=== PATIENT | female | born 1935 | race Caucasian/White ===

== ENCOUNTER 2017-01-01 16:14 | Inpatient (IN) | payer MEDICARE, BC ==
[2017-01-01 17:04] LABS: Hematocrit 38.5 % (36.0-47.0); Mean Platelet Volume 7.2 fL (7.4-10.4); Red Blood Cell (RBC) Count 3.91 mill/uL (4.20-5.40); White Blood Cell (WBC) Count 22.3 thou/uL (4.8-10.8)
--- NOTE | 2017-01-01 17:13 | RAD ---
RIGHT HIP TWO VIEWS: 01/01/17 HISTORY: 81-year-old female with right hip pain following an injury. Marked bone demineralization. Right hip joint arthrosis. No evidence for an acute fracture. 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 If patien t cannot ambulate at preambulation levels, consider followup right hip MRI for further assessment. POS: [facility]
[2017-01-01 17:20] LABS: Band 3 % (5-11); Neutrophil 74 % (42-75); Ovalocytes SLIGHT = 2-5 cells (100X) (0-1/hpf); Polychromasia SLIGHT = 2-3 cells (100X) (0-2/hpf)
[2017-01-01 17:22] LABS: Lactic Acid - Sepsis 2.1 mmol/L (0.5-2.2)
[2017-01-01 17:26] LABS: ALT (SGPT) 19 U/L (8-55); AST (SGOT) 22 U/L (5-34); Alkaline Phosphatase 170 U/L (40-150); Anion Gap 15 mmol/L (10-20); BUN (Urea Nitrogen) 14 mg/dL (9.8-20.1); Bilirubin, Total 0.5 mg/dL (0.2-1.2); CK (CPK) 212 U/L (29-168); Calc. Creatinine Clearance 0 mL/min (70-130); Calcium 9.3 mg/dL (7.8-10.44); Carbon Dioxide 25 mmol/L (23-31); Chloride 103 mmol/L (98-107); Estimated GFR-MDRD 56; Globulin 3.5 g/dL (2.4-3.5); Lipase Less than 4 U/L (8-78); Protein, Total 7.1 g/dL (6.0-8.3)
[2017-01-01 17:29] LABS: Troponin I Less than 0.010 ng/mL (< 0.028)
[2017-01-01] MEDS ORDERED: cefTRIAXone\\ROCEPHIN 2 GM VIAL ONE (17:42)
--- NOTE | 2017-01-01 18:17 | CT ---
BRAIN CT WITHOUT IV CONTRAST 01/01/17 HISTORY: 81-year-old female with head injury following trauma. COMPARISON: 09/29/16. There is some motion artifact on multiple levels. No focal mass or midline shift. No intra or extra- axial hemorrhage. Sinuses and mastoids are clear. Stable from prior study. IMPRESSION: Atrophy and chronic white matter ischemic changes, stable. No mass or bleed. POS: [facility]
[2017-01-01 18:31] LABS: Bilirubin Negative (Negative); Blood, Urine Trace (Negative); Glucose, Urine (Dipstick) Negative (Negative); Ketone, Urine Negative (Negative); Nitrite Positive (Negative); Protein, Urine (Dipstick) 30 mg/dL (Neg-Trace)
[2017-01-01 18:37] LABS: Bacteria/HPF 4+ HPF (None Seen); Hyaline Casts/LPF 0-3 HYALINE CAST LPF (0-3 Hyaline)
--- NOTE | 2017-01-01 18:50 | RAD ---
AP PELVIS ONE VIEW: 01/01/17 HISTORY: 81-year-old female with pain following a fall from standing. Diffuse bone demineralization is noted. Bilateral hip joint arthrosis. Stable appearance from 09/29/16 . IMPRESSION: Bone demineralization with bilateral hip joint arthrosis without acute fracture, stable from prior s tudy. POS: [facility]
[2017-01-01 19:36] LABS: Troponin I Less than 0.010 ng/mL (< 0.028)
--- NOTE | 2017-01-01 21:02 | CT ---
CT OF PELVIS: 01/01/17 INDICATION: Posttraumatic pain. FINDINGS: There is scattered osteoarthritis. Each hip joint maintains appropriate alignment without displaced fracture. No hip dislocation. There is degenerative hypertrophy at the symphysis pubis. The skeletal ly structures are demineralized. No displaced fracture of the sacrum. No intrapelvic free fluid or s ignificant hematoma. Incidental note of distention of the rectosigmoid colon by fecal material with colonic diverticulosis. There is vascular disease. There is grade I spondylolisthesis at L4-5, incom pletely assessed. Prominent disc degenerative disease at the lumbosacral junction present. IMPRESSION: No acute fracture of the pelvis. Incompletely assessed listhesis of L4-5. Correlate clinically. POS: [facility]
[2017-01-01] MEDS ORDERED: Ondansetron HCl/PF 4 MG/2 ML Vial IVP PRN (22:34)
[2017-01-01] MEDS ORDERED: Ondansetron ODT 4 MG TAB SL PRN (22:34)
[2017-01-02] MEDS ORDERED: HYDROcodone/Acetaminophen 5/325 mg Tablet PO PRN (02:22)
[2017-01-02] MEDS ORDERED: Ondansetron HCl/PF 4 MG/2 ML Vial IVP PRN (02:22)
[2017-01-02] MEDS ORDERED: Ondansetron ODT 4 MG TAB PO PRN (02:22)
[2017-01-02] MEDS ORDERED: CODEINE PO PRN (02:22)
[2017-01-02] MEDS ORDERED: Mag-Al 1200 mg/1200 mg/30 ML UDCUP PO PRN ×2 (02:22)
[2017-01-02] MEDS ORDERED: Acetaminophen 325 MG TAB PO PRN (02:22)
[2017-01-02] MEDS ORDERED: FIORINAL PO PRN (02:22)
[2017-01-02] MEDS: Sodium Chloride 0.9% 1,000 ML IV SCH ×3 (02:55→20:45)
[2017-01-02 04:32] LABS: #Basophils 0.1 thou/uL (0.0-0.2); #Lymphocytes 2.4 thou/uL (1.20-3.40); #Monocytes 0.9 thou/uL (0.11-0.59); #Neutrophils 8.7 thou/uL (1.40-6.50); %Basophils 0.7 % (0.0-1.0); %Eosinophils 7.8 % (0.0-10.0); %Lymphocytes 18.3 % (21.0-51.0); %Monocytes 6.8 % (0.0-10.0); Mean Platelet Volume 7.9 fL (7.4-10.4); Red Blood Cell (RBC) Count 3.53 mill/uL (4.20-5.40)
[2017-01-02] MEDS: Levothyroxine Sodium 75 MCG TAB PO SCH (05:03)
[2017-01-02 05:12] LABS: Anion Gap 12 mmol/L (10-20); BUN (Urea Nitrogen) 11 mg/dL (9.8-20.1); Calc. Creatinine Clearance 51 mL/min (70-130); Carbon Dioxide 26 mmol/L (23-31); Chloride 104 mmol/L (98-107); Estimated GFR-MDRD 64
--- NOTE | 2017-01-02 05:24 | HP ---
PRIMARY CARE PHYSICIAN: Dr. Home Johnson CHIEF COMPLAINT: \\\\" I fell at home\\\\". HISTORY OF PRESENT ILLNESS: Ms. Dutta is a pleasant 81-year-old female that has a history of hypert ension, gastroesophageal reflux disease, severe aortic stenosis, status post TAVR procedure. She wa s in her usual state of health until yesterday. She says that she fell at home. She says she was n ot doing anything special other than just walking across her room. She says she was in the front pa rt of her house near her front door when she fell and she was unable to get up. She denies feeling dizzy prior to the event. There was no chest pain or shortness of breath. She was on the floor for several hours before family was able to come and get her and bring her to the emergency room. Ther e it was found that she had a urinary tract infection with a significant leukocytosis with a white c ount of 22,000. A CT scan of the brain was negative other than some atrophy. It is suspected that the fall was secondary to the urinary tract infection. Currently, the patient has no specific compl aints. She says that she was scheduled to have an echocardiogram at the end of this week with Dr. Grace rios, her credit control clerk. REVIEW OF SYSTEMS: CONSTITUTIONAL: There have been no fevers, no chills, no night sweats, no weight loss. HEENT: No headaches, no dizziness, no visual changes, no sore throat, rhinorrhea, neck pain, no garrett nopathy. PULMONARY: No hemoptysis, no cough, no wheezing. CARDIOVASCULAR: She denies any chest pain or shortness of breath, no PND, no orthopnea. GASTROINTESTINAL: No abdominal pain, no nausea, no vomiting, no change in bowels. GENITOURINARY: No urinary frequency, hematuria, no hesitancy. NEUROLOGIC: No focal weakness, numbness, no seizures. PSYCHIATRIC: No symptoms of anxiety or depression. SKIN AND INTEGUMENT: No skin changes. No rash. PAST MEDICAL HISTORY: Significant for gastroesophageal reflux disease, hypertension, coronary arter y disease, chronic pain, migraines, hypothyroidism, critical aortic stenosis, status post TAVR. PAST SURGICAL HISTORY: She has had a transcutaneous aortic valve replacement, appendectomy, breast reduction, back and neck surgery and a cholecystectomy. ALLERGIES: No known drug allergies. SOCIAL HISTORY: She is a nonsmoker, nondrinker. Her daughter currently lives with her. CODE STATUS: Full code. FAMILY HISTORY: Significant for cancer in her mother. MEDICATIONS: BuSpar 7.5 mg twice a day, triazolam 0.5 mg at bedtime, Lyrica 75 mg twice a day, Klor -Con 20 mEq daily, oxybutynin 5 mg twice a daily, lisinopril 10 mg daily, levothyroxine 75 mcg daily , [place] 5/325 q.12. as needed, Lasix 20 mg daily, fluoxetine 20 mg daily, Fiorinal q.4 hours as nee ded, carvedilol 12.5 mg daily, atorvastatin 10 mg at bedtime, aspirin 81 mg a day. PHYSICAL EXAMINATION: GENERAL: She is alert and oriented. She appears to be in no acute distress. VITAL SIGNS: Her vital signs were stable with a blood pressure 123/59, heart rate 75, respiratory r ate of 18, temperature is 98.5. HEENT: Her pupils are equal, round, and reactive. Extraocular muscles are intact. Her sclerae are anicteric. Throat no erythema, no exudates. NECK: No adenopathy, no bruits. LUNGS: Clear. No wheezing, no rales. CARDIOVASCULAR: She has a normal S1 and S2. There is no S3 or S4. No murmurs, clicks or rubs. ABDOMEN: Soft, it is nontender, nondistended. Positive for bowel sounds. No rebound or guarding. EXTREMITIES: There is just trace edema. SIGNIFICANT LABORATORY: White blood cell count 22.3, hemoglobin 11.9, hematocrit 38.5, platelet cou nt is 319. Sodium 139, potassium 4.0, chloride is 103, CO2 is 25, BUN of 14, creatinine 0.95, gluco se is 109. Urinalysis is nitrite positive, 4+ bacteria and too numerous to count WBCs. ASSESSMENT AND PLAN: This is a pleasant 81-year-old female who suffered a fall at home and she had generalized weakness and unable to get up. She was found to have a urinary tract infection which is likely the culprit of her weakness and fall. She will be admitted to the medical floor, started on empiric antibiotics for urinary tract infection. Urine cultures have been done as well as blood cu ltures from the ER. We will consult Physical Therapy and Occupational Therapy, continue her other h ome medications and await culture results. Since she has an appointment already scheduled to evalua te her valves, we will hold off on checking an echo unless her blood cultures become positive or if she does not significantly improve with the treatment of the urinary tract infection.
[2017-01-02] MEDS ORDERED: FLU VACC TS2017-18 (>65YR) 0.5 ML SYRINGE IM ONE ×2 (09:00→11:00)
[2017-01-02] MEDS: busPIRone HCl 5 MG TAB PO SCH ×2 (09:14→20:46)
[2017-01-02] MEDS: Carvedilol 6.25 MG TAB PO SCH (09:15)
[2017-01-02] MEDS: FLUoxetine HCl 20 MG CAP PO SCH (09:19)
[2017-01-02] MEDS: Pregabalin 75 MG CAP PO SCH ×2 (09:20→20:46)
[2017-01-02] MEDS: Enoxaparin Sodium 30 MG/0.3 ML SYRINGE SC SCH (09:24)
[2017-01-02] MEDS: Oxybutynin Chloride 5 MG TAB PO SCH ×2 (09:27→22:03)
[2017-01-02] MEDS ORDERED: Potassium Chloride 10 MEQ TAB PO SCH (13:00)
[2017-01-02] MEDS: HYDROcodone/Acetaminophen 5/325 mg Tablet PO PRN (13:41)
--- NOTE | 2017-01-02 16:07 | PDOC.PN ---
- Subjective Encounter Start Date: 01/02/17 Encounter Start Time: 09:00 - Objective Resuscitation Status: Resuscitation Status FULL:Full Resuscitation Vital Signs & Weight: Vital Signs (12 hours) Temp Pulse Resp BP BP Pulse Ox 01/02/17 12:05 98.6 F 59 L 20 110/55 L 92 L 01/02/17 09:15 118/48 L 01/02/17 08:00 98.4 F 60 18 118/58 L 93 L 01/02/17 04:00 98.6 F 75 18 143/59 H 100 Weight Weight 141 lb 5 oz Result Diagrams: 01/02/17 03:10 01/02/17 03:10 Phys Exam - Physical Examination Constitutional: NAD HEENT: moist MMs, sclera anicteric Neck: no nodes Respiratory: no wheezing, no rales, no rhonchi Cardiovascular: RRR, no significant murmur, no rub, gallop Gastrointestinal: soft, non-tender, positive bowel sounds Musculoskeletal: no edema, pulses present, edema present Neurological: non-focal, normal sensation, moves all 4 limbs Psychiatric: A&O x 3 Dx/Plan - Plan PT/OT, social media sr strategy manager we will continue with current care. monitor WBC count. cont present abx. -: PT eval and treat * .
--- NOTE | 2017-01-02 16:29 | MRI ---
EXAM: MRI OF LUMBAR SPINE WITHOUT CONTRAST 01/02/17 HISTORY: Recurrent fall. Right hip and back pain. COMPARISON: None. TECHNIQUE: Lumbar spine MRI is performed without intravenous gadolinium administration. Multisequential, multip lanar imaging is performed. FINDINGS: Appropriate T1 marrow signal intensity of the lumbar vertebrae. Lumbar spine vertebral body height i s maintained. No fracture. No significant STIR hyperintensity to suggest vertebral body edema or li gamentous injury. There is type I Modic change at the L5-S1 level. 1 mm of anterolisthesis of L3 upon L4, approximately 3 mm of anterolisthesis of L4 upon L5, 4.7 mm o f anterolisthesis of L5 upon S1. Symmetric signal intensity of the psoas muscles. Appropriate signal intensity of the visualized umer d organs. The conus medullaris terminates at the mid L1 level. T12-L1: Adequate disc hydration. No significant central canal stenosis. Foramina are patent. L1-L2: Adequate disc hydration. No significant central canal stenosis. Mild right foraminal narrowin g. Left neural foramen is patent. L2-L3: Minimal disc desiccation without significant loss of disc space height. No significant external relations manager ior disc abnormality. Minimal posterior ligament hypertrophy. No significant central canal stenosis. Neural foramina are patent bilaterally. L3-L4: Minimal disc desiccation. No significant loss of disc space height. Broad based disc bulge, l igament, flavum thickening and facet hypertrophy result in mild to moderate central canal stenosis. There may be minimal superior disc extrusion. There is fluid signal intensity of both intra-articula r facet joints. Mild bilateral foraminal narrowing. L4-L5: Moderate loss of disc space height. Broad based disc bulge, ligamentum flavum thickening and facet hypertrophy result in moderate to severe central canal stenosis. There is a small amount of fl uid in both intra-articular facet joints. Mild to moderate bilateral foraminal narrowing. L5-S1: Moderate loss of disc space height. Generalized disc bulge and posterior element hypertrophy result in minimal central canal stenosis. Minimal narrowing of both subarticular zones. No significa nt mass effect upon either traversing S1 nerve root. Moderate to severe right and left foraminal srinivasan rowing. IMPRESSION: Degenerative change in the lumbar spine as above. POS: [facility]
[2017-01-02] MEDS: cefTRIAXone\\ROCEPHIN 1 GM in Sodium Chloride 0.9% 100 ML IVPB SCH (20:45)
[2017-01-02] MEDS: Atorvastatin Calcium 10 MG TAB PO SCH (20:47)
[2017-01-02] MEDS ORDERED: TRIAZOLAM 0.5 MG PO SCH (21:00)
[2017-01-02] MEDS: Triazolam [Halcion] 0.25 MG PO SCH (22:03)
[2017-01-03 05:56] LABS: Anion Gap 10 mmol/L (10-20); BUN (Urea Nitrogen) 9 mg/dL (9.8-20.1); Calc. Creatinine Clearance 53 mL/min (70-130); Calcium 8.7 mg/dL (7.8-10.44); Carbon Dioxide 25 mmol/L (23-31); Chloride 108 mmol/L (98-107); Estimated GFR-MDRD 68
[2017-01-03 06:09] LABS: #Basophils 0.1 thou/uL (0.0-0.2); #Eosinphils 1.2 thou/uL (0.0-0.7); #Lymphocytes 2.3 thou/uL (1.20-3.40); #Neutrophils 4.8 thou/uL (1.40-6.50); %Basophils 0.6 % (0.0-1.0); %Eosinophils 12.7 % (0.0-10.0); %Lymphocytes 24.3 % (21.0-51.0); %Monocytes 11.1 % (0.0-10.0); Hematocrit 31.7 % (36.0-47.0); Mean Platelet Volume 7.1 fL (7.4-10.4); Red Blood Cell (RBC) Count 3.29 mill/uL (4.20-5.40); White Blood Cell (WBC) Count 9.3 thou/uL (4.8-10.8)
[2017-01-03] MEDS: Levothyroxine Sodium 75 MCG TAB PO SCH (06:21)
[2017-01-03] MEDS ORDERED: Eucerin (Mineral Oil/Petrolatum,White) 30 gm Jar TOP PRN (08:07)
[2017-01-03] MEDS ORDERED: Sodium Chloride 0.65% Nasal 44 ML BOT EA NARE PRN (08:07)
[2017-01-03] MEDS ORDERED: Bisacodyl 10 MG SUPP PR PRN (08:07)
[2017-01-03] MEDS ORDERED: Diabetic Tussin 200 MG/10 ML UDCUP PO PRN (08:07)
[2017-01-03] MEDS ORDERED: Loperamide HCl 2 MG CAP PO PRN (08:07)
[2017-01-03] MEDS ORDERED: Senokot 8.6 MG TAB PO PRN (08:07)
[2017-01-03] MEDS ORDERED: Loratadine 10 MG TAB PO PRN (08:07)
[2017-01-03] MEDS ORDERED: Milk Of Magnesia 30 ML UDCUP PO PRN (08:07)
[2017-01-03] MEDS ORDERED: Artificial Tears 18 DROP/0.9 ML EA EYE PRN (08:07)
[2017-01-03] MEDS: Sodium Chloride 0.9% 1,000 ML IV SCH (08:21)
[2017-01-03] MEDS: Carvedilol 6.25 MG TAB PO SCH (08:24)
[2017-01-03] MEDS: FLUoxetine HCl 20 MG CAP PO SCH (08:24)
[2017-01-03] MEDS: Pregabalin 75 MG CAP PO SCH ×2 (08:24→21:20)
[2017-01-03] MEDS: busPIRone HCl 5 MG TAB PO SCH ×2 (08:24→21:21)
[2017-01-03] MEDS: Oxybutynin Chloride 5 MG TAB PO SCH ×2 (08:24→21:16)
[2017-01-03] MEDS: Enoxaparin Sodium 30 MG/0.3 ML SYRINGE SC SCH (08:25)
[2017-01-03] MEDS: HYDROcodone/Acetaminophen 5/325 mg Tablet PO PRN (12:06)
--- NOTE | 2017-01-03 13:38 | PDOC.PN ---
- Subjective Encounter Start Date: 01/03/17 Encounter Start Time: 10:00 -: old records requested/rev Patient seen and examined. No new complaints. No overnight events, no fever, feels better - Objective Resuscitation Status: Resuscitation Status FULL:Full Resuscitation MAR Reviewed: Yes Vital Signs & Weight: Vital Signs (12 hours) Temp Pulse Resp BP Pulse Ox 01/03/17 08:00 98.3 F 72 16 01/03/17 07:54 98.3 F 72 16 133/66 93 L Weight Weight 141 lb 5 oz I&O: 01/02/17 01/03/17 01/04/17 06:59 06:59 06:59 Intake Total 1700 Balance 1700 Result Diagrams: 01/03/17 05:56 01/03/17 05:11 Phys Exam - Physical Examination Constitutional: NAD HEENT: PERRLA, moist MMs, sclera anicteric Neck: no JVD, supple Respiratory: no wheezing, no rales, no rhonchi Cardiovascular: RRR, no significant murmur, no rub Gastrointestinal: soft, non-tender, no distention, positive bowel sounds Musculoskeletal: no edema, pulses present Neurological: non-focal, normal sensation, moves all 4 limbs Psychiatric: normal affect, A&O x 3 Skin: no rash, normal turgor Dx/Plan (1) Hypokalemia Code(s): E87.6 - HYPOKALEMIA Status: Acute (2) UTI (urinary tract infection) Status: Acute (3) Anxiety and depression Code(s): F41.9 - ANXIETY DISORDER, UNSPECIFIED; F32.9 - MAJOR DEPRESSIVE DISORDER, SINGLE EPISODE, UNSPECIFIED Status: Chronic (4) Dyslipidemia Code(s): E78.5 - HYPERLIPIDEMIA, UNSPECIFIED Status: Chronic (5) GERD (gastroesophageal reflux disease) Code(s): K21.9 - GASTRO-ESOPHAGEAL REFLUX DISEASE WITHOUT ESOPHAGITIS Status: Chronic (6) Generalized weakness Code(s): R53.1 - WEAKNESS Status: Chronic (7) H/O prosthetic aortic valve replacement Code(s): Z95.2 - PRESENCE OF PROSTHETIC HEART VALVE Status: Chronic (8) Hypertension Code(s): I10 - ESSENTIAL (PRIMARY) HYPERTENSION Status: Chronic Comment: d (9) Hypothyroidism Code(s): E03.9 - HYPOTHYROIDISM, UNSPECIFIED Status: Chronic (10) Macrocytic anemia Code(s): D53.9 - NUTRITIONAL ANEMIA, UNSPECIFIED Status: Chronic (11) Recurrent falls Code(s): R29.6 - REPEATED FALLS Status: Chronic - Plan cont current plan of care, continue antibiotics, PT/OT * medication reviewed as below * symptomatic treatment * DC Cipro as resistance * continue PT * selected home medication * consider discharge over weekend. Review of Systems - Review of Systems Constitutional: Weakness. negative: Fever, Chills, Sweats, Malaise, Other ENT: negative: Ear Pain, Ear Discharge, Nose Pain, Nose Discharge, Nose Congestion, Mouth Pain, Mouth Swelling, Throat Pain, Throat Swelling, Other Respiratory: negative: Cough, Dry, Shortness of Breath, Hemoptysis, SOB with Excertion, Pleuritic Pain, Sputum, Wheezing Cardiovascular: negative: Chest Pain, Palpitations, Orthopnea, Paroxysmal Noc. Dyspnea, Edema, Light Headedness, Other Gastrointestinal: negative: Nausea, Vomiting, Abdominal Pain, Diarrhea, Constipation, Melena, Hematochezia, Other Genitourinary: negative: Dysuria, Frequency, Incontinence, Hematuria, Retention , Other Musculoskeletal: negative: Neck Pain, Shoulder Pain, Arm Pain, Back Pain, Hand Pain, Leg Pain, Foot Pain, Other - Medications/Allergies Allergies/Adverse Reactions: Allergies Allergy/AdvReac Type Severity Reaction Status Date / Time No Known Drug Allergies Allergy Verified 10/12/13 20:29 Medications: Current Medications Acetaminophen (Tylenol) 650 mg PO Q4H PRN PRN Reason: Headache/Fever or Pain Hydrocodone Bitart/Acetaminophen ([place] 5/325) 1 tab PO Q6H PRN PRN Reason: Mild-Moderate Pain (1-5) Last Admin: 01/03/17 12:06 Dose: 1 tab Al Hydroxide/Mg Hydroxide (Maalox) 30 ml PO Q6H PRN PRN Reason: Heartburn or Indigestion Artificial Tears (Tears Naturale) 0 drop EA EYE PRN PRN PRN Reason: Dry Eyes Aspirin (Aspirin Chewable) 81 mg PO DAILY [facility] Last Admin: 01/03/17 08:25 Dose: 81 mg Atorvastatin Calcium (Lipitor) 10 mg PO HS [facility] Last Admin: 01/02/17 20:47 Dose: 10 mg Bisacodyl (Dulcolax) 10 mg TN DAILYPRN PRN PRN Reason: Constipation Buspirone HCl (Buspar) 7.5 mg PO BID [facility] Last Admin: 01/03/17 08:24 Dose: 7.5 mg Butalbital/Aspirin/Caffeine/Codeine (Fiorinal W/ Codeine) 1 cap PO Q4H PRN PRN Reason: Headache Carvedilol (Coreg) 12.5 mg PO DAILY [facility] Last Admin: 01/03/17 08:24 Dose: 12.5 mg Enoxaparin Sodium (Lovenox) 30 mg SC 0900 [facility] Last Admin: 01/03/17 08:25 Dose: 30 mg Fluoxetine HCl (Prozac) 20 mg PO DAILY [facility] Last Admin: 01/03/17 08:24 Dose: 20 mg Guaifenesin (Robitussin Sf) 200 mg PO Q4H PRN PRN Reason: Cough Hydralazine HCl (Apresoline) 10 mg SLOW IVP Q4H PRN PRN Reason: Systolic BP > 180 Ciprofloxacin/Dextrose 400 mg/ (Device) 200 mls @ 200 mls/hr IVPB Q12HR [facility] Last Admin: 01/03/17 08:22 Dose: 200 mls Sodium Chloride (Normal Saline 0.9%) 1,000 mls @ 60 mls/hr IV .[id number] [facility] Last Admin: 01/03/17 08:21 Dose: 1,000 mls Ceftriaxone Sodium 1 gm/ (Sodium Chloride) 100 mls @ 200 mls/hr IVPB Q24HR [facility] Last Admin: 01/02/17 20:45 Dose: 100 mls Levothyroxine Sodium (Synthroid) 75 mcg PO 0600 [facility] Last Admin: 01/03/17 06:21 Dose: 75 mcg Loperamide HCl (Imodium) 2 mg PO PRN PRN PRN Reason: Diarrhea/Loose Stools Loratadine (Claritin) 10 mg PO DAILYPRN PRN PRN Reason: Sinus Symptoms Magnesium Hydroxide (Milk Of Magnesium) 30 ml PO DAILYPRN PRN PRN Reason: Constipation Mineral Oil/White Petrolatum (Eucerin Cream) 0 gm TOP BIDPRN PRN PRN Reason: Dry Skin Ondansetron HCl (Zofran Odt) 4 mg PO Q6H PRN PRN Reason: Nausea/Vomiting Ondansetron HCl (Zofran) 4 mg IVP Q6H PRN PRN Reason: Nausea/Vomiting Oxybutynin Chloride (Ditropan) 5 mg PO BID [facility] Last Admin: 01/03/17 08:24 Dose: 5 mg Triazolam [Halcion] (0.25 Mg) 0 each PO HS [facility] Last Admin: 01/02/17 22:03 Dose: 1 each Pregabalin (Lyrica) 75 mg PO BID [facility] Last Admin: 01/03/17 08:24 Dose: 75 mg Senna (Senokot) 2 tab PO HSPRN PRN PRN Reason: Constipation Sodium Chloride (Flush - Normal Saline) 10 ml IVF PRN PRN PRN Reason: Saline Flush Sodium Chloride ([place] Nasal [place] 0.65%) 0 ml EA NARE QIDPRN PRN PRN Reason: Nasal Congestion
[2017-01-03] MEDS: cefTRIAXone\\ROCEPHIN 1 GM in Sodium Chloride 0.9% 100 ML IVPB SCH (21:16)
[2017-01-03] MEDS: Atorvastatin Calcium 10 MG TAB PO SCH (21:22)
[2017-01-03] MEDS: Triazolam [Halcion] 0.25 MG PO SCH (21:22)
[2017-01-04] MEDS: Levothyroxine Sodium 75 MCG TAB PO SCH (05:30)
[2017-01-04] MEDS: Sodium Chloride 0.9% 1,000 ML IV SCH (05:31)
[2017-01-04] MEDS: HYDROcodone/Acetaminophen 5/325 mg Tablet PO PRN (08:40)
[2017-01-04] MEDS: Carvedilol 6.25 MG TAB PO SCH (08:41)
[2017-01-04] MEDS: Oxybutynin Chloride 5 MG TAB PO SCH ×2 (08:41→20:40)
[2017-01-04] MEDS: Pregabalin 75 MG CAP PO SCH ×2 (08:41→20:43)
[2017-01-04] MEDS: Enoxaparin Sodium 30 MG/0.3 ML SYRINGE SC SCH (08:42)
[2017-01-04] MEDS: busPIRone HCl 5 MG TAB PO SCH ×2 (08:42→20:40)
[2017-01-04] MEDS: FLUoxetine HCl 20 MG CAP PO SCH (08:42)
[2017-01-04] MEDS ORDERED: HYDROcodone/Acetaminophen 5/325 mg Tablet PO SCH (12:45)
--- NOTE | 2017-01-04 14:08 | PDOC.PN ---
- Subjective Encounter Start Date: 01/04/17 Encounter Start Time: 13:00 Subjective: feels better - Objective Resuscitation Status: Resuscitation Status FULL:Full Resuscitation MAR Reviewed: Yes Vital Signs & Weight: Vital Signs (12 hours) Temp Pulse Resp BP BP Pulse Ox 01/04/17 08:41 146/71 H 01/04/17 08:00 98.5 F 70 16 01/04/17 07:06 98.5 F 70 16 146/71 H 93 L Weight Weight 141 lb 5 oz I&O: 01/03/17 01/04/17 01/05/17 06:59 06:59 06:59 Intake Total 1700 1540 Balance 1700 1540 Result Diagrams: 01/03/17 05:56 01/03/17 05:11 Phys Exam - Physical Examination HEENT: PERRLA, moist MMs Neck: no JVD, supple Respiratory: no wheezing, no rales Cardiovascular: RRR, no significant murmur Gastrointestinal: soft, non-tender, positive bowel sounds Musculoskeletal: no edema, pulses present Neurological: non-focal, moves all 4 limbs Dx/Plan (1) Sepsis Code(s): A41.9 - SEPSIS, UNSPECIFIED ORGANISM Status: Acute Qualifiers: Sepsis type: Escherichia coli Qualified Code(s): A41.51 - Sepsis due to Escherichia coli [E. coli] (2) UTI (urinary tract infection) Status: Acute Qualifiers: Urinary tract infection type: acute cystitis Hematuria presence: without hematuria Qualified Code(s): N30.00 - Acute cystitis without hematuria (3) Dyslipidemia Code(s): E78.5 - HYPERLIPIDEMIA, UNSPECIFIED Status: Chronic (4) GERD (gastroesophageal reflux disease) Code(s): K21.9 - GASTRO-ESOPHAGEAL REFLUX DISEASE WITHOUT ESOPHAGITIS Status: Chronic Qualifiers: Esophagitis presence: esophagitis presence not specified Qualified Code(s) : K21.9 - Gastro-esophageal reflux disease without esophagitis (5) H/O prosthetic aortic valve replacement Code(s): Z95.2 - PRESENCE OF PROSTHETIC HEART VALVE Status: Chronic (6) Hypertension Code(s): I10 - ESSENTIAL (PRIMARY) HYPERTENSION Status: Chronic Qualifiers: Hypertension type: essential hypertension Qualified Code(s): I10 - Essential (primary) hypertension Comment: d (7) Hypothyroidism Code(s): E03.9 - HYPOTHYROIDISM, UNSPECIFIED Status: Chronic Qualifiers: Hypothyroidism type: unspecified Qualified Code(s): E03.9 - Hypothyroidism , unspecified (8) Recurrent falls Code(s): R29.6 - REPEATED FALLS Status: Chronic - Plan is on ceftriaxone -: macrobid for home use -: dc narco, motrin bid with ultram prn -: take halcion HS for insomnia -: PCP to further taper and dc psychotropic and sedatives * . Review of Systems - Medications/Allergies Allergies/Adverse Reactions: Allergies Allergy/AdvReac Type Severity Reaction Status Date / Time No Known Drug Allergies Allergy Verified 10/12/13 20:29 Medications: Current Medications Acetaminophen (Tylenol) 650 mg PO Q4H PRN PRN Reason: Headache/Fever or Pain Hydrocodone Bitart/Acetaminophen ([place] 5/325) 1 tab PO Q6H PRN PRN Reason: Mild-Moderate Pain (1-5) Last Admin: 01/04/17 08:40 Dose: 1 tab Hydrocodone Bitart/Acetaminophen ([place] 5/325) 1 tab PO NOW [facility] Stop: 01/04/17 14:45 Last Admin: 01/04/17 12:41 Dose: 1 tab Al Hydroxide/Mg Hydroxide (Maalox) 30 ml PO Q6H PRN PRN Reason: Heartburn or Indigestion Artificial Tears (Tears Naturale) 0 drop EA EYE PRN PRN PRN Reason: Dry Eyes Aspirin (Aspirin Chewable) 81 mg PO DAILY [facility] Last Admin: 01/04/17 08:42 Dose: 81 mg Atorvastatin Calcium (Lipitor) 10 mg PO HS [facility] Last Admin: 01/03/17 21:22 Dose: 10 mg Bisacodyl (Dulcolax) 10 mg [place] DAILYPRN PRN PRN Reason: Constipation Buspirone HCl (Buspar) 7.5 mg PO BID [facility] Last Admin: 01/04/17 08:42 Dose: 7.5 mg Butalbital/Aspirin/Caffeine/Codeine (Fiorinal W/ Codeine) 1 cap PO Q4H PRN PRN Reason: Headache Carvedilol (Coreg) 12.5 mg PO DAILY [facility] Last Admin: 01/04/17 08:41 Dose: 12.5 mg Enoxaparin Sodium (Lovenox) 30 mg SC 0900 [facility] Last Admin: 01/04/17 08:42 Dose: 30 mg Fluoxetine HCl (Prozac) 20 mg PO DAILY [facility] Last Admin: 01/04/17 08:42 Dose: 20 mg Guaifenesin (Robitussin Sf) 200 mg PO Q4H PRN PRN Reason: Cough Hydralazine HCl (Apresoline) 10 mg SLOW IVP Q4H PRN PRN Reason: Systolic BP > 180 Sodium Chloride (Normal Saline 0.9%) 1,000 mls @ 60 mls/hr IV .[id number] [facility] Last Admin: 01/04/17 05:31 Dose: 1,000 mls Ceftriaxone Sodium 1 gm/ (Sodium Chloride) 100 mls @ 200 mls/hr IVPB Q24HR [facility] Last Admin: 01/03/17 21:16 Dose: 100 mls Levothyroxine Sodium (Synthroid) 75 mcg PO 0600 [facility] Last Admin: 01/04/17 05:30 Dose: 75 mcg Loperamide HCl (Imodium) 2 mg PO PRN PRN PRN Reason: Diarrhea/Loose Stools Loratadine (Claritin) 10 mg PO DAILYPRN PRN PRN Reason: Sinus Symptoms Magnesium Hydroxide (Milk Of Magnesium) 30 ml PO DAILYPRN PRN PRN Reason: Constipation Mineral Oil/White Petrolatum (Eucerin Cream) 0 gm TOP BIDPRN PRN PRN Reason: Dry Skin Ondansetron HCl (Zofran Odt) 4 mg PO Q6H PRN PRN Reason: Nausea/Vomiting Ondansetron HCl (Zofran) 4 mg IVP Q6H PRN PRN Reason: Nausea/Vomiting Oxybutynin Chloride (Ditropan) 5 mg PO BID [facility] Last Admin: 01/04/17 08:41 Dose: 5 mg Triazolam [Halcion] (0.25 Mg) 0 each PO HS [facility] Last Admin: 01/03/17 21:22 Dose: 1 each Pregabalin (Lyrica) 75 mg PO BID [facility] Last Admin: 01/04/17 08:41 Dose: 75 mg Senna (Senokot) 2 tab PO HSPRN PRN PRN Reason: Constipation Sodium Chloride (Flush - Normal Saline) 10 ml IVF PRN PRN PRN Reason: Saline Flush Sodium Chloride ([place] Nasal [place] 0.65%) 0 ml EA NARE QIDPRN PRN PRN Reason: Nasal Congestion
[2017-01-04] MEDS: Ibuprofen 200 MG TAB PO SCH (20:42)
[2017-01-04] MEDS: Atorvastatin Calcium 10 MG TAB PO SCH (20:42)
[2017-01-04] MEDS: traMADol HCl 50 MG TAB PO PRN (20:43)
[2017-01-04] MEDS: cefTRIAXone\\ROCEPHIN 1 GM in Sodium Chloride 0.9% 100 ML IVPB SCH (20:44)
[2017-01-04] MEDS: Triazolam [Halcion] 0.25 MG PO SCH (21:11)
[2017-01-05] MEDS: Sodium Chloride 0.9% 1,000 ML IV SCH ×2 (00:06→16:40)
[2017-01-05 04:37] LABS: #Basophils 0.1 thou/uL (0.0-0.2); #Eosinphils 1.1 thou/uL (0.0-0.7); #Lymphocytes 2.2 thou/uL (1.20-3.40); #Monocytes 1.2 thou/uL (0.11-0.59); #Neutrophils 5.9 thou/uL (1.40-6.50); %Basophils 0.7 % (0.0-1.0); %Eosinophils 10.6 % (0.0-10.0); %Lymphocytes 20.8 % (21.0-51.0); %Monocytes 11.3 % (0.0-10.0); Hematocrit 29.5 % (36.0-47.0); Mean Platelet Volume 7.2 fL (7.4-10.4); Red Blood Cell (RBC) Count 3.05 mill/uL (4.20-5.40); White Blood Cell (WBC) Count 10.4 thou/uL (4.8-10.8)
[2017-01-05 05:00] LABS: Anion Gap 8 mmol/L (10-20); BUN (Urea Nitrogen) 10 mg/dL (9.8-20.1); Calc. Creatinine Clearance 58 mL/min (70-130); Calcium 8.7 mg/dL (7.8-10.44); Carbon Dioxide 24 mmol/L (23-31); Chloride 107 mmol/L (98-107); Estimated GFR-MDRD 75
[2017-01-05] MEDS: traMADol HCl 50 MG TAB PO PRN ×2 (06:01→20:02)
[2017-01-05] MEDS: Levothyroxine Sodium 75 MCG TAB PO SCH (06:01)
[2017-01-05] MEDS: Carvedilol 6.25 MG TAB PO SCH (08:21)
[2017-01-05] MEDS: Oxybutynin Chloride 5 MG TAB PO SCH ×2 (08:21→20:02)
[2017-01-05] MEDS: busPIRone HCl 5 MG TAB PO SCH ×2 (08:24→20:03)
[2017-01-05] MEDS: Pregabalin 75 MG CAP PO SCH ×2 (08:25→20:02)
[2017-01-05] MEDS: FLUoxetine HCl 20 MG CAP PO SCH (08:25)
[2017-01-05] MEDS: Ibuprofen 200 MG TAB PO SCH ×2 (08:26→20:02)
[2017-01-05] MEDS: Enoxaparin Sodium 30 MG/0.3 ML SYRINGE SC SCH (08:26)
--- NOTE | 2017-01-05 14:47 | PDOC.PN ---
- Subjective Encounter Start Date: 01/05/17 Encounter Start Time: 13:00 Subjective: no sob, feels better - Objective Resuscitation Status: Resuscitation Status FULL:Full Resuscitation MAR Reviewed: Yes Vital Signs & Weight: Vital Signs (12 hours) Temp Pulse Resp BP BP Pulse Ox 01/05/17 08:21 115/54 L 01/05/17 08:00 98.0 F 53 L 18 91 L 01/05/17 07:49 98.0 F 53 L 18 94/41 L 91 L Weight Weight 141 lb 5 oz I&O: 01/04/17 01/05/17 01/06/17 06:59 06:59 06:59 Intake Total 1540 1207 Balance 1540 1207 Result Diagrams: 01/05/17 03:43 01/05/17 03:43 Phys Exam - Physical Examination HEENT: PERRLA, moist MMs Neck: no JVD, supple Respiratory: no wheezing, no rales Cardiovascular: RRR, no significant murmur Gastrointestinal: soft, non-tender, positive bowel sounds Musculoskeletal: no edema, pulses present Neurological: non-focal, moves all 4 limbs Psychiatric: A&O x 3 Dx/Plan (1) Sepsis Code(s): A41.9 - SEPSIS, UNSPECIFIED ORGANISM Status: Acute Qualifiers: Sepsis type: Escherichia coli Qualified Code(s): A41.51 - Sepsis due to Escherichia coli [E. coli] (2) UTI (urinary tract infection) Status: Acute Qualifiers: Urinary tract infection type: acute cystitis Hematuria presence: without hematuria Qualified Code(s): N30.00 - Acute cystitis without hematuria (3) Dyslipidemia Code(s): E78.5 - HYPERLIPIDEMIA, UNSPECIFIED Status: Chronic (4) GERD (gastroesophageal reflux disease) Code(s): K21.9 - GASTRO-ESOPHAGEAL REFLUX DISEASE WITHOUT ESOPHAGITIS Status: Chronic Qualifiers: Esophagitis presence: esophagitis presence not specified Qualified Code(s) : K21.9 - Gastro-esophageal reflux disease without esophagitis (5) H/O prosthetic aortic valve replacement Code(s): Z95.2 - PRESENCE OF PROSTHETIC HEART VALVE Status: Chronic (6) Hypertension Code(s): I10 - ESSENTIAL (PRIMARY) HYPERTENSION Status: Chronic Qualifiers: Hypertension type: essential hypertension Qualified Code(s): I10 - Essential (primary) hypertension Comment: d (7) Hypothyroidism Code(s): E03.9 - HYPOTHYROIDISM, UNSPECIFIED Status: Chronic Qualifiers: Hypothyroidism type: unspecified Qualified Code(s): E03.9 - Hypothyroidism , unspecified (8) Recurrent falls Code(s): R29.6 - REPEATED FALLS Status: Chronic - Plan is on ceftriaxone -: tmax of 100 -: wbc down to 10 from 22k -: will need 2 more of iv antibiotics then switch to either augmentin/macrobid -: to mobilize with PT, had amb 100ft on 7th with PT * . Review of Systems - Medications/Allergies Allergies/Adverse Reactions: Allergies Allergy/AdvReac Type Severity Reaction Status Date / Time No Known Drug Allergies Allergy Verified 10/12/13 20:29 Medications: Current Medications Acetaminophen (Tylenol) 650 mg PO Q4H PRN PRN Reason: Headache/Fever or Pain Last Admin: 01/04/17 21:10 Dose: 650 mg Al Hydroxide/Mg Hydroxide (Maalox) 30 ml PO Q6H PRN PRN Reason: Heartburn or Indigestion Artificial Tears (Tears Naturale) 0 drop EA EYE PRN PRN PRN Reason: Dry Eyes Aspirin (Aspirin Chewable) 81 mg PO DAILY [facility] Last Admin: 01/05/17 08:21 Dose: 81 mg Atorvastatin Calcium (Lipitor) 10 mg PO HS [facility] Last Admin: 01/04/17 20:42 Dose: 10 mg Bisacodyl (Dulcolax) 10 mg AR DAILYPRN PRN PRN Reason: Constipation Buspirone HCl (Buspar) 7.5 mg PO BID [facility] Last Admin: 01/05/17 08:24 Dose: 7.5 mg Carvedilol (Coreg) 12.5 mg PO DAILY [facility] Last Admin: 01/05/17 08:21 Dose: Not Given Enoxaparin Sodium (Lovenox) 30 mg SC 0900 [facility] Last Admin: 01/05/17 08:26 Dose: 30 mg Fluoxetine HCl (Prozac) 20 mg PO DAILY [facility] Last Admin: 01/05/17 08:25 Dose: 20 mg Guaifenesin (Robitussin Sf) 200 mg PO Q4H PRN PRN Reason: Cough Hydralazine HCl (Apresoline) 10 mg SLOW IVP Q4H PRN PRN Reason: Systolic BP > 180 Sodium Chloride (Normal Saline 0.9%) 1,000 mls @ 60 mls/hr IV .[id number] [facility] Last Admin: 01/05/17 00:06 Dose: 1,000 mls Ceftriaxone Sodium 1 gm/ (Sodium Chloride) 100 mls @ 200 mls/hr IVPB Q24HR [facility] Last Admin: 01/04/17 20:44 Dose: 100 mls Ibuprofen (Motrin) 200 mg PO BID [facility] Last Admin: 01/05/17 08:26 Dose: 200 mg Levothyroxine Sodium (Synthroid) 75 mcg PO 0600 [facility] Last Admin: 01/05/17 06:01 Dose: 75 mcg Loperamide HCl (Imodium) 2 mg PO PRN PRN PRN Reason: Diarrhea/Loose Stools Magnesium Hydroxide (Milk Of Magnesium) 30 ml PO DAILYPRN PRN PRN Reason: Constipation Mineral Oil/White Petrolatum (Eucerin Cream) 0 gm TOP BIDPRN PRN PRN Reason: Dry Skin Ondansetron HCl (Zofran Odt) 4 mg PO Q6H PRN PRN Reason: Nausea/Vomiting Last Admin: 01/04/17 20:40 Dose: 4 mg Ondansetron HCl (Zofran) 4 mg IVP Q6H PRN PRN Reason: Nausea/Vomiting Oxybutynin Chloride (Ditropan) 5 mg PO BID [facility] Last Admin: 01/05/17 08:21 Dose: 5 mg Triazolam [Halcion] (0.25 Mg) 0 each PO HS [facility] Last Admin: 01/04/17 21:11 Dose: 1 each Pregabalin (Lyrica) 75 mg PO BID [facility] Last Admin: 01/05/17 08:25 Dose: 75 mg Senna (Senokot) 2 tab PO HSPRN PRN PRN Reason: Constipation Sodium Chloride (Flush - Normal Saline) 10 ml IVF PRN PRN PRN Reason: Saline Flush Sodium Chloride ([place] Nasal [place] 0.65%) 0 ml EA NARE QIDPRN PRN PRN Reason: Nasal Congestion Tramadol HCl (Ultram) 50 mg PO Q6H PRN PRN Reason: pain Last Admin: 01/05/17 06:01 Dose: 50 mg
[2017-01-05] MEDS: cefTRIAXone\\ROCEPHIN 1 GM in Sodium Chloride 0.9% 100 ML IVPB SCH (20:01)
[2017-01-05] MEDS: Atorvastatin Calcium 10 MG TAB PO SCH (20:02)
[2017-01-05] MEDS: Triazolam [Halcion] 0.25 MG PO SCH (20:02)
[2017-01-06] MEDS: traMADol HCl 50 MG TAB PO PRN (05:54)
[2017-01-06] MEDS: Levothyroxine Sodium 75 MCG TAB PO SCH (05:54)
[2017-01-06] MEDS: Sodium Chloride 0.9% 1,000 ML IV SCH (06:39)
[2017-01-06] MEDS: Carvedilol 6.25 MG TAB PO SCH (08:28)
[2017-01-06] MEDS: busPIRone HCl 5 MG TAB PO SCH (08:28)
[2017-01-06] MEDS: Ibuprofen 200 MG TAB PO SCH (08:28)
[2017-01-06] MEDS: Oxybutynin Chloride 5 MG TAB PO SCH (08:28)
[2017-01-06] MEDS: FLUoxetine HCl 20 MG CAP PO SCH (08:28)
[2017-01-06] MEDS: Pregabalin 75 MG CAP PO SCH (08:30)
[2017-01-06] MEDS: Enoxaparin Sodium 30 MG/0.3 ML SYRINGE SC SCH (08:30)
[2017-01-06 10:10] VITALS: BP 145/63; TEMP 98.2
--- NOTE | 2017-01-06 15:30 | PDOC.PN ---
- Subjective Encounter Start Date: 01/06/17 Encounter Start Time: 07:20 Subjective: feels better - Objective Resuscitation Status: Resuscitation Status FULL:Full Resuscitation MAR Reviewed: Yes Vital Signs & Weight: Vital Signs (12 hours) Temp Pulse Resp BP BP Pulse Ox 01/06/17 08:28 139/67 01/06/17 08:00 98.2 F 62 18 145/63 H 92 L Weight Weight 141 lb 5 oz I&O: 01/05/17 01/06/17 01/07/17 06:59 06:59 06:59 Intake Total 1207 1769 Balance 1207 1769 Result Diagrams: 01/05/17 03:43 01/05/17 03:43 Phys Exam - Physical Examination HEENT: PERRLA, moist MMs Neck: no JVD, supple Respiratory: no wheezing, no rales Cardiovascular: RRR, no significant murmur Gastrointestinal: soft, non-tender, positive bowel sounds Musculoskeletal: no edema, pulses present Neurological: non-focal, moves all 4 limbs Psychiatric: A&O x 3 Dx/Plan (1) Sepsis Code(s): A41.9 - SEPSIS, UNSPECIFIED ORGANISM Status: Acute Qualifiers: Sepsis type: Escherichia coli Qualified Code(s): A41.51 - Sepsis due to Escherichia coli [E. coli] (2) UTI (urinary tract infection) Status: Acute Qualifiers: Urinary tract infection type: acute cystitis Hematuria presence: without hematuria Qualified Code(s): N30.00 - Acute cystitis without hematuria (3) Dyslipidemia Code(s): E78.5 - HYPERLIPIDEMIA, UNSPECIFIED Status: Chronic (4) GERD (gastroesophageal reflux disease) Code(s): K21.9 - GASTRO-ESOPHAGEAL REFLUX DISEASE WITHOUT ESOPHAGITIS Status: Chronic Qualifiers: Esophagitis presence: esophagitis presence not specified Qualified Code(s) : K21.9 - Gastro-esophageal reflux disease without esophagitis (5) H/O prosthetic aortic valve replacement Code(s): Z95.2 - PRESENCE OF PROSTHETIC HEART VALVE Status: Chronic Comment : h/o tavr (6) Hypertension Code(s): I10 - ESSENTIAL (PRIMARY) HYPERTENSION Status: Chronic Qualifiers: Hypertension type: essential hypertension Qualified Code(s): I10 - Essential (primary) hypertension (7) Hypothyroidism Code(s): E03.9 - HYPOTHYROIDISM, UNSPECIFIED Status: Chronic Qualifiers: Hypothyroidism type: unspecified Qualified Code(s): E03.9 - Hypothyroidism , unspecified (8) Recurrent falls Code(s): R29.6 - REPEATED FALLS Status: Chronic - Plan hemostable -: dc pt home -: d/w her family at bedside -: macrobid for uti * .
--- NOTE | 2017-01-06 20:35 | DIS ---
DATE OF ADMISSION: 01/01/2017 DATE OF DISCHARGE: 01/06/2017 DISCHARGE DISPOSITION: To home. PRIMARY DISCHARGE DIAGNOSIS: Sepsis with urinary tract infection, resolving. SECONDARY DISCHARGE DIAGNOSES: Gastroesophageal reflux disease, dyslipidemia, history of transcatheter aortic valve replacement for aortic valve, hypertension , hypothyroidism, history of recurrent falls. PROCEDURES DONE DURING HOSPITALIZATION: A CT of brain showed atrophy and chronic white matter ischemic changes, no mass or bleed was seen. Right hip two view x-rays done, showed no overt fractures, she has findings of osteoporosis. A CT of pelvis showed no acute fracture or pelvis. Lumbar spine MRI showed degenerative changes. Urine culture grew E. coli sensitive to Macrobid. Blood cultures x2 no growth. She had a white count of 22,000 with discharge numbers of 10,000, H and H on the day of discharge was 9 and 29 with platelet count of 256, MCV was 96. DISCHARGE MEDICATIONS: Aspirin 81 mg p.o. daily, atorvastatin 10 mg p.o. at bedtime, Coreg 12.5 mg p.o. daily, fluoxetine 20 mg p.o. daily, Lasix 20 mg p.o. daily, Artesian p.r.n. for pain, levothyroxine 75 mcg p.o. daily, lisinopril 10 mg p.o. daily, Macrobid 100 mg p.o. twice daily for another 4 days, oxybutynin 5 mg p.o. twice daily, potassium chloride 20 mEq p.o. daily, Lyrica 75 mg p.o. twice daily, triazolam 0.5 mg p.o. at bedtime, buspirone 7.5 mg p.o. twice daily. ALLERGIES: No known drug allergies. DISCHARGE PLAN: Patient is to follow up with primary care physician in 1 week. BRIEF COURSE DURING HOSPITALIZATION: The patient initially came in after she fell at home. She has had multiple imaging studies done. She had also complained of hip pain hence pelvic CAT scan and the x-rays done. None of the imaging studies done, revealed any acute fractures. The patient was found to have had urinary tract infection with elevated white count and sepsis. She was placed on broad spectrum IV antibiotics. Her urine culture grew E. coli sensitive to Macrobid. She has been transitioned to Macrobid at the time of discharge for another 4 days. She is hemodynamically stable with normalizing of her white count. She is ambulating nearly 100 feet in the hallway. She is eating well. She will be shortly discharged home. Please see a [id number] documentation on [facility] for the day of discharge. Patient is on multiple psychotropic/anxiety/insomnia medications with history of recurrent falls and these need to be slowly tapered or discontinued via primary care physician. STEPHEN
== END 2017-01-06 14:29 | disposition home health service (06) | DRG 872 ==
LOC: ERS 16:14 → 2SW 20:53 → ERHOLD 22:26 → T4-B 22:31
PROVIDERS: ADMIT Internal Medicine Infectious Disease; ATTEND Internal Medicine Infectious Disease
DX: A41.9 Sepsis, unspecified organism (principal); E87.5 Hyperkalemia; N39.0 Urinary tract infection, site not specified; I10 Essential (primary) hypertension; K21.9 Gastro-esophageal reflux disease without esophagitis; E78.5 Hyperlipidemia, unspecified; E03.9 Hypothyroidism, unspecified; Z91.81 History of falling; I25.10 Atherosclerotic heart disease of native coronary artery without angina pectoris; E87.6 Hypokalemia; F41.9 Anxiety disorder, unspecified; Z95.2 Presence of prosthetic heart valve; D53.9 Nutritional anemia, unspecified
CPT/HCPCS: 36415; 51701; 70450; 72148; 72170; 72192; 80048; 80053; 81003; 81015; 82550; 82553; 83605; 83690; 84484; 85025; 87040; 87077; 87086; 87186; 90471; 90682; 93005; 96365; A4353; G0008; G8978-GP-CJ; G8979-GP-CH; G8987-GO-CJ; G8988-GO-CI; J0696; J0744; J1650; J7050; Q0162; Q2036

== ENCOUNTER 2017-01-27 11:29 | Observation (INO) | payer MEDICARE, BC ==
[2017-01-27 12:00] LABS: #Basophils 0.1 thou/uL (0.0-0.2); #Eosinphils 0.6 thou/uL (0.0-0.7); #Lymphocytes 1.5 thou/uL (1.20-3.40); #Monocytes 0.4 thou/uL (0.11-0.59); #Neutrophils 5.8 thou/uL (1.40-6.50); %Basophils 0.8 % (0.0-1.0); %Eosinophils 6.8 % (0.0-10.0); %Lymphocytes 17.5 % (21.0-51.0); %Monocytes 4.6 % (0.0-10.0); Hematocrit 38.2 % (36.0-47.0); Mean Platelet Volume 7.4 fL (7.4-10.4); Red Blood Cell (RBC) Count 4.01 mill/uL (4.20-5.40); White Blood Cell (WBC) Count 8.3 thou/uL (4.8-10.8)
[2017-01-27 12:24] LABS: PTT 31.7 SEC (22.9-36.1); Prothrombin Time 14.6 SEC (12.0-14.7)
[2017-01-27 12:26] LABS: ALT (SGPT) 15 U/L (8-55); AST (SGOT) 20 U/L (5-34); Alkaline Phosphatase 138 U/L (40-150); Anion Gap 18 mmol/L (10-20); BUN (Urea Nitrogen) 12 mg/dL (9.8-20.1); Bilirubin, Total 0.7 mg/dL (0.2-1.2); CK (CPK) 63 U/L (29-168); Calc. Creatinine Clearance 0 mL/min (70-130); Calcium 9.9 mg/dL (7.8-10.44); Carbon Dioxide 23 mmol/L (23-31); Chloride 104 mmol/L (98-107); Estimated GFR-MDRD 56; Globulin 3.7 g/dL (2.4-3.5); Lipase Less than 4 U/L (8-78); Protein, Total 7.5 g/dL (6.0-8.3)
--- NOTE | 2017-01-27 12:26 | CT ---
BRAIN CT WITHOUT IV CONTRAST: Date: 01/27/17 HISTORY: 81-year-old female with syncope. FINDINGS: Bilateral atrophy and some chronic white matter ischemic changes and old lacunar infarct changes in the basal ganglia bilaterally, as well as some old subcortical infarct changes in the right parietal region. No focal mass or midline shift. No intra or extra-axial hemorrhage. Sinuses and mastoids ar e clear of acute process. IMPRESSION: Stable atrophy and chronic white matter ischemic changes and infarct change. No mass, bleed, or othe r acute process. POS: [facility]
[2017-01-27 12:28] LABS: Troponin I Less than 0.010 ng/mL (< 0.028)
--- NOTE | 2017-01-27 12:44 | RAD ---
UPRIGHT PORTABLE CHEST 1 VIEW: Date: 01/27/17 HISTORY: 81-year-old female with syncopal episode. COMPARISON: 01/26/17. FINDINGS: Monitor leads overlie the chest. Postop stent changes at the level of the aortic valve. Heart size i s within upper range of normal limits. Atherosclerosis of the aorta with ectasia. Chronic appearing linear and interstitial increased markings bilaterally. IMPRESSION: Stable chronic changes and postop changes at the level of the aortic valve. Atherosclerosis of aorta with ectasia. No pneumonia, edema, pleural effusion, or other acute process. POS: [facility]
--- NOTE | 2017-01-27 12:49 | CT ---
CERVICAL SPINE CT SCAN WITHOUT IV CONTRAST: HISTORY: An 81-year-old female with syncope and fall with a post ictal state following the episode. FINDINGS: There is significant bony demineralization of the cervical spine. There is severe disk osteophytosi s and facet arthrosis. No evidence for acute fracture or facet dislocation. Stable appearance from 08/21/2015. IMPRESSION: Severe bony demineralization, as well as diffuse cervical spondylosis, without evidence for acute fr acture or facet dislocation. Stable from prior study. POS: [facility]
[2017-01-27 13:31] LABS: Bilirubin Negative (Negative); Blood, Urine Small (Negative); Glucose, Urine (Dipstick) Negative (Negative); Ketone, Urine Negative (Negative); Nitrite Negative (Negative); Protein, Urine (Dipstick) Negative (Neg-Trace); Urobilinogen 0.2 mg/dL (0.2-1.0)
[2017-01-27 13:33] LABS: RBC/HPF 0-3 HPF (0-3)
[2017-01-27] MEDS ORDERED: Aspirin 300 MG Suppository ONE (13:33)
[2017-01-27 13:53] LABS: Bacteria/HPF 1+ HPF (None Seen); Hyaline Casts/LPF 0-3 HYALINE CAST LPF (0-3 Hyaline)
[2017-01-27] MEDS ORDERED: cefTRIAXone\\ROCEPHIN 1 GM VIAL ONE (14:28)
[2017-01-27] MEDS ORDERED: cefTRIAXone\\ROCEPHIN 1 GM, Syringe 0.4 ML in Sterile Water 9.6 ML SLOW IVP ONE (14:45)
[2017-01-27 15:31] LABS: Troponin I Less than 0.010 ng/mL (< 0.028)
[2017-01-27] MEDS ORDERED: Acetaminophen 325 MG TAB PO PRN (15:34)
[2017-01-27] MEDS ORDERED: cefTRIAXone\\ROCEPHIN 1 GM in Sodium Chloride 0.9% 100 ML IVPB SCH (15:45)
[2017-01-27 16:28] VITALS: BMI 29.8
--- NOTE | 2017-01-27 16:54 | HP ---
ADMITTING PHYSICIAN: Angel Lerma M.D. PRIMARY CARE PHYSICIAN: Home Johnson M.D. CHIEF COMPLAINT: Found down. HISTORY OF PRESENT ILLNESS: The patient was at inpatient rehabilitation and was found down by staff there. Her daughter is at bedside, but her daughter was not present at the rehab center. Thus, th e history is limited. The patient is not responsive at this time to my questions. According to the ENT physician, the daughter witnessed shaking motions while waiting for in the emergency department . Three ER physician reports that the patient did appear pulse ictal and was less responsive when h e first interviewed her. Once again during my interview, the patient is unresponsive. REVIEW OF SYSTEMS: The following complete review of systems was negative, unless otherwise mentioned in the HPI or belo w: Constitutional: Weight loss or gain, sense of well-being, ability to conduct usual activities, exer cise tolerance. Skin/Breast: Rash, itching, changes in hair growth or loss, nail changes, breast lumps, tenderness, swelling, nipple discharge. Eyes: Vision, double vision, tearing, blind spots, pain. ENT/Mouth: Headaches (location, time of onset, duration, precipitating factors), vertigo, lighthead edness, injury. Vision, double vision, tearing, blind spots, pain, nose bleeding, colds, obstruction , discharge, dental difficulties, gingival bleeding, dentures, neck stiffness, pain, tenderness, mas ses in thyroid or other areas. Cardiovascular: Precordial pain, substernal distress, palpitations, syncope, dyspnea on exertion, o rthopnea, nocturnal paroxysmal dyspnea, edema, cyanosis, hypertension, heart murmurs, varicosities, phlebitis, claudication. Respiratory: Pain, shortness of breath, wheezing, stridor, cough, hemoptysis, fever or night sweats . Gastrointestinal: Poor appetite, dysphagia, indigestion, abdominal pain, heartburn, eructation, arjun sea, vomiting, hematemesis, jaundice, constipation, or diarrhea, abnormal stools (joseph-colored, leighton y, bloody, greasy, foul smelling), flatulence, hemorrhoids, recent changes in bowel habits. Genitourinary: Urgency, frequency, dysuria, nocturia, hematuria, polyuria, oliguria, unusual (or ch jessy in) color of urine, stones, hesitancy, change in size of stream, dribbling, acute retention or incontinence, libido, potency. Musculoskeletal: Pain, swelling, redness or heat of muscles or joints, limitation, of motion, muscu lar weakness, atrophy, cramps. Neurologic/Psychiatric: Convulsions, paralyses, tremor, incoordination, paresthesias, difficulties with memory of speech, sensory or motor disturbances, or muscular coordination (ataxia, tremor), emo tional problems, anxiety, depression, previous psychiatric care, unusual perceptions, hallucinations . Allergy/Immunologic: Skin rash, anemia, bleeding tendency, polydipsia, polyuria, intolerance to hea t or cold. PAST MEDICAL HISTORY: Significant for congestive heart failure, coronary artery disease, hypothyroi dism, migraine headaches, hypertension, chronic back pain, and frequent falls. PAST SURGICAL HISTORY: Positive for cholecystectomy, hysterectomy, orthopedic surgery, spinal surge ry, and bilateral foot surgery. PSYCHIATRIC HISTORY: Positive for depression. SOCIAL HISTORY: The patient denies alcohol or drug abuse. No smoking history. Lives at home with family, but [facility]. FAMILY HISTORY: Noncontributory to this case. ALLERGIES: No known drug allergies. HOME MEDICATIONS: Include atorvastatin 10 mg every day, Lyrica at 75 mg t.i.d., aspirin 81 mg every day, carvedilol 6.25 mg 2 tablets every day, buspirone 15 mg every day, potassium chloride 20 mEq e very day, Prozac 20 mg every day, Lasix 20 mg every day, lisinopril 10 mg once a day, Fiorinal 1 q.4 h., oxybutynin 5 mg once a day, levothyroxine 75 mcg once a day, ciprofloxacin 500 mg b.i.d., Halci on 0.5 mg b.i.d., Flushing 5 mg q.4 h. as needed. PHYSICAL EXAMINATION: VITAL SIGNS: Temperature 98.0, pulse 66. BP 176/76, respirations 16, satting 100% on room air. GENERAL: The patient is nontoxic in appearance. HEENT: Normocephalic. She does have bruising to the face as well as the nasal bridge. Eye exam, P ERRL. Extraocular muscles intact. NECK: Supple, full range of motion. CARDIAC: Regular rate and rhythm, no murmurs, regurgitations or gallops. LUNGS: Clear to auscultation. ABDOMEN: Nontender, nondistended. EXTREMITIES: No clubbing, cyanosis or edema. NEUROLOGIC: The patient is nonresponsive. She does track and is able to nod her head to some quest ions, but is aphasic. DIAGNOSTIC DATA: EKG shows left ventricular hypertrophy as well as a possible left anterior fascicu lar block, otherwise normal sinus rhythm at 66 beats per minute. LABORATORY DATA AND IMAGES: Urinalysis shows yellow cloudy with small amount of blood, negative for nitrites, but large leukocyte esterase. Urine wbc's greater than 50, too numerous to count, urine bacteria 1+. Chemistry: Sodium 141, potassium 3.8, chloride 104, BUN 12, creatinine 0.96, glucose 143, AST 20, ALT 15, alkaline phosphatase 138, CK-MB 1.6, creatinine kinase 63, troponin I less than 0.01. Lipase less than 4, prolactin level of 44.1. PT 14.6, INR 1.1. CBC: White count 8.3, hemo globin 11.9, hematocrit 38.2, platelets 340. Brain CT, no acute disease, chronic white matter ische andrea changes, stable atrophy. Chest x-ray showed stable chronic changes, postop changes at the level of aortic valve, atherosclerosis of the aorta, no pneumonia, edema or pleural effusion, no acute pu lmonic process. C-spine showed severe bony demineralization, diffuse cervical spondylosis without e vidence for acute fracture or facet dislocation. ASSESSMENT AND PLAN: 1. Syncope. 2. Possible seizure disorder. 3. Urinary tract infection. 4. Hypothyroidism. PLAN: The patient will be admitted to the neurological oliva. We will do serial neuro checks. Neur ology has been consulted per Dr. Cota in the emergency department and an MRI and EEG has been or dered per recommendations of Dr. Roca who will follow up on these results. We will provide supporti ve therapy as needed. The patient will also be treated empirically with IV Rocephin for possible ur inary tract infection leading to toxic metabolic encephalopathy.
[2017-01-27] MEDS: Sodium Chloride 0.9% 1,000 ML IV SCH (17:02)
--- NOTE | 2017-01-27 17:22 | ER ---
ER ADDENDUM DATE OF SERVICE: 01/27/2017 Please refer to the patient's electronic medical record for further details of her visit. In summary, the patient presents having been found down at her rehab facility. It is unclear how lo ng she had been on the ground, or what was causative of this event. On arrival, she was awake and a lert, oriented x2, but required persisting questioning to answer any questions, only answered in sim ple one word responses. She was hemodynamically stable on arrival and throughout her ER stay. She was not in any respiratory distress, and was not hypoxic at any time. During her ER stay, she did h ave a very brief episode of generalized shaking with worsening of her mental status which improved o maria d several minutes. This, combined with her elevated prolactin level, concerning for new onset sei zure activity in this 81-year-old patient. Because of this, I discussed her case with Dr. Silveira of the Internal Medicine Service as well as Dr. Roca of the Neurology Service. She protecting her air way throughout her ER stay, does not require intubation at this point. She does not demonstrate any focal weakness, though she is generally weak and has difficulty with following commands and moving her extremities versus gravity. I discussed the patient's findings and concerning prognosis with he r family, who was at the bedside. Qing is in guarded, but stable condition at the time of admiss ion. She will require serial neurological checks and further evaluation.
[2017-01-27 18:17] LABS: Troponin I Less than 0.010 ng/mL (< 0.028)
--- NOTE | 2017-01-27 23:03 | CON ---
DATE OF CONSULTATION: 01/27/2017 REFERRING PROVIDER: Angel Lerma M.D. REASON FOR CONSULTATION: Seizure and confusion. HISTORY OF PRESENT ILLNESS: Ms. Dutta is a pleasant 81-year-old female, who has been cons ulted for evaluation of confusion and possible seizure, history is very limited as patient is unable to provide and thus most of the history is obtained from the patient's dictated H\T\P note. Appare ntly, the patient was at inpatient rehabilitation and was found down by staff there. Daughter had w itnessed shaking motions while waiting in the emergency department. She was noted by ER physician sarah hager be postictal. We are being asked to further evaluate for possible seizure-like activity. Again, the history is extremely limited as there is no family member present at bedside and the patient is unable to provide. PAST MEDICAL HISTORY: Could not be obtained directly and reviewed from dictated H and P note that a re noted in Dr. Angel Lerma report dated 01/27/2017. PAST SURGICAL HISTORY: Could not be obtained directly and reviewed from dictated H and P note that are noted in Dr. Angel Lerma report dated 01/27/2017. SOCIAL HISTORY: Could not be obtained directly and reviewed from dictated H and P note that are not ed in Dr. Angel Lerma report dated 01/27/2017. FAMILY HISTORY: Could not be obtained directly and reviewed from dictated H and P note that are not ed in Dr. Angel Lerma report dated 01/27/2017. CURRENT MEDICATIONS: Could not be obtained directly and reviewed from dictated H and P note that ar e noted in Dr. Angel Lerma report dated 01/27/2017. ALLERGIES: Could not be obtained directly and reviewed from dictated H and P note that are noted in Dr. Angel Lerma report dated 01/27/2017. REVIEW OF SYSTEMS: Unable to perform. PHYSICAL EXAMINATION: VITAL SIGNS: Blood pressure of 185/90, pulse of 69, temperature of 98.2, respirations of 12, and O2 sats of 100% on room air. GENERAL: Well-developed and well-nourished female, in no apparent distress. RESPIRATORY: Clear to auscultation bilaterally. CARDIOVASCULAR: Regular rate and rhythm. NEUROLOGIC: Mental status: The patient is awake, alert, oriented x1. She is able to state her nam e and age, she is able to tell me the name of the hospital and the town that she in. She was able t o follow some simple commands. She is uncertain. Speech and language appears fluent. Cranial nerv es: Pupils are 3 mm and reactive. Visual bosch are full to threat. Extraocular muscles are intac t. Face appears symmetric. Motor exam showed normal tone and bulk with 5/5 strength in both upper and lower extremities. She has no pronator drift noted. Sensory: Sensation appears intact and sym metric. Deep tendon reflexes 2+ reflexes in both upper and lower extremities. Babinski: Plantar r esponses flexion bilaterally. Gait and Romberg could not be tested. LABORATORY DATA: Reviewed, which included CBC, coag panel, CMP, troponin, CPK, CK-MB, prolactin lev el and urinalysis, which is significant for prolactin level of 44.12 and WBC of greater than 50 to t oo numerous to count, large leukocyte esterase, 1+ bacteria, otherwise negative. IMAGING STUDIES: CT head without contrast was reviewed which showed no acute intracranial abnormali ty. IMPRESSION: 1. Seizure. 2. Postictal confusion. 3. Urinary tract infection. ASSESSMENT AND PLAN: Ms. Dutta is a pleasant 81-year-old female who presented with altere d mental status. She was noted to have a seizure-like episode by her daughter. At this time, I wou ld recommend obtaining MRI brain and EEG for further evaluation. I would not start the antiepilepti c at this time as this is her first episode. If she does have another episode of seizure-like activ ity, then Dilantin 100 mg 3 times a day, can be added for antiepileptic medication, continue support fadia care. Thank you for consultation.
--- NOTE | 2017-01-28 01:19 | CON ---
DATE OF CONSULTATION: 01/27/2017 REFERRING PHYSICIAN: Angel Lerma MD REASON FOR CONSULTATION: Syncope. HISTORY OF PRESENT ILLNESS: Ms. Dutta is a well known 81-year-old female, who I have seen multiple occasions in the hospital setting when admitted to [facility]. She has a history of aortic stenosis and underwent transcatheter aortic valve replacement one year ago. She has been doing well and her recovery from TAVR process was uneventful. She has been in an inpatient rehabil itation facility and was found down by the staff there. Apparently she had recurrent events in the emergency department that was witnessed by her daughter involving tonic clonic motor activity and af ter which she was postictal in her behavior. She remains somewhat confused and is slow in her verba l responses to questions. She does not remember the details of the event in the inpatient rehab fac ility nor in the emergency department. Prolactin was drawn and this was elevated further increasing the suspicion for seizure activity. PAST MEDICAL HISTORY: Significant for, 1. Aortic stenosis, status post TAVR. 2. Congestive heart failure, chronic, diastolic. 3. Coronary artery disease. 4. Hypothyroidism. 5. Migraine cephalalgia. 6. Hypertension. PAST SURGICAL HISTORY: 1. Cholecystectomy. 2. Transcatheter aortic valve replacement. 3. Hysterectomy. 4. Orthopedic Surgery. 5. Bilateral foot surgery. ALLERGIES: No known drug allergies. SOCIAL HISTORY: She denies alcohol or drug abuse. She denies tobacco use history. She lives at [facility] with her family, but she is currently in our inpatient rehabilitation facility. FAMILY HISTORY: Negative with respect to premature atherosclerosis. CURRENT MEDICATIONS: 1. Lipitor 10 mg daily. 2. Lyrica 75 mg t.i.d. 3. Aspirin 81 mg daily. 4. Carvedilol 6.25 mg b.i.d. 5. Buspirone 15 mg daily. 6. K-Dur 20 mEq daily. 7. Prozac 20 mg daily. 8. Lasix 20 mg daily. 9. Lisinopril 10 mg daily. 10. Fiorinal as needed for pain. 11. Levothyroxine 75 mcg daily. 12. Oxybutynin 5 mg daily. 13. Cipro 500 mg b.i.d. 14. Halcion 0.5 mg b.i.d. 15. Edgar as needed for pain. REVIEW OF SYSTEMS: As per the history of present illness. Remainder of 12-system review is negativ e. PHYSICAL EXAMINATION: VITAL SIGNS: Blood pressure 130/70, pulse 70 and regular, respiratory rate 18 and nonlabored, tempe rature 98.2, oxygen saturation 96% on room air. GENERAL: This is a well-developed, well-nourished 81-year-old female, in no acute distres s. She is alert and oriented to person and place. She is confused about the details of her hospita lization. HEENT: Head showed evidence of prior fall with bruising over the bridge of the nose. Pupils are eq ually round and reactive, sclerae and conjunctivae are clear. There are no oral lesions. NECK: Supple, no JVD, thyromegaly, carotid bruits. CHEST: Symmetrical inspiration and expiration. HEART: Regular rate and rhythm. No murmur, S3, S4. PMI nondisplaced. Not enlarged. LUNGS: Clear to auscultation in all bosch. No adventitious sounds appreciated. ABDOMEN: Soft, nontender, nondistended, without mass or organomegaly. Bowel sounds are present in all 4 quadrants. No flank bruits auscultated. EXTREMITIES: A 2+ pulses noted bilaterally in upper and lower extremities. Strength 5/5 bilaterall y. There is no clubbing, cyanosis or edema. NEUROLOGIC: Grossly intact with no focal motor deficits appreciated. DATABASE: EKG reveals sinus rhythm and nonspecific T changes. LABORATORY DATA: CBC reveals a white count of 8, H and H 11 and 38, platelet count 340,000. Differ ential white blood cells normal. Red cell indices normocytic. Coagulation studies are normal. Kaylee ctrolytes are normal. BUN and creatinine of 12 and 0.9, GFR is estimated at 56, glucose 143. LFTs are normal. Serial cardiac enzymes are normal. Prolactin was elevated at 44. ASSESSMENT: 1. Altered mental status with tonic clonic activity highly suspicious for seizure activity. 2. History of aortic stenosis status post transcatheter aortic valve replacement, stable. 3. Chronic kidney disease stage 2-3. 4. Hypertension, controlled. 5. Dyslipidemia, on therapy. 6. Coronary artery disease, stable, asymptomatic. RECOMMENDATIONS: From a cardiac standpoint, she is stable. She has no recurrent murmur post TAVR t hat would lead me to suspect if there is restenosis of her valves. I hear no diastolic murmur sugge stive of perivalvular leak her deterioration of the valve leaflets, but we will order an echo for ve rification of her physical exam findings. Her symptoms and presenting clinical signs are highly keith picious for seizure activity. She has had multiple syncopal episodes in the past with concussions a nd head trauma related to these falls, which may contribute to the propensity for seizure activity d ue to postconcussive syndrome. We will await Neurology input and be available for cardiovascular is sues as they arise. I will be in touch regarding results of echocardiogram that has been ordered. I appreciate the opportunity to participate.
[2017-01-28 05:00] LABS: #Basophils 0.1 thou/uL (0.0-0.2); #Eosinphils 0.8 thou/uL (0.0-0.7); #Lymphocytes 2.8 thou/uL (1.20-3.40); %Basophils 1.1 % (0.0-1.0); %Eosinophils 8.8 % (0.0-10.0); %Lymphocytes 32.7 % (21.0-51.0); Hematocrit 33.2 % (36.0-47.0); Mean Platelet Volume 7.7 fL (7.4-10.4); Red Blood Cell (RBC) Count 3.46 mill/uL (4.20-5.40); White Blood Cell (WBC) Count 8.6 thou/uL (4.8-10.8)
[2017-01-28 05:18] LABS: Anion Gap 11 mmol/L (10-20); BUN (Urea Nitrogen) 11 mg/dL (9.8-20.1); Calc. Creatinine Clearance 56 mL/min (70-130); Calcium 9.2 mg/dL (7.8-10.44); Carbon Dioxide 26 mmol/L (23-31); Chloride 108 mmol/L (98-107); Estimated GFR-MDRD 73
[2017-01-28] MEDS ORDERED: traMADol HCl 50 MG TAB PO PRN (11:09)
--- NOTE | 2017-01-28 11:09 | PDOC.PN ---
- Subjective Encounter Start Date: 01/28/17 Encounter Start Time: 11:07 CC: Syncope sub: Pt denies dyspnea - Objective Vital Signs & Weight: Vital Signs (12 hours) Temp Pulse Resp BP Pulse Ox 01/28/17 07:20 98.5 F 68 16 131/60 97 01/28/17 03:27 98.8 F 70 18 140/78 96 01/27/17 23:39 98.6 F 67 12 157/82 H 98 Weight Weight 139 lb 3.2 oz I&O: 01/27/17 01/28/17 01/29/17 06:59 06:59 06:59 Intake Total 650 Balance 650 Result Diagrams: 01/28/17 04:11 01/28/17 04:11 Additional Labs: Accuchecks 01/28/17 01/28/17 01/27/17 10:44 05:32 20:57 POC Glucose 92 107 108 Phys Exam - Physical Examination Constitutional: NAD HEENT: moist MMs Neck: no JVD Respiratory: no wheezing, no rales, no rhonchi Cardiovascular: RRR, no significant murmur, no rub s1 s2 present Gastrointestinal: soft, non-tender, positive bowel sounds no gaurding Musculoskeletal: no edema Neurological: non-focal awake, speech clear Psychiatric: normal affect Skin: no rash Dx/Plan - Plan * . Pt is 81 yrs old female now admitted to hospital due to syncope 1. Syncope 2. H/O HTN 3. H/O Hypothyroidism 4. H/O HPL 5. UTI Plan: 1. Workup in progress. Cardio and neuro on board. Monitor respiratory status closely 2, Monitor bp. Will resume home bp meds. 3. Resume synthroid 4. Urine culture no growth. Continue rocephin 1gm q 24hrs 5. Continue statin 6. Heparin for dvt prophylaxis case d/w pt & rn
[2017-01-28] MEDS ORDERED: cefTRIAXone\\ROCEPHIN 1 GM in Sodium Chloride 0.9% 100 ML IVPB SCH (15:00)
[2017-01-28] MEDS: Sodium Chloride 0.9% 1,000 ML IV SCH (15:29)
[2017-01-28] MEDS: cefTRIAXone\\ROCEPHIN 1 GM, Syringe 0.4 ML in Sterile Water 9.6 ML SLOW IVP SCH (15:31)
--- NOTE | 2017-01-28 19:19 | MRI ---
BRAIN MRI WITHOUT CONTRAST 01/28/17 COMPARISON: None. HISTORY: Confusion, altered mental status, syncope, possible seizure. TECHNIQUE: Multiplanar and multisequence MRI imaging of the brain obtained without contrast. FINDINGS: The diffusion weighted imaging demonstrates no evidence for acute infraction. There is marked motion artifact limiting assessment on the axial T2, axial FLAIR, and axial gradient echo imaging. There is moderate diffuse cerebral volume loss. There is periventricular and deep white matter T2 an d FLAIR hyperintensity, evidence of small vessel disease. Regional bone marrow signal intensity appe ars grossly unremarkable. The paranasal sinuses/mastoid air cells demonstrate normal signal intensity. IMPRESSION: Motion limited examination demonstrating no evidence for acute infarction. There is evidence of smal l vessel disease. If symptoms persist, and followup imaging is required, perhaps repeat MRI or CT ex amination when the patient is able to cooperate fully for the examination would prove beneficial. POS: [facility]
[2017-01-28] MEDS ORDERED: Atorvastatin Calcium 10 MG TAB PO SCH (21:00)
[2017-01-28] MEDS ORDERED: PROVENTIL INHALER 6.7 G (200 INHALATIONS) INH PRN (21:00)
[2017-01-28] MEDS: Pregabalin 75 MG CAP PO SCH (21:08)
[2017-01-28] MEDS: Heparin 5,000 UNITS/ML VIAL SC SCH (21:08)
[2017-01-28] MEDS: Carvedilol 6.25 MG TAB PO SCH (21:09)
[2017-01-29 04:45] LABS: #Basophils 0.1 thou/uL (0.0-0.2); #Lymphocytes 2.3 thou/uL (1.20-3.40); #Monocytes 0.7 thou/uL (0.11-0.59); #Neutrophils 4.7 thou/uL (1.40-6.50); %Basophils 0.9 % (0.0-1.0); %Lymphocytes 26.3 % (21.0-51.0); %Monocytes 8.2 % (0.0-10.0); Hematocrit 32.9 % (36.0-47.0); Mean Platelet Volume 7.7 fL (7.4-10.4); Red Blood Cell (RBC) Count 3.43 mill/uL (4.20-5.40); White Blood Cell (WBC) Count 8.7 thou/uL (4.8-10.8)
[2017-01-29 05:18] LABS: Anion Gap 12 mmol/L (10-20); BUN (Urea Nitrogen) 14 mg/dL (9.8-20.1); Calc. Creatinine Clearance 57 mL/min (70-130); Calcium 10.1 mg/dL (7.8-10.44); Carbon Dioxide 26 mmol/L (23-31); Chloride 110 mmol/L (98-107); Estimated GFR-MDRD 74
[2017-01-29] MEDS ORDERED: Levothyroxine Sodium 75 MCG TAB PO SCH (06:00)
[2017-01-29] MEDS ORDERED: Furosemide 20 MG TAB PO SCH (09:00)
[2017-01-29] MEDS ORDERED: FLUoxetine HCl 20 MG CAP PO SCH (09:00)
[2017-01-29] MEDS ORDERED: Multivitamin W/ Minerals 1 TAB PO SCH (09:00)
[2017-01-29] MEDS: Carvedilol 6.25 MG TAB PO SCH (09:33)
[2017-01-29] MEDS: Heparin 5,000 UNITS/ML VIAL SC SCH (09:35)
[2017-01-29] MEDS: Pregabalin 75 MG CAP PO SCH (09:36)
[2017-01-29] MEDS: Sodium Chloride 0.9% 1,000 ML IV SCH (09:42)
[2017-01-29 11:35] VITALS: TEMP 97.9
[2017-01-29 11:42] VITALS: BP 143/69
--- NOTE | 2017-01-29 11:47 | DIS ---
DATE OF ADMISSION: 01/27/2017 DATE OF DISCHARGE: 01/29/2017 DISCHARGE DIAGNOSES: 1. Acute encephalopathy with questionable seizure-like activity, resolved. 2. Polypharmacy. 3. Hypokalemia. 4. Chronic normocytic anemia, stable. 5. Status post aortic valve replacement with transcatheter approach. 6. Hypertension, labile. 7. History of recurrent falls. 8. Deconditioning. CONSULTATIONS: Dr. Ester Roca with Neurology Service. Dr. Tellez with Cardiology Service. PERTINENT LABORATORY DATA AND X-RAY FINDINGS: Potassium ranged between 3.2-3.8. Troponin I negativ e x3. Prolactin level 44.12. CBC showed a hemoglobin ranging between 10.5-11.9. Urine culture paige ed 01/25/2017 showed greater than 100,000 colonies of mixed skin nikita. CT of the brain without con trast dated 01/27/2017 showed atrophy and chronic white matter ischemic changes without acute proces s. Portable chest x-ray dated 01/27/2017 showed chronic changes without acute process. CT of the c ervical spine dated 01/27/2017 showed diffuse cervical spondylosis without acute fracture or disloca tion. MRI of the brain dated 01/28/2017 showed motion artifact without evidence of acute process or infarct. A 2D transthoracic echocardiogram dated 01/28/2017 showed preserved ejection fraction of 60%-65%. Bioprosthetic aortic valve with normal function. HOSPITAL COURSE: Patient was observed on the Stroke Unit after initially presenting with questionab le seizure-like activity and altered mental status. Patient underwent extensive evaluation on multi ple imaging modalities as well as evaluation by Neurology and Cardiology Service with essentially ne gative findings on neuro imaging and metabolic workup. The patient was noted with mild hypokalemia treated with potassium supplementation. Patient underwent treatment for suspected urinary tract inf ection; however, urine culture showed mixed skin nikita at which point Rocephin was discontinued. Th e patient was noted with intermittent confusion and encephalopathic changes with questionable seizur e-like activity. Neurology Service did not recommend any anti-seizure regimen given the patient's f irst episode. The patient was noted with multiple medications as underlying possibility for present ation and exacerbation of symptoms. The patient will need to be evaluated on an ongoing basis for p otential weaning of multiple psychotropic medications and pain medications. Overall, the patient re mained clinically stable during the hospital course with [facility]. DISCHARGE MEDICATIONS: 1. Albuterol sulfate 90 mcg inhaled b.i.d. p.r.n. 2. Aspirin 81 mg 1 tab p.o. daily. 3. Lipitor 10 mg p.o. at bedtime. 4. Azelastine 137 mcg 2 sprays in each naris b.i.d. 5. Carvedilol 3.125 mg p.o. b.i.d. 6. Fluoxetine 20 mg p.o. daily. 7. Synthroid 75 mcg p.o. daily. 8. Multivitamin 1 tab p.o. daily. 9. Protonix 40 mg 1 tab p.o. daily. 10. MiraLax 17 grams p.o. daily. 11. Potassium chloride 20 mEq p.o. daily. 12. Lyrica 75 mg p.o. b.i.d. 13. BuSpar 7.5 mg p.o. b.i.d. 14. Tramadol 50 mg p.o. q.i.d. p.r.n. FOLLOWUP: Patient will follow up with her primary care provider, Dr. Home Johnson within 7 days of discharge. CONDITION ON DISCHARGE: Fair. ACTIVITY: Rolling walker with standby assistance and high fall risk precautions. DIET: Heart healthy. SPECIAL INSTRUCTIONS: Recommend review of patient's chronic medication regimen including psychotrop ic medications. CODE STATUS: FULL. DISPOSITION: Discharged to [facility] on 01/29/2017.
[2017-01-29] MEDS: cefTRIAXone\\ROCEPHIN 1 GM, Syringe 0.4 ML in Sterile Water 9.6 ML SLOW IVP SCH (15:29)
--- NOTE | 2017-02-08 16:06 | EKG ---
Test Reason : Blood Pressure : / mmHG Vent. Rate : 066 BPM Atrial Rate : 066 BPM P-R Int : 166 ms QRS Dur : 094 ms QT Int : 468 ms P-R-T Axes : 043 -46 002 degrees QTc Int : 490 ms Normal sinus rhythm Left anterior fascicular block Minimal voltage criteria for LVH, may be normal variant Poor precordical transition Abnormal ECG Confirmed by NEO HUGHES DO ([id number]), news editor KEON IBARRA ([id number]) on 02/08/2017 4:05:51 PM Referred By: Confirmed By:NEO HUGHES DO
== END 2017-01-29 15:27 ==
LOC: ERS 11:29 → 2SE 14:57
PROVIDERS: ADMIT Internal Medicine Addiction Medicine; ATTEND Internal Medicine Addiction Medicine
DX: G93.40 Encephalopathy, unspecified (principal); E87.6 Hypokalemia; D64.9 Anemia, unspecified; M62.81 Muscle weakness (generalized); E03.9 Hypothyroidism, unspecified; I25.10 Atherosclerotic heart disease of native coronary artery without angina pectoris; I11.0 Hypertensive heart disease with heart failure; I50.9 Heart failure, unspecified; F32.9 Major depressive disorder, single episode, unspecified; G43.909 Migraine, unspecified, not intractable, without status migrainosus; Z90.49 Acquired absence of other specified parts of digestive tract; Z95.2 Presence of prosthetic heart valve; Z98.890 Other specified postprocedural states; Z91.81 History of falling
CPT/HCPCS: 51701; 70450; 70551; 71010; 72125; 80048 ×2; 80053; 82550; 82553; 82962 ×2; 83690; 84146; 84484 ×2; 85025 ×3; 85610; 85730; 93005; 93306; 95816; 95819; 96361 ×2; 96374; 96376; 97110; 97116; 97139 ×2; 97530; 99285; G0378; G8978; G8979; 36415; 36416; 81003; 81015; A4216; A4353; G8996-GN-CI; G8997-GN-CI; J0696; J1644

== ENCOUNTER 2017-03-09 07:25 | Emergency (ER) | payer MEDICARE, BC ==
[2017-03-09] MEDS ORDERED: Acetaminophen 500 MG TAB ONE (09:58)
--- NOTE | 2017-03-09 11:51 | RAD ---
3 VIEWS LEFT SHOULDER: Date: 03/09/17 HISTORY: Injury. Pain. Status post fall. FINDINGS: Glenohumeral joint space is preserved. No fracture or dislocation. Acromioclavicular and coracoclavic ular distances are maintained. Visualized left ribs do not demonstrate fracture. IMPRESSION: No fracture or dislocation. POS: [facility]
--- NOTE | 2017-03-09 12:09 | CT ---
CT CERVICAL SPINE WITHOUT CONTRAST: Date: 03/09/17 COMPARISON: 01/27/17. HISTORY: Fall at home. Post-traumatic pain. TECHNIQUE: Cervical spine CT is performed without contrast. Sagittal and coronal reformatted images are submitte d for interpretation. FINDINGS: Odontoid process is intact. There appears to be appropriate articulation of the lateral masses of C1 and C2. There are degenerative changes of the facets. No evidence of facet malalignment. There is di ffuse bone demineralization. On the sagittal reformatted images, there is straightening of normal cer vical lordosis. The straightening of normal cervical lordosis is presumed to be due to patient positi on, muscle spasm, or cervical collar. Current study is not tailored to assess for ligamentous injury. Cervical spine vertebral body height is maintained. No fracture. Upper mediastinum and lung apices ar e unremarkable. No high grade central canal stenosis or high grade neural foraminal narrowing. IMPRESSION: 1. No cervical spine fracture. 2. Stable degenerative changes of cervical spine. POS: [facility]
--- NOTE | 2017-03-29 10:00 | EKG ---
Test Reason : Blood Pressure : / mmHG Vent. Rate : 066 BPM Atrial Rate : 066 BPM P-R Int : 156 ms QRS Dur : 100 ms QT Int : 458 ms P-R-T Axes : 079 -39 045 degrees QTc Int : 480 ms Sinus rhythm with frequent Premature ventricular complexes and Premature atrial complexes Left axis deviation Cannot rule out Anterior infarct , age undetermined Abnormal ECG Confirmed by KENDELL READ, LUKE Garza ([id number]), online content editor KEON IBARRA ([id number]) on 03/29/2017 10:00:04 AM Referred By: Confirmed By:LUKE RDZ MD
== END 2017-03-09 10:15 | disposition home or self-care (01) ==
LOC: ERS 07:25
DX: M25.512 Pain in left shoulder (principal); I25.10 Atherosclerotic heart disease of native coronary artery without angina pectoris; E03.9 Hypothyroidism, unspecified; G43.909 Migraine, unspecified, not intractable, without status migrainosus; I11.0 Hypertensive heart disease with heart failure; I50.9 Heart failure, unspecified; G89.29 Other chronic pain; F32.9 Major depressive disorder, single episode, unspecified; Z79.82 Long term (current) use of aspirin; Z79.899 Other long term (current) drug therapy; W06.XXXA Fall from bed, initial encounter
CPT/HCPCS: 72125; 93005

== ENCOUNTER 2017-05-04 12:28 | Emergency (ER) | payer MEDICARE, BC ==
[2017-05-04 13:20] LABS: #Basophils 0.1 thou/uL (0.0-0.2); #Eosinphils 1.2 thou/uL (0.0-0.7); #Lymphocytes 3.2 thou/uL (1.20-3.40); #Monocytes 1.2 thou/uL (0.11-0.59); #Neutrophils 7.2 thou/uL (1.40-6.50); %Basophils 0.8 % (0.0-1.0); %Lymphocytes 24.9 % (21.0-51.0); %Monocytes 9.5 % (0.0-10.0); %Neutrophils 55.8 % (42.0-75.0); Hemoglobin 11.2 g/dL (12.0-16.0); Mean Corpuscular HGB CONC 31.6 g/dL (32.0-36.0); Mean Corpuscular Hemoglobin 29.2 pg (27.0-31.0); Mean Corpuscular Volume 92.6 fl (81.0-99.0); Mean Platelet Volume 7.5 fL (7.4-10.4); Platelet Count 315 thou/uL (130-400); RBC Distribution Width 14.9 % (11.5-14.5); Red Blood Cell (RBC) Count 3.82 mill/uL (4.20-5.40); White Blood Cell (WBC) Count 12.9 thou/uL (4.8-10.8)
[2017-05-04 13:23] LABS: Bilirubin Negative (Negative); Blood, Urine Trace (Negative); Clarity CLEAR (Clear); Glucose, Urine (Dipstick) Negative (Negative); Leukocyte Negative (Negative); Nitrite Negative (Negative); Protein, Urine (Dipstick) Negative (Neg-Trace); Specific Gravity, Urine 1.012 (1.002-1.036); Urobilinogen 0.2 mg/dL (0.2-1.0)
[2017-05-04 13:24] LABS: Bacteria/HPF None Seen HPF (None Seen); Hyaline Casts/LPF 0-3 HYALINE CAST LPF (0-3 Hyaline); Pathc Cast-AUWi Flag 0.54 (0-2.49); RBC/HPF 0-3 HPF (0-3); Squamous Epithelial 0-3 HPF (0-3); WBC/HPF 0-3 HPF (0-3)
[2017-05-04 13:46] LABS: ALT (SGPT) 33 U/L (8-55); AST (SGOT) 36 U/L (5-34); Albumin 3.6 g/dL (3.4-4.8); Alkaline Phosphatase 140 U/L (40-150); Anion Gap 12 mmol/L (10-20); BUN (Urea Nitrogen) 16 mg/dL (9.8-20.1); Bilirubin, Total 0.8 mg/dL (0.2-1.2); CK (CPK) 267 U/L (29-168); Calc. Creatinine Clearance 0 mL/min (70-130); Calcium 9.8 mg/dL (7.8-10.44); Carbon Dioxide 29 mmol/L (23-31); Chloride 104 mmol/L (98-107); Estimated GFR-MDRD 55; Globulin 3.2 g/dL (2.4-3.5); Glucose 96 mg/dL (83-110); Lipase 6 U/L (8-78); Potassium 3.4 mmol/L (3.5-5.1); Protein, Total 6.8 g/dL (6.0-8.3); Sodium 142 mmol/L (136-145)
[2017-05-04 13:48] LABS: Troponin I 0.067 ng/mL (< 0.028)
[2017-05-04] MEDS ORDERED: HYDROcodone/Acetaminophen 10/325 mg Tablet ONE (13:57)
--- NOTE | 2017-05-04 14:31 | RAD ---
RIGHT HIP TWO VIEWS: History: Fall, right hip pain. FINDINGS: There is joint space narrowing and mild subchondral sclerosis. No significant osteophytosis. Femoral head contour is maintained. No acute fracture or dislocation. IMPRESSION: Mild osteoarthritic changes right hip. POS: [facility]
--- NOTE | 2017-05-04 14:49 | RAD ---
PELVIS ONE VIEW: History: Fall. Hip pain. Comparison: 01-01-17 FINDINGS: Sacral ala and pelvic rings are intact. Degenerative changes involve the hips, pubic symphysis and sa croiliac joints. Phleboliths and arterial calcifications project over the pelvis. IMPRESSION: 1. No acute osseous abnormalities are demonstrate. 2. Atherosclerosis. POS: [facility]
[2017-05-04 15:46] LABS: Troponin I 0.056 ng/mL (< 0.028)
--- NOTE | 2017-06-14 12:19 | EKG ---
Test Reason : FALL Blood Pressure : / mmHG Vent. Rate : 067 BPM Atrial Rate : 067 BPM P-R Int : 152 ms QRS Dur : 092 ms QT Int : 478 ms P-R-T Axes : 071 -41 024 degrees QTc Int : 505 ms Sinus rhythm with occasional Premature ventricular complexes Left axis deviation Minimal voltage criteria for LVH, may be normal variant Cannot rule out Anterior infarct , age undetermined Abnormal ECG Confirmed by LILY READ, NEO ([id number]), sugar house supervisor KEON IBARRA ([id number]) on 06/14/2017 12:18:47 PM Referred By: LILY Confirmed By:NEO BAUTISTA MD
== END 2017-05-04 17:00 | disposition home or self-care (01) ==
LOC: ERS 12:28
DX: M25.551 Pain in right hip (principal); R79.89 Other specified abnormal findings of blood chemistry; I50.9 Heart failure, unspecified; I25.10 Atherosclerotic heart disease of native coronary artery without angina pectoris; E03.9 Hypothyroidism, unspecified; G43.909 Migraine, unspecified, not intractable, without status migrainosus; I11.0 Hypertensive heart disease with heart failure; F32.9 Major depressive disorder, single episode, unspecified; Z79.899 Other long term (current) drug therapy; Z79.82 Long term (current) use of aspirin
CPT/HCPCS: 36415; 51701; 72170; 80053; 81003; 81015; 82553; 83690; 83880; 84484; 85025; 93005; 94640; A4353; J7620

== ENCOUNTER 2017-09-24 14:27 | Emergency (ER) | payer MEDICARE, BC ==
--- NOTE | 2017-09-24 15:58 | CT ---
NONCONTRAST CT HEAD: Date: 09-24-17 History: Head injury. Patient tripped and fell from standing position. His left side of forehead on t he wall. Unable to get off the floor. Comparison: 01-27-17 FINDINGS: Again noted are low density areas seen in the inferior aspect of each basal ganglia which is probably related to a combination of lacunar infarctions and dilated perivascular spaces. Again noted are mil d chronic small vessel ischemic changes, similar to the prior study. Mild cerebral volume loss is pre sent. There is no evidence of an acute infarction, hemorrhage, mass effect, or midline shift. Ventricular s ystem is normal in size, shape, and position. No calvarial fracture is visualized. Post-surgical patel ges of the right zygomatic arch posteriorly are again noted. IMPRESSION: No acute intracranial abnormalities demonstrated. POS: [facility]
--- NOTE | 2017-09-24 16:06 | CT ---
CT THORACIC SPINE WITHOUT CONTRAST: 09/24/17 HISTORY: Pain. Trip and fall from standing position. COMPARISON: 08/29/13. TECHNIQUE: Noncontrast thoracic spine CT is performed in the axial plane. Reformatted images are submitted for i nterpretation. FINDINGS: Limited evaluation of the mediastinal structures due to lack of IV contrast. There is evidence of a s tent at the origin of the aorta. Aortic calcifications are identified. Atherosclerosis of a nonaneury smal aorta is noted. The visualized solid organs are unremarkable. Chronic changes of the lung parenchyma are noted. Trachea and central bronchi are patent. No pleural effusion. No pneumothorax. The visualized ribs are intact. Diffuse bone demineralization. Thoracic spine and vertebral body height is maintained. No evidence of an acute fracture. Multilevel degenerative disc disease with loss of disc space height and osteophyt e formation is noted. IMPRESSION: Chronic changes. No posttraumatic sequela. Compared to the examination, there is stable appearance of the thoracic vertebrae. Minimal wedge shaped deformities in T8 and T9 are noted and are felt to be c hronic. POS: [facility]
--- NOTE | 2017-09-24 16:10 | CT ---
CT CERVICAL SPINE WITHOUT CONTRAST: 09/24/17 COMPARISON: 03/09/17 HISTORY: Fall. Pain. FINDINGS: No craniocervical dissociation. Lateral masses of C1 and C2 articulate appropriately. There is approp riate articulation of the facets. Odontoid process is intact. There is no prevertebral soft tissue swelling. There is atherosclerosis of both carotid arteries. The visualized soft tissue neck structures are unremarkable. There is stable degenerative change of the cervical spine with varying degrees of central canal steno sis and foraminal narrowing. Evaluation is limited by technique. Visualized lung apices are unremarkable. Cervical spine vertebral body heights are maintained. There is no fracture. IMPRESSION: Stable degenerative changes of the cervical spine. No cervical spine fracture. POS: [facility]
--- NOTE | 2017-09-24 16:14 | CT ---
CT LUMBAR SPINE WITHOUT IV CONTRAST: Date: 09-24-17 History: Injury after a fall. Comparison: 08-29-13 FINDINGS: Again noted are prominent atherosclerotic vascular calcification. Mild chronic lung changes are seen at the limited visualized lung bases. There is a small hiatal hernia present. There is diffuse osteopenia and multilevel degenerative changes again seen throughout the cervical sp ine. The vertebral body heights are within normal limits. Vacuum phenomenon is seen at the L4-5 and L 5-S1 intervertebral discs, also noted on prior exam. L1-2: There is a mild broad based disc bulge without central canal or significant neural foraminal na rrowing present. L2-3: There is broad based disc osteophyte complex and facet hypertrophic change as well as mild liga mentous thickening. There is generalized mild narrowing of the central spinal canal with only minimal encroachment on each neural foramen. L3-4: There is a broad based disc osteophyte complex present. There are facet hypertrophic changes an d prominent ligamentous thickening at this level. There is severe narrowing of the central spinal can al which does appear progressed from prior exam. There is mild bilateral neural foraminal narrowing p resent. L4-5: As noted above, there is grade I anterolisthesis of L4 on L5 with prominent facet hypertrophic changes. There is a broad based disc osteophyte complex with mild loss of intervertebral disc height. There is ligamentous thickening. Findings result in very severe narrowing of the central spinal kenia l as well as narrowing the lateral recesses. There is moderate left sided neural foraminal narrowing with mild to moderate right sided neural foraminal narrowing. Degree of neural foraminal narrowing is similar to prior exam. L5-S1: There is a broad based disc osteophyte formation with endplate degenerative changes. There is ligamentous thickening and facet hypertrophic changes. There is mild narrowing of the central spinal canal with moderate bilateral neural foraminal narrowing. IMPRESSION: 1. No acute fracture is seen involving the lumbar spine. 2. Stable grade I anterolisthesis of L4 on L5 related to prominent facet hypertrophic changes. 3. Multilevel degenerative changes, greatest involving the lower lumbar spine with findings greatest at the L4-5 level where there is severe narrowing of the central spinal canal. POS: [facility]
== END 2017-09-24 18:30 | disposition home or self-care (01) ==
LOC: ERS 14:27
DX: S09.90XA Unspecified injury of head, initial encounter (principal); I11.0 Hypertensive heart disease with heart failure; I50.9 Heart failure, unspecified; E03.9 Hypothyroidism, unspecified; G43.909 Migraine, unspecified, not intractable, without status migrainosus; F32.9 Major depressive disorder, single episode, unspecified; I25.10 Atherosclerotic heart disease of native coronary artery without angina pectoris; Z79.82 Long term (current) use of aspirin; Z79.899 Other long term (current) drug therapy; W01.0XXA Fall on same level from slipping, tripping and stumbling without subsequent striking against object, initial encounter
CPT/HCPCS: 70450; 72125; 72128; 72131

== ENCOUNTER 2017-09-25 22:22 | Inpatient (IN) | payer MEDICARE, BC ==
[2017-09-25 23:00] LABS: Bilirubin Unable to Interpret (Negative); Blood, Urine Unable to Interpret (Negative); Glucose, Urine (Dipstick) Unable to Interpret mg/dL (Negative); Leukocyte Unable to Interpret (Negative); Nitrite Unable to Interpret (Negative); Protein, Urine (Dipstick) Unable to Interpret mg/dL (Neg-Trace); Specific Gravity, Urine 1.014 (1.002-1.036); Urobilinogen UNABLE TO INTERPRET mg/dL (0.2-1.0)
[2017-09-25 23:03] LABS: Clarity Clear (Clear)
[2017-09-25 23:04] LABS: Bacteria/HPF None Seen HPF (None Seen); RBC/HPF 0-3 HPF (0-3); Squamous Epithelial 0-3 HPF (0-3); WBC/HPF 0-3 HPF (0-3)
[2017-09-25 23:05] LABS: Hyaline Casts/LPF 0-3 HYALINE CAST LPF (0-3 Hyaline); Other Microscopic Description Less than 2 mL rec'd
[2017-09-25 23:15] LABS: #Basophils 0.1 thou/uL (0.0-0.2); #Eosinphils 0.6 thou/uL (0.0-0.7); #Lymphocytes 2.7 thou/uL (1.20-3.40); #Monocytes 1.2 thou/uL (0.11-0.59); #Neutrophils 6.9 thou/uL (1.40-6.50); %Basophils 0.7 % (0.0-1.0); %Eosinophils 5.2 % (0.0-10.0); %Lymphocytes 23.8 % (21.0-51.0); %Neutrophils 60.2 % (42.0-75.0); Mean Corpuscular HGB CONC 32.5 g/dL (32.0-36.0); Mean Corpuscular Hemoglobin 29.3 pg (27.0-31.0); Mean Corpuscular Volume 90.4 fL (78.0-98.0); Mean Platelet Volume 7.5 fL (7.4-10.4); Platelet Count 302 thou/uL (130-400); RBC Distribution Width 14.9 % (11.5-14.5); White Blood Cell (WBC) Count 11.5 thou/uL (4.8-10.8)
[2017-09-25 23:23] LABS: ALT (SGPT) 12 U/L (8-55); AST (SGOT) 26 U/L (5-34); Albumin 3.7 g/dL (3.4-4.8); Alkaline Phosphatase 174 U/L (40-150); Anion Gap 18 mmol/L (10-20); BUN (Urea Nitrogen) 14 mg/dL (9.8-20.1); Bilirubin, Total 0.7 mg/dL (0.2-1.2); Calc. Creatinine Clearance 0 mL/min (70-130); Calcium 9.8 mg/dL (7.8-10.44); Carbon Dioxide 25 mmol/L (23-31); Chloride 100 mmol/L (98-107); Estimated GFR-MDRD 61; Globulin 3.8 g/dL (2.4-3.5); Glucose 93 mg/dL (83-110); Potassium 4.3 mmol/L (3.5-5.1); Protein, Total 7.5 g/dL (6.0-8.3); Sodium 139 mmol/L (136-145)
--- NOTE | 2017-09-25 23:36 | CT ---
CT BRAIN NONCONTRAST: DATE: 09/25/17 TIME: 11:15 p.m. HISTORY: 82-year-old female status post acute head trauma from fall. FINDINGS: There is no midline shift or any other mass effect. There is no evidence of acute intracranial hemor rhage, obstructive hydrocephalus, or extraaxial fluid collection. The calvarium is intact. There is diffuse parenchymal volume loss. There are low attenuation areas in the white matter. These are no nspecific, but in a patient of this age, they are probably chronic ischemic white matter changes due to microvascular atherosclerosis. There is a small region of encephalomalacia and gliosis at the [facility] t superior frontal gyrus. There are two surgical clips adjacent to the right TMJ. There is no interva l change compared to 09/24/17. IMPRESSION: 1) No acute intracranial findings. 2) Involutional changes and chronic ischemic white matter changes. 3) Small old insult, probably an old infarction, at the high right paramedian cerebral convexity. padmini [] POS: [facility]
--- NOTE | 2017-09-25 23:38 | CT ---
CT CERVICAL SPINE NONCONTRAST: 09/25/17 HISTORY: 82-year-old female status post acute cervical trauma from fall. FINDINGS: There are no jumped or perched facets. There is no evidence of acute fracture. The vertebral body h eights are maintained. There is no prevertebral soft tissue swelling. IMPRESSION: No evidence of acute fracture or acute traumatic subluxation. padmini [] POS: [facility]
--- NOTE | 2017-09-25 23:45 | RAD ---
RADIOGRAPH RIGHT SHOULDER 3 VIEWS: 09/25/17 HISTORY: 82-year-old female status post acute traumatic injury to right shoulder from fall. Pain. FINDINGS: There is no fracture or dislocation. IMPRESSION: Negative. POS: [facility]
--- NOTE | 2017-09-25 23:48 | RAD ---
RADIOGRAPH RIGHT HIP 2 VIEWS: DATE: 09/25/17 TIME: 11:23 p.m. HISTORY: 82-year-old female with traumatic right hip pain due to fall. FINDINGS: There is diffuse, severe osteopenia. There is a subtle finding of overlap between the lateral aspect of the subcapital femoral neck and the adjacent lateral portion of the femoral head. There is diffuse , mild to moderate hip joint space narrowing. Femoral head is not collapsed. There are severe degener ative changes at the lower lumbar spine and lumbosacral junction. IMPRESSION: 1. Acute, traumatic, slightly impacted fracture of the subcapital femoral neck. 2. Osteopenia. 3. Mild to moderate osteoarthrosis of the right hip, with joint space narrowing (articular carti eliel loss). 4. Severe lower lumbar spondylosis. POS: [facility]
[2017-09-26] MEDS ORDERED: Ondansetron ODT 4 MG TAB PO PRN (02:32)
[2017-09-26] MEDS ORDERED: Ondansetron HCl/PF 4 MG/2 ML Vial IVP PRN ×2 (02:32→10:23)
[2017-09-26] MEDS ORDERED: Dextrose 50% Abboject 50 ML SYRINGE SLOW IVP PRN (02:32)
[2017-09-26] MEDS ORDERED: hydrALAZINE 20 MG/ML VIAL SLOW IVP PRN (02:32)
[2017-09-26] MEDS ORDERED: Dextrose 5% in Water 1,000 ML IV PRN (02:32)
[2017-09-26] MEDS: Sodium Chloride 0.9% 1,000 ML IV SCH ×3 (03:05→20:53)
[2017-09-26 04:13] VITALS: BMI 28.7
--- NOTE | 2017-09-26 05:31 | HP ---
DATE OF ADMISSION: 09/26/2017 ADMISSION HISTORY AND PHYSICAL REQUESTING PHYSICIAN: Amando Bernardo M.D. ATTENDING PHYSICIAN: Iván Arce M.D. CONSULTATIONS: Orthopedics, Dr. Connell. HISTORY OF PRESENT ILLNESS: The patient is an 82-year-old female, who was reportedly over the last f ew days had multiple falls. She states that due to a loss of balance, she denies dizziness, lighthea dedness, or syncopal type episodes just "loss of balance." Tonight, the patient presented to the [facility] department after a fall noting to have a right hip pain. She underwent evaluation and examina tion, and was noted to have a right subcapital proximal femur fracture, at which time, we were asked to evaluate the patient for admission and obtain orthopedic consultation. ALLERGIES: None. CURRENT MEDICATIONS: Atorvastatin, Lyrica, aspirin, , buspirone, potassium chloride, Lasix, lev othyroxine, omeprazole, tramadol, and Tylenol with Codeine. PAST MEDICAL HISTORY: CHF, coronary artery disease with stent placement in 2017, hypothyroidism, hyp ertension, migraine headaches, chronic back pain, depression. PAST SURGICAL HISTORY: Breast reduction, cholecystectomy, hysterectomy, neck surgery, back surgery x 2, bilateral foot surgery. SOCIAL HISTORY: The patient denies drug, tobacco, or alcohol use. She states that she lives [facility] at home with her daughter nearby. FAMILY MEDICAL HISTORY: High blood pressure. PHYSICAL EXAMINATION: VITAL SIGNS: Blood pressure 126/36, heart rate 61, respirations 17, oxygen saturation 95% on room ai r, temperature is 97.7. GENERAL: The patient is resting comfortably in bed. She is awake, alert and is responding appropria tely. Her Tiffanie coma scale was 15. HEENT: The patient has a small contusion to her center of her forehead, otherwise normocephalic. Ea rs are atraumatic without discharge. Nose is atraumatic with discharge. Eyes are PERRLA bilaterally . Extraocular motion intact. Oropharynx is clear. NECK: Nontender. Trachea is midline. CHEST: Clear to auscultation with good inspiratory and expiratory effort. HEART: Regular rate and rhythm. ABDOMEN: Soft, flat, nontender with active bowel sounds. Pelvis is stable with tenderness to palpat ion to the right hip consistent with her fracture. EXTREMITIES: Neurovascularly intact x4. Capillary refill is less than 3 seconds. Pulses are 2+. BACK: By history is nontender and atraumatic. LABORATORY FINDINGS: White blood cell count 11.5, hemoglobin 12.0, hematocrit 37.1, platelets 302. Sodium 139, potassium 4.3, chloride 100, CO2 of 25, BUN 14, creatinine 0.88, glucose 93. LFTs are un remarkable. Urinalysis is unremarkable. RADIOGRAPHIC FINDINGS: CT of the brain without contrast shows no acute intracranial findings. CT of the C-spine without contrast shows no evidence of acute fracture or acute traumatic subluxation. Tw o views of the right hip show an acute traumatic slightly impacted fracture of the subcapital femoral neck. Three views of the right shoulder showed no fracture or dislocation. ASSESSMENT: 1. Status post fall. 2. Right hip fracture. 3. Pain secondary to acute trauma. 4. History of hypertension. 5. History of hyperlipidemia. 6. History of frequent falls. PLAN: Plan will be to admit the patient to the surgical floor. She will undergo evaluation by the o rthopedic team in the morning. She will remain n.p.o. She will have pain control, pulmonary toilet, gastritis, mechanical VTE prophylaxis. The evaluation, examination, radiographic, and laboratory fi ndings were discussed with Dr. Arce after this dictation.
[2017-09-26 06:28] LABS: Eosinophils 4 % (0-10); Lymphocytes 30 % (21-51); MDiff Complete? YES; Mean Corpuscular HGB CONC 31.1 g/dL (32.0-36.0); Mean Corpuscular Hemoglobin 28.2 pg (27.0-31.0); Mean Corpuscular Volume 90.9 fL (78.0-98.0); Monocytes 8 % (0-10); Neutrophil 58 % (42-75); Nucleated RBC 1 % (0); PLT Morphology Comment Appears Adequate; Platelet Count 262 thou/uL (130-400); Red Blood Cell (RBC) Count 4.61 mill/uL (4.20-5.40)
[2017-09-26 06:39] LABS: Anion Gap 18 mmol/L (10-20); BUN (Urea Nitrogen) 14 mg/dL (9.8-20.1); Calc. Creatinine Clearance 57 mL/min (70-130); Calcium 9.6 mg/dL (7.8-10.44); Carbon Dioxide 25 mmol/L (23-31); Chloride 103 mmol/L (98-107); Estimated GFR-MDRD 70; Glucose 71 mg/dL (83-110); Phosphorus 3.1 mg/dL (2.3-4.7); Potassium 3.5 mmol/L (3.5-5.1); Sodium 142 mmol/L (136-145)
[2017-09-26] MEDS ORDERED: CEFAZOLIN/Water 2 GM/20 ML SYRINGE SLOW IVP SCH (07:30)
[2017-09-26] MEDS: Famotidine 20 MG TAB PO SCH ×2 (07:38→21:12)
[2017-09-26 07:53] LABS: PTT 22.6 SEC (22.9-36.1)
[2017-09-26 07:55] LABS: INR-International Normal Ratio 1.1; Prothrombin Time 14.5 SEC (12.0-14.7)
[2017-09-26] MEDS ORDERED: CEFAZOLIN/Water 2 GM/20 ML SYRINGE ONE (08:20)
[2017-09-26] MEDS ORDERED: Ketamine 50 MG/ML VIAL ONE (09:20)
[2017-09-26] MEDS ORDERED: Bupivacaine 0.75% W/DEXTROSE 8.25% 2 ML AMP ONE (09:21)
[2017-09-26] MEDS ORDERED: Promethazine HCl 25 MG/ML VIAL IM PRN (10:23)
[2017-09-26] MEDS ORDERED: Promethazine HCl 25 MG/ML VIAL SLOW IVP PRN (10:23)
[2017-09-26] MEDS ORDERED: PHENYLEPHRINE-NS 100 MCG/ML 10 ML SYRINGE ONE (10:34)
[2017-09-26] MEDS ORDERED: Aspirin/APAP/Caffeine Tab (Excedrin Migraine) PO PRN (12:45)
[2017-09-26] MEDS ORDERED: Phenazopyridine HCl 97.5 MG TABLET PO PRN (12:45)
[2017-09-26] MEDS ORDERED: Azelastine 137 MCG/Spray 30 ML NS PRN ×2 (12:45→12:57)
[2017-09-26] MEDS ORDERED: Fiorinal 325/50/40 mg Tablet PO PRN ×2 (12:45→12:58)
[2017-09-26] MEDS ORDERED: traMADol HCl 50 MG TAB PO PRN ×2 (12:45)
[2017-09-26] MEDS ORDERED: Non-Formulary Item 1 EACH (Albuterol Sulfate [Proair Respiclick] 2 PUFF) IH PRN (12:45)
[2017-09-26] MEDS ORDERED: HYDROcodone/Acetaminophen 5/325 mg Tablet PO PRN (12:45)
[2017-09-26] MEDS ORDERED: Lidocaine Patch Removal 1 EACH TOP SCH (13:00)
[2017-09-26] MEDS ORDERED: PROVENTIL INHALER 6.7 G (200 INHALATIONS) INH PRN (13:00)
[2017-09-26] MEDS: Carvedilol 3.125 MG TAB PO SCH ×2 (13:32→21:11)
[2017-09-26] MEDS: busPIRone HCl 10 MG TAB PO SCH ×2 (14:54→21:11)
[2017-09-26] MEDS: HYDROcodone/Acetaminophen 5/325 mg Tablet PO PRN ×2 (14:54→21:09)
[2017-09-26] MEDS: Lidocaine 5% Patch TD SCH (14:57)
[2017-09-26] MEDS ORDERED: busPIRone HCl 10 MG TAB PO SCH (15:00)
--- NOTE | 2017-09-26 15:43 | RAD ---
TWO VIEWS OF THE RIGHT HIP: INDICATION: ORIF of the right hip. COMPARISON: Prior exam dated 09/25/17. FINDINGS: Since the comparison examination, there has been interval percutaneous pinning of the previously seen sub capital femoral fracture. Alignment is near-anatomic. The pins project in the expected positio n. Total fluoroscopic time is 47.6 seconds. Total exposure is 6.3 mGy. IMPRESSION: Open reduction internal fixation of the right hip. POS: [facility]
[2017-09-26] MEDS: Pregabalin 75 MG CAP PO SCH ×2 (16:59→21:11)
[2017-09-26] MEDS: CEFAZOLIN/Water 2 GM/20 ML SYRINGE SLOW IVP SCH (17:34)
[2017-09-26] MEDS ORDERED: TRIAZOLAM PO SCH (21:00)
[2017-09-26] MEDS ORDERED: ZANTAC PO SCH (21:00)
[2017-09-26] MEDS: Atorvastatin Calcium 10 MG TAB PO SCH (21:12)
[2017-09-27] MEDS: HYDROcodone/Acetaminophen 5/325 mg Tablet PO PRN ×4 (00:39→20:25)
[2017-09-27] MEDS: CEFAZOLIN/Water 2 GM/20 ML SYRINGE SLOW IVP SCH (00:43)
[2017-09-27] MEDS: Lidocaine 5% Patch TD SCH ×2 (00:48→14:17)
[2017-09-27] MEDS: Sodium Chloride 0.9% 1,000 ML IV SCH ×3 (00:49→21:10)
[2017-09-27 07:33] LABS: #Basophils 0.1 thou/uL (0.0-0.2); #Eosinphils 0.6 thou/uL (0.0-0.7); #Lymphocytes 1.9 thou/uL (1.20-3.40); #Monocytes 1.1 thou/uL (0.11-0.59); #Neutrophils 8.7 thou/uL (1.40-6.50); %Basophils 0.6 % (0.0-1.0); %Eosinophils 4.9 % (0.0-10.0); %Lymphocytes 15.5 % (21.0-51.0); %Monocytes 8.9 % (0.0-10.0); %Neutrophils 70.2 % (42.0-75.0); Hemoglobin 11.4 g/dL (12.0-16.0); Mean Corpuscular HGB CONC 31.5 g/dL (32.0-36.0); Mean Corpuscular Hemoglobin 28.8 pg (27.0-31.0); Mean Corpuscular Volume 91.4 fL (78.0-98.0); Mean Platelet Volume 7.3 fL (7.4-10.4); Platelet Count 273 thou/uL (130-400); RBC Distribution Width 14.8 % (11.5-14.5); Red Blood Cell (RBC) Count 3.95 mill/uL (4.20-5.40); White Blood Cell (WBC) Count 12.4 thou/uL (4.8-10.8)
[2017-09-27 07:49] LABS: Magnesium 1.7 mg/dL (1.6-2.6); Phosphorus 2.8 mg/dL (2.3-4.7)
[2017-09-27] MEDS ORDERED: Non-Formulary Item 1 EACH (Multivit-Min/Fa/Lycopen/Lutein [Centrum Silver Tablet] 1 TAB) PO SCH (09:00)
[2017-09-27] MEDS ORDERED: Furosemide 20 MG TAB PO SCH (09:00)
[2017-09-27] MEDS ORDERED: Non-Formulary Item 1 EACH (Omeprazole [Omeprazole] 40 MG) PO SCH (09:00)
[2017-09-27] MEDS: Levothyroxine Sodium 75 MCG TAB PO SCH (09:11)
[2017-09-27] MEDS: Famotidine 20 MG TAB PO SCH ×2 (09:11→20:25)
[2017-09-27] MEDS: Furosemide 20 MG TAB PO SCH (09:11)
[2017-09-27] MEDS: busPIRone HCl 10 MG TAB PO SCH ×3 (09:11→20:26)
[2017-09-27] MEDS: Pregabalin 75 MG CAP PO SCH ×3 (09:13→20:25)
[2017-09-27] MEDS: Multivitamin W/ Minerals 1 TAB PO SCH (09:13)
[2017-09-27] MEDS: Carvedilol 3.125 MG TAB PO SCH ×2 (09:13→20:26)
[2017-09-27] MEDS: Ciprofloxacin 0.3% Ophth Drops 2.5 ml Bottle L EYE SCH ×4 (16:18→23:44)
--- NOTE | 2017-09-27 19:05 | PRG ---
DATE OF SERVICE: 09/27/2017 SUBJECTIVE: The patient is currently on the surgical floor. She is status post ground level fall in which she sustained a right hip fracture. Yesterday, she underwent open reduction internal fixation of the same. She tolerated this procedure well. This morning, she states her pain is controlled. She is tolerating a diet and is awaiting physical and occupational therapy. The patient states that she did have some nausea, but declined her nausea medicines. It was discussed with her that we need her to take her medicines as needed, especially if it is going to affect her diet and her healing. PHYSICAL EXAMINATION: VITAL SIGNS: Temperature is 98.0, heart rate 57, blood pressure 165/71, respirations 16, oxygen satu ration is 97% on room air. GENERAL: The patient is resting comfortably in bed. She is awake, alert, and oriented x3. Tiffanie coma scale is 15. HEENT: Unremarkable. LUNGS: Clear to auscultation with good inspiratory and expiratory effort. HEART: Regular rate and rhythm. ABDOMEN: Soft, flat, nontender with active bowel sounds. EXTREMITIES: Neurovascularly intact x4. Postop dressing is clean, dry, and intact. LABORATORY DATA: White blood cell count 12.4, hemoglobin 11.4, hematocrit 36.2, platelets 273. Ther e are no radiographs to review this morning. ASSESSMENT AND PLAN: 1. Status post ground level fall. 2. Right hip fracture, status post open reduction internal fixation of same. Plan will be to continue supportive care, physical and occupational therapy and await placement.
[2017-09-27] MEDS: Atorvastatin Calcium 10 MG TAB PO SCH (20:26)
[2017-09-28] MEDS: Lidocaine 5% Patch TD SCH ×2 (02:15→14:30)
[2017-09-28] MEDS: Ciprofloxacin 0.3% Ophth Drops 2.5 ml Bottle L EYE SCH ×11 (02:15→20:47)
[2017-09-28] MEDS: Sodium Chloride 0.9% 1,000 ML IV SCH ×3 (05:43→22:52)
[2017-09-28] MEDS: Levothyroxine Sodium 75 MCG TAB PO SCH (09:46)
[2017-09-28] MEDS: Multivitamin W/ Minerals 1 TAB PO SCH (09:46)
[2017-09-28] MEDS: Furosemide 20 MG TAB PO SCH (09:46)
[2017-09-28] MEDS: busPIRone HCl 10 MG TAB PO SCH ×3 (09:46→20:45)
[2017-09-28] MEDS: Famotidine 20 MG TAB PO SCH ×2 (09:46→20:47)
[2017-09-28] MEDS: Carvedilol 3.125 MG TAB PO SCH ×2 (09:46→20:47)
[2017-09-28] MEDS: Pregabalin 75 MG CAP PO SCH ×3 (09:46→20:46)
[2017-09-28] MEDS: HYDROcodone/Acetaminophen 5/325 mg Tablet PO PRN ×2 (09:47→20:45)
--- NOTE | 2017-09-28 14:05 | PRG ---
DATE OF SERVICE: 09/28/2017 SUBJECTIVE: The patient is status post ground level fall, in which she sustained a right hip fractur e and has undergone open reduction internal fixation of the same. She is currently on the surgical f major. She is tolerating a diet. Her pain is controlled. She has begun working with physical and oc cupational therapy. PHYSICAL EXAMINATION: VITAL SIGNS: Temperature is 98.9, heart rate 64, blood pressure 124/72, respirations 18, oxygen satu ration is 94% on room air. GENERAL: Patient is resting comfortably in bed. She is awake, alert, oriented x3. Tiffanie coma sca le is 15. HEENT: Unremarkable. LUNGS: Clear to auscultation with good inspiratory and expiratory effort. HEART: Regular rate and rhythm. ABDOMEN: Soft, flat, nontender with active bowel sounds. EXTREMITIES: Neurovascularly intact x4. Postop dressing is clean, dry, and intact. LABORATORY DATA: There are no radiographs or labs review this morning. ASSESSMENT AND PLAN: 1. Status post ground level fall. 2. Right hip fracture, status post open reduction internal fixation of same. Plan will be to continue supportive care, physical and occupational therapy and await final placement decision.
[2017-09-28] MEDS: Atorvastatin Calcium 10 MG TAB PO SCH (20:45)
[2017-09-29] MEDS: Ciprofloxacin 0.3% Ophth Drops 2.5 ml Bottle L EYE SCH ×10 (00:05→17:38)
[2017-09-29] MEDS: Lidocaine 5% Patch TD SCH ×2 (03:10→15:05)
[2017-09-29] MEDS: Sodium Chloride 0.9% 1,000 ML IV SCH ×2 (06:34→15:00)
[2017-09-29] MEDS: Furosemide 20 MG TAB PO SCH (09:21)
[2017-09-29] MEDS: Pregabalin 75 MG CAP PO SCH ×2 (09:21→15:05)
[2017-09-29] MEDS: Multivitamin W/ Minerals 1 TAB PO SCH (09:21)
[2017-09-29] MEDS: Carvedilol 3.125 MG TAB PO SCH (09:21)
[2017-09-29] MEDS: Levothyroxine Sodium 75 MCG TAB PO SCH (09:21)
[2017-09-29] MEDS: busPIRone HCl 10 MG TAB PO SCH ×2 (09:21→15:05)
[2017-09-29] MEDS: Famotidine 20 MG TAB PO SCH (09:21)
--- NOTE | 2017-09-29 09:21 | OP ---
DATE OF SURGERY: 09/26/2017. PREOPERATIVE DIAGNOSIS: Right subcapital femoral neck fracture, nondisplaced. POSTOPERATIVE DIAGNOSIS: Right subcapital femoral neck fracture, nondisplaced. SURGICAL PROCEDURE: Cannulated screw stabilization of right femoral neck fracture. ANESTHESIA: Spinal. SURGEON: Jay Connell M.D. ESTIMATED BLOOD LOSS: 10 mL IMPLANTS: Synthes 6.5 mm cannulated screws x3. COMPLICATIONS: None. DRAINS: None. SPECIMEN: None. OUTCOME: Near anatomic alignment following screw stabilization. INDICATIONS: The patient is an 82-year-old lady, status post fall sustaining injury to the right hip . X-rays obtained in the emergency room show evidence of a nondisplaced fracture in the subcapital r egion. The small fracture line can be visualized on two views, again there is no displacement whatso ever. After discussion with patient including risks and benefits, we decided to proceed with a cannu lated screw stabilization of this fracture. 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 Consent signed. DESCRIPTION OF PROCEDURE: After the induction of spinal anesthesia, the patient was positioned supin e on the fracture table with the injured leg held in longitudinal traction and the well leg held in e xtension. Next, a sterile prep and drape was performed of the right lateral thigh. Next, following the sterile prep and drape, a small incision was made at the lateral aspect of the thigh under C-arm localization. After skin was sharply incised, dissection was carried down bluntly to the underlying tensor fascia. This was incised in line with the skin incision. Next, a threaded guidewire was pass ed from the lateral cortex of the proximal femur up into the femoral neck inferiorly, but centrally l ocated as viewed on the lateral view. Once appropriately positioned, two additional pins were placed , one anterior superior to the first and the other posterior superior to the first pin. Once the thr ee pins were appropriately positioned, measurement was taken off of each of these three pins and then a drill was passed over the guidewires just drilling the lateral cortex of the femur. Next, appropr iate length cannulated screws were placed over these guidewires. The 6.5 mm screws were used for thi s procedure. Once positioned, the pins were then removed. At this point, final AP, lateral C-arm im ages were obtained and then wound closure performed 0 Vicryl for the fascia followed by 2-0 Vicryl an d musa for the skin. A Xeroform gauze and tape dressing was then applied to the thigh and patient was transferred to recovery room in stable condition. There were no complications. She tolerated t he procedure well.
[2017-09-29] MEDS: HYDROcodone/Acetaminophen 5/325 mg Tablet PO PRN (09:25)
[2017-09-29 15:40] VITALS: BP 113/73; TEMP 98.7
--- NOTE | 2017-09-30 04:19 | DIS ---
DATE OF ADMISSION: 09/26/2017 DATE OF DISCHARGE: 09/29/2017 ADMISSION DIAGNOSES: 1. Status post fall. 2. Right hip fracture. 3. Pain secondary to acute trauma. 4. History of hypertension. 5. History of hyperlipidemia. 6. History of frequent falls. CONSULTATIONS: Orthopedics, Dr. Connell. PROCEDURES: Cannulated screw stabilization of right femoral neck fracture. SUMMARY: Patient is an 82-year-old woman who reportedly over the last few days has had multiple fall s. She states that it is due to loss of balance and dizziness that she describes essentially is vert igo. The patient was brought to the emergency department, evaluated, examined, and noted to have the above injuries. She would on the following day undergo her above procedure, she tolerated this proc edure well. She would begin worked with physical and occupational therapy and at time of discharge, she was ambulating with minimal assistance. Her pain was controlled. She was tolerating a diet. e patient will follow up with Dr. Connell in 10-14 days sooner as needed. She may also follow up wi the trauma clinic as needed.
== END 2017-09-29 18:21 | DRG 482 ==
LOC: ERS 22:22 → SURG B 09-26 01:11
PROVIDERS: ADMIT Specialist; ATTEND Specialist
PROC: 0QH634Z Insertion of Internal Fixation Device into Right Upper Femur, Percutaneous Approach (ICD-10-PCS; principal; 2017-09-26)
DX: S72.011A Unspecified intracapsular fracture of right femur, initial encounter for closed fracture (principal); G89.11 Acute pain due to trauma; R42 Dizziness and giddiness; E78.5 Hyperlipidemia, unspecified; M16.11 Unilateral primary osteoarthritis, right hip; I11.0 Hypertensive heart disease with heart failure; I50.9 Heart failure, unspecified; I25.10 Atherosclerotic heart disease of native coronary artery without angina pectoris; E03.9 Hypothyroidism, unspecified; F32.9 Major depressive disorder, single episode, unspecified; S00.83XA Contusion of other part of head, initial encounter; R40.2414 Glasgow coma scale score 13-15, 24 hours or more after hospital admission; Z95.5 Presence of coronary angioplasty implant and graft; W18.2XXA Fall in (into) shower or empty bathtub, initial encounter; Z91.81 History of falling; Y92.002 Bathroom of unspecified non-institutional (private) residence as the place of occurrence of the external cause
CPT/HCPCS: 36415; 36416; 51701; 70450; 72125; 72128; 72131; 76001; 80048; 80053; 81003; 81015; 83735; 84100; 85025; 85610; 85730; 86850; 86900; 86901; 93005; 96374; A4353; C1713; C1769; G0390; G8978-GP-CL; G8979-GP-CJ; G8987-GO-CK; G8988-GO-CJ; J2270; J3490; Q0162

== ENCOUNTER 2017-10-22 15:03 | Inpatient (IN) | payer MEDICARE, BC ==
--- NOTE | 2017-10-22 16:05 | RAD ---
RADIOGRAPH RIGHT HIP 2 VIEWS: 10/22/17 HISTORY: 82-year-old female with traumatic right hip pain. FINDINGS: There are three partially threaded screws entering the intertrochanteric level, and through the right femoral neck, with distal tips at the right femoral head. Inferior to this at the subtrochanteric le félix, there is an acute, oblique, minimally displaced fracture. There is no significant angulation. No dislocation. Diffuse mild to moderate joint space narrowing of the right hip. IMPRESSION: Acute, traumatic, closed, mildly displaced subtrochanteric fracture of the right proximal femur (infe rior to the three existing metallic screws). POS: [facility]
--- NOTE | 2017-10-22 16:25 | RAD ---
RIGHT TIBIA AND FIBULA TWO VIEW 10/22/17 HISTORY: Fall. COMPARISON: None. FINDINGS: Moderate vascular calcifications. No acute displaced fracture is appreciated. IMPRESSION: Moderate vascular calcification. POS: [facility]
--- NOTE | 2017-10-22 16:27 | RAD ---
RIGHT KNEE FOUR VIEW 10/22/17 HISTORY: Fall. COMPARISON: None. FINDINGS: No acute displaced fracture or malalignment. Mild soft tissue swelling of the medial knee. No signifi cant joint effusion. Moderate vascular calcifications. IMPRESSION: Soft tissue contusion of the medial knee. POS: [facility]
[2017-10-22 16:41] LABS: #Basophils 0.1 thou/uL (0.0-0.2); #Eosinphils 0.6 thou/uL (0.0-0.7); #Monocytes 0.7 thou/uL (0.11-0.59); #Neutrophils 3.8 thou/uL (1.40-6.50); %Basophils 1.1 % (0.0-1.0); %Eosinophils 8.5 % (0.0-10.0); %Lymphocytes 27.7 % (21.0-51.0); %Monocytes 10.1 % (0.0-10.0); %Neutrophils 52.5 % (42.0-75.0); Hemoglobin 11.2 g/dL (12.0-16.0); Mean Corpuscular Volume 90.4 fL (78.0-98.0); Mean Platelet Volume 6.5 fL (7.4-10.4); Platelet Count 321 thou/uL (130-400); RBC Distribution Width 14.3 % (11.5-14.5); Red Blood Cell (RBC) Count 3.85 mill/uL (4.20-5.40); White Blood Cell (WBC) Count 7.2 thou/uL (4.8-10.8)
[2017-10-22 17:01] LABS: ALT (SGPT) 9 U/L (8-55); AST (SGOT) 17 U/L (5-34); Albumin 3.6 g/dL (3.4-4.8); Alkaline Phosphatase 143 U/L (40-150); Anion Gap 12 mmol/L (10-20); BUN (Urea Nitrogen) 15 mg/dL (9.8-20.1); Bilirubin, Total 0.5 mg/dL (0.2-1.2); Calc. Creatinine Clearance 0 mL/min (70-130); Calcium 9.1 mg/dL (7.8-10.44); Carbon Dioxide 31 mmol/L (23-31); Chloride 103 mmol/L (98-107); Estimated GFR-MDRD 65; Globulin 3.4 g/dL (2.4-3.5); Glucose 96 mg/dL (83-110); Potassium 3.5 mmol/L (3.5-5.1); Sodium 142 mmol/L (136-145)
[2017-10-22] MEDS ORDERED: Fentanyl 100 MCG/2 ML VIAL ONE (17:11)
--- NOTE | 2017-10-22 18:26 | CT ---
CT PELVIS WITHOUT CONTRAST 10/22/17 HISTORY: Fall. Pain. Symptoms are localized to the right hip. Previous right hip internal fixation. COMPARISON: 01/11/17. TECHNIQUE: Noncontrast right hip CT is performed in the axial plane. Reformatted images are submitted. FINDINGS: Limited evaluation due to beam attenuation artifact secondary to three separate screws traversing the proximal right hip. In the right intratrochanteric region/proximal diaphysis there is a nondisplaced horizontally oriented fracture that involves both the medial and lateral cortical margins. With rega rd to the hardware, no lucency. Left hip is unremarkable. No fractures. Sacral ala are preserved. Sacroiliac joints are patent. Bony pelvis is intact. No fracture. The visualized alimentary canal and urinary bladder are unremarkable. Symmetric attenuation of the psoas muscles. Moderate degenerative change at the L4-L5 and L5-S1 level s. IMPRESSION: Fracture involving the right inferior trochanter/proximal femoral diaphysis. POS: [facility]
--- NOTE | 2017-10-22 18:59 | HP ---
DATE OF ADMISSION: 10/22/2017 REQUESTING PHYSICIAN: Dr. Samaniego. ATTENDING PHYSICIAN: Dr. Colin. CONSULTATION: Orthopedics, Dr. Calabrese. HISTORY OF PRESENT ILLNESS: The patient is an 82-year-old woman who reportedly [place] [facility]. She stated that she tripped over something. She is unsure of what and landed on her right hip. She was brought to the Emergency Department, evaluated, examined and noted to have a right hip fractu re. Of note, the patient had been admitted less than 30 days ago for a similar fall in which she und erwent percutaneous screw fixation of right intertrochanteric fracture. She has fractured near these screws tonight. She denies loss of consciousness, nausea, vomiting, chest pain or any syncopal type episode. ALLERGIES: None. CURRENT MEDICATIONS: Atorvastatin, Lyrica, aspirin, carvedilol, buspirone, potassium, Lasix, levothy roxine, omeprazole, Centrum Silver, tramadol and Tylenol #3. PAST MEDICAL HISTORY: CHF, coronary artery disease with stent placement in 2017, hypothyroidism, hyp ertension, migraine headaches, chronic back pain and depression. PAST SURGICAL HISTORY: Breast reduction, cholecystectomy, hysterectomy, neck surgery, back surgery x 2 and bilateral foot surgery. SOCIAL HISTORY: Patient denies drug, tobacco or alcohol use. She lives independently at home near h er daughter. FAMILY MEDICAL HISTORY: Hypertension. REVIEW OF SYSTEMS: Ten-point review of systems negative, unless otherwise stated. PHYSICAL EXAMINATION: VITAL SIGNS: Blood pressure 140/55, heart rate 55, respirations 17, oxygen saturation 100% on room a ir, temperature is 97.6. GENERAL: Patient is resting in bed. She appears a little bit uncomfortable. She states that her ri ght hip and medicines from EMS has worn off. The patient is otherwise alert and oriented x3. Glasgo w coma scale is 15. HEENT: Head is normocephalic, atraumatic. Eyes: Extraocular movements intact. PERRLA bilaterally. Ears are atraumatic without discharge. Nose is atraumatic with discharge. Oropharynx is clear. NECK: Nontender. Trachea is midline. No JVD. CHEST: Has bilateral rhonchi with good inspiratory and expiratory effort. HEART: Regular rate and rhythm. ABDOMEN: Soft, flat, nontender. PELVIS: Stable with tenderness to palpation to right hip. EXTREMITIES: Neurovascularly intact x4. Capillary refill is less than 3 seconds. BACK: By report is atraumatic and nontender. LABORATORY DATA: White blood cell count 7.2, hemoglobin 11.2, hematocrit 34.8, platelets 321. Sodiu m 142, potassium 3.5, chloride 103, CO2 31, BUN 15, creatinine 0.83, glucose 96. LFTs are unremarkab le. RADIOGRAPHIC FINDINGS: Right hip shows an acute traumatic closed mildly displaced subtrochanteric fr acture of the right proximal femur inferior to the 3 existing metallic screws. Views of the right kn ee shows soft tissue contusion of the right medial knee. Views of the right tibia and fibula show mo derate vascular calcifications. CT of the pelvis without contrast shows a fracture involving the rig ht inferior trochanteric/proximal femoral diaphysis. ASSESSMENT AND PLAN: 1. Status post ground level fall. 2. Right hip fracture. 3. Acute pain secondary to trauma. 4. History of hypertension. 5. History of multiple recent falls. 6. History of hypertension. 7. History of hyperlipidemia. Plan will be to admit the patient to the surgical floor. She will be evaluated by Orthopedics who wi ll likely take her to the operating room tomorrow. We make her n.p.o. after midnight. She will have pain control, pulmonary toilet, gastritis, mechanical deep venous thrombosis prophylaxis. The evalu ation, examination, laboratory and radiographic findings were discussed with Dr. Colin after this dic tation.
[2017-10-22] MEDS ORDERED: Dextrose 5% in Water 1,000 ML IV PRN (21:05)
[2017-10-22] MEDS ORDERED: Dextrose 50% Abboject 50 ML SYRINGE SLOW IVP PRN (21:05)
[2017-10-22] MEDS ORDERED: HYDROcodone/Acetaminophen 10/325 mg Tablet PO PRN ×2 (21:05)
[2017-10-22] MEDS: Ketorolac Tromethamine 30 MG/ML VIAL IVP SCH (21:37)
[2017-10-22] MEDS: Acetaminophen 1,000 MG in Premix Bag 1 BAG IVPB SCH (21:38)
[2017-10-23] MEDS: Sodium Chloride 0.9% 1,000 ML IV SCH ×4 (00:26→23:50)
[2017-10-23 00:36] VITALS: BMI 24.2
--- NOTE | 2017-10-23 02:40 | CON ---
DATE OF CONSULTATION: 10/22/2017 CHIEF COMPLAINT: Right hip pain. HISTORY OF PRESENT ILLNESS: Ms. Dutta is an 82-year-old female who is known to our service. The pat virgen fell just over 1 month ago sustaining a right femoral neck fracture. She was treated with percu taneous screw fixation at that time. She did well initially and was back at home. Unfortunately, connie wells lost her balance and fell today. She landed on her right side. She denies loss of consciousness. She had immediate pain and was unable to ambulate. She was taken back to the emergency department b y EMS. She has now been found to have a subtrochanteric femur fracture below her screw instrumentati on. The patient was using a walker, but became unsteady. She was attempting to sit down in a chair. PAST MEDICAL HISTORY: History of coronary artery disease, congestive heart failure, hypothyroidism, hypertension, chronic back pain, depression, migraine headaches, osteoporosis. PAST SURGICAL HISTORY: Cholecystectomy, hysterectomy, previous cervical spine surgery, lumbar back s urgery, previous foot surgery, breast reduction, and previous right femoral neck screw fixation. FAMILY MEDICAL HISTORY: Hypertension. REVIEW OF SYSTEMS: Positive for right hip pain. IMAGES: X-rays of the right hip are reviewed, which demonstrate screw fixation across a femoral neck fracture, which appears to be healing in appropriate alignment. There is an acute subtrochanteric f racture distal to the instrumentation. This is displaced. PHYSICAL EXAMINATION: VITAL SIGNS: Stable. GENERAL: The patient is alert and oriented, no apparent distress. HEENT: Normocephalic, atraumatic. RESPIRATORY: Breathing comfortably. ABDOMEN: Soft, nontender, nondistended. MUSCULOSKELETAL: The patient's right lower extremity has pain with any motion. She has a well-heale d scar over the lateral thigh. She has inability to move the leg without pain. She is able to flex and extend the toes and ankle. She has a palpable dorsalis pedis pulse. Foot is warm and well perfu sed. IMPRESSION: Acute subtrochanteric femur fracture in an elderly female with recent femoral neck fract ure. PLAN: At this point, the patient will be admitted to the hospital for optimization prior to surgery. She will have pain control and deep venous thrombosis prophylaxis. We will continue medical manage ment of her chronic medical problems. She will be prepared for surgery tomorrow. I have discussed o ur plan with her. She will need removal of her previously placed screws and then placement of a troc hanteric femoral nail to stabilize her subtrochanteric fracture with reconstruction screw into the fe moral head to stabilize her femoral neck, although it appears to be healing. She should be n.p.o. mi dnight. She is aware of risks and benefits and wants to proceed.
[2017-10-23] MEDS: Acetaminophen 1,000 MG in Premix Bag 1 BAG IVPB SCH ×4 (04:11→21:08)
[2017-10-23] MEDS: Ketorolac Tromethamine 30 MG/ML VIAL IVP SCH ×4 (04:11→21:08)
[2017-10-23 05:34] LABS: #Eosinphils 0.5 thou/uL (0.0-0.7); #Lymphocytes 2.3 thou/uL (1.20-3.40); #Monocytes 0.7 thou/uL (0.11-0.59); %Basophils 0.5 % (0.0-1.0); %Eosinophils 7.7 % (0.0-10.0); %Lymphocytes 34.4 % (21.0-51.0); %Monocytes 11.3 % (0.0-10.0); %Neutrophils 46.1 % (42.0-75.0); Hemoglobin 10.1 g/dL (12.0-16.0); Mean Corpuscular Hemoglobin 29.3 pg (27.0-31.0); Mean Corpuscular Volume 91.6 fL (78.0-98.0); Mean Platelet Volume 6.7 fL (7.4-10.4); Platelet Count 265 thou/uL (130-400); RBC Distribution Width 14.2 % (11.5-14.5); Red Blood Cell (RBC) Count 3.46 mill/uL (4.20-5.40); White Blood Cell (WBC) Count 6.6 thou/uL (4.8-10.8)
[2017-10-23 05:42] LABS: Anion Gap 12 mmol/L (10-20); BUN (Urea Nitrogen) 15 mg/dL (9.8-20.1); Calc. Creatinine Clearance 54 mL/min (70-130); Calcium 8.9 mg/dL (7.8-10.44); Carbon Dioxide 27 mmol/L (23-31); Chloride 105 mmol/L (98-107); Estimated GFR-MDRD 69; Glucose 92 mg/dL (83-110); Potassium 3.8 mmol/L (3.5-5.1); Sodium 140 mmol/L (136-145)
[2017-10-23] MEDS ORDERED: Carvedilol 3.125 MG TAB PO SCH (06:00)
[2017-10-23] MEDS: Famotidine 20 MG TAB PO SCH ×2 (09:24→21:02)
[2017-10-23] MEDS ORDERED: Sodium Chloride 0.9% 500 ML IVPB SCH (12:15)
[2017-10-23 13:46] LABS: Blood, Urine Negative (Negative); Clarity CLEAR (Clear); Glucose, Urine (Dipstick) Negative (Negative); Protein, Urine (Dipstick) Negative (Neg-Trace); pH, Urine 5.5 (5.0-9.0)
[2017-10-23 13:51] LABS: Bacteria/HPF None Seen HPF (None Seen); Hyaline Casts/LPF 0-3 HYALINE CAST LPF (0-3 Hyaline); RBC/HPF 0-3 HPF (0-3); Squamous Epithelial None Seen HPF (0-3); WBC/HPF 0-3 HPF (0-3)
[2017-10-23 13:53] LABS: Bilirubin Unable to Interpret (Negative); Leukocyte Negative (Negative); Nitrite Unable to Interpret (Negative)
[2017-10-23 14:04] LABS: Crystals/HPF None Seen HPF (Negative)
[2017-10-23] MEDS ORDERED: Lidocaine 1% PF 5 ML VIAL ONE (14:06)
[2017-10-23] MEDS ORDERED: PROPOFOL 200 MG/20 ML VIAL ONE (14:06)
[2017-10-23] MEDS ORDERED: ePHEDrine/0.9% NaCl/PF SYRINGE 50 mg/10 ml ONE (14:06)
[2017-10-23] MEDS ORDERED: CEFAZOLIN/Water 2 GM/20 ML SYRINGE ONE (14:43)
[2017-10-23] MEDS ORDERED: Fentanyl 100 MCG/2 ML VIAL ONE ×3 (15:21→17:58)
--- NOTE | 2017-10-23 16:28 | PRG ---
DATE OF SERVICE: 10/23/2017 SUBJECTIVE: Ms. Dutta is an 82-year-old woman who was admitted yesterday following a subtrochanteric right hip fracture inferior to previous screw fixation. This morning, the patient reports adequate pain control; however, the pain intensifies with movement. Urinary output was associated with low blood pressure. The blood pressure and urinary output responded to 500 mL bolus of normal saline . OBJECTIVE: VITAL SIGNS: This morning includes blood pressure 94/58, pulse 61, respiratory rate 18, temperature 97.4 degrees Fahrenheit, oxygen saturation 92%. HEENT: Reveals normocephalic and atraumatic. HEART: Reveals regular rate and rhythm. No murmurs or gallops auscultated. CHEST: Clear to auscultation bilaterally. Breathing is regular and unlabored. ABDOMEN: Soft, nontender, nondistended. Bowel sounds in all four quadrants appear normoactive. Neva er and spleen are nonpalpable below costal margin. PERTINENT LABORATORY FINDINGS: Today includes CBC with 6600 white blood cells, hemoglobin and hemato crit stable at 10.1 and 31.7 respectively. Platelet count is also stable at 265,000. Metabolic prof ile: Sodium 140, potassium 3.8, chloride is 105, bicarbonate 27, BUN 15, creatinine is 0.79, glucose is 92. IMPRESSION: Post-injury day #1 status post subtrochanteric femur fracture. The patient is hemodynam ically stable to proceed with operative intervention to the hip fracture. We will initiate chemical VTE prophylaxis postoperatively.
[2017-10-23] MEDS ORDERED: HYDROcodone/Acetaminophen 10/325 mg Tablet PO PRN ×2 (17:00)
[2017-10-23] MEDS ORDERED: Promethazine HCl 25 MG/ML VIAL SLOW IVP PRN (17:18)
[2017-10-23] MEDS ORDERED: Ondansetron HCl/PF 4 MG/2 ML Vial IVP PRN (17:18)
[2017-10-23] MEDS ORDERED: Promethazine HCl 25 MG/ML VIAL IM PRN (17:18)
--- NOTE | 2017-10-23 20:40 | RAD ---
RIGHT HIP TWO VIEW 10/23/17 HISTORY: Fracture. COMPARISON: Pelvic CT prior day. FINDINGS: Interval placement of intramedullary nail through the right femoral subtrochanteric fracture. IMPRESSION: Satisfactory postoperative appearance. POS: [facility]
[2017-10-23] MEDS: CEFAZOLIN/Water 2 GM/20 ML SYRINGE SLOW IVP SCH (21:07)
--- NOTE | 2017-10-23 22:45 | OP ---
DATE OPERATION: 10/23/2017 OPERATION: 1. Right hip hardware removal. 2. Right femur intramedullary nail. PREOPERATIVE DIAGNOSIS: Right subtrochanteric femur fracture inferior to cannulated hip screws. POSTOPERATIVE DIAGNOSIS: Right subtrochanteric femur fracture inferior to cannulated hip screws. COMPLICATIONS: None. ESTIMATED BLOOD LOSS: 200 mL SURGEON: Rome Calabrese M.D. ANESTHESIA: General. ENTERPRISE SYSTEMS ENGINEER: Carrie Tomas PA-C IMPLANTS: Synthes 9 mm x 340 mm trochanteric femoral nail. INDICATIONS: Ms. Dutta is an 82-year-old female who recently fractured her femoral neck. She was tr eated with percutaneous screw fixation. Unfortunately, she fell again and now has fracture of the ma btrochanteric femur. She has been indicated for screw removal and intramedullary nail fixation to re store anatomic alignment and promote healing and avoid risk of prolonged bed rest. Complications hav e been reviewed. DESCRIPTION OF PROCEDURE: Ms. Dutta was identified in the preoperative holding area. Her correct ex tremity was marked. She was carried to the operating room. She was positioned supine. General anes thesia was induced. A multidisciplinary timeout was performed. The right lower extremity was preppe d and draped in sterile fashion. We began the procedure by evaluating the femur under intraoperative x-ray. We pulled traction and ro tation on the femur until we had an anatomic reduction. At this point, we proceeded to make a small incision laterally on the thigh. We then removed the patient's 3 previously placed cannulated screws . We used intraoperative x-ray to guide this procedure. All three screws were removed. At this poi nt, we proceeded with intramedullary nail. We made a start point over the tip of the trochanter. We inserted a guidewire from proximal to distal. We then overdrilled the guidewire. Next, we placed a ball tip guidewire down to the knee. We checked the position of this on intraoperative x-ray. Mireya moreira, we reamed over the guidewire from an 8.5 reamer up to a 10 reamer. We then inserted a 9 mm femo ral nail. This was seated appropriately for our central screw. We placed a guidewire in the center position of the femoral head. We then overdrilled the guide wire and placed our central screw for a head fixation. We next placed a distal cross lock screw using perfect tetlin technique. Finally, we irrigated our w ounds and closed with 0 Vicryl suture, 2-0 Vicryl suture and musa for the skin. A sterile dressin g was applied. At this point, the patient was taken to the recovery room in good condition without c omplication.
[2017-10-24] MEDS: Acetaminophen 1,000 MG in Premix Bag 1 BAG IVPB SCH (03:53)
[2017-10-24] MEDS: Ketorolac Tromethamine 30 MG/ML VIAL IVP SCH (03:53)
[2017-10-24] MEDS: CEFAZOLIN/Water 2 GM/20 ML SYRINGE SLOW IVP SCH (05:27)
[2017-10-24] MEDS: Sodium Chloride 0.9% 1,000 ML IV SCH ×2 (05:31→15:00)
[2017-10-24] MEDS: Famotidine 20 MG TAB PO SCH ×2 (07:59→22:16)
[2017-10-24] MEDS: Enoxaparin Sodium 40 MG/0.4 ML SYRINGE SC SCH (07:59)
[2017-10-24 08:18] LABS: #Basophils 0.1 thou/uL (0.0-0.2); #Eosinphils 0.4 thou/uL (0.0-0.7); #Lymphocytes 1.6 thou/uL (1.20-3.40); #Monocytes 0.6 thou/uL (0.11-0.59); #Neutrophils 7.8 thou/uL (1.40-6.50); %Basophils 0.5 % (0.0-1.0); %Monocytes 5.3 % (0.0-10.0); %Neutrophils 75.2 % (42.0-75.0); Hemoglobin 9.7 g/dL (12.0-16.0); Mean Corpuscular HGB CONC 31.6 g/dL (32.0-36.0); Mean Corpuscular Hemoglobin 28.8 pg (27.0-31.0); Mean Corpuscular Volume 91.3 fL (78.0-98.0); Mean Platelet Volume 6.7 fL (7.4-10.4); Platelet Count 277 thou/uL (130-400); RBC Distribution Width 14.1 % (11.5-14.5); Red Blood Cell (RBC) Count 3.35 mill/uL (4.20-5.40); White Blood Cell (WBC) Count 10.4 thou/uL (4.8-10.8)
[2017-10-24 08:54] LABS: Anion Gap 16 mmol/L (10-20); BUN (Urea Nitrogen) 12 mg/dL (9.8-20.1); Calc. Creatinine Clearance 61 mL/min (70-130); Calcium 8.6 mg/dL (7.8-10.44); Carbon Dioxide 19 mmol/L (23-31); Chloride 110 mmol/L (98-107); Estimated GFR-MDRD 81; Glucose 82 mg/dL (83-110); Magnesium 1.6 mg/dL (1.6-2.6); Phosphorus 3.3 mg/dL (2.3-4.7); Potassium 3.7 mmol/L (3.5-5.1); Sodium 141 mmol/L (136-145)
[2017-10-24] MEDS: Hydrocortisone Sod Succ/PF 100 mg/2 ml Vial IVP SCH ×2 (12:26→18:48)
[2017-10-24] MEDS: Ibuprofen 600 MG TAB PO SCH ×2 (12:26→19:50)
[2017-10-24] MEDS: traMADol HCl 50 MG TAB PO SCH ×2 (12:26→19:50)
[2017-10-24] MEDS: Acetaminophen 500 MG TAB PO SCH ×2 (12:26→19:50)
[2017-10-24] MEDS: Ondansetron ODT 4 MG TAB PO PRN (12:31)
[2017-10-24] MEDS: Ondansetron HCl/PF 4 MG/2 ML Vial IVP PRN ×2 (12:45→17:50)
[2017-10-24] MEDS ORDERED: Non-Formulary Item 1 EACH (Azelastine/Fluticasone [Dymista Nasal Spray] 1 SPRAY) EA NARE PRN (20:37)
[2017-10-24] MEDS ORDERED: PROVENTIL INHALER 6.7 G (200 INHALATIONS) INH PRN (20:37)
[2017-10-24] MEDS ORDERED: Fluticasone Propionate Nasal Spray 16 gm Bottle NASAL PRN (21:06)
[2017-10-24] MEDS ORDERED: Promethazine HCl 25 MG/ML VIAL IM/IV SCH (22:00)
[2017-10-24] MEDS: Atorvastatin Calcium 10 MG TAB PO SCH (22:15)
[2017-10-24] MEDS: busPIRone HCl 5 MG TAB PO SCH (22:15)
[2017-10-24] MEDS: Senokot S 8.6-50 MG TAB PO SCH (22:16)
[2017-10-24] MEDS: Carvedilol 3.125 MG TAB PO SCH (22:16)
--- NOTE | 2017-10-24 22:54 | PRG ---
DATE OF SERVICE: 10/24/2017 ATTENDING PHYSICIAN: Dr. Michel Colin. SUBJECTIVE: Ms. Dutta is an 82-year-old woman, who is postoperative day #1 status post right hip ORIF. She reports adequate pain control. She had an episode of hypotension yesterday, requiring a bolus of normal saline, which she responded to. OBJECTIVE: VITAL SIGNS: Temperature 97.6, pulse 75, respirations 18, O2 sat 100% room air , and blood pressure 143/74. HEENT: Atraumatic, normocephalic. HEART: Regular rate and rhythm. ABDOMEN: Soft, nontender, nondistended. PULMONARY: Bilateral breath sounds clear. Respirations even and unlabored. NEUROLOGIC: GCS of 15. Awake, alert, oriented x3. LABORATORY DATA: CBC: WBC 10.4, RBC 3.35, hemoglobin 9.7, hematocrit 34.5, platelets 277. Chemistry: Sodium 141, potassium 3.7, chloride 110, carbon dioxide 19, BUN 12, creatinine 0.69, glucose 82, calcium 8.6, phosphorus 3.3, magnesium 1.6. ASSESSMENT: 1. Status post ground level fall. 2. Right subtrochanteric femur fracture. 3. Status post open reduction and internal fixation, postoperative day #1. 4. Acute traumatic pain, well controlled. PLAN: 1. Transition to oral Tylenol scheduled. 2. Restart home medications as appropriate. 3. Antibiotics per Orthopedic Service. 4. Lovenox for DVT prophylaxis. 5. Pepcid for gastritis prophylaxis. 6. Case management following for discharge planning. Anticipate patient will need go Detention Facility. 7. Initiate bowel protocol. 8. Regular diet and add supplements. 9. PT and OT. The patient was seen and examined with Dr. Colin, who agrees with plan. [facility]
[2017-10-25] MEDS: Acetaminophen 500 MG TAB PO SCH ×5 (00:42→23:09)
[2017-10-25] MEDS: traMADol HCl 50 MG TAB PO SCH ×5 (00:42→23:22)
[2017-10-25] MEDS: Hydrocortisone Sod Succ/PF 100 mg/2 ml Vial IVP SCH ×5 (00:43→23:09)
[2017-10-25] MEDS: Sodium Chloride 0.9% 1,000 ML IV SCH ×2 (00:53→08:11)
[2017-10-25] MEDS ORDERED: traMADol HCl 50 MG TAB PO SCH (01:00)
[2017-10-25] MEDS ORDERED: Ibuprofen 600 MG TAB PO SCH (01:00)
[2017-10-25] MEDS: Levothyroxine Sodium 75 MCG TAB PO SCH (06:25)
[2017-10-25] MEDS: Ondansetron HCl/PF 4 MG/2 ML Vial IVP PRN ×2 (06:25→21:32)
[2017-10-25 08:08] LABS: #Lymphocytes 1.3 thou/uL (1.20-3.40); #Monocytes 0.4 thou/uL (0.11-0.59); #Neutrophils 8.1 thou/uL (1.40-6.50); %Eosinophils 0.2 % (0.0-10.0); %Lymphocytes 13.3 % (21.0-51.0); %Monocytes 3.9 % (0.0-10.0); %Neutrophils 82.6 % (42.0-75.0); Hemoglobin 8.6 g/dL (12.0-16.0); Mean Corpuscular HGB CONC 32.3 g/dL (32.0-36.0); Mean Corpuscular Hemoglobin 29.4 pg (27.0-31.0); Mean Corpuscular Volume 90.9 fL (78.0-98.0); Mean Platelet Volume 6.6 fL (7.4-10.4); Platelet Count 275 thou/uL (130-400); RBC Distribution Width 14.7 % (11.5-14.5); Red Blood Cell (RBC) Count 2.93 mill/uL (4.20-5.40); White Blood Cell (WBC) Count 9.9 thou/uL (4.8-10.8)
[2017-10-25] MEDS: Ibuprofen 600 MG TAB PO SCH ×3 (08:10→23:09)
[2017-10-25] MEDS: busPIRone HCl 5 MG TAB PO SCH ×2 (08:12→23:08)
[2017-10-25] MEDS: Carvedilol 3.125 MG TAB PO SCH ×2 (08:12→23:09)
[2017-10-25] MEDS: Furosemide 20 MG TAB PO SCH (08:12)
[2017-10-25] MEDS: Senokot S 8.6-50 MG TAB PO SCH ×2 (08:12→23:08)
[2017-10-25] MEDS: Famotidine 20 MG TAB PO SCH ×2 (08:12→23:22)
[2017-10-25] MEDS: Enoxaparin Sodium 40 MG/0.4 ML SYRINGE SC SCH (08:13)
[2017-10-25] MEDS: Polyethylene Glycol 3350 17 GM Packet PO SCH (08:13)
[2017-10-25 08:41] LABS: Anion Gap 14 mmol/L (10-20); BUN (Urea Nitrogen) 10 mg/dL (9.8-20.1); Calc. Creatinine Clearance 57 mL/min (70-130); Calcium 9.1 mg/dL (7.8-10.44); Carbon Dioxide 19 mmol/L (23-31); Chloride 111 mmol/L (98-107); Estimated GFR-MDRD 75; Glucose 144 mg/dL (83-110); Magnesium 1.6 mg/dL (1.6-2.6); Potassium 3.1 mmol/L (3.5-5.1); Sodium 141 mmol/L (136-145)
--- NOTE | 2017-10-25 09:12 | RAD ---
PORTABLE AP CHEST X-RAY: 10/25/2017 HISTORY: Follow up pneumothorax. COMPARISON: No recent studies are available for comparison. Comparison is made with a study from 10/12/2013. FINDINGS: The patient's jaw and mandible overly the lung apices, limiting evaluation. A small apical pneumotho rax could not be excluded on this exam. There is a questionable tiny lucency overlying the lateral a spect of the left mid lung zone. I am unsure if this is related to a very miniscule pneumothorax or if this is artifactual. There is blunting of the left lateral costophrenic angle with slight patchy density at the left lung base, which could be related to atelectasis and a small left pleural effusio n. The lungs are otherwise clear. The cardiac silhouette is magnified by projection but does appear enlarged. Aortic valve replacement is noted. There are vascular calcifications seen in the thoraci c aorta. Degenerative changes are noted in the spine. IMPRESSION: 1. Patient's jaw and mandible overly the lung apices. Indication for study is follow up pneumothora x. A repeat PA chest x-ray with improved patient positioning and better technique is suggested. The re is a tiny lucency seen at the lateral aspect of the left mid lung zone, which is thought to more l ikely be artifactual, as opposed to a tiny pneumothorax, although this cannot be entirely excluded. 2. Pleural and parenchymal changes, left lung base, which may represent small left pleural effusion or atelectasis. 3. Cardiomegaly. POS: [facility]
[2017-10-25] MEDS ORDERED: Magnesium Sulfate 2 GM in Sodium Chloride 0.9% 100 ML IVPB SCH (11:00)
[2017-10-25] MEDS ORDERED: Potassium Phosphate 30 MMOL, Magnesium Sulfate 2 GM in Sodium Chloride 0.9% 500 ML IVPB SCH (12:00)
[2017-10-25] MEDS: traMADol HCl 50 MG TAB PO PRN (15:24)
[2017-10-25] MEDS: Ferrous Sulfate 325 MG TAB PO SCH (17:46)
--- NOTE | 2017-10-25 20:21 | PRG ---
DATE OF SERVICE: 10/25/2017 ATTENDING PHYSICIAN: Dr. Mcihel Colin. SUBJECTIVE: Ms. Dutta is an 82-year-old woman who is postoperative day #2 status post right hip ORIF. She reports adequate pain control. She has been hemodynamically stable. OBJECTIVE: VITAL SIGNS: Temperature 98.5, pulse 68, respirations 16, O2 sat 98% on room air, blood pressure 155/75. CONSTITUTIONAL: Elderly female lying in bed in no acute distress. HEENT: Atraumatic, normocephalic. CARDIOVASCULAR: Regular rate and rhythm. Heart sounds are normal. ABDOMEN: Soft, nontender, nondistended. PULMONARY: Bilateral breath sounds clear, respirations even and unlabored. NEUROLOGIC: GCS 15. Awake, alert, and oriented x3. LABORATORY DATA: CBC: WBC 9.9, RBC 2.93, hemoglobin 8.6, which is trending down from 11.2, hematocrit 26.7, platelets 275. Chemistry: Sodium 141, potassium 3.1, chloride 111, carbon dioxide 19, BUN 10, creatinine 0.74, glucose 144, calcium 9.1, phosphorus 2.0, magnesium 1.6. ASSESSMENT: 1. Status post ground level fall. 2. Right subtrochanteric femur fracture. 3. Status post open reduction and internal fixation of right subtrochanteric femur fracture, POD #2 . 4. Hypomagnesemia. 5. Hypophosphatemia. 6. Hypokalemia. PLAN: 1. Continue oral Tylenol as scheduled. 2. Replace electrolytes and continue to monitor. 3. Start vitamin C and iron. 4. Discontinue IV fluids. 5. PT, OT for mobilization. 6. Lovenox for DVT prophylaxis. 7. Pepcid for gastritis prophylaxis. 8. Case management for discharge planning. Anticipate patient will need alf facility or inpatient rehabilitation. The patient was reviewed with Dr. Colin who agrees with plan. [facility]
[2017-10-25] MEDS ORDERED: Scopolamine 1.5 mg/72 hour Patch TOP PRN (22:11)
[2017-10-25] MEDS ORDERED: Promethazine HCl 25 MG/ML VIAL IM/IV PRN (22:12)
[2017-10-25] MEDS: Ascorbic Acid 500 mg Chewable Tablet PO SCH (23:08)
[2017-10-25] MEDS: Atorvastatin Calcium 10 MG TAB PO SCH (23:09)
[2017-10-26 05:22] LABS: Anion Gap 14 mmol/L (10-20); BUN (Urea Nitrogen) 11 mg/dL (9.8-20.1); Calc. Creatinine Clearance 55 mL/min (70-130); Calcium 8.8 mg/dL (7.8-10.44); Carbon Dioxide 22 mmol/L (23-31); Chloride 109 mmol/L (98-107); Estimated GFR-MDRD 71; Glucose 121 mg/dL (83-110); Magnesium 2.3 mg/dL (1.6-2.6); Phosphorus 2.4 mg/dL (2.3-4.7); Sodium 142 mmol/L (136-145)
[2017-10-26 05:26] LABS: Potassium 2.7 mmol/L (3.5-5.1)
[2017-10-26 05:36] LABS: #Lymphocytes 1.6 thou/uL (1.20-3.40); #Monocytes 0.5 thou/uL (0.11-0.59); #Neutrophils 7.8 thou/uL (1.40-6.50); %Basophils 0.2 % (0.0-1.0); %Eosinophils 0.4 % (0.0-10.0); %Lymphocytes 15.8 % (21.0-51.0); %Monocytes 4.6 % (0.0-10.0); Hemoglobin 8.3 g/dL (12.0-16.0); Mean Corpuscular HGB CONC 32.1 g/dL (32.0-36.0); Mean Corpuscular Hemoglobin 28.7 pg (27.0-31.0); Mean Corpuscular Volume 89.5 fL (78.0-98.0); Mean Platelet Volume 7.1 fL (7.4-10.4); Platelet Count 281 thou/uL (130-400); RBC Distribution Width 15.2 % (11.5-14.5); Red Blood Cell (RBC) Count 2.87 mill/uL (4.20-5.40); White Blood Cell (WBC) Count 9.8 thou/uL (4.8-10.8)
[2017-10-26] MEDS: Hydrocortisone Sod Succ/PF 100 mg/2 ml Vial IVP SCH ×3 (06:22→17:53)
[2017-10-26] MEDS: Acetaminophen 500 MG TAB PO SCH ×3 (06:22→17:51)
[2017-10-26] MEDS: Levothyroxine Sodium 75 MCG TAB PO SCH (06:23)
[2017-10-26] MEDS: traMADol HCl 50 MG TAB PO SCH ×3 (06:23→17:51)
[2017-10-26] MEDS ORDERED: Potassium Chloride 40 MEQ in Sodium Chloride 0.9% 500 ML IVPB SCH (07:00)
[2017-10-26] MEDS: Ferrous Sulfate 325 MG TAB PO SCH ×2 (08:16→16:47)
[2017-10-26] MEDS: Ibuprofen 600 MG TAB PO SCH ×2 (08:16→15:52)
[2017-10-26] MEDS: Carvedilol 3.125 MG TAB PO SCH ×2 (08:17→21:45)
[2017-10-26] MEDS: Enoxaparin Sodium 40 MG/0.4 ML SYRINGE SC SCH (08:17)
[2017-10-26] MEDS: Famotidine 20 MG TAB PO SCH ×2 (08:17→21:44)
[2017-10-26] MEDS: Bisacodyl 10 MG SUPP PR SCH (08:17)
[2017-10-26] MEDS: Ascorbic Acid 500 mg Chewable Tablet PO SCH ×2 (09:34→21:44)
[2017-10-26] MEDS: Polyethylene Glycol 3350 17 GM Packet PO SCH (09:34)
[2017-10-26] MEDS: Senokot S 8.6-50 MG TAB PO SCH ×2 (09:34→21:45)
[2017-10-26] MEDS: busPIRone HCl 5 MG TAB PO SCH ×2 (09:34→21:44)
[2017-10-26] MEDS: Furosemide 20 MG TAB PO SCH (09:34)
[2017-10-26] MEDS: Ondansetron ODT 4 MG TAB PO PRN (09:39)
[2017-10-26] MEDS: traMADol HCl 50 MG TAB PO PRN (10:35)
--- NOTE | 2017-10-26 19:27 | PRG ---
DATE OF SERVICE: 10/26/2017 ATTENDING PHYSICIAN: Dr. Michel Colin. SUBJECTIVE: Ms. Dutta is an 82-year-old woman who is postoperative day #3 status post right hip ORIF. She reports adequate pain control. She has been hemodynamically stable. For the past 2 nights, she has complained of nausea at approximately 9:00 p.m. This does not seem to correlate with any medication administration. Scopolamine patch was placed last p.m. Today, nausea has significantly improved. OBJECTIVE: VITAL SIGNS: Temperature 97.5, pulse 62, respirations 18, O2 sat 99% room air, blood pressure 141/77. CONSTITUTIONAL: Elderly female lying in bed in no acute distress. HEENT: Atraumatic, normocephalic. CARDIOVASCULAR: Regular rate and rhythm. Heart sounds normal. ABDOMEN: Soft, nontender, nondistended. PULMONARY: Bilateral breath sounds clear, respirations even and unlabored. NEUROLOGIC: GCS 15. Awake, alert, oriented x3. LABORATORY DATA: CBC: WBC 9.8, RBC 2.87, hemoglobin 8.3, hematocrit 25.7, platelets 281. Chemistry: Sodium 142, potassium 3.7, chloride 109, carbon dioxide 22, BUN 11, creatinine 0.77, glucose 121, calcium 8.8, phosphorus 2.4, magnesium 2.3. ASSESSMENT: 1. Status post ground-level fall. 2. Right subtrochanteric femur fracture. 3. Status post open reduction and internal fixation of right subtrochanteric femur fracture, postoperative day #3. 4. Hypokalemia. PLAN: 1. Continue oral analgesia scheduled. 2. Replace electrolytes and continue to monitor. 3. Continue vitamin C and iron. 4. PT, OT for mobilization. 5. Patient up to chair this a.m. Plan for patient to return to sitting in a chair for evening meal. 6. Lovenox for DVT prophylaxis. 7. Pepcid for gastritis prophylaxis. 8. Case management for discharge planning. Anticipate patient will need senior care facility or inpatient rehabilitation. The patient was reviewed with Dr. Colin who agrees with plan. [facility]
[2017-10-26] MEDS: Atorvastatin Calcium 10 MG TAB PO SCH (21:44)
[2017-10-27] MEDS: Hydrocortisone Sod Succ/PF 100 mg/2 ml Vial IVP SCH ×2 (00:46→05:11)
[2017-10-27] MEDS: traMADol HCl 50 MG TAB PO SCH ×4 (00:46→18:26)
[2017-10-27] MEDS: Acetaminophen 500 MG TAB PO SCH ×4 (00:46→18:26)
[2017-10-27] MEDS: Ibuprofen 600 MG TAB PO SCH ×3 (00:46→16:03)
[2017-10-27 04:24] LABS: #Lymphocytes 1.8 thou/uL (1.20-3.40); #Monocytes 0.5 thou/uL (0.11-0.59); #Neutrophils 7.2 thou/uL (1.40-6.50); %Basophils 0.3 % (0.0-1.0); %Eosinophils 0.3 % (0.0-10.0); %Lymphocytes 18.9 % (21.0-51.0); %Monocytes 5.5 % (0.0-10.0); %Neutrophils 74.9 % (42.0-75.0); Hemoglobin 8.8 g/dL (12.0-16.0); Mean Corpuscular HGB CONC 32.7 g/dL (32.0-36.0); Mean Corpuscular Hemoglobin 29.3 pg (27.0-31.0); Mean Corpuscular Volume 89.7 fL (78.0-98.0); Mean Platelet Volume 6.7 fL (7.4-10.4); Platelet Count 301 thou/uL (130-400); RBC Distribution Width 15.5 % (11.5-14.5); Red Blood Cell (RBC) Count 3.01 mill/uL (4.20-5.40); White Blood Cell (WBC) Count 9.6 thou/uL (4.8-10.8)
[2017-10-27 04:53] LABS: Anion Gap 12 mmol/L (10-20); BUN (Urea Nitrogen) 8 mg/dL (9.8-20.1); Calc. Creatinine Clearance 64 mL/min (70-130); Carbon Dioxide 29 mmol/L (23-31); Chloride 103 mmol/L (98-107); Estimated GFR-MDRD 85; Glucose 114 mg/dL (83-110); Magnesium 1.7 mg/dL (1.6-2.6); Phosphorus 1.8 mg/dL (2.3-4.7); Potassium 2.4 mmol/L (3.5-5.1); Sodium 142 mmol/L (136-145)
[2017-10-27] MEDS: Levothyroxine Sodium 75 MCG TAB PO SCH (05:11)
[2017-10-27 06:22] LABS: Magnesium 1.8 mg/dL (1.6-2.6)
[2017-10-27 06:25] LABS: Phosphorus 1.6 mg/dL (2.3-4.7); Potassium 2.2 mmol/L (3.5-5.1)
[2017-10-27] MEDS ORDERED: MAGNESIUM SULFATE IVPB SCH ×2 (06:45→07:00)
[2017-10-27] MEDS ORDERED: [UNRECOGNIZED DRUG - OTHER] IVPB SCH ×2 (06:45→07:00)
[2017-10-27] MEDS ORDERED: POTASSIUM PHOSPHATE IVPB SCH ×2 (06:45→07:00)
[2017-10-27] MEDS ORDERED: Potassium Phosphate 30 MMOL, Admixture Fee 1 EACH in Sodium Chloride 0.9% 500 ML IVPB SCH (06:45)
[2017-10-27] MEDS ORDERED: ADMIXTURE FEE IVPB SCH ×2 (06:45→07:00)
[2017-10-27] MEDS: Polyethylene Glycol 3350 17 GM Packet PO SCH (07:58)
[2017-10-27] MEDS: Bisacodyl 10 MG SUPP PR SCH (07:58)
[2017-10-27] MEDS: Senokot S 8.6-50 MG TAB PO SCH ×2 (07:58→20:58)
[2017-10-27] MEDS: Famotidine 20 MG TAB PO SCH ×2 (08:15→20:57)
[2017-10-27] MEDS: Furosemide 20 MG TAB PO SCH (08:15)
[2017-10-27] MEDS: Ferrous Sulfate 325 MG TAB PO SCH ×2 (08:15→16:03)
[2017-10-27] MEDS: Ascorbic Acid 500 mg Chewable Tablet PO SCH ×2 (08:15→20:57)
[2017-10-27] MEDS: Enoxaparin Sodium 40 MG/0.4 ML SYRINGE SC SCH (08:15)
[2017-10-27] MEDS: busPIRone HCl 5 MG TAB PO SCH ×2 (08:15→20:57)
[2017-10-27] MEDS: Carvedilol 3.125 MG TAB PO SCH ×2 (09:31→20:57)
--- NOTE | 2017-10-27 10:09 | PQF ---
CLINICAL DOCUMENTATION IMPROVEMENT CLARIFICATION FORM: ICD-10 Updated PLEASE DO AN ADDENDUM TO THE PROGRESS NOTE WITH ANY DOCUMENTATION UPDATES OR ADDITIONS AND CARRY THROUGH TO DC SUMMARY. THANK YOU. DATE: 10/27 ATTN: DR. RADHA CARRINGTON Please exercise your independent, professional judgment in responding to the clarification form. Clinical indicators are provided on the bottom of this form for your review. Please check appropriate box(s): [ x ] Acute blood loss anemia [ ] Post-op anemia related to acute blood loss [ ] Other diagnosis [ ] Unable to determine For continuity of documentation, please document condition throughout progress notes and discharge summary. Thank You. CLINICAL INDICATORS - SIGNS / SYMPTOMS / LABS H/H: 11.2/34.8 - 8.8/27.0 (10/22 - 10/27) OP REPORT 10/23 - R HIP HARDWARE REMOVAL; R FEMUR IM NAIL; EBL 200 ML RISK FACTORS: OR PROCEDURE - R HIP HARDWARE REMOVAL & R FEMUR IM NAIL (10/23) EPISODE OF HYPOTENSION (10/23) TREATMENTS: SERIAL H/H (10/22 - PRESENT) IVF (NS 10/22 - ) NS BOLUS 500 ML (10/23) THANK YOU! Maryann (This form is maintained as a part of the permanent medical record) 2014 [employer] All Rights Reserved Maryann Baez RN, BSN [email or web address] Office: [phone] [facility] HOSPITAL[facility]ianna
[2017-10-27] MEDS: traMADol HCl 50 MG TAB PO PRN (16:03)
[2017-10-27] MEDS: Atorvastatin Calcium 10 MG TAB PO SCH (20:57)
--- NOTE | 2017-10-27 21:02 | PRG ---
DATE OF SERVICE: 10/26/2017 ATTENDING PHYSICIAN: Dr. Michel Colin. SUBJECTIVE: Ms. Dutta is an 82-year-old woman, who is postoperative day #4 status post right hip FLORY F. She had previously complained of nausea for the past 2 nights. That has now resolved and she is able to tolerate a regular diet and mobilize out of the bed to the chair with physical and occupation al therapy. OBJECTIVE: VITAL SIGNS: Temperature 98.3, pulse 55, respirations 18, O2 sat 94% on room air, blood pressure 177 /80. CONSTITUTIONAL: Elderly female, sitting up in bed, in no acute distress. HEENT: Atraumatic, normocephalic. CARDIOVASCULAR: Mildly bradycardic at 56 beats per minute. Heart sounds normal. ABDOMEN: Soft, nontender, nondistended. PULMONARY: Bilateral breath sounds clear, respirations even and unlabored. NEUROLOGIC: GCS 15. Awake, alert, and oriented x3. LABORATORY DATA: WBC 9.6, RBC 3.01, hemoglobin 8.8, hematocrit 27.0, platelets 301. Chemistry: Sod ium 142, potassium 2.4, chloride 103, carbon dioxide 29, BUN 8, creatinine 0.66, glucose 114, calcium 9.0, phosphorus 1.8, magnesium 1.7. ASSESSMENT: 1. Status post ground level fall. 2. Right subtrochanteric femur fracture. 3. Status post open reduction and internal fixation, right femur fracture, postoperative day #4. 4. Hypokalemia. 5. Hypophosphatemia. PLAN: 1. Continue oral analgesia scheduled. 2. Replace electrolytes and continue to monitor. 3. Continue PT, OT for mobilization. 4. Lovenox for DVT prophylaxis. 5. Pepcid for gastritis prophylaxis. 6. Case management following for discharge planning. Anticipate patient will discharge to skilled n ursing facility tomorrow. The patient was reviewed with Dr. Colin, who agrees with plan.
[2017-10-28] MEDS: Acetaminophen 500 MG TAB PO SCH ×4 (00:50→18:03)
[2017-10-28] MEDS: Ibuprofen 600 MG TAB PO SCH ×3 (00:50→15:23)
[2017-10-28] MEDS: traMADol HCl 50 MG TAB PO SCH ×4 (00:50→18:04)
[2017-10-28 04:12] LABS: Anion Gap 11 mmol/L (10-20); BUN (Urea Nitrogen) 12 mg/dL (9.8-20.1); Calc. Creatinine Clearance 64 mL/min (70-130); Calcium 8.5 mg/dL (7.8-10.44); Carbon Dioxide 33 mmol/L (23-31); Chloride 100 mmol/L (98-107); Estimated GFR-MDRD 85; Glucose 90 mg/dL (83-110); Magnesium 2.2 mg/dL (1.6-2.6); Phosphorus 2.3 mg/dL (2.3-4.7); Potassium 2.2 mmol/L (3.5-5.1); Sodium 142 mmol/L (136-145)
[2017-10-28] MEDS ORDERED: Potassium Phosphate 30 MMOL in Sodium Chloride 0.9% 250 ML 250 ML IVPB SCH ×2 (05:00→06:00)
[2017-10-28] MEDS: Levothyroxine Sodium 75 MCG TAB PO SCH (05:48)
[2017-10-28] MEDS: traMADol HCl 50 MG TAB PO PRN (05:49)
[2017-10-28] MEDS: Carvedilol 3.125 MG TAB PO SCH ×2 (08:03→22:21)
[2017-10-28] MEDS: Enoxaparin Sodium 40 MG/0.4 ML SYRINGE SC SCH (08:03)
[2017-10-28] MEDS: Famotidine 20 MG TAB PO SCH ×2 (08:03→22:21)
[2017-10-28] MEDS: Ferrous Sulfate 325 MG TAB PO SCH ×2 (08:03→18:03)
[2017-10-28] MEDS ORDERED: Potassium Chloride 20 MEQ TAB PO SCH ×2 (09:04→17:00)
[2017-10-28] MEDS: busPIRone HCl 5 MG TAB PO SCH ×2 (09:16→22:22)
[2017-10-28] MEDS: Ascorbic Acid 500 mg Chewable Tablet PO SCH ×2 (09:16→22:23)
[2017-10-28] MEDS: Furosemide 20 MG TAB PO SCH (09:17)
[2017-10-28] MEDS: Bisacodyl 10 MG SUPP PR SCH (09:17)
[2017-10-28] MEDS: Senokot S 8.6-50 MG TAB PO SCH ×2 (09:18→22:23)
[2017-10-28] MEDS: Polyethylene Glycol 3350 17 GM Packet PO SCH ×2 (09:18→09:21)
[2017-10-28] MEDS ORDERED: Spironolactone 25 MG TAB PO SCH (10:45)
[2017-10-28] MEDS ORDERED: TRIAZOLAM 0.125 MG PO PRN ×2 (11:18→12:42)
[2017-10-28] MEDS: hydrALAZINE 20 MG/ML VIAL SLOW IVP PRN (11:29)
--- NOTE | 2017-10-28 11:37 | PRG ---
DATE OF SERVICE: 10/28/2017 SUBJECTIVE: Ms. Dutta is an 82-year-old woman who is post-injury day #5, status post ground level fa where she sustained a right subtrochanteric femur fracture. She is postoperative day #5 for repai r. She reports adequate pain control. Her potassium has been low now for the last 3 days. She denies any dyspnea, syncope or chest pain. She is tolerating general diet, having normal bowel and urinary function. OBJECTIVE: VITAL SIGNS: This morning includes blood pressure 178/72, pulse 60, respiration rate is 18, temperat ure is 97.5 degrees Fahrenheit, oxygen saturation is 95% on room air. HEENT: Reveals normocephalic and atraumatic. NECK: She has no jugular venous distention noted. HEART: Reveals regular rate and rhythm. No murmurs or gallops auscultated. LUNGS: Clear to auscultation bilaterally. Her breathing is regular and unlabored. ABDOMEN: Soft, nontender, nondistended. EXTREMITIES: Reveals 2+ radial and pedal pulses bilaterally. She has no ankle edema present. NEUROLOGIC: Reveals no focal deficits present. LABORATORY FINDINGS: This morning includes sodium 142, potassium 2.2, chloride is 100, bicarbonate i s 33, BUN is 12, creatinine is 0.66, glucose is 90, magnesium 2.2, phosphorus is 2.3. IMPRESSION: 1. Postoperative day #5, status post IM nail to right subtrochanteric femur fracture. 2. Acute hypokalemia. PLAN: 1. Correct abnormal electrolytes. 2. We will discontinue furosemide and start spironolactone, which is potassium-sparing. 3. We will increase activity per physical and occupational therapy. Above findings and plan discussed with the patient who indicates understanding of information given. I have answered their questions. Once hypokalemia has been corrected and the patient remains stable, the patient will be transferred t o intermediate facility where she will continue her rehabilitation.
[2017-10-28] MEDS ORDERED: Melatonin 3 MG TAB PO PRN (18:58)
[2017-10-28] MEDS: Pregabalin 75 MG CAP PO SCH (22:20)
[2017-10-28] MEDS: Atorvastatin Calcium 10 MG TAB PO SCH (22:22)
[2017-10-29] MEDS: traMADol HCl 50 MG TAB PO SCH ×3 (00:31→11:51)
[2017-10-29] MEDS: Ibuprofen 600 MG TAB PO SCH ×2 (00:31→07:49)
[2017-10-29] MEDS: Acetaminophen 500 MG TAB PO SCH ×3 (00:31→11:50)
[2017-10-29] MEDS: hydrALAZINE 20 MG/ML VIAL SLOW IVP PRN (04:48)
[2017-10-29 05:37] LABS: Anion Gap 15 mmol/L (10-20); BUN (Urea Nitrogen) 14 mg/dL (9.8-20.1); Calc. Creatinine Clearance 68 mL/min (70-130); Calcium 8.4 mg/dL (7.8-10.44); Carbon Dioxide 25 mmol/L (23-31); Chloride 104 mmol/L (98-107); Estimated GFR-MDRD Greater than 90; Glucose 79 mg/dL (83-110); Phosphorus 3.3 mg/dL (2.3-4.7); Potassium 3.2 mmol/L (3.5-5.1); Sodium 141 mmol/L (136-145)
[2017-10-29] MEDS ORDERED: Potassium Chloride 20 MEQ TAB PO SCH (06:00)
[2017-10-29] MEDS: Levothyroxine Sodium 75 MCG TAB PO SCH (06:20)
[2017-10-29] MEDS: Ferrous Sulfate 325 MG TAB PO SCH (07:49)
[2017-10-29] MEDS ORDERED: Spironolactone 25 MG TAB PO SCH (08:00)
[2017-10-29] MEDS: Senokot S 8.6-50 MG TAB PO SCH (08:48)
[2017-10-29] MEDS: busPIRone HCl 5 MG TAB PO SCH (08:48)
[2017-10-29] MEDS: Carvedilol 3.125 MG TAB PO SCH (08:48)
[2017-10-29] MEDS: Bisacodyl 10 MG SUPP PR SCH (08:48)
[2017-10-29] MEDS: Famotidine 20 MG TAB PO SCH (08:49)
[2017-10-29] MEDS: Enoxaparin Sodium 40 MG/0.4 ML SYRINGE SC SCH (08:49)
[2017-10-29] MEDS: Ascorbic Acid 500 mg Chewable Tablet PO SCH (08:49)
[2017-10-29] MEDS: Polyethylene Glycol 3350 17 GM Packet PO SCH (08:49)
[2017-10-29] MEDS: Pregabalin 75 MG CAP PO SCH (08:53)
[2017-10-29 12:17] VITALS: BP 126/71; TEMP 98.3
--- NOTE | 2017-10-29 13:41 | DIS-2 ---
DATE OF ADMISSION: 10/22/2017 DATE OF DISCHARGE: 10/29/2017 RESIDENT: Dr. Jenna Munoz ADMITTING ATTENDING: Dr. Michel Colin DISCHARGE ATTENDING: Dr. Michel Colin CONSULTATIONS: Orthopedics, Dr. Calabrese PROCEDURES: Right subtrochanteric femur fracture treated with screw removal and intramedullary nail fixation on 10/23/2017. PRIMARY DIAGNOSIS: Right subtrochanteric hip fracture, status post intramedullary nail fixation. SECONDARY DIAGNOSES: 1. Recurrent falls. 2. Hypertension. 3. Gastroesophageal reflux disease. 4. Hypothyroidism. 5. Anxiety and depression. 6. Dyslipidemia. 7. Hypokalemia. 8. History of prosthetic aortic valve replacement. DISCHARGE MEDICATIONS: 1. Lyrica 75 mg p.o. b.i.d. 2. Synthroid 75 mcg p.o. daily. 3. Potassium chloride 20 mEq p.o. at bedtime. 4. Carvedilol 3.125 mg p.o. b.i.d. 5. Buspirone 5 mg p.o. b.i.d. 6. Aspirin 81 mg p.o. b.i.d.. 7. Triazolam 0.125 mg p.o. at bedtime p.r.n. 8. Zantac 150 mg p.o. at bedtime p.r.n. 9. Fexofenadine HCL 60 mg p.o. daily p.r.n. 10. Cetirizine 10 mg p.o. daily p.r.n. 11. Centrum Silver multivitamin 1 tab p.o. daily. 12. Esomeprazole magnesium, Nexium 40 mg p.o. at bedtime. 13. Dymista nasal spray 1 spray each naris b.i.d. p.r.n. 14. Lipitor 10 mg p.o. at bedtime. 15. ProAir HFA 2 puffs inhaled q.6 hours p.r.n. 16. Lidocaine 5% patch to b.i.d. p.r.n. 17. AZO urinary tract health pack 1 each p.o. daily. 18. Acetaminophen 1000 mg p.o. q.6 hours. 19. Vitamin C 500 mg p.o. b.i.d. 20. Dulcolax 10 mg p.o. daily. 21. Spironolactone 25 mg p.o. q.a.m. 22. Ferrous sulfate 325 mg p.o. b.i.d. 23. Ibuprofen 600 mg p.o. q.8 hours. 24. DuoNeb 3 mL nebs q.4 hours p.r.n. 25. MiraLax 17 grams p.o. daily. 26. Senokot 1 tab p.o. b.i.d. 27. Tramadol HCL 50 mg p.o. q.6 hours. DISCONTINUED MEDICATIONS: Furosemide 20 mg p.o. daily. HISTORY OF PRESENT ILLNESS/HOSPITAL COURSE: An 82-year-old female who presented after reportedly falling at home. She was found to have a right hip fracture. This is in the setting of a similar fall less than 30 days ago in which she underwent percutaneous screw fixation. She was admitted, Orthopedic Surgery was consulted. On 10/23/2017 she underwent right hip hardware removal with right femur IM nail placement by Orthopedic Surgery, Dr. Calabrese. She tolerated the procedure well. Pain was well controlled. The patient was hypokalemic during her hospital stay, lowest was 2.2. Potassium was replaced as needed and values normalized. For this reason, Lasix was discontinued and spironolactone was added. The patient was stable for discharge with pain well controlled. DISPOSITION: Stable. DISCHARGE INSTRUCTIONS: 1. Location: [facility] facility. 2. Diet: Regular. 3. Activity: Activity with orthopedic restrictions. 4. Followup: Follow up with PCP and Orthopedic Surgery. STEPHEN
== END 2017-10-29 12:38 | DRG 481 ==
LOC: ERS 15:03 → SURG A 21:04
PROVIDERS: ADMIT Surgery; ATTEND Surgery
PROC: 0QS606Z Reposition Right Upper Femur with Intramedullary Internal Fixation Device, Open Approach (ICD-10-PCS; principal; 2017-10-23)
PROC: 0QP604Z Removal of Internal Fixation Device from Right Upper Femur, Open Approach (ICD-10-PCS; 2017-10-23)
DX: S72.21XA Displaced subtrochanteric fracture of right femur, initial encounter for closed fracture (principal); D62 Acute posthemorrhagic anemia; I25.10 Atherosclerotic heart disease of native coronary artery without angina pectoris; G89.11 Acute pain due to trauma; E03.9 Hypothyroidism, unspecified; I11.0 Hypertensive heart disease with heart failure; I50.9 Heart failure, unspecified; G43.909 Migraine, unspecified, not intractable, without status migrainosus; F32.9 Major depressive disorder, single episode, unspecified; G89.29 Other chronic pain; R29.6 Repeated falls; M54.9 Dorsalgia, unspecified; E87.6 Hypokalemia; E83.39 Other disorders of phosphorus metabolism; F41.9 Anxiety disorder, unspecified; E78.5 Hyperlipidemia, unspecified; K21.9 Gastro-esophageal reflux disease without esophagitis; Z79.899 Other long term (current) drug therapy; Z95.5 Presence of coronary angioplasty implant and graft; Z95.2 Presence of prosthetic heart valve; W01.0XXA Fall on same level from slipping, tripping and stumbling without subsequent striking against object, initial encounter
CPT/HCPCS: 36415; 36416; 71045; 72192; 76001; 80048; 80053; 81003; 81015; 82533; 83735; 84100; 85025; 94640; 96361; 96374; 96375; C1713; C1769; G0390; G8978-GP-CM; G8979-GP-CK; G8987-GO-CM; G8988-GO-CK; J0131; J0360; J1650; J1720; J1885; J2001; J2270; J2405; J2550; J2704; J3010; J3475; J3480; J7050; J7620; Q0162

== ENCOUNTER 2018-01-19 14:55 | Inpatient (IN) | payer MEDICARE, BC ==
[2018-01-19 15:34] LABS: Bilirubin Negative (Negative); Blood, Urine Moderate (Negative); Clarity TURBID (Clear); Glucose, Urine (Dipstick) Negative (Negative); Leukocyte Large (Negative); Nitrite Positive (Negative); Protein, Urine (Dipstick) 100 mg/dL (Neg-Trace); Specific Gravity, Urine 1.017 (1.002-1.036); Urobilinogen 0.2 mg/dL (0.2-1.0)
[2018-01-19 15:39] LABS: Bacteria/HPF 4+ HPF (None Seen); RBC/HPF 21-50 HPF (0-3); Squamous Epithelial 0-3 HPF (0-3); Yeast-AUWi Flag 14.4 (0-25.0)
[2018-01-19 15:42] LABS: Pathc Cast-AUWi Flag 5.61 (0-2.49)
[2018-01-19 15:52] LABS: Hyaline Casts/LPF 0-3 HYALINE CAST LPF (0-3 Hyaline); Other Casts/LPF None Seen LPF (0-3 Hyaline)
[2018-01-19 16:08] LABS: Hemoglobin 10.3 g/dL (12.0-16.0); Mean Corpuscular HGB CONC 31.7 g/dL (32.0-36.0); Mean Corpuscular Hemoglobin 31.4 pg (27.0-31.0); Mean Corpuscular Volume 99.1 fL (78.0-98.0); Mean Platelet Volume 7.4 fL (7.4-10.4); Platelet Count 323 thou/uL (130-400); RBC Distribution Width 13.9 % (11.5-14.5); Red Blood Cell (RBC) Count 3.28 mill/uL (4.20-5.40); White Blood Cell (WBC) Count 19.6 thou/uL (4.8-10.8)
--- NOTE | 2018-01-19 16:14 | RAD ---
CHEST 1 VIEW: Date: 01/19/18 HISTORY: Cough in an 82-year-old female with weakness and back pain. COMPARISON: 10/25/17. FINDINGS: Monitor leads overlie the chest. Aortic valve replacement changes. Borderline cardiomegaly. Stable ap pearing blunting of the left costophrenic angle. No confluent pneumonia, overt edema, or pleural effu mihai. IMPRESSION: Stable appearing chest. No significant new process. No pneumonia, edema, or pleural effusion. POS: [facility]
[2018-01-19 16:23] LABS: ALT (SGPT) 15 U/L (8-55); AST (SGOT) 20 U/L (5-34); Albumin 3.2 g/dL (3.4-4.8); Alkaline Phosphatase 139 U/L (40-150); Anion Gap 9 mmol/L (10-20); BUN (Urea Nitrogen) 17 mg/dL (9.8-20.1); Bilirubin, Total 0.5 mg/dL (0.2-1.2); CK (CPK) 201 U/L (29-168); Calc. Creatinine Clearance 0 mL/min (70-130); Calcium 8.9 mg/dL (7.8-10.44); Carbon Dioxide 33 mmol/L (23-31); Chloride 102 mmol/L (98-107); Estimated GFR-MDRD 40; Globulin 2.9 g/dL (2.4-3.5); Glucose 104 mg/dL (83-110); Lipase Less than 4 U/L (8-78); Protein, Total 6.1 g/dL (6.0-8.3); Sodium 140 mmol/L (136-145)
[2018-01-19 16:27] LABS: CKMB 1.1 ng/mL (0-6.6); Troponin I 0.015 ng/mL (< 0.028)
[2018-01-19 16:34] LABS: Band 15 % (5-11); Eosinophils 4 % (0-10); Lymphocytes 16 % (21-51); MDiff Complete? YES; Metamyelocyte 1 % (0-0); Monocytes 7 % (0-10); Neutrophil 57 % (42-75); PLT Morphology Comment Appears Adequate; Polychromasia SLIGHT = 2-3 cells (100X) (0-2/hpf)
[2018-01-19] MEDS ORDERED: MEROPENEM 1 GM/50 ML 1 GM in Premix Bag 1 BAG IVPB SCH (16:45)
[2018-01-19] MEDS ORDERED: Lidocaine 5% Patch TD PRN (23:38)
[2018-01-19] MEDS ORDERED: Non-Formulary Item 1 EACH (Azelastine/Fluticasone [Dymista Nasal Spray] 1 SPRAY) EA NARE PRN (23:38)
[2018-01-19] MEDS ORDERED: Ondansetron ODT 4 MG TAB PO PRN (23:43)
[2018-01-19] MEDS ORDERED: Bisacodyl 5 MG TAB PO PRN (23:43)
[2018-01-19] MEDS ORDERED: Acetaminophen 325 MG TAB PO PRN (23:43)
[2018-01-19] MEDS ORDERED: Ondansetron PF 4 MG/2 ML Vial IVP PRN (23:43)
[2018-01-20] MEDS ORDERED: Fluticasone Propionate Nasal Spray 16 gm Bottle NASAL PRN (00:01)
[2018-01-20] MEDS ORDERED: Azelastine 137 MCG/Spray 30 ML NS PRN ×2 (00:15)
[2018-01-20 00:57] VITALS: BMI 26.4
[2018-01-20] MEDS ORDERED: traMADol HCl 50 MG TAB ONE (01:05)
[2018-01-20] MEDS ORDERED: cefTRIAXone\\ROCEPHIN 2 GM VIAL ONE (01:07)
[2018-01-20] MEDS: traMADol HCl 50 MG TAB PO PRN ×4 (01:13→21:56)
[2018-01-20] MEDS: cefTRIAXone\\ROCEPHIN 2 GM in Sodium Chloride 0.9% 100 ML IVPB SCH ×2 (01:13→23:11)
[2018-01-20] MEDS: Sodium Chloride 0.9% 1,000 ML IV SCH ×2 (01:13→15:14)
[2018-01-20] MEDS ORDERED: Levothyroxine Sodium 75 MCG TAB ONE (05:52)
[2018-01-20] MEDS: Levothyroxine Sodium 75 MCG TAB PO SCH (06:08)
[2018-01-20 06:18] LABS: #Basophils 0.1 thou/uL (0.0-0.2); #Eosinphils 0.6 thou/uL (0.0-0.7); #Lymphocytes 2.6 thou/uL (1.20-3.40); #Monocytes 1.5 thou/uL (0.11-0.59); #Neutrophils 10.9 thou/uL (1.40-6.50); %Basophils 0.3 % (0.0-1.0); %Lymphocytes 16.5 % (21.0-51.0); %Monocytes 9.4 % (0.0-10.0); %Neutrophils 69.7 % (42.0-75.0); Hemoglobin 9.7 g/dL (12.0-16.0); Mean Corpuscular HGB CONC 30.6 g/dL (32.0-36.0); Mean Corpuscular Hemoglobin 30.6 pg (27.0-31.0); Mean Platelet Volume 7.5 fL (7.4-10.4); Platelet Count 269 thou/uL (130-400); RBC Distribution Width 13.8 % (11.5-14.5); Red Blood Cell (RBC) Count 3.17 mill/uL (4.20-5.40); White Blood Cell (WBC) Count 15.6 thou/uL (4.8-10.8)
[2018-01-20 06:34] LABS: Anion Gap 13 mmol/L (10-20); BUN (Urea Nitrogen) 15 mg/dL (9.8-20.1); Calc. Creatinine Clearance 52 mL/min (70-130); Calcium 8.6 mg/dL (7.8-10.44); Carbon Dioxide 24 mmol/L (23-31); Chloride 107 mmol/L (98-107); Estimated GFR-MDRD 65; Glucose 74 mg/dL (83-110); Potassium 3.5 mmol/L (3.5-5.1); Sodium 140 mmol/L (136-145)
[2018-01-20] MEDS: Ascorbic Acid 500 mg Chewable Tablet PO SCH ×2 (08:09→19:53)
[2018-01-20] MEDS: Ferrous Sulfate 325 MG TAB PO SCH ×2 (08:09→16:59)
[2018-01-20] MEDS: Carvedilol 3.125 MG TAB PO SCH ×2 (08:10→19:54)
[2018-01-20] MEDS: busPIRone HCl 5 MG TAB PO SCH ×2 (08:10→19:53)
[2018-01-20] MEDS: Enoxaparin Sodium 40 MG/0.4 ML SYRINGE SC SCH (08:10)
[2018-01-20] MEDS: Multivitamin W/ Minerals 1 TAB PO SCH (08:11)
[2018-01-20] MEDS: Famotidine 20 MG TAB PO SCH (08:11)
[2018-01-20] MEDS: Famotidine/PF 20 mg/2ml Vial SLOW IVP SCH (08:11)
[2018-01-20] MEDS: Polyethylene Glycol 3350 17 GM Packet PO SCH (08:12)
[2018-01-20] MEDS: Pregabalin 75 MG CAP PO SCH ×2 (08:12→19:52)
[2018-01-20] MEDS ORDERED: Prevnar 13-Val Conj/PF 0.5 ML SYRINGE IM ONE (09:00)
[2018-01-20] MEDS ORDERED: Famotidine/PF 20 mg/2ml Vial SLOW IVP SCH (09:00)
[2018-01-20] MEDS ORDERED: Famotidine 20 MG TAB PO SCH (09:00)
--- NOTE | 2018-01-20 12:33 | HP ---
CHIEF COMPLAINT: Generalized weakness. HISTORY OF PRESENT ILLNESS: This is an 82-year-old female with past medical history of CHF, coronary artery disease status post stents placement, hypothyroidism, migraine headaches, hypertension, chron ic back pain, chronic falls, presenting with generalized weakness which started the day of admission. Per records, the patient states that she went to ambulate to the bathroom with her walker because t he patient has a limp in her leg and the patient had generalized weakness, the patient tripped and fe ll. The patient states that she does not have any headaches, nausea, vomiting, dizziness, palpitatio ns, shortness of breath, abdominal pain, but admits to having some weakness due to right hip. REVIEW OF SYSTEMS: Positive for right leg pain and weakness. Otherwise, as documented in the HPI. All other systems were reviewed and are negative. PAST MEDICAL HISTORY: CHF, coronary artery disease status post stent placement, hypothyroidism, migr dasha headache, hypertension, chronic back pain, chronic frequent falls. PAST SURGICAL HISTORY: Breast reduction, neck surgery, back surgery, bilateral foot surgery, cholecy stectomy, hysterectomy. FAMILY HISTORY: Reviewed and noncontributory to this visit. PSYCHIATRIC HISTORY: Depression. SOCIAL HISTORY: The patient denies alcohol use. The patient denies any drug use. The patient denie s any smoking history. The patient lives at home with daughter. ALLERGIES: No known drug allergies. MEDICATIONS: 1. The patient is on atorvastatin. 2. Lyrica 75 mg. 3. Aspirin 81 mg. 4. Carvedilol 6.25 mg. 5. Buspirone 7.5 mg t.i.d. 6. Potassium chloride 7. Lasix 20 mg p.o. daily. 8. Levothyroxine 75 mcg. 9. Omeprazole 40 mg p.o. daily. 10. Centrum. 11. Tramadol. 12. Tylenol. PHYSICAL EXAMINATION: VITAL SIGNS: Blood pressure is 100/40, pulse of 65, respiratory rate of 21, temperature of 98.7, O2 sat of 96. GENERAL: The patient is lying in bed comfortably, does not appear to be in any acute distress. The patient looks very frail. HEENT: Normocephalic, atraumatic. Pupils are equally round and reactive to light. Extraocular move ments are intact. No scleral icterus. Mucous membranes are dry. NECK: Trachea is midline. No JVD, full range of motion. CARDIOVASCULAR: Positive S1, S2, regular rate and rhythm. ABDOMEN: Soft, nontender, nondistended. No peritoneal signs. No palpable masses. Positive bowel s ounds. EXTREMITIES: Upper extremities 5/5 upper extremity strength. The patient does have some weakness at the right lower extremity. Patient states that there is mild tenderness with movement at the hip. No edema of the lower extremities. NEUROLOGIC: Cranial nerves II-XII grossly intact. No neurologic deficits noted at this time. SKIN: Warm, dry, and intact. EKG shows normal sinus rhythm with a rate of 62. Chest x-ray shows no infiltrate, no pneumothorax. LABORATORY DATA: WBC 19.6, hemoglobin is 10.3, hematocrit 32.5, platelet count is 323, bands of 15. Chemistry: Sodium 140, potassium 4.0, chloride is 102, carbon dioxide 33, anion gap of 9, BUN of 17, creatinine is 1.27. Creatinine kinase is 201. Troponin is 0.015. BNP is 662. Lipase is less than 4. UA is positive for leukoesterase and positive for nitrites. ASSESSMENT AND PLAN: 1. This is an 82-year-old female being admitted for sepsis secondary to urinary tract infection. At this point, the patient has been started on fluids. We will continue antibiotics. We will continue to monitor the patient closely. 2. Hypertension. We will continue patient on current management. 3. Right lower extremity weakness. We will get physical therapy. We will monitor the patient close ly. 4. Hypothyroidism. We will continue the patient on current medications. 5. History of congestive heart failure. We will continue the patient on current medications. 6. Coronary artery disease status post stents. We will continue patient on current medication. 7. Deep venous thrombosis GI and gastrointestinal prophylaxis.
[2018-01-20] MEDS: Atorvastatin Calcium 10 MG TAB PO SCH (19:54)
--- NOTE | 2018-01-20 21:41 | PDOC.PN ---
- Subjective Encounter Start Date: 01/20/18 Encounter Start Time: 16:00 Patient seen and examined for gen weakness/UTI. No new complaints. No overnight events - Objective Resuscitation Status: Resuscitation Status FULL:Full Resuscitation MAR Reviewed: Yes Vital Signs & Weight: Vital Signs (12 hours) Temp Pulse Resp BP Pulse Ox 01/20/18 15:17 98.7 F 63 16 132/77 95 01/20/18 12:40 98.1 F 61 18 106/49 L 93 L Weight Weight 144 lb 9.6 oz I&O: 01/19/18 01/20/18 01/21/18 06:59 06:59 06:59 Intake Total 1320 Balance 1320 Result Diagrams: 01/20/18 05:50 01/20/18 05:50 Radiology Reviewed by me: Yes (CXR - Neg) EKG Reviewed by me: Yes (Tele SR) Phys Exam - Physical Examination Constitutional: NAD Respiratory: no wheezing, no rales, no rhonchi, clear to auscultation bilateral Cardiovascular: RRR, no rub no heaves/pulsations Gastrointestinal: soft, non-tender, no distention, positive bowel sounds Musculoskeletal: no edema, pulses present Neurological: non-focal, normal sensation, moves all 4 limbs Skin: no rash Dx/Plan - Plan DVT proph w/lovenox, DVT proph w/SCDs IMPRESSION/PLAN: 1. Gen weakness - multifactorial Contsult PT/OT 2. Sepsis due to E coli UTI Cont Ceftriaxone Await cultures 3. KAI on CKD 2/Dehydration - improving Cont IVF AM labs 4. Hypothyroidism Cont Levothyroxine 5. CAD s/p stents / HTN Cont ASA/BB/Statins 6. h/o fall with hip fracture 11/15 7. Other issues per H&P Microbiology 01/19/18 17:04 Venous blood - Right Arm Blood Culture - Preliminary Specimen has been received and culture in progress. No Growth to date. 01/19/18 16:35 Venous blood - Left Hand Blood Culture - Preliminary Specimen has been received and culture in progress. No Growth to date. 01/19/18 15:49 Urine Straight Catheter Urine Culture - Preliminary Presumptive Escherichia coli Review of Systems - Review of Systems Respiratory: negative: Cough, Dry, Shortness of Breath, Hemoptysis, SOB with Excertion, Pleuritic Pain, Sputum, Wheezing Cardiovascular: negative: chest pain, palpitations, orthopnea, paroxysmal nocturnal dyspnea, edema, light headedness, other - Medications/Allergies Allergies/Adverse Reactions: Allergies Allergy/AdvReac Type Severity Reaction Status Date / Time No Known Drug Allergies Allergy Verified 01/20/18 00:52 Medications: Current Medications Acetaminophen (Tylenol) 650 mg PO Q4H PRN PRN Reason: Headache/Fever/Mild Pain (1-3) Last Admin: 01/20/18 18:20 Dose: 650 mg Albuterol/Ipratropium (Duoneb) 3 ml NEB Q4H PRN PRN Reason: Wheezing Ascorbic Acid (Vitamin C) 500 mg PO BID [facility] Last Admin: 01/20/18 19:53 Dose: 500 mg Aspirin (Aspirin Chewable) 81 mg PO BID [facility] Last Admin: 01/20/18 19:54 Dose: 81 mg Atorvastatin Calcium (Lipitor) 10 mg PO HS [facility] Last Admin: 01/20/18 19:54 Dose: 10 mg Azelastine HCl (Azelastine) 0 ml NS BIDPRN PRN PRN Reason: RHINITIS Bisacodyl (Dulcolax) 10 mg PO DAILYPRN PRN PRN Reason: Constipation Buspirone HCl (Buspar) 5 mg PO BID [facility] Last Admin: 01/20/18 19:53 Dose: 5 mg Carvedilol (Coreg) 3.125 mg PO BID [facility] Last Admin: 01/20/18 19:54 Dose: 3.125 mg Enoxaparin Sodium (Lovenox) 40 mg SC 0900 [facility] Last Admin: 01/20/18 08:10 Dose: 40 mg Famotidine (Pepcid) 20 mg SLOW IVP QAM [facility] Last Admin: 01/20/18 08:11 Dose: Not Given Famotidine (Pepcid) 20 mg PO QAM [facility] Last Admin: 01/20/18 08:11 Dose: 20 mg Ferrous Sulfate (Feosol) 325 mg PO BID[facility] Last Admin: 01/20/18 16:59 Dose: 325 mg Fluticasone Propionate (Flonase Nasal [place]) 0 gm NASAL BIDPRN PRN PRN Reason: RHINITIS Sodium Chloride (Normal Saline 0.9%) 1,000 mls @ 70 mls/hr IV .[id number] [facility] Last Admin: 01/20/18 15:14 Dose: 1,000 mls Ceftriaxone Sodium 2 gm/ (Sodium Chloride) 100 mls @ 200 mls/hr IVPB Q24HR [facility] Last Admin: 01/20/18 01:13 Dose: 100 mls Iron/Minerals/Multivitamins (Theragran M) 1 tab PO DAILY [facility] Last Admin: 01/20/18 08:11 Dose: 1 tab Levothyroxine Sodium (Synthroid) 75 mcg PO 0600 [facility] Last Admin: 01/20/18 06:08 Dose: 75 mcg Lidocaine (Lidoderm 5% Patch) 1 patch TD BIDPRN PRN PRN Reason: pain Miscellaneous Medication (Pharmacy To Dose) 1 each IVPB PRN PRN PRN Reason: Pharmacy to dose Ondansetron HCl (Zofran Odt) 4 mg PO Q6H PRN PRN Reason: Nausea/Vomiting Ondansetron HCl (Zofran) 4 mg IVP Q6H PRN PRN Reason: Nausea/Vomiting Polyethylene Glycol (Miralax) 17 gm PO DAILY [facility] Last Admin: 01/20/18 08:12 Dose: Not Given Potassium Chloride (Klor-Con) 20 meq PO HS [facility] Last Admin: 01/20/18 19:55 Dose: 20 meq Pregabalin (Lyrica) 75 mg PO BID [facility] Last Admin: 01/20/18 19:52 Dose: 75 mg Sodium Chloride (Flush - Normal Saline) 10 ml IVF Q12HR PRN PRN Reason: Saline Flush Tramadol HCl (Ultram) 50 mg PO Q6H PRN PRN Reason: Pain (1ST LINE) Last Admin: 01/20/18 15:14 Dose: 50 mg
[2018-01-21] MEDS: Sodium Chloride 0.9% 1,000 ML IV SCH ×2 (04:37→18:32)
[2018-01-21] MEDS: traMADol HCl 50 MG TAB PO PRN ×2 (04:37→17:38)
[2018-01-21] MEDS: Levothyroxine Sodium 75 MCG TAB PO SCH (04:37)
[2018-01-21 05:50] LABS: #Basophils 0.1 thou/uL (0.0-0.2); #Eosinphils 0.7 thou/uL (0.0-0.7); #Lymphocytes 2.7 thou/uL (1.20-3.40); #Monocytes 1.1 thou/uL (0.11-0.59); #Neutrophils 6.4 thou/uL (1.40-6.50); %Basophils 0.7 % (0.0-1.0); %Eosinophils 6.5 % (0.0-10.0); %Lymphocytes 24.5 % (21.0-51.0); %Monocytes 9.8 % (0.0-10.0); %Neutrophils 58.5 % (42.0-75.0); Hemoglobin 9.3 g/dL (12.0-16.0); Mean Corpuscular HGB CONC 31.6 g/dL (32.0-36.0); Mean Corpuscular Hemoglobin 31.2 pg (27.0-31.0); Mean Corpuscular Volume 98.6 fL (78.0-98.0); Mean Platelet Volume 8.2 fL (7.4-10.4); Platelet Count 265 thou/uL (130-400); RBC Distribution Width 13.7 % (11.5-14.5); Red Blood Cell (RBC) Count 2.98 mill/uL (4.20-5.40); White Blood Cell (WBC) Count 10.9 thou/uL (4.8-10.8)
[2018-01-21 06:12] LABS: ALT (SGPT) 12 U/L (8-55); AST (SGOT) 20 U/L (5-34); Albumin 2.9 g/dL (3.4-4.8); Alkaline Phosphatase 126 U/L (40-150); Anion Gap 12 mmol/L (10-20); BUN (Urea Nitrogen) 12 mg/dL (9.8-20.1); Bilirubin, Total 0.2 mg/dL (0.2-1.2); Calc. Creatinine Clearance 59 mL/min (70-130); Calcium 8.9 mg/dL (7.8-10.44); Carbon Dioxide 22 mmol/L (23-31); Chloride 107 mmol/L (98-107); Estimated GFR-MDRD 76; Globulin 2.8 g/dL (2.4-3.5); Glucose 71 mg/dL (83-110); Magnesium 1.8 mg/dL (1.6-2.6); Potassium 3.6 mmol/L (3.5-5.1); Protein, Total 5.7 g/dL (6.0-8.3); Sodium 137 mmol/L (136-145)
[2018-01-21] MEDS: Pregabalin 75 MG CAP PO SCH ×2 (08:24→21:30)
[2018-01-21] MEDS: Ferrous Sulfate 325 MG TAB PO SCH ×2 (08:27→17:38)
[2018-01-21] MEDS: busPIRone HCl 5 MG TAB PO SCH ×2 (08:27→21:31)
[2018-01-21] MEDS: Ascorbic Acid 500 mg Chewable Tablet PO SCH ×2 (08:27→21:29)
[2018-01-21] MEDS: Multivitamin W/ Minerals 1 TAB PO SCH (08:27)
[2018-01-21] MEDS: Carvedilol 3.125 MG TAB PO SCH ×2 (08:27→21:31)
[2018-01-21] MEDS: Enoxaparin Sodium 40 MG/0.4 ML SYRINGE SC SCH (08:28)
[2018-01-21] MEDS: Famotidine/PF 20 mg/2ml Vial SLOW IVP SCH (09:32)
[2018-01-21] MEDS: Polyethylene Glycol 3350 17 GM Packet PO SCH (09:37)
[2018-01-21] MEDS: Famotidine 20 MG TAB PO SCH (09:37)
--- NOTE | 2018-01-21 19:59 | PDOC.PN ---
- Subjective Encounter Start Date: 01/21/18 Encounter Start Time: 09:30 Patient seen and examined for Gen weakness. No new complaints. No overnight events - Objective Resuscitation Status: Resuscitation Status FULL:Full Resuscitation MAR Reviewed: Yes Vital Signs & Weight: Vital Signs (12 hours) Temp Pulse Pulse Pulse Resp BP BP 01/21/18 16:10 01/21/18 11:37 98.2 F 62 16 01/21/18 10:55 61 61 139/63 133/85 01/21/18 09:00 81 134/63 01/21/18 08:21 98.5 F 66 16 BP Pulse Ox 01/21/18 16:10 94 L 01/21/18 11:37 153/63 H 94 L 01/21/18 10:55 01/21/18 09:00 01/21/18 08:21 150/92 H 95 Weight Weight 144 lb 9.6 oz I&O: 01/20/18 01/21/18 01/22/18 06:59 06:59 06:59 Intake Total 1320 Balance 1320 Result Diagrams: 01/21/18 05:15 01/21/18 05:15 EKG Reviewed by me: Yes (Tele SB) Phys Exam - Physical Examination Constitutional: NAD Respiratory: no wheezing, no rhonchi Cardiovascular: RRR, no rub Gastrointestinal: soft, non-tender, positive bowel sounds Musculoskeletal: no edema Neurological: moves all 4 limbs Dx/Plan - Plan DVT proph w/SCDs 1. Gen weakness - multifactorial 2. Sepsis due to E coli UTI Cont IV Ceftriaxone 3. KAI on CKD 2/Dehydration - improving DC IVF 4. Hypothyroidism Cont Levothyroxine 5. CAD s/p stents / HTN Cont ASA/BB/Statins 6. h/o fall with hip fracture 11/15 7. Other issues per H&P Microbiology 01/19/18 15:49 Urine Straight Catheter Urine Culture - Final Escherichia coli 01/19/18 17:04 Venous blood - Right Arm Blood Culture - Preliminary NO GROWTH AT 48 HOURS 01/19/18 16:35 Venous blood - Left Hand Blood Culture - Preliminary NO GROWTH AT 48 HOURS Review of Systems - Review of Systems Respiratory: negative: Cough, Dry, Shortness of Breath, Hemoptysis, SOB with Excertion, Pleuritic Pain, Sputum, Wheezing Cardiovascular: negative: chest pain, palpitations, orthopnea, paroxysmal nocturnal dyspnea, edema, light headedness, other - Medications/Allergies Allergies/Adverse Reactions: Allergies Allergy/AdvReac Type Severity Reaction Status Date / Time No Known Drug Allergies Allergy Verified 01/20/18 00:52 Medications: Current Medications Acetaminophen (Tylenol) 650 mg PO Q4H PRN PRN Reason: Headache/Fever/Mild Pain (1-3) Last Admin: 01/20/18 18:20 Dose: 650 mg Albuterol/Ipratropium (Duoneb) 3 ml NEB Q4H PRN PRN Reason: Wheezing Ascorbic Acid (Vitamin C) 500 mg PO BID [facility] Last Admin: 01/21/18 08:27 Dose: 500 mg Aspirin (Aspirin Chewable) 81 mg PO BID [facility] Last Admin: 01/21/18 08:27 Dose: 81 mg Atorvastatin Calcium (Lipitor) 10 mg PO HS [facility] Last Admin: 01/20/18 19:54 Dose: 10 mg Azelastine HCl (Azelastine) 0 ml NS BIDPRN PRN PRN Reason: RHINITIS Bisacodyl (Dulcolax) 10 mg PO DAILYPRN PRN PRN Reason: Constipation Buspirone HCl (Buspar) 5 mg PO BID [facility] Last Admin: 01/21/18 08:27 Dose: 5 mg Carvedilol (Coreg) 3.125 mg PO BID [facility] Last Admin: 01/21/18 08:27 Dose: 3.125 mg Enoxaparin Sodium (Lovenox) 40 mg SC 0900 [facility] Last Admin: 01/21/18 08:28 Dose: 40 mg Famotidine (Pepcid) [facility] Last Admin: 01/21/18 09:32 Dose: Not Given Famotidine (Pepcid) 20 mg PO QAM [facility] Last Admin: 01/21/18 09:37 Dose: 20 mg Ferrous Sulfate (Feosol) 325 mg PO BID[facility] Last Admin: 01/21/18 17:38 Dose: 325 mg Fluticasone Propionate (Flonase Nasal [place]) 0 gm NASAL BIDPRN PRN PRN Reason: RHINITIS Sodium Chloride (Normal Saline 0.9%) 1,000 mls @ 70 mls/hr IV .[id number] [facility] Last Admin: 01/21/18 18:32 Dose: 1,000 mls Ceftriaxone Sodium 2 gm/ (Sodium Chloride) 100 mls @ 200 mls/hr IVPB Q24HR [facility] Last Admin: 01/20/18 23:11 Dose: 100 mls Iron/Minerals/Multivitamins (Theragran M) 1 tab PO DAILY [facility] Last Admin: 01/21/18 08:27 Dose: 1 tab Levothyroxine Sodium (Synthroid) 75 mcg PO 0600 [facility] Last Admin: 01/21/18 04:37 Dose: 75 mcg Lidocaine (Lidoderm 5% Patch) 1 patch TD BIDPRN PRN PRN Reason: pain Miscellaneous Medication (Pharmacy To Dose) 1 each IVPB PRN PRN PRN Reason: Pharmacy to dose Ondansetron HCl (Zofran Odt) 4 mg PO Q6H PRN PRN Reason: Nausea/Vomiting Ondansetron HCl (Zofran) 4 mg IVP Q6H PRN PRN Reason: Nausea/Vomiting Polyethylene Glycol (Miralax) 17 gm PO DAILY [facility] Last Admin: 01/21/18 09:37 Dose: Not Given Potassium Chloride (Klor-Con) 20 meq PO HS [facility] Last Admin: 01/20/18 19:55 Dose: 20 meq Pregabalin (Lyrica) 75 mg PO BID [facility] Last Admin: 01/21/18 08:24 Dose: 75 mg Sodium Chloride (Flush - Normal Saline) 10 ml IVF Q12HR PRN PRN Reason: Saline Flush Tramadol HCl (Ultram) 50 mg PO Q6H PRN PRN Reason: Pain (1ST LINE) Last Admin: 01/21/18 17:38 Dose: 50 mg
[2018-01-21] MEDS: Atorvastatin Calcium 10 MG TAB PO SCH (21:30)
[2018-01-22] MEDS: cefTRIAXone\\ROCEPHIN 2 GM in Sodium Chloride 0.9% 100 ML IVPB SCH ×2 (00:57→23:21)
[2018-01-22] MEDS: traMADol HCl 50 MG TAB PO PRN ×3 (01:10→16:31)
[2018-01-22] MEDS: Levothyroxine Sodium 75 MCG TAB PO SCH (05:43)
[2018-01-22] MEDS: Ascorbic Acid 500 mg Chewable Tablet PO SCH ×2 (09:49→20:52)
[2018-01-22] MEDS: Carvedilol 3.125 MG TAB PO SCH ×2 (09:50→20:53)
[2018-01-22] MEDS: Multivitamin W/ Minerals 1 TAB PO SCH (09:50)
[2018-01-22] MEDS: Famotidine 20 MG TAB PO SCH (09:50)
[2018-01-22] MEDS: Ferrous Sulfate 325 MG TAB PO SCH ×2 (09:51→16:31)
[2018-01-22] MEDS: Pregabalin 75 MG CAP PO SCH ×2 (09:51→20:53)
[2018-01-22] MEDS: Polyethylene Glycol 3350 17 GM Packet PO SCH (09:53)
[2018-01-22] MEDS: busPIRone HCl 5 MG TAB PO SCH ×2 (09:53→20:52)
--- NOTE | 2018-01-22 13:50 | PDOC.PN ---
- Subjective Encounter Start Date: 01/22/18 Encounter Start Time: 09:00 Patient seen and examined for Sepsis. No N/V. No new complaints. No overnight events - Objective Resuscitation Status: Resuscitation Status FULL:Full Resuscitation MAR Reviewed: Yes Vital Signs & Weight: Vital Signs (12 hours) Temp Pulse Pulse Pulse Pulse Resp BP 01/22/18 11:25 98.6 F 56 L 18 01/22/18 09:52 59 L 75 75 165/78 H 01/22/18 08:50 01/22/18 07:44 98.4 F 62 16 01/22/18 05:35 98.3 F 62 18 BP BP BP Pulse Ox 01/22/18 11:25 146/67 H 94 L 01/22/18 09:52 144/78 H 155/79 H 01/22/18 08:50 93 L 01/22/18 07:44 145/76 H 01/22/18 05:35 156/60 H 93 L Weight Weight 144 lb 9.6 oz I&O: 01/21/18 01/22/18 01/23/18 06:59 06:59 06:59 Intake Total 1320 Balance 1320 Result Diagrams: 01/21/18 05:15 01/21/18 05:15 Phys Exam - Physical Examination Constitutional: NAD Respiratory: no wheezing, no rhonchi Cardiovascular: RRR, no rub Gastrointestinal: soft, non-tender, positive bowel sounds Musculoskeletal: no edema Neurological: moves all 4 limbs Dx/Plan - Plan DVT proph w/SCDs 1. Gen weakness - multifactorial 2. Sepsis due to E coli UTI Cont IV Ceftriaxone for 1 more day 3. KAI on CKD 2/Dehydration - improving Lasix on hold, NSAIDs on hold 4. Hypothyroidism Cont Levothyroxine 5. CAD s/p stents / HTN Cont ASA/BB/Statins 6. h/o fall with hip fracture 11/15 7. Other issues per H&P 8. Disp - DC in AM if stable Review of Systems - Review of Systems Respiratory: negative: Cough, Dry, Shortness of Breath, Hemoptysis, SOB with Excertion, Pleuritic Pain, Sputum, Wheezing Cardiovascular: negative: chest pain, palpitations, orthopnea, paroxysmal nocturnal dyspnea, edema, light headedness, other - Medications/Allergies Allergies/Adverse Reactions: Allergies Allergy/AdvReac Type Severity Reaction Status Date / Time No Known Drug Allergies Allergy Verified 01/20/18 00:52 Medications: Current Medications Acetaminophen (Tylenol) 650 mg PO Q4H PRN PRN Reason: Headache/Fever/Mild Pain (1-3) Last Admin: 01/20/18 18:20 Dose: 650 mg Albuterol/Ipratropium (Duoneb) 3 ml NEB Q4H PRN PRN Reason: Wheezing Ascorbic Acid (Vitamin C) 500 mg PO BID [facility] Last Admin: 01/22/18 09:49 Dose: 500 mg Aspirin (Aspirin Chewable) 81 mg PO BID [facility] Last Admin: 01/22/18 09:50 Dose: 81 mg Atorvastatin Calcium (Lipitor) 10 mg PO HS [facility] Last Admin: 01/21/18 21:30 Dose: 10 mg Azelastine HCl (Azelastine) 0 ml NS BIDPRN PRN PRN Reason: RHINITIS Bisacodyl (Dulcolax) 10 mg PO DAILYPRN PRN PRN Reason: Constipation Buspirone HCl (Buspar) 5 mg PO BID [facility] Last Admin: 01/22/18 09:53 Dose: 5 mg Carvedilol (Coreg) 3.125 mg PO BID [facility] Last Admin: 01/22/18 09:50 Dose: 3.125 mg Famotidine (Pepcid) 20 mg PO QAM [facility] Last Admin: 01/22/18 09:50 Dose: 20 mg Ferrous Sulfate (Feosol) 325 mg PO BID[facility] Last Admin: 01/22/18 09:51 Dose: 325 mg Fluticasone Propionate (Flonase Nasal [place]) 0 gm NASAL BIDPRN PRN PRN Reason: RHINITIS Ceftriaxone Sodium 2 gm/ (Sodium Chloride) 100 mls @ 200 mls/hr IVPB Q24HR [facility] Last Admin: 01/22/18 00:57 Dose: 100 mls Iron/Minerals/Multivitamins (Theragran M) 1 tab PO DAILY [facility] Last Admin: 01/22/18 09:50 Dose: 1 tab Levothyroxine Sodium (Synthroid) 75 mcg PO 0600 [facility] Last Admin: 01/22/18 05:43 Dose: 75 mcg Lidocaine (Lidoderm 5% Patch) 1 patch TD BIDPRN PRN PRN Reason: pain Miscellaneous Medication (Pharmacy To Dose) 1 each IVPB PRN PRN PRN Reason: Pharmacy to dose Ondansetron HCl (Zofran Odt) 4 mg PO Q6H PRN PRN Reason: Nausea/Vomiting Ondansetron HCl (Zofran) 4 mg IVP Q6H PRN PRN Reason: Nausea/Vomiting Polyethylene Glycol (Miralax) 17 gm PO DAILY [facility] Last Admin: 01/22/18 09:53 Dose: Not Given Potassium Chloride (Klor-Con) 20 meq PO HS [facility] Last Admin: 01/21/18 21:31 Dose: Not Given Pregabalin (Lyrica) 75 mg PO BID [facility] Last Admin: 01/22/18 09:51 Dose: 75 mg Sodium Chloride (Flush - Normal Saline) 10 ml IVF Q12HR PRN PRN Reason: Saline Flush Tramadol HCl (Ultram) 50 mg PO Q6H PRN PRN Reason: Pain (1ST LINE) Last Admin: 01/22/18 09:48 Dose: 50 mg
[2018-01-22] MEDS ORDERED: Enoxaparin Sodium 40 MG/0.4 ML SYRINGE SC SCH (14:00)
[2018-01-22] MEDS: Atorvastatin Calcium 10 MG TAB PO SCH (20:52)
[2018-01-23] MEDS: Levothyroxine Sodium 75 MCG TAB PO SCH (05:22)
[2018-01-23] MEDS: Multivitamin W/ Minerals 1 TAB PO SCH (08:42)
[2018-01-23] MEDS: Famotidine 20 MG TAB PO SCH (08:43)
[2018-01-23] MEDS: Ferrous Sulfate 325 MG TAB PO SCH (08:44)
[2018-01-23] MEDS: Pregabalin 75 MG CAP PO SCH (08:44)
[2018-01-23] MEDS: Carvedilol 3.125 MG TAB PO SCH (08:45)
[2018-01-23] MEDS: busPIRone HCl 5 MG TAB PO SCH (08:46)
[2018-01-23] MEDS: Ascorbic Acid 500 mg Chewable Tablet PO SCH (08:47)
[2018-01-23] MEDS: traMADol HCl 50 MG TAB PO PRN (08:49)
[2018-01-23] MEDS: Polyethylene Glycol 3350 17 GM Packet PO SCH (08:50)
[2018-01-23] MEDS ORDERED: Furosemide 20 MG TAB PO SCH (09:15)
[2018-01-23 10:41] VITALS: TEMP 98.7
[2018-01-23] MEDS ORDERED: Fentanyl 100 MCG/2 ML VIAL ONE (11:41)
[2018-01-23 13:25] VITALS: BP 141/65
--- NOTE | 2018-01-23 14:21 | DIS ---
DATE OF DISCHARGE: 01/23/2018 DISCHARGE DISPOSITION: Home. FOLLOWUP: 1. Follow up with primary care physician in 1 week. 2. [facility] care will be resumed. ALLERGIES: No known drug allergies. DISCHARGE MEDICATIONS: 1. Omnicef 300 mg twice daily for 1 week. 2. All other home medications were left unchanged. BRIEF HOSPITAL COURSE: The patient is an 82-year-old female currently residing at home with coronary artery disease, hypertension, congestive heart failure, who presented to the hospital with generaliz ed weakness. Please refer to the history and physical for further details. The patient was admitted to the hospital with a diagnosis of sepsis secondary to urinary tract infect ion. Her WBC count on admission was around 20,000 with 15% bandemia. She showed good improvement wi th antibiotics. WBC count improved to 10.9 without any bandemia. She was also dehydrated on admissi on with acute kidney injury that improved with IV hydration. Urine culture showed E. coli resistant to Bactrim, nitrofurantoin, Levaquin, gentamicin, ciprofloxacin and ampicillin, it was sensitive to c ephalosporins. Blood culture remained negative. She will continue Omnicef for another week. She marlow s been afebrile throughout this hospital stay. Plan of care was discussed with the patient and the asuncion donaldson at the bedside, they stated understanding. FINAL DIAGNOSES: 1. Sepsis secondary to Escherichia coli urinary tract infection. 2. Generalized weakness. 3. Acute kidney injury on chronic kidney disease stage 2, improved. 4. Dehydration. 5. Hypothyroidism. 6. Coronary artery disease, status post stent placement. 7. Hypertension. 8. History of fall with hip fracture earlier this year.
--- NOTE | 2018-01-24 11:22 | EKG ---
Test Reason : Blood Pressure : / mmHG Vent. Rate : 062 BPM Atrial Rate : 062 BPM P-R Int : 174 ms QRS Dur : 094 ms QT Int : 472 ms P-R-T Axes : 082 -38 038 degrees QTc Int : 479 ms Sinus rhythm with frequent Premature ventricular complexes Left axis deviation Abnormal ECG Confirmed by LILY READ, NEO ([id number]), electronic news gathering editor PRATIMA AGUILAR ([id number]) on 01/24/2018 11:21:50 AM Referred By: Confirmed By:NEO BAUTISTA MD
== END 2018-01-23 12:05 | disposition home health service (06) | DRG 872 ==
LOC: ERS 14:55 → 2NO 23:11 → SURG B 01-21 16:25 → SURG A 01-22 13:30 → SURG B 01-22 13:32
PROVIDERS: ADMIT Internal Medicine; ATTEND Internal Medicine
DX: A41.51 Sepsis due to Escherichia coli [E. coli] (principal); N39.0 Urinary tract infection, site not specified; N17.9 Acute kidney failure, unspecified; Z95.5 Presence of coronary angioplasty implant and graft; I25.10 Atherosclerotic heart disease of native coronary artery without angina pectoris; E03.9 Hypothyroidism, unspecified; M54.9 Dorsalgia, unspecified; G89.29 Other chronic pain; Z91.81 History of falling; I50.9 Heart failure, unspecified; F32.9 Major depressive disorder, single episode, unspecified; Z79.899 Other long term (current) drug therapy; Z79.82 Long term (current) use of aspirin; I11.0 Hypertensive heart disease with heart failure; S72.002S Fracture of unspecified part of neck of left femur, sequela; N18.2 Chronic kidney disease, stage 2 (mild); E86.0 Dehydration; R53.1 Weakness
CPT/HCPCS: 36415; 51701; 71045; 80048; 80053; 81003; 81015; 82553; 83605; 83690; 83735; 83880; 84484; 85025; 87040; 87077; 87086; 87186; 93005; 96365; 96366; 96367; A4353; G8978-GP-CK; G8979-GP-CK; G8980-GP-CK; G8987-GO-CL; G8988-GO-CJ; J0696; J1650; J1956; J2185; J3010; J7050; S0028

== ENCOUNTER 2018-01-27 08:15 | Inpatient (IN) | payer MEDICARE, BC ==
[2018-01-27 09:36] LABS: ALT (SGPT) 8 U/L (8-55); AST (SGOT) 24 U/L (5-34); Albumin 3.1 g/dL (3.4-4.8); Alkaline Phosphatase 118 U/L (40-150); Anion Gap 15 mmol/L (10-20); BUN (Urea Nitrogen) 9 mg/dL (9.8-20.1); Bilirubin, Total 0.8 mg/dL (0.2-1.2); Calc. Creatinine Clearance 0 mL/min (70-130); Calcium 9.1 mg/dL (7.8-10.44); Carbon Dioxide 25 mmol/L (23-31); Chloride 103 mmol/L (98-107); Estimated GFR-MDRD 76; Globulin 3.2 g/dL (2.4-3.5); Glucose 140 mg/dL (83-110); Protein, Total 6.3 g/dL (6.0-8.3); Sodium 140 mmol/L (136-145)
[2018-01-27 09:37] LABS: #Basophils 0.1 thou/uL (0.0-0.2); #Eosinphils 0.1 thou/uL (0.0-0.7); #Lymphocytes 2.6 thou/uL (1.20-3.40); #Monocytes 1.9 thou/uL (0.11-0.59); #Neutrophils 11.5 thou/uL (1.40-6.50); %Basophils 0.3 % (0.0-1.0); %Eosinophils 0.7 % (0.0-10.0); %Monocytes 11.7 % (0.0-10.0); %Neutrophils 71.3 % (42.0-75.0); Hemoglobin 11.3 g/dL (12.0-16.0); Mean Corpuscular Volume 96.9 fL (78.0-98.0); Mean Platelet Volume 7.3 fL (7.4-10.4); Platelet Count 478 thou/uL (130-400); Red Blood Cell (RBC) Count 3.76 mill/uL (4.20-5.40); White Blood Cell (WBC) Count 16.1 thou/uL (4.8-10.8)
[2018-01-27 09:51] LABS: Band 1 % (5-11); Eosinophils 1 % (0-10); Lymphocytes 11 % (21-51); MDiff Complete? YES; Monocytes 4 % (0-10); Neutrophil 81 % (42-75); RBC Morphology Normal; Reactive Lymphocytes 1 % (0-10)
[2018-01-27] MEDS ORDERED: ISOVUE-370 76%-LOCM 1 ML ONE (10:00)
[2018-01-27 10:01] LABS: Bacteria/HPF None Seen HPF (None Seen); Bilirubin Negative (Negative); Blood, Urine Negative (Negative); Clarity CLEAR (Clear); Glucose, Urine (Dipstick) Negative (Negative); Hyaline Casts/LPF 7-10 HYALINE CAST LPF (0-3 Hyaline); Leukocyte Negative (Negative); Nitrite Negative (Negative); Pathc Cast-AUWi Flag 1.74 (0-2.49); Protein, Urine (Dipstick) 30 mg/dL (Neg-Trace); Specific Gravity, Urine 1.017 (1.002-1.036); Urobilinogen 0.2 mg/dL (0.2-1.0); pH, Urine 6.5 (5.0-9.0)
[2018-01-27] MEDS ORDERED: cefTRIAXone\\ROCEPHIN 2 GM VIAL ONE (10:09)
[2018-01-27 10:15] LABS: Renal Epithelial None Seen HPF (0-3); Transitional Epithelial 0-3 HPF (0-3)
--- NOTE | 2018-01-27 10:18 | CT ---
CT BRAIN WITHOUT CONTRAST: Comparison: 09-25-17 History: Fall on the floor at home with head trauma and altered mental status. Technique: Multiple contiguous axial images were obtained through the brain without contrast. FINDINGS: There is scattered hypodensities in the subcortical and periventricular white matter, likely secondar y to small vessel ischemic disease. No large confluent infarction is seen. There is hydrocephalus, in tracranial hemorrhage, or extraaxial fluid collection. The calvarium and overlying soft tissues are unremarkable. The visualized paranasal sinuses and masto id air cells are well aerated. IMPRESSION: No evidence of acute intracranial abnormality. POS: [facility]
--- NOTE | 2018-01-27 10:47 | RAD ---
PORTABLE CHEST 1 VIEW: DATE: 01/27/2018. TIME: 8:59 a.m. HISTORY: Left shoulder pain. FINDINGS/IMPRESSION: Comparison is made with the exam of 01/19/2018. The heart is enlarged. The aorta is tortuous. Aortic valve replacement is again seen. No lobar con solidation, pneumothoraces, kennedy pulmonary edema, or large effusions are seen. Blunting of the left costophrenic angle is stable. POS: [facility]
--- NOTE | 2018-01-27 11:55 | CT ---
CHEST CT SCAN WITH IV CONTRAST: HISTORY: An 82-year-old female with a history of a fall beside the bed with a chest injury. TECHNIQUE: Post contrast CT examination of the chest is performed. FINDINGS: There are small bilateral dependent pleural effusions. There is a somewhat prominent mosaic appearan ce to both lungs, particularly the mid and upper portions of the lungs. There is some bilateral vasc ular congestion with some mild interstitial changes, particularly in the perihilar and lower lung zon es, possibly some mild interstitial edema. There is an approximately 1.3 x 1.5 cm in diameter, somew hat poorly circumscribed, nodular area of parenchymal density in the right infrahilar region. This c ertainly could represent a neoplastic mass or could represent a focus of pneumonia. Small subcarinal and pretracheal lymph nodes are noted without overt adenopathy. Prominent atherosclerosis of the ao rta. Postop changes in the region of the aortic valve. Three-vessel coronary artery calcific diseas e. IMPRESSION: 1. Small bilateral pleural effusions with some bilateral vascular congestion and increased interstit ial markings, particularly in the perihilar regions and lower lung zones, possibly some mild edema. 2. Nonspecific bilateral mosaic appearance of the chest. 3. Poorly circumscribed, somewhat spiculated appearing parenchymal opacity in the right lower lobe i nfrahilar region. The possibilities include that of a small mass, scar, or patch of pneumonia. If t he patient has any symptoms of pneumonia, then treatment and short-term follow-up CT scan in four wee ks or so might be considered. I think this is probably too small to visualized on a chest x-ray. 4. No significant posttraumatic abnormality. 5. Other findings as above. POS: [facility]
[2018-01-27] MEDS ORDERED: Vancomycin HCl 1 GM in Premix Bag 1 BAG IVPB SCH (13:00)
[2018-01-27] MEDS: Potassium Chloride 20 MEQ TAB PO SCH ×2 (13:55→15:41)
--- NOTE | 2018-01-27 13:55 | HP ---
PRIMARY CARE PROVIDER: Home Johnson M.D. CHIEF COMPLAINT: Generalized weakness. HISTORY OF PRESENT ILLNESS: Ms. Dutta is a pleasant 82-year-old lady, who was seen at [facility] on 01/27/2018. She was hospitalized here from 01/19/2018-01/23/2018 for sepsis s econdary to Escherichia coli urinary tract infection. She is not accompanied by her family members i n the emergency room at this time, but her daughter was reportedly here earlier. The patient's daugh ter was unsure if patient has been compliant with her home medications including oral antibiotics. T he patient is unable to tell me whether she has been taking her medications at home. She denies any chest pain. She complains of generalized weakness. She denies any nausea or vomiting . She denies any diarrhea. She denies any urinary symptoms. She complains of right shoulder pain a nd back pain, but is unable to elaborate further. She was reportedly found at home on the floor beside her bed this morning, which prompted her transfe r to the emergency room. REVIEW OF SYSTEMS: All other systems reviewed and found to be negative. PAST MEDICAL HISTORY: Congestive heart failure; coronary artery disease, status post stent placement ; hypothyroidism; migraines; hypertension; chronic back pain; and chronic frequent falls. PAST SURGICAL HISTORY: Breast reduction, neck surgery, back surgery, bilateral foot surgery, cholecy stectomy, and hysterectomy. FAMILY HISTORY: No family history of premature coronary artery disease. SOCIAL HISTORY: No history of tobacco use, alcohol use, or recreational drug use. ALLERGIES: No known drug allergies. CURRENT MEDICATIONS: Omnicef 300 mg 2 times a day, atorvastatin 10 mg daily, Lyrica 75 mg 3 times a day, aspirin 81 mg daily, Coreg 3.125 mg 2 times a day, buspirone 7.5 mg 3 times a day, potassium chl oride 20 mEq daily, Lasix 20 mg daily, levothyroxine 75 mcg daily, omeprazole 40 mg daily, Centrum Si lver 1 tablet daily, tramadol 50 mg every 6 hours as needed, and triazolam 25 mg at bedtime. PHYSICAL EXAMINATION: GENERAL: On examination, Ms. Dutta is sleepy, but arousable, not in acute distress. VITAL SIGNS: Blood pressure is 91/62, pulse 63, respiratory rate 20, and oxygen saturation 96% on 2 liters of oxygen. She is afebrile. EYES: No scleral icterus. No conjunctival pallor. ENT: Moist mucosal membranes. No oropharyngeal erythema or exudates. NECK: Supple, nontender, trachea is midline. RESPIRATORY: Accessory muscles of breathing are not active. Chest wall movements are symmetric bila terally. Lungs are clear to auscultation without wheeze, rhonchi, or crepitations. CARDIOVASCULAR: S1 and S2 are heard, regular. Peripheral pulses palpable. No carotid bruit, no per icardial rub. ABDOMEN: Soft, nontender, bowel sounds are heard, no hepatomegaly, no splenomegaly. NEUROLOGIC: Cranial nerves II-XII intact. Deep tendon reflexes are 2+. LYMPHATIC: No cervical lymphadenopathy. PSYCHIATRIC: Normal mood. Normal affect. The patient is oriented to person and place, not to time. LABORATORY DATA: Ms. Dutta's labs and investigations were reviewed. I reviewed her electrocardiogra m, which shows normal sinus rhythm. No ST-changes to suggest an acute coronary syndrome. I also rev iewed her chest x-ray, which does not show any pulmonary infiltrates. She has a small left pleural e ffusion. She has leukocytosis with 16,100 white cells, of which 81% are neutrophils, normocytic anem ia with hemoglobin 11.3, elevated platelet count of 478,000, normal sodium, decreased potassium of 3, normal creatinine, unremarkable liver profile. Urinalysis positive for protein, ketones, wbc, and s quamous epithelial cells. ASSESSMENT AND PLAN: Ms. Dutta is a pleasant 82-year-old lady, who was seen at [facility] on 01/27/2018. Her problem list includes: 1. Sepsis: Ms. Dutta's initial respiratory rate was 21. She has leukocytosis and suspected source of infection, either bacteremia or urinary tract infection, with a negative urinalysis, secondary to recent antibiotic administration. She will be admitted to the hospital for further management. She has been started on ceftriaxone and vancomycin. I will continue vancomycin and start her on meropene m for broader coverage. We will follow urine and blood cultures and narrow antibiotic spectrum. Ple ase note that, during her recent admission, she had urinary tract infection with Escherichia coli yusuf t was sensitive to cephalosporins and meropenem as well as Zosyn. In September, she had urinary tract inf ection with Enterobacter cloacae complex that was resistant to cefoxitin, ceftazidime, ceftriaxone, a nd sensitive to meropenem. 2. Hypokalemia: Replace potassium and recheck. 3. Hypotension: The patient is currently hypotensive. She is receiving intravenous fluids. We elian l provide her gentle hydration given her hypotension, but also watch for volume overload, given her h istory of congestive heart failure. We will also check a troponin I to rule out acute coronary syndr ome. We will also check BNP to evaluate her congestive heart failure status. 4. Coronary artery disease. Patient has a history of coronary artery disease. We will check her BN P. 5. Hypothyroidism: Continue Synthroid. 6. Dyslipidemia: Continue statin. Many thanks for allowing me to participate in your patient's care. Please feel free to contact me wi th any questions or concerns. LEVEL OF RISK: High. LEVEL OF COMPLEXITY: High.
[2018-01-27] MEDS ORDERED: Meropenem 1 GM in Sodium Chloride 0.9% 100 ML IVPB SCH (14:00)
[2018-01-27 14:04] VITALS: BMI 26.9
[2018-01-27 14:36] LABS: Lactic Acid 2.9 mmol/L (0.5-2.2)
[2018-01-27] MEDS: NS 0.9% w/ 40 MEQ KCL 1,000 ML IV SCH (14:41)
[2018-01-27] MEDS: MEROPENEM 1 GM/50 ML 1 GM in Premix Bag 1 BAG IVPB SCH ×2 (14:41→22:02)
[2018-01-27 14:49] LABS: Troponin I 1.843 ng/mL (< 0.028)
[2018-01-27] MEDS ORDERED: TRIAZOLAM 0.125 MG PO PRN (15:45)
[2018-01-27] MEDS: Pregabalin 75 MG CAP PO SCH ×2 (16:00→22:00)
[2018-01-27 16:23] LABS: CKMB 8.8 ng/mL (0-6.6)
[2018-01-27] MEDS ORDERED: Sodium Chloride 0.9% 500 ML IVPB SCH (17:15)
[2018-01-27] MEDS ORDERED: Albumin 25% 25 GM/100 ML BOT IVPB SCH (17:30)
[2018-01-27 18:22] LABS: CKMB 6.2 ng/mL (0-6.6)
[2018-01-27 18:25] LABS: Critical Call Chem Troponin I RESULT DECREASING; Troponin I 1.235 ng/mL (< 0.028)
[2018-01-27] MEDS: Enoxaparin Sodium 80 MG/0.8 ML SYRINGE SC SCH (18:45)
[2018-01-27] MEDS: Hydrocortisone Sod Succ/PF 100 mg/2 ml Vial IVP SCH (18:46)
--- NOTE | 2018-01-27 21:41 | CON ---
DATE OF CONSULTATION: 01/27/2018 HISTORY OF PRESENT ILLNESS: Qing Dutta is an 82-year-old white female who was admitted in 07/2015 with increased shortness of breath and 3 episodes of syncope. She had severe aortic stenosis, underwent cardiac catheterization on 08/24/2015. She also underwent balloon aortic valvuloplasty during that catheterization. Specifically, she was found to have mild coronary artery disease with less than 50% proximal LAD stenosis, mild luminal irregularities of the proximal circumflex and segmental 50% stenosis in the mid right coronary artery. She was found to have aortic stenosis of 0.5 cm2. She underwent balloon valvuloplasty with post-valvuloplasty aortic valve area of 0.8 cm2. She then underwent TAVR on 12/06/2015 at [facility] in [place]. She had improvement in her strength after that, did not have as much shortness of breath and apparently has not had any further episodes of syncope. She was last seen by Dr. Tellez on January 13, 2017 and was to return 1 year later, but did not. In 05/2016, she was admitted with pneumonia and had ventricular bigeminy. In 12/2016, she was admitted with sepsis with urinary tract infection. In 08/2017, she did have a fall sustaining a right hip fracture. She apparently fell and had another right hip fracture in 09/2017. Most recently, she was admitted on 01/19/2018 with sepsis secondary to urinary tract infection. She did grow E. coli in her blood. She was treated with IV antibiotics and discharged on 01/23/2018. She states that she has been taking her antibiotics at home. She then apparently was found on the floor by her daughter this morning and brought to the emergency room. Ms. Dutta states that she remembers falling, remembers hitting the floor; however, she is not certain why she fell. She was found to have an abnormal troponin I and was transferred to telemetry. She denies any chest discomfort or shortness of breath. PAST MEDICAL HISTORY: Mild coronary artery disease as noted above, status post TAVR, hypothyroidism, hypertension, frequent falls. OPERATIONS: TAVR, breast reduction, neck surgery, back surgery, foot surgery, cholecystectomy and hysterectomy. SOCIAL HISTORY: She does not smoke or drink. FAMILY HISTORY: Unremarkable. REVIEW OF SYSTEMS: Twelve-point review of systems is unremarkable. PHYSICAL EXAMINATION: VITAL SIGNS: 89/54, pulse of 64. HEENT: PERRL. NECK: Supple. CHEST: Clear. CARDIAC: S1, S2 normal, without any S3, S4. There is a 1/6 systolic murmur heard at the upper left sternal border. ABDOMEN: Normal bowel sounds, without tenderness, organomegaly. EXTREMITIES: Reveal 1+ pretibial edema. NEUROLOGIC: Grossly intact. SKIN: Warm and dry. LABORATORY DATA: EKG reveals normal sinus rhythm with left anterior fascicular block, possible anterior infarction. CK-MB 8.8, troponin I 1.843. BNP 2630.7. Sodium 140, potassium 3.0, chloride 103, carbon dioxide 25, BUN 9, creatinine 0.73. White count 16,100, hemoglobin 11.3, hematocrit 36.4, platelet count 478, 000. Urine revealed 11-20 wbc's and no bacteria. IMPRESSION: 1. Urosepsis. White count is elevated and she did have Escherichia coli sepsis. She has been placed on broad-spectrum antibiotics with Escherichia coli sepsis, certainly concern needs to be raised about the possibility of endocarditis of her TAVR. 2. Probable demand ischemia with pacing at a hypotensive and septic. 3. Mild coronary artery disease, on catheterization 2 years ago with nothing over 50%. 4. The patient has never had a coronary artery stent, she is confused about this. She thinks she had a stent placed when she went to [place], but it was really the transcatheter aortic valve replacement. 5. Hypothyroidism. 6. Dyslipidemia. 7. History of hypertension. PLAN: Echocardiogram will be performed to reassess left ventricular function. She will undergo adenosine Cardiolite testing for further evaluation. As noted above, this probably represents demand ischemia with only mild coronary artery disease on catheterization previously. ROSIED
[2018-01-27] MEDS: busPIRone HCl 5 MG TAB PO SCH (22:00)
[2018-01-27] MEDS: Atorvastatin Calcium 10 MG TAB PO SCH (22:01)
--- NOTE | 2018-01-27 22:23 | CON ---
DATE OF CONSULTATION: 01/27/2018 HISTORY OF PRESENT ILLNESS: Qing Dutta is an 82-year-old female, 5 feet 2 inches, 27 BMI, 147 pounds, who was recently discharged from the hospital, was readmitted today. He was admitted in the hospital ER for a prolonged period of time. I have been consulted regarding her hypotension, blood pressure 80/60. She is on a monitored bed. When I went to see her at that time,nurse tryingto put IV line. She denies any chest pain, chills, sweats, hemoptysis. In fact, she states, she fell down at home and was brought to the hospital. I was told she was confused but when I reviewed her medical records, she is apparently quite appropriate at this time. PAST MEDICAL HISTORY: Congestive heart failure. BNP is over 2000, coronary artery disease, cardiac stent, hypothyroidism, migraine headaches, arthritis, hypertension, advanced age. Marked weakness. PAST SURGICAL HISTORY: As outlined for frequent falls. In fact, she was seen by Trauma people in September 2017 for a fall at home. PREVIOUS SURGERIES: Breast reduction, gallbladder, hysterectomy, neck surgery, back surgery, foot surgery, right hip fracture surgery. ALLERGIES: None. REVIEW OF SYSTEMS: Otherwise unobtainable. PHYSICAL EXAMINATION: GENERAL: She is in no distress, awake, alert, responsive. VITALS: systolic, blood pressure 90/50, sats 100% on 2 liters, temperature 98.7, respirations 20. CHEST: Decreased breath sounds. No wheezing. CARDIAC: Normal S1, S2. ABDOMEN: Soft. No masses. LABORATORY: White count 16,000, H and H 11 and 36, platelet count is normal. Creatinine is normal. Potassium is 3. Lactic acid 2.9. Troponin is elevated. BNP is 2630. Urine is normal. IMPRESSION: 1. Marked deconditioning and multiple falls, possibly urinary tract infection and sepsis. 2. Congestive heart failure. 3. Hypertension. PLAN: I doubt she is septic, though I have added stress dose of steroids. ____ _. Input from Cardiology as noted. Will follow. Consultation note, 70 minutes, 50% spent in direct patient care. STEPHEN
[2018-01-27 22:26] LABS: Critical Call Chem Troponin I RESULT DECREASING; Troponin I 1.177 ng/mL (< 0.028)
[2018-01-28] MEDS: Hydrocortisone Sod Succ/PF 100 mg/2 ml Vial IVP SCH ×5 (00:21→23:02)
[2018-01-28] MEDS: MEROPENEM 1 GM/50 ML 1 GM in Premix Bag 1 BAG IVPB SCH ×3 (05:08→21:40)
[2018-01-28] MEDS: Levothyroxine Sodium 75 MCG TAB PO SCH (05:09)
[2018-01-28] MEDS: Enoxaparin Sodium 80 MG/0.8 ML SYRINGE SC SCH (05:09)
[2018-01-28 06:16] LABS: Anion Gap 12 mmol/L (10-20); BUN (Urea Nitrogen) 12 mg/dL (9.8-20.1); Calc. Creatinine Clearance 59 mL/min (70-130); Carbon Dioxide 26 mmol/L (23-31); Chloride 109 mmol/L (98-107); Estimated GFR-MDRD 74; Glucose 140 mg/dL (83-110); Potassium 4.6 mmol/L (3.5-5.1); Sodium 142 mmol/L (136-145)
[2018-01-28 06:17] LABS: #Lymphocytes 1.5 thou/uL (1.20-3.40); #Monocytes 0.2 thou/uL (0.11-0.59); #Neutrophils 8.5 thou/uL (1.40-6.50); %Basophils 0.1 % (0.0-1.0); %Eosinophils 0.2 % (0.0-10.0); %Neutrophils 82.7 % (42.0-75.0); Hemoglobin 9.7 g/dL (12.0-16.0); Mean Corpuscular Hemoglobin 30.6 pg (27.0-31.0); Mean Corpuscular Volume 98.8 fL (78.0-98.0); Mean Platelet Volume 7.4 fL (7.4-10.4); Platelet Count 369 thou/uL (130-400); RBC Distribution Width 13.9 % (11.5-14.5); Red Blood Cell (RBC) Count 3.16 mill/uL (4.20-5.40); White Blood Cell (WBC) Count 10.2 thou/uL (4.8-10.8)
[2018-01-28] MEDS ORDERED: Enoxaparin Sodium 40 MG/0.4 ML SYRINGE SC SCH (09:00)
[2018-01-28] MEDS: Pregabalin 75 MG CAP PO SCH ×3 (09:10→21:39)
--- NOTE | 2018-01-28 09:56 | PRG ---
DATE OF SERVICE: 01/28/2018 This is an 82-year-old female. This morning, blood pressure is much improved. Her cortisol level is only 5 yesterday and her blood pressure was 80 systolic, suggestive of relative adrenal insufficiency. PHYSICAL EXAMINATION: VITAL SIGNS: Temperature 98, pulse 76, blood pressure 140/70. Sats are 100% on 3l 02. CHEST: Chest revealed no wheezing. CARDIAC: Normal S1, S2. No gallops. ABDOMEN: Soft, no masses. LABORATORY: Electrolytes are normal. Creatinine is normal. White count 10, 000. IMPRESSION: 1. Recurrent fall. 2. History of urinary tract infection. 3. Advanced age. 4. Congestive heart failure. 5. Relative adrenal insufficiency. I doubt the patient is septic and would deescalate antibiotics. I will continue the hydrocortisone as prescribed. MTDD
[2018-01-28] MEDS: traMADol HCl 50 MG TAB PO PRN (10:16)
[2018-01-28 10:22] LABS: Lactic Acid 1.6 mmol/L (0.5-2.2)
[2018-01-28 10:24] LABS: Magnesium 1.9 mg/dL (1.6-2.6); Phosphorus 2.9 mg/dL (2.3-4.7)
[2018-01-28] MEDS: NS 0.9% w/ 40 MEQ KCL 1,000 ML IV SCH (10:28)
[2018-01-28] MEDS: busPIRone HCl 5 MG TAB PO SCH ×3 (10:31→21:39)
--- NOTE | 2018-01-28 12:46 | ULT ---
RENAL ULTRASOUND: Comparison: CT abdomen/pelvis 07-26-15 History: Sepsis, hypotension, urinary tract infection. Technique: Multiplanar grayscale and color doppler images were obtained in a renal ultrasound. FINDINGS: The kidneys are normal in echogenicity without hydronephrosis or calculi. There is a lobulated region along the lateral midportion of the left kidney with a lobulation measuring 1.9 cm in greatest dimen mihai. This corresponds to the normal enhancing cortex and lobulation seen on prior CT. There is no ev idence of shadowing calculi or hydronephrosis of either kidney. The kidneys measure 8.7 and 9.4 cm in length on the right and left, respectively. Limited visualization of the urinary bladder is unremark able. IMPRESSION: No significant renal abnormalities. POS: ASHANTI
--- NOTE | 2018-01-28 14:19 | PDOC.PN ---
- Subjective Encounter Start Date: 01/28/18 Encounter Start Time: 11:00 Patient seen and examined for Sepsis/Hypotension. Feels better. No new complaints. No overnight events - Objective Resuscitation Status: Resuscitation Status FULL:Full Resuscitation MAR Reviewed: Yes Vital Signs & Weight: Vital Signs (12 hours) Temp Pulse Resp BP Pulse Ox 01/28/18 07:43 98.1 F 76 18 140/70 100 01/28/18 07:30 99 01/28/18 03:20 97.6 F 65 17 114/57 L 97 Weight Weight 148 lb 4.8 oz I&O: 01/27/18 01/28/18 01/29/18 06:59 06:59 06:59 Intake Total 60 701 Balance 60 701 Result Diagrams: 01/28/18 05:19 01/28/18 05:19 Radiology Reviewed by me: Yes (CXR - No infiltrate) EKG Reviewed by me: Yes (Tele SR) Phys Exam - Physical Examination Constitutional: NAD Respiratory: no wheezing, no rhonchi Bibasilar rales, Symmetrical Cardiovascular: RRR, no rub no heaves/pulsations Gastrointestinal: soft, non-tender, no distention, positive bowel sounds Musculoskeletal: pulses present, edema present (improving) Neurological: non-focal, normal sensation, moves all 4 limbs Psychiatric: normal affect, A&O x 3 Dx/Plan - Plan DVT proph w/SCDs 1. Gen weakness/fall/hypotension 2. Sepsis with acute organ dysfunction ? etio Cont Empiric Atbx 3. Elevated troponin/Elevated BNP - prob due to demand ischemia Cont ASA, Change Lovenox to 30 mg daily, Echo, Statins, Hold IVF 4. Hypokalemia Will replace 5. Relative adrenal insuff Cont IV steroids 6. Recent UTI / CAD / HTN / / Hypothyroidism /CKD 2 / h/o fall with hip fracture 11/15 7. Other issues per H&P Microbiology 01/27/18 11:25 Venous blood - Right Arm Blood Culture - Preliminary Specimen has been received and culture in progress. No Growth to date. 01/27/18 11:16 Venous blood - Right Hand Blood Culture - Preliminary Specimen has been received and culture in progress. No Growth to date. 01/27/18 09:20 Urine Straight Catheter Urine Culture - Preliminary NO GROWTH AT 24 HOURS Review of Systems - Review of Systems Respiratory: negative: Cough, Dry, Shortness of Breath, Hemoptysis, SOB with Excertion, Pleuritic Pain, Sputum, Wheezing Cardiovascular: negative: chest pain, palpitations, orthopnea, paroxysmal nocturnal dyspnea, edema, light headedness, other - Medications/Allergies Allergies/Adverse Reactions: Allergies Allergy/AdvReac Type Severity Reaction Status Date / Time No Known Drug Allergies Allergy Verified 01/20/18 00:52 Medications: Current Medications Aspirin (Aspirin) 325 mg PO DAILY [facility] Atorvastatin Calcium (Lipitor) 10 mg PO HS [facility] Last Admin: 01/27/18 22:01 Dose: 10 mg Buspirone HCl (Buspar) 5 mg PO TID [facility] Last Admin: 01/28/18 10:31 Dose: 5 mg Enoxaparin Sodium (Lovenox) 70 mg SC 0400,1600 [facility] Last Admin: 01/28/18 05:09 Dose: 70 mg Furosemide (Lasix) 10 mg PO DAILY [facility] Hydrocortisone Sodium Succinate (Solu-Cortef) 50 mg IVP Q6HR [facility] Stop: 02/03/18 18:01 Last Admin: 01/28/18 05:08 Dose: 50 mg Meropenem 1 gm/ Device 50 mls @ 100 mls/hr IVPB Q8HR [facility] Last Admin: 01/28/18 05:08 Dose: 50 mls Vancomycin HCl 1 gm/ Device 200 mls @ 200 mls/hr IVPB Q24HR [facility] Levothyroxine Sodium (Synthroid) 75 mcg PO 0600 [facility] Last Admin: 01/28/18 05:09 Dose: 75 mcg Miscellaneous Medication (Pharmacy To Dose) 1 each IVPB ASDIR [facility] Pregabalin (Lyrica) 75 mg PO TID [facility] Last Admin: 01/28/18 09:10 Dose: Not Given Sodium Chloride (Flush - Normal Saline) 10 ml IVF Q12HR [facility] Last Admin: 01/28/18 10:34 Dose: 10 ml Sodium Chloride (Flush - Normal Saline) 10 ml IVF PRN PRN PRN Reason: Saline Flush Last Admin: 01/27/18 14:42 Dose: 10 ml Tramadol HCl (Ultram) 50 mg PO Q6H PRN PRN Reason: Pain (1ST LINE) Last Admin: 01/28/18 10:16 Dose: 50 mg
[2018-01-28] MEDS: Aspirin 325 MG TAB PO SCH (14:25)
[2018-01-28] MEDS: Furosemide 20 MG TAB PO SCH (14:26)
[2018-01-28] MEDS: Vancomycin HCl 1 GM in Premix Bag 1 BAG IVPB SCH (15:24)
--- NOTE | 2018-01-28 16:06 | NM ---
CARDIAC SPECT: 01/28/18 HISTORY: 82-year-old female with elevated troponins, coronary artery disease, aortic stenosis, hypertension. TECHNIQUE: A myocardial perfusion scan was performed using the single isotope one day protocol with technetium 9 9m Sestamibi. 11 millicuries was injected intravenously for the rest exam followed by 30 millicuries for the stress study. Pharmacologic stress with Lexiscan was monitored and interpreted by Dr. Kenny. FINDINGS: There are fixed defects involving the distal anterior and inferior gabriel and the apex. There is a sma ll focal area of reversible ischemia in the distal anterolateral wall. GATED SPECT LVEF: 40%. WALL MOTION EXAM: Global hypokinesis. IMPRESSION: 1. Scarring in the apex, distal anterior and distal inferior gabriel. 2. Small area of reversible ischemia in the anterolateral wall. POS: ASHANTI
[2018-01-28] MEDS ORDERED: Communication Order-Pharmacy FS SCH (17:15)
[2018-01-28] MEDS ORDERED: Ondansetron PF 4 MG/2 ML Vial IVP PRN (17:25)
[2018-01-28] MEDS: Ondansetron ODT 4 MG TAB SL PRN (18:13)
[2018-01-28] MEDS ORDERED: Regadenoson 0.4 MG/5 ML SYRINGE ONE (18:49)
[2018-01-28] MEDS: Famotidine 20 MG TAB PO SCH (21:39)
[2018-01-28] MEDS: Atorvastatin Calcium 10 MG TAB PO SCH (21:39)
[2018-01-28] MEDS: Mometasone/Formoterol 120 PUFF INHALER INH PRN (21:53)
[2018-01-28] MEDS: Furosemide 40 MG/4 ML VIAL ONE ×2 (22:58→23:02)
[2018-01-28] MEDS ORDERED: Furosemide 40 MG/4 ML VIAL SLOW IVP SCH (23:00)
--- NOTE | 2018-01-28 23:06 | RAD ---
CHEST ONE VIEW: 01/28/18 HISTORY: Respiratory distress. COMPARISON: 01/27/18. FINDINGS: Worsening opacification of the lung parenchyma suggesting interstitial edema with possible alveolar o pacities in the left lung base. There is worsening opacification in the left lung base suggesting a s uperimposed pleural effusion. Heart is enlarged. Right costophrenic angle is clear. No pneumothorax. Atherosclerosis of the aorta is noted. Stable stent type device projecting over the cardiac silhouett e. IMPRESSION: Interstitial and alveolar infiltrate. Left sided pleural effusion. Continued surveillance is recommen ded. POS: [facility]
[2018-01-28] MEDS: ALPRAZolam 0.25 MG TAB PO PRN (23:12)
[2018-01-29] MEDS: MEROPENEM 1 GM/50 ML 1 GM in Premix Bag 1 BAG IVPB SCH (05:21)
[2018-01-29] MEDS: Hydrocortisone Sod Succ/PF 100 mg/2 ml Vial IVP SCH ×3 (05:21→18:40)
[2018-01-29] MEDS: Levothyroxine Sodium 75 MCG TAB PO SCH (05:22)
[2018-01-29] MEDS: Sodium Chloride 0.9% 1,000 ML IV SCH ×2 (05:32→15:32)
[2018-01-29 05:45] LABS: #Lymphocytes 1.9 thou/uL (1.20-3.40); #Monocytes 0.6 thou/uL (0.11-0.59); #Neutrophils 13.2 thou/uL (1.40-6.50); %Basophils 0.2 % (0.0-1.0); %Eosinophils 0.2 % (0.0-10.0); %Lymphocytes 12.2 % (21.0-51.0); %Monocytes 3.9 % (0.0-10.0); %Neutrophils 83.5 % (42.0-75.0); Hemoglobin 11.1 g/dL (12.0-16.0); Mean Corpuscular HGB CONC 30.4 g/dL (32.0-36.0); Mean Corpuscular Hemoglobin 30.2 pg (27.0-31.0); Mean Corpuscular Volume 99.2 fL (78.0-98.0); Mean Platelet Volume 7.8 fL (7.4-10.4); Platelet Count 465 thou/uL (130-400); RBC Distribution Width 14.2 % (11.5-14.5); Red Blood Cell (RBC) Count 3.68 mill/uL (4.20-5.40); White Blood Cell (WBC) Count 15.9 thou/uL (4.8-10.8)
[2018-01-29 06:06] LABS: ALT (SGPT) 11 U/L (8-55); AST (SGOT) 23 U/L (5-34); Albumin 3.6 g/dL (3.4-4.8); Alkaline Phosphatase 104 U/L (40-150); Anion Gap 17 mmol/L (10-20); BUN (Urea Nitrogen) 16 mg/dL (9.8-20.1); Bilirubin, Total 0.4 mg/dL (0.2-1.2); Calc. Creatinine Clearance 57 mL/min (70-130); Calcium 9.3 mg/dL (7.8-10.44); Carbon Dioxide 25 mmol/L (23-31); Chloride 104 mmol/L (98-107); Estimated GFR-MDRD 70; Globulin 3.3 g/dL (2.4-3.5); Glucose 157 mg/dL (83-110); Potassium 3.8 mmol/L (3.5-5.1); Protein, Total 6.9 g/dL (6.0-8.3); Sodium 142 mmol/L (136-145)
[2018-01-29] MEDS: Mometasone/Formoterol 120 PUFF INHALER INH PRN (07:46)
[2018-01-29] MEDS: busPIRone HCl 5 MG TAB PO SCH ×3 (08:25→20:59)
[2018-01-29] MEDS: Carvedilol 3.125 MG TAB PO SCH ×2 (08:25→16:45)
[2018-01-29] MEDS: Aspirin 325 MG TAB PO SCH (08:25)
[2018-01-29] MEDS: Famotidine 20 MG TAB PO SCH ×2 (08:26→20:59)
[2018-01-29] MEDS: Folic Acid 1 MG TAB PO SCH (08:26)
[2018-01-29] MEDS: Lisinopril 2.5 MG TAB PO SCH (08:26)
[2018-01-29] MEDS: Pregabalin 75 MG CAP PO SCH ×3 (08:26→20:59)
[2018-01-29] MEDS: Cyanocobalamin (Vitamin B-12) 1,000 MCG TAB PO SCH (08:26)
[2018-01-29] MEDS: Furosemide 20 MG TAB PO SCH (08:26)
[2018-01-29] MEDS: Multivit, Therapeutic 1 TAB PO SCH (08:27)
[2018-01-29] MEDS ORDERED: Enoxaparin Sodium 30 MG/0.3 ML SYRINGE SC SCH (09:00)
--- NOTE | 2018-01-29 10:20 | PRG ---
DATE OF SERVICE: 01/29/2018 She is much better. Less short of breath. PHYSICAL EXAMINATION: VITAL SIGNS: Blood pressure resolved 150/80, sats 97 on room air, respirations 18. CHEST: Chest revealed decreased breath sounds, no wheezing. CARDIAC: Normal S1-S2. No gallops. ABDOMEN: Soft. No masses. IMPRESSION: 1. Congestive cardiomyopathy. 2. Sepsis syndrome. 3. Urinary tract infection. All cultures negative. 4. Relative adrenal insufficiency. PLAN: Consider tapering and discontinuing antibiotics. Continue steroids for another several more days.
[2018-01-29 12:51] LABS: Vancomycin, Trough 9.5 ug/mL
[2018-01-29] MEDS: Vancomycin HCl 1 GM in Premix Bag 1 BAG IVPB SCH (12:54)
--- NOTE | 2018-01-29 13:05 | CON ---
DATE OF CONSULTATION: 01/29/2018 REASON FOR CONSULTATION: Possible sepsis. HISTORY OF PRESENT ILLNESS: Ms. Dutta is an 82-year-old patient who has a history of coronary disease, ischemic cardiomyopathy with CHF and hypertension, recently admitted to [facility] in December. At that time, she presented with generalized weakness. The patient uses a walker for ambulation and she tripped and fell. On arrival, she had no history of fever, no vomiting or diarrhea or headaches. She did have some weakness in the right hip area. In 09/2017 the patient had sustained a right hip fracture. This is following a previous right intertrochanteric fracture and in September the patient fractured again near the screws on the night of admission. There had been no syncopal event. The second fracture was managed with a right hip hardware removal and a right femur intramedullary nail placement. On 01/19/2018, her initial vital signs show BP 100/40 and pulse 65, respirations 21, temperature 98.7, O2 sat 96% . She did not appear to be in distress. The examination was fairly unremarkable except for some weakness in the right lower extremity with mild tenderness with movement at the hip. Chest x-ray was normal. The white cell count is 19,000 with a mild left shift. Her platelet count was 323 and hemoglobin 10.3. Creatinine was 1.27, sodium 140. Urinalysis had greater than 50 to too numerous to count WBCs. Microbiology results showed greater than 100, 000 CFUs per mL of E. coli which had resistance to quinolones, aminoglycosides, nitrofurantoin and Bactrim and susceptibility to cephalosporins. She did have 15% bands on admission. She was treated with Rocephin and appears to have received meropenem as well and discharged on Omnicef. She was discharged on and is readmitted on 01/27/2018 with pretty much the same symptoms that led to her admission on 01/19/2018 with generalized weakness, but no other symptoms. She does have quite significant difficulty in recalling the events that led to her current and previous admission. She has memory gaps has a hard time in placing the sequence of events. Currently, she denies headaches, no chest pain, no cough, no abdominal pain, no genitourinary symptoms. She does complain of pain in the right hip site. PAST MEDICAL HISTORY: Coronary disease, ischemic cardiomyopathy, prior stenting , right hip fractures x2 with placement of a plate with screws by Dr. Connell in the beginning of September and then another fracture around the first fracture site and with the hardware being removed by Dr. Calabrese and a pin placed across the second fracture element. She also has a history of laminectomy, foot surgeries, cholecystectomy and hysterectomy. SOCIAL HISTORY: Never a smoker. FAMILY HISTORY: Noncontributory. ALLERGIES: None. CURRENT MEDICATION LIST: Includes albumin, DuoNeb, aspirin, Lipitor, BuSpar, Coreg, Rocephin, Lovenox, Pepcid, Folvite, Lasix, Solu-Cortef, levothyroxine, lisinopril, meropenem, triazolam which has been canceled, potassium and sodium chloride, tramadol, vancomycin. PHYSICAL EXAMINATION: VITAL SIGNS: T-max 98.1, blood pressure 120/70, pulse 71, respirations 16, O2 sat 97%. SKIN: No areas of skin breakdown. The site of the previous right hip interventions has healed completely. There are no inflammatory changes locally , although she does have some tenderness on palpation. The patient has a peripheral IV access and is voiding in a diaper. No lymphadenopathy. HEENT: Ocular movements conjugate. Oral cavity is not remarkable. NECK: Supple, no jugular vein distention. LUNGS: Symmetric air entry, no crackles or wheezing. HEART: S1, S2, regular rate, a soft aortic murmur. ABDOMEN: Not distended or tender. No ascites. No bladder distention or organomegaly. EXTREMITIES: She has some tenderness on mobilization of the right hip. She is diffusely weak. NEUROLOGIC: She has no clonus in the plantar aspect, response is flexor. She is awake, knows her name, but did not know where she was or the date. She did follow some commands. LABORATORY DATA: White cell count though was at 16,000, went down to 10 and now is up to 15.9, hemoglobin 11, platelets 465 with 82% neutrophils. Sodium 142, creatinine 0.78. Liver profile was normal. CRP 16.47, albumin 3.6. Urinalysis with 11-20 WBCs. Blood cultures and urine culture thus far are negative. She had a stress test nuclear medicine study and there was scarring in the apex , a small area of reversible ischemia in the anterolateral wall. Follow up chest x-ray with interstitial and alveolar infiltrate with left-sided pleural effusion. Echocardiogram with an EF estimated around 20-25%, very depressed LV function, mildly enlarged right ventricular cavity, moderately enlarged left atrium, somewhat thickened aortic valve leaflets, and trivial aortic regurgitation. ASSESSMENT: 1. Ischemic cardiomyopathy with early pulmonary edema. 2. Weakness. 3. Abnormal urinalysis already treated and readmission most likely due to the cardiac dysfunction. DISCUSSION: The most likely scenario is cardiac dysfunction leading to the neutrophilia and the symptoms that led to admission with probably pulmonary edema. At this point, would discontinue antimicrobial therapy and manage her systolic impairment related consequences. I do not think that there is a conclusive evidence to demonstrate an active infection at this point in time. Most of her symptoms are most likely secondary to the decompensation of her underlying ischemic cardiomyopathy. STEPHEN
[2018-01-29] MEDS: Ondansetron ODT 4 MG TAB SL PRN (15:32)
[2018-01-29] MEDS: traMADol HCl 50 MG TAB PO PRN (16:45)
--- NOTE | 2018-01-29 18:17 | PDOC.PN ---
- Subjective Encounter Start Date: 01/29/18 Encounter Start Time: 11:00 Patient seen and examined for Gen weakness. B/L LE pain + No overnight events - Objective Resuscitation Status: Resuscitation Status FULL:Full Resuscitation MAR Reviewed: Yes Vital Signs & Weight: Vital Signs (12 hours) Temp Pulse Pulse Pulse Pulse Resp BP 01/29/18 15:31 98.4 F 73 18 01/29/18 14:46 75 16 01/29/18 13:29 97.5 F L 93 18 01/29/18 11:23 71 16 01/29/18 10:14 01/29/18 09:42 72 81 84 128/70 01/29/18 08:26 74 01/29/18 07:46 74 16 01/29/18 07:43 97.8 F 78 20 01/29/18 07:42 72 16 01/29/18 07:35 BP BP BP BP BP Pulse Ox 01/29/18 15:31 136/74 100 01/29/18 14:46 95 01/29/18 13:29 131/65 96 01/29/18 11:23 97 01/29/18 10:14 128/70 136/72 132/95 H 01/29/18 09:42 163/72 H 132/95 H 01/29/18 08:26 01/29/18 07:46 96 01/29/18 07:43 158/80 H 100 01/29/18 07:42 96 01/29/18 07:35 100 Weight Weight 148 lb 14.4 oz I&O: 01/28/18 01/29/18 01/30/18 06:59 06:59 06:59 Intake Total 60 2217 Balance 60 2217 Result Diagrams: 01/29/18 04:59 01/29/18 04:59 EKG Reviewed by me: Yes (Tele SR) Phys Exam - Physical Examination Constitutional: NAD Respiratory: no wheezing, no rhonchi Cardiovascular: RRR, no rub Gastrointestinal: soft, non-tender, positive bowel sounds Musculoskeletal: no edema Neurological: moves all 4 limbs Dx/Plan - Plan 1. Gen weakness/fall/hypotension /SIRS due to noninfectious etio - Atbx dced per ID 2. B/L LE pain Doppler to r/o DVT 3. Elevated troponin-prob due to demand ischemia/Chronic systolic HF - ACC stage C /Abn stress test Cont ASA/ACEI/Coreg/Statins, Patient declined Cath 4. Hypokalemia - replaced 5. Relative adrenal insuff Cont IV steroids 6. Recent UTI - repeat urine cultures negative 7. CAD / HTN / / Hypothyroidism /CKD 2 / h/o fall with hip fracture 11/15 / Other issues per H&P Review of Systems - Review of Systems Respiratory: negative: Cough, Dry, Shortness of Breath, Hemoptysis, SOB with Excertion, Pleuritic Pain, Sputum, Wheezing Cardiovascular: negative: chest pain, palpitations, orthopnea, paroxysmal nocturnal dyspnea, edema, light headedness, other - Medications/Allergies Allergies/Adverse Reactions: Allergies Allergy/AdvReac Type Severity Reaction Status Date / Time No Known Drug Allergies Allergy Verified 01/20/18 00:52 Medications: Current Medications Albuterol/Ipratropium (Duoneb) 3 ml NEB [id number] [facility] Last Admin: 01/29/18 14:46 Dose: 3 ml Alprazolam (Xanax) 0.25 mg PO Q6H PRN PRN Reason: Anxiety Last Admin: 01/28/18 23:12 Dose: 0.25 mg Aspirin (Aspirin) 325 mg PO DAILY [facility] Last Admin: 01/29/18 08:25 Dose: 325 mg Atorvastatin Calcium (Lipitor) 10 mg PO HS [facility] Last Admin: 01/28/18 21:39 Dose: 10 mg Buspirone HCl (Buspar) 5 mg PO TID [facility] Last Admin: 01/29/18 15:32 Dose: 5 mg Carvedilol (Coreg) 3.125 mg PO BID-WM [facility] Last Admin: 01/29/18 16:45 Dose: 3.125 mg Cyanocobalamin (Vitamin B-12) 1,000 mcg PO DAILY [facility] Last Admin: 01/29/18 08:26 Dose: 1,000 mcg Famotidine (Pepcid) 20 mg PO BID [facility] Last Admin: 01/29/18 08:26 Dose: 20 mg Folic Acid (Folvite) 1 mg PO DAILY [facility] Last Admin: 01/29/18 08:26 Dose: 1 mg Furosemide (Lasix) 10 mg PO DAILY [facility] Last Admin: 01/29/18 08:26 Dose: 10 mg Hydrocortisone Sodium Succinate (Solu-Cortef) 50 mg IVP Q6HR [facility] Stop: 02/04/18 12:01 Last Admin: 01/29/18 13:32 Dose: 50 mg Levothyroxine Sodium (Synthroid) 75 mcg PO 0600 [facility] Last Admin: 01/29/18 05:22 Dose: 75 mcg Lisinopril (Zestril) 2.5 mg PO DAILY [facility] Last Admin: 01/29/18 08:26 Dose: 2.5 mg Mometasone Furoate/Formoterol Fumar (Dulera 200 Mcg/5 Mcg Inhaler) 2 puff INH BIDPRN PRN PRN Reason: SOB &/or Wheezing Last Admin: 01/29/18 07:46 Dose: 2 puff Multivitamins (Theragran) 1 tab PO DAILY [facility] Last Admin: 01/29/18 08:27 Dose: 1 tab Ondansetron HCl (Zofran) 4 mg IVP Q6H PRN PRN Reason: Nausea/Vomiting Ondansetron HCl (Zofran Odt) 4 mg SL Q6H PRN PRN Reason: Nausea/Vomiting Last Admin: 01/29/18 15:32 Dose: 4 mg Pregabalin (Lyrica) 75 mg PO TID [facility] Last Admin: 01/29/18 15:33 Dose: 75 mg Sodium Chloride (Flush - Normal Saline) 10 ml IVF Q12HR [facility] Last Admin: 01/29/18 08:27 Dose: 10 ml Sodium Chloride (Flush - Normal Saline) 10 ml IVF PRN PRN PRN Reason: Saline Flush Last Admin: 01/29/18 05:22 Dose: 10 ml Tramadol HCl (Ultram) 50 mg PO Q6H PRN PRN Reason: Pain (1ST LINE) Last Admin: 01/29/18 16:45 Dose: 50 mg
[2018-01-29] MEDS: Atorvastatin Calcium 10 MG TAB PO SCH (20:59)
[2018-01-29] MEDS: ALPRAZolam 0.25 MG TAB PO PRN (20:59)
[2018-01-30] MEDS: Hydrocortisone Sod Succ/PF 100 mg/2 ml Vial IVP SCH ×3 (01:30→21:55)
[2018-01-30 05:44] LABS: Anion Gap 12 mmol/L (10-20); BUN (Urea Nitrogen) 23 mg/dL (9.8-20.1); Calc. Creatinine Clearance 56 mL/min (70-130); Calcium 9.1 mg/dL (7.8-10.44); Carbon Dioxide 28 mmol/L (23-31); Chloride 103 mmol/L (98-107); Estimated GFR-MDRD 68; Glucose 156 mg/dL (83-110); Potassium 3.9 mmol/L (3.5-5.1); Sodium 139 mmol/L (136-145)
[2018-01-30 05:50] LABS: #Eosinphils 0.1 thou/uL (0.0-0.7); #Lymphocytes 1.8 thou/uL (1.20-3.40); #Monocytes 0.6 thou/uL (0.11-0.59); #Neutrophils 9.3 thou/uL (1.40-6.50); %Basophils 0.3 % (0.0-1.0); %Eosinophils 0.5 % (0.0-10.0); %Lymphocytes 15.4 % (21.0-51.0); %Monocytes 4.9 % (0.0-10.0); %Neutrophils 78.9 % (42.0-75.0); Hemoglobin 9.9 g/dL (12.0-16.0); Mean Corpuscular HGB CONC 30.4 g/dL (32.0-36.0); Mean Corpuscular Hemoglobin 29.3 pg (27.0-31.0); Mean Corpuscular Volume 96.4 fL (78.0-98.0); Mean Platelet Volume 8.3 fL (7.4-10.4); Platelet Count 270 thou/uL (130-400); White Blood Cell (WBC) Count 11.8 thou/uL (4.8-10.8)
[2018-01-30] MEDS: Levothyroxine Sodium 75 MCG TAB PO SCH (05:53)
--- NOTE | 2018-01-30 08:20 | ULT ---
BILATERAL LOWER EXTREMITY VENOUS DUPLEX EXAM: HISTORY: Bilateral lower extremity pain and swelling. TECHNIQUE: Real-time color Doppler evaluation of the right and left lower extremities was performed from the sondra in to the calf. This includes evaluation of the common femoral artery, superficial and profunda femo ral arteries, saphenous veins, popliteal veins, and posterior tibial veins. FINDINGS: This shows patent deep venous systems bilaterally. There is normal compressibility and augmentation. There is no evidence of DVT. IMPRESSION: No evidence of deep venous thrombosis of either lower extremity. POS: ASHANTI
--- NOTE | 2018-01-30 09:19 | PQF ---
CLINICAL DOCUMENTATION IMPROVEMENT CLARIFICATION FORM: ICD-10 Updated PLEASE DO AN ADDENDUM TO THE PROGRESS NOTE WITH ANY DOCUMENTATION UPDATES OR ADDITIONS AND CARRY THROUGH TO DC SUMMARY. THANK YOU. DATE: 01/30 ATTN: DR. DEVON PIERSON Please exercise your independent, professional judgment in responding to the clarification form. Clinical indicators are provided on the bottom of this form for your review. Please check appropriate box(s) to clarify if the following diagnosis has been ruled in or ruled out: SEPSIS W/ACUTE ORGAN DYSFUNCTION, ? ETIOLOGY [ ] Ruled in diagnosis [ ] Continue to treat [ ] Resolved [ x] Ruled out diagnosis [ ] Other diagnosis [ ] Unable to determine For continuity of documentation, please document condition throughout progress notes and discharge summary. Thank You. CLINICAL INDICATORS - SIGNS / SYMPTOMS / LABS ER PHYSICIAN DOCUMENTATION 01/27: SEPSIS, UTI H&P DOCUMENTATION 01/27: SEPSIS & SUSPECTED SOURCE OF INFECTION EITHER BACTEREMIA OR UTI PULMONOLOGY H&P 01/27: DOUBT SHE IS SEPTIC INFECTIOUS DX CONS DOCUMENTATION 01/29: MOST LIKELY SCENARIO IS CARDIAC DYSFUNCTION LEADING TO THE NEUTROPHILIA & PROBABLY PULMONARY EDEMA ATTENDING PN 01/28: SEPSIS W/ACUTE ORGAN DYSFUNCTION, ? ETIOLOGY ATTENDING PN 01/29: SIRS D/T NON-INFECTIOUS ETIOLOGY - ANTIBIOTICS D/C'D PER ID RISK FACTORS: LEUKOCYTOSIS (16.1) RECENT UTI TREATMENTS: IV ANTIBIOTICS (MEROPENEM 1030 - 01/29; VANCOMYCIN 01/28) IVF (NS1 - 01/29) THANK YOU! Maryann (This form is maintained as a part of the permanent medical record) 2014 [employer]. All Rights Reserved Maryann Baez RN, BSN [email or web address] Office: [phone] [facility]
--- NOTE | 2018-01-30 09:23 | PRG ---
DATE OF SERVICE: 01/30/2018 SUBJECTIVE: This morning, she is awake, alert, and responsive, much better. She is eating breakfast . OBJECTIVE: VITAL SIGNS: Blood pressure this morning is 131/69, much improved, temperature 96, pulse 63, respira tion 16, sats are 92% on 2 liters. CHEST: Reveals no wheezing, crackles. CARDIAC: Normal S1, S2. No gallops. ABDOMEN: Soft, no mass. LABORATORY DATA: White count 11,000 H&H is 9 and 30, platelet count is normal. Electrolytes are nor mal. IMPRESSION: Advanced age, severe deconditioning, congestive heart failure, hypertension with relativ e adrenal insufficiency. PLAN: Pulmonary penny, continue PT and supportive care, minimize sedation. Please call Pulmonary as needed.
[2018-01-30] MEDS: Pregabalin 75 MG CAP PO SCH ×3 (10:01→21:54)
[2018-01-30] MEDS: Aspirin 325 MG TAB PO SCH (10:04)
[2018-01-30] MEDS: Multivit, Therapeutic 1 TAB PO SCH (10:04)
[2018-01-30] MEDS: traMADol HCl 50 MG TAB PO PRN ×3 (10:04→23:13)
[2018-01-30] MEDS: Furosemide 20 MG TAB PO SCH (10:05)
[2018-01-30] MEDS: Famotidine 20 MG TAB PO SCH ×2 (10:05→21:55)
[2018-01-30] MEDS: Cyanocobalamin (Vitamin B-12) 1,000 MCG TAB PO SCH (10:05)
[2018-01-30] MEDS: Heparin 5,000 UNITS/ML VIAL SC SCH ×2 (10:06→21:57)
[2018-01-30] MEDS: Folic Acid 1 MG TAB PO SCH (10:06)
[2018-01-30] MEDS: busPIRone HCl 5 MG TAB PO SCH ×3 (10:06→21:55)
[2018-01-30] MEDS: Lisinopril 2.5 MG TAB PO SCH (10:06)
[2018-01-30] MEDS: Carvedilol 3.125 MG TAB PO SCH ×2 (10:06→17:06)
--- NOTE | 2018-01-30 14:13 | PDOC.CTH ---
Cardiology Progress Note - Subjective Patient without complaints. Doesn't talk much. - Objective Vital Signs Temp Pulse Resp BP BP BP BP 01/30/18 12:00 97.8 F 70 20 130/68 01/30/18 11:20 72 16 01/30/18 10:06 70 144/74 H 01/30/18 08:00 97.5 F L 70 20 138/70 142/74 H 01/30/18 07:09 01/30/18 07:07 63 16 01/30/18 04:00 96.3 F L 65 16 131/69 01/30/18 02:18 BP Pulse Ox 01/30/18 12:00 97 01/30/18 11:20 01/30/18 10:06 01/30/18 08:00 144/74 H 98 01/30/18 07:09 99 01/30/18 07:07 01/30/18 04:00 98 01/30/18 02:18 92 L Weight 149 lb 9.6 oz 01/29/18 01/30/18 01/31/18 06:59 06:59 06:59 Intake Total 2217 776 Balance 2217 776 - Physical Examination General/Neuro: other: (alert and oriented x 1) Lungs: CTA Heart: RRR Abdomen: NT/ND Extremities: other: (mild bilateral edema) - Telemetry Telemetry Rhythm: SR - Labs Result Diagrams: 01/30/18 05:18 01/30/18 05:18 Troponin/CKMB CK-MB (CK-2) 6.2 ng/mL (0-6.6) 01/27/18 17:40 Troponin I 1.177 ng/mL (< 0.028) H* 01/27/18 21:53 - Assessment/Plan 1. 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 Dementia 4. DNR Patient has refused ICD and LifeVest speaking with Dr. Vick previously. Aware of SCD risk. Continue supportive care and placement planning.
--- NOTE | 2018-01-30 19:02 | PDOC.PN ---
- Subjective Encounter Start Date: 01/30/18 Encounter Start Time: 09:30 Patient seen and examined for Hypotension/Gen weakness. Feels better. No new complaints. No overnight events - Objective Resuscitation Status: Resuscitation Status DNR:Do Not Resuscitate MAR Reviewed: Yes Vital Signs & Weight: Vital Signs (12 hours) Temp Pulse Pulse Pulse Resp BP BP 01/30/18 16:45 98.6 F 71 20 01/30/18 15:51 61 16 01/30/18 15:15 71 01/30/18 14:04 68 143/72 H 01/30/18 12:00 97.8 F 70 20 01/30/18 11:20 72 16 01/30/18 10:06 70 144/74 H 01/30/18 08:00 97.5 F L 70 20 01/30/18 07:09 01/30/18 07:07 63 16 BP BP BP BP BP Pulse Ox Pulse Ox 01/30/18 16:45 126/61 93 L 01/30/18 15:51 01/30/18 15:15 131/70 95 01/30/18 14:04 01/30/18 12:00 130/68 97 01/30/18 11:20 01/30/18 10:06 01/30/18 08:00 138/70 142/74 H 144/74 H 98 01/30/18 07:09 99 01/30/18 07:07 Weight Weight 149 lb 9.6 oz I&O: 01/29/18 01/30/18 01/31/18 06:59 06:59 06:59 Intake Total 2217 776 Balance 2217 776 Result Diagrams: 01/30/18 05:18 01/30/18 05:18 EKG Reviewed by me: Yes (Tele SR) Phys Exam - Physical Examination Constitutional: NAD Respiratory: no wheezing, no rhonchi Cardiovascular: RRR, no rub Gastrointestinal: soft, non-tender, positive bowel sounds Musculoskeletal: no edema Dx/Plan - Plan 1. Gen weakness/fall/hypotension /SIRS due to noninfectious etio - Atbx dced per ID 2. B/L LE pain - Doppler negative 3. Elevated troponin-prob due to demand ischemia/Chronic systolic HF - ACC stage C /Abn stress test Cont ASA/ACEI/Coreg/Statins, Patient declined Cath/Lifevest - Patient understands the risk of SCD. 4. Hypokalemia - replaced 5. Relative adrenal insuff Cont IV steroids per Pulmonary (dose reduced) 6. Recent UTI - repeat urine cultures negative 7. CAD / HTN / / Hypothyroidism /CKD 2 / h/o fall with hip fracture 11/15 / Other issues per H&P 8. Disp - Accepted by Rehab - DC once steroid changed to PO Review of Systems - Review of Systems Respiratory: negative: Cough, Dry, Shortness of Breath, Hemoptysis, SOB with Excertion, Pleuritic Pain, Sputum, Wheezing Cardiovascular: negative: chest pain, palpitations, orthopnea, paroxysmal nocturnal dyspnea, edema, light headedness, other - Medications/Allergies Allergies/Adverse Reactions: Allergies Allergy/AdvReac Type Severity Reaction Status Date / Time No Known Drug Allergies Allergy Verified 01/20/18 00:52 Medications: Current Medications Albuterol/Ipratropium (Duoneb) 3 ml NEB [id number] [facility] Last Admin: 01/30/18 15:51 Dose: 3 ml Alprazolam (Xanax) 0.25 mg PO Q6H PRN PRN Reason: Anxiety Last Admin: 01/29/18 20:59 Dose: 0.25 mg Aspirin (Aspirin) 325 mg PO DAILY [facility] Last Admin: 01/30/18 10:04 Dose: 325 mg Atorvastatin Calcium (Lipitor) 10 mg PO HS [facility] Last Admin: 01/29/18 20:59 Dose: 10 mg Buspirone HCl (Buspar) 5 mg PO TID [facility] Last Admin: 01/30/18 14:42 Dose: 5 mg Carvedilol (Coreg) 3.125 mg PO BID-WM [facility] Last Admin: 01/30/18 17:06 Dose: 3.125 mg Cyanocobalamin (Vitamin B-12) 1,000 mcg PO DAILY [facility] Last Admin: 01/30/18 10:05 Dose: 1,000 mcg Famotidine (Pepcid) 20 mg PO BID [facility] Last Admin: 01/30/18 10:05 Dose: 20 mg Folic Acid (Folvite) 1 mg PO DAILY [facility] Last Admin: 01/30/18 10:06 Dose: 1 mg Furosemide (Lasix) 10 mg PO DAILY [facility] Last Admin: 01/30/18 10:05 Dose: 10 mg Heparin Sodium (Porcine) (Heparin) 5,000 units SC BID [facility] Last Admin: 01/30/18 10:06 Dose: 5,000 units Hydrocortisone Sodium Succinate (Solu-Cortef) 50 mg IVP BID [facility] Stop: 02/01/18 12:01 Levothyroxine Sodium (Synthroid) 75 mcg PO 0600 [facility] Last Admin: 01/30/18 05:53 Dose: 75 mcg Lisinopril (Zestril) 2.5 mg PO DAILY [facility] Last Admin: 01/30/18 10:06 Dose: 2.5 mg Mometasone Furoate/Formoterol Fumar (Dulera 200 Mcg/5 Mcg Inhaler) 2 puff INH BIDPRN PRN PRN Reason: SOB &/or Wheezing Last Admin: 01/29/18 07:46 Dose: 2 puff Multivitamins (Theragran) 1 tab PO DAILY [facility] Last Admin: 01/30/18 10:04 Dose: 1 tab Ondansetron HCl (Zofran) 4 mg IVP Q6H PRN PRN Reason: Nausea/Vomiting Ondansetron HCl (Zofran Odt) 4 mg SL Q6H PRN PRN Reason: Nausea/Vomiting Last Admin: 01/29/18 15:32 Dose: 4 mg Pregabalin (Lyrica) 75 mg PO TID [facility] Last Admin: 01/30/18 14:41 Dose: 75 mg Sodium Chloride (Flush - Normal Saline) 10 ml IVF Q12HR [facility] Last Admin: 01/30/18 10:07 Dose: 10 ml Sodium Chloride (Flush - Normal Saline) 10 ml IVF PRN PRN PRN Reason: Saline Flush Last Admin: 01/30/18 05:53 Dose: 10 ml Tramadol HCl (Ultram) 50 mg PO Q6H PRN PRN Reason: Pain (1ST LINE) Last Admin: 01/30/18 17:06 Dose: 50 mg
[2018-01-30] MEDS: Atorvastatin Calcium 10 MG TAB PO SCH (21:54)
[2018-01-31] MEDS: Levothyroxine Sodium 75 MCG TAB PO SCH (05:43)
[2018-01-31 07:51] VITALS: TEMP 97.7
[2018-01-31] MEDS: busPIRone HCl 5 MG TAB PO SCH ×2 (08:37→14:43)
[2018-01-31] MEDS: Aspirin 325 MG TAB PO SCH (08:37)
[2018-01-31] MEDS: Famotidine 20 MG TAB PO SCH (08:37)
[2018-01-31] MEDS: Carvedilol 3.125 MG TAB PO SCH (08:37)
[2018-01-31] MEDS: Folic Acid 1 MG TAB PO SCH (08:38)
[2018-01-31] MEDS: Furosemide 20 MG TAB PO SCH (08:38)
[2018-01-31] MEDS: Heparin 5,000 UNITS/ML VIAL SC SCH (08:38)
[2018-01-31] MEDS: Hydrocortisone Sod Succ/PF 100 mg/2 ml Vial IVP SCH (08:39)
[2018-01-31] MEDS: Lisinopril 2.5 MG TAB PO SCH (08:39)
[2018-01-31] MEDS: traMADol HCl 50 MG TAB PO PRN ×2 (08:40→14:43)
[2018-01-31] MEDS: Multivit, Therapeutic 1 TAB PO SCH (08:40)
[2018-01-31] MEDS: Pregabalin 75 MG CAP PO SCH ×2 (08:40→14:42)
[2018-01-31] MEDS: Cyanocobalamin (Vitamin B-12) 1,000 MCG TAB PO SCH (08:40)
[2018-01-31] MEDS: Ondansetron ODT 4 MG TAB SL PRN ×2 (08:56→14:43)
--- NOTE | 2018-01-31 09:52 | PDOC.CTH ---
Cardiology Progress Note - Subjective No overnight events. No complaints. - Objective Vital Signs Temp Pulse Resp BP BP Pulse Ox 01/31/18 07:48 97.7 F 71 16 125/64 95 01/31/18 06:40 100 01/31/18 06:39 76 16 100 01/31/18 04:00 97.8 F 68 18 142/85 H 99 01/31/18 02:08 95 01/30/18 23:11 97.5 F L 61 16 111/71 98 01/30/18 22:43 95 Weight 149 lb 9.6 oz 01/30/18 01/31/18 02/01/18 06:59 06:59 05:59 Intake Total 776 Balance 776 - Physical Examination General/Neuro: alert & oriented x3 Neck: no JVD present Lungs: CTA Heart: RRR Abdomen: NT/ND Extremities: other: (trace bilateral edema) - Telemetry Telemetry Rhythm: SR - Labs Result Diagrams: 01/30/18 05:18 01/30/18 05:18 Troponin/CKMB CK-MB (CK-2) 6.2 ng/mL (0-6.6) 01/27/18 17:40 Troponin I 1.177 ng/mL (< 0.028) H* 01/27/18 21:53 - Assessment/Plan 1. Acute on chronic systolic CHF - improved. 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 Dementia 4. DNR 5. Elevated trop - patient refused cath Will continue to titrate Coreg as tolerated. Accepted by rehab. Ok for transfer at any time by us. Again, patient refused more aggressive care including cath, LifeVest, ICD placement.
--- NOTE | 2018-01-31 11:00 | DIS ---
DATE OF ADMISSION: 01/27/2018 DATE OF DISCHARGE: 01/31/2018 PRIMARY CARE PHYSICIAN: Home Johnson M.D. DISCHARGE DISPOSITION: Rehabilitation. PRIMARY DISCHARGE DIAGNOSES: 1. Demand ischemia of myocardium (non-STEMI type 2). 2. Hypokalemia. 3. New onset systolic congestive heart failure, stage C. SECONDARY DISCHARGE DIAGNOSES: Anxiety and depression, dyslipidemia, generalized weakness, gastroeso phageal reflux disease, history of prosthetic aortic valve replacement, hypertension, hypothyroidism, macrocytic anemia, recurrent fall. PRIMARY PROCEDURE/OPERATION: None. RADIOLOGICAL INVESTIGATION: CT brain on admission showed no acute intracranial process. Chest x-ray on admission showed cardiomegaly, aortic valve replacement. CT chest on admission showed small bila teral pleural effusion, pulmonary vascular congestion, spiculated appearing parenchymal opacity in th e right lower lobe in infrahilar region. Renal ultrasound showed no acute process. Echocardiography showed EF 20%-25%. Stress test showed reversible ischemia. Ultrasound of lower extremity was negat fadia for any DVT. SIGNIFICANT LABORATORY DATA: WBC 11.8, hemoglobin 9.9, platelet 270. Sodium 139, potassium 3.9, BUN 23, creatinine 0.80, calcium 9.1. LFT normal. Urinalysis unremarkable. Blood culture and urine cu lture negative. DISCHARGE MEDICATIONS: Lipitor 10 mg p.o. at bedtime, azelastine nasal spray daily, buspirone 5 mg t .i.d., Trinity 60 mg daily p.r.n., Synthroid 75 mcg p.o. daily, multivitamin 1 tablet p.o. daily, AZO 1 tablet daily, potassium chloride 20 mEq p.o. daily, Lyrica 75 mg p.o. t.i.d., triazolam 0.125 mg p .o. at bedtime p.r.n., tramadol 50 mg q.6 hourly p.r.n., aspirin 81 mg p.o. daily, Coreg 3.125 mg p.o . b.i.d., vitamin B12 of 1000 mcg p.o. daily, Pepcid 20 mg p.o. b.i.d., folic acid 1 mg p.o. daily, Lasix 20 mg p.o. daily, DuoNeb q.6 hourly p.r.n., lisinopril 2.5 mg p.o. daily, Dulera two puffs inha lation b.i.d., Zofran 4 mg q.6 hourly p.r.n. CONTRAINDICATIONS: None. CODE STATUS: DNR. INPATIENT CONSULTANTS: Cardiology group was following while in hospital. Pulmonary group was follow ing while in hospital. Dr. Zacarias was consulted while in hospital. TEST RESULTS PENDING ON DISCHARGE: None. ALLERGIES: No known drug allergy. DISCHARGE PLAN: Post hospital, the patient is discharged to inpatient rehabilitation. Subsequently, patient will follow up with primary care physician. HOSPITAL COURSE: An 82-year-old female who was admitted by Dr. Lima on 01/27/2018. Please see his H&P for further detail. The patient was admitted for generalized weakness. On admission, the patien t was relatively hypotensive. She did not have any chest pain. She was admitted for sepsis diagnosi s. Her troponin was significantly abnormal. She had hypokalemia. She was hypotensive. Patient was given IV fluid and her blood pressure improved. There was question of sepsis and her blood culture, urine culture remained negative. Initially, she was given broad spectrum antibiotic therapy, but Dr Cyndee Zacarias was consulted and he recommended to discontinue antibiotic therapy. The patient had echocard iography for elevated troponin which showed a new low EF. Patient also underwent stress test and yusuf t was also abnormal. Cardiology was consulted and they recommended cardiac catheterization, AICD def ibrillator, but this patient does not want to go for any kind of aggressive intervention and she want ed to treat as medical therapy. This patient has some abnormality on CT chest, but she does not want to go for any aggressive interve ntion as well. This patient will need follow up echocardiography after medical therapy and see if sh e changes her mind that she may need AICD LifeVest. This patient is high risk for recurrent admission because of her very low EF and her multiple medical problems as well as her overall physical weakness. The patient is seen and examined at bedside today. All review of system reviewed with her and negati ve. PHYSICAL EXAMINATION: VITAL SIGNS: Currently, temperature 97.7, pulse 71, respiratory rate 16, saturation 95% on 2 liter o xygen, blood pressure 125/64, weight 149 pounds. GENERAL: The patient is currently alert, awake, no obvious acute distress. HEAD: Normocephalic, atraumatic. EYES: Pupils round, reactive to light. Extraocular muscle intact. ENT: Oropharynx within normal limits. Moist mucous membranes. No oral lesion, no pharyngeal erythe ma, no exudate. NECK: Supple, no JVD, no thyromegaly, no carotid bruit. LUNGS: Clear to auscultation without any rhonchi or rales. CARDIAC: S1, S2 regular without any significant murmur. ABDOMEN: Soft and benign. EXTREMITIES: No edema. NEUROLOGIC: Grossly nonfocal examination. Paper work for discharge done. Discharge medication reconciliation done. Total time spent on discharge day 32 minutes.
[2018-01-31 13:09] VITALS: BP 138/72
[2018-01-31] MEDS ORDERED: Carvedilol 3.125 MG TAB PO SCH (17:00)
[2018-01-31] MEDS ORDERED: Carvedilol 6.25 MG TAB PO SCH (17:00)
--- NOTE | 2018-01-31 23:07 | EKG ---
Test Reason : Blood Pressure : / mmHG Vent. Rate : 071 BPM Atrial Rate : 071 BPM P-R Int : 164 ms QRS Dur : 096 ms QT Int : 484 ms P-R-T Axes : 034 -56 -40 degrees QTc Int : 525 ms Normal sinus rhythm Left anterior fascicular block Possible Anterior infarct , age undetermined Prolonged QT Abnormal ECG Confirmed by JULISSA ARGUELLES ([id number]), electronic news gathering editor KEON IBARRA ([id number]) on 01/31/2018 11:07:05 PM Referred By: Confirmed By:JULISSA ARGUELLES
== END 2018-01-31 15:00 | DRG 280 ==
LOC: ERS 08:15 → T4-A 13:22 → 2NO 15:52
PROVIDERS: ADMIT Internal Medicine; ATTEND Internal Medicine
DX: I21.A1 Myocardial infarction type 2 (principal); I50.23 Acute on chronic systolic (congestive) heart failure; N39.0 Urinary tract infection, site not specified; I13.0 Hypertensive heart and chronic kidney disease with heart failure and stage 1 through stage 4 chronic kidney disease, or unspecified chronic kidney disease; E27.40 Unspecified adrenocortical insufficiency; I25.10 Atherosclerotic heart disease of native coronary artery without angina pectoris; E03.9 Hypothyroidism, unspecified; G43.909 Migraine, unspecified, not intractable, without status migrainosus; M54.9 Dorsalgia, unspecified; G89.29 Other chronic pain; E87.6 Hypokalemia; I95.9 Hypotension, unspecified; E78.5 Hyperlipidemia, unspecified; N18.2 Chronic kidney disease, stage 2 (mild); F03.90 Unspecified dementia, unspecified severity, without behavioral disturbance, psychotic disturbance, mood disturbance, and anxiety; Z66 Do not resuscitate; I25.5 Ischemic cardiomyopathy; F41.9 Anxiety disorder, unspecified; F32.9 Major depressive disorder, single episode, unspecified; Z90.49 Acquired absence of other specified parts of digestive tract; Z95.5 Presence of coronary angioplasty implant and graft
CPT/HCPCS: 36415; 51701; 70450; 71045; 71260; 76770; 78452; 80048; 80053; 80202; 81003; 81015; 82533; 82550; 82553; 83605; 83735; 83880; 84100; 84484; 85025; 86140; 87040; 87086; 93005; 93017; 93306; 93970; 94640; 94664; 96361; 96365; A4353; A9500; G8978-GP-CM; G8979-GP-CK; G8987-GO-CL; G8988-GO-CJ; J0696; J1644; J1650; J1720; J1940; J2185; J2785; J3370; J7620; P9047; Q0162

== ENCOUNTER 2018-10-05 12:43 | Emergency (ER) | payer MEDICARE, BC ==
[2018-10-05 13:19] LABS: #Basophils 0.1 thou/uL (0.0-0.2); #Eosinphils 0.9 thou/uL (0.0-0.7); #Lymphocytes 3.5 thou/uL (1.20-3.40); #Neutrophils 4.9 thou/uL (1.40-6.50); %Basophils 1.1 % (0.0-1.0); %Lymphocytes 33.7 % (21.0-51.0); %Monocytes 9.4 % (0.0-10.0); %Neutrophils 46.9 % (42.0-75.0); Hemoglobin 11.8 g/dL (12.0-16.0); Mean Corpuscular HGB CONC 30.6 g/dL (32.0-36.0); Mean Corpuscular Hemoglobin 28.7 pg (27.0-31.0); Mean Platelet Volume 7.4 fL (7.4-10.4); Platelet Count 270 thou/uL (130-400); RBC Distribution Width 14.1 % (11.5-14.5); White Blood Cell (WBC) Count 10.5 thou/uL (4.8-10.8)
[2018-10-05 13:41] LABS: ALT (SGPT) 19 U/L (8-55); AST (SGOT) 26 U/L (5-34); Alkaline Phosphatase 129 U/L (40-150); Anion Gap 11 mmol/L (10-20); BUN (Urea Nitrogen) 16 mg/dL (9.8-20.1); Bilirubin, Total 0.7 mg/dL (0.2-1.2); Calc. Creatinine Clearance 0 mL/min (70-130); Calcium 9.8 mg/dL (7.8-10.44); Carbon Dioxide 31 mmol/L (23-31); Chloride 104 mmol/L (98-107); Estimated GFR-MDRD 45; Globulin 3.4 g/dL (2.4-3.5); Glucose 117 mg/dL (83-110); Potassium 3.3 mmol/L (3.5-5.1); Protein, Total 7.4 g/dL (6.0-8.3); Sodium 143 mmol/L (136-145)
[2018-10-05 13:53] LABS: Bilirubin Negative (Negative); Blood, Urine Small (Negative); Glucose, Urine (Dipstick) Negative (Negative); Leukocyte Moderate (Negative); Nitrite Positive (Negative); Protein, Urine (Dipstick) Trace mg/dL (Neg-Trace); Urobilinogen 0.2 mg/dL (Less than 2)
[2018-10-05 14:03] LABS: Bacteria/HPF 3+ HPF (None Seen); Squamous Epithelial 0-3 HPF (0-3); WBC/HPF Greater than 50 HPF (0-3)
[2018-10-05 14:04] LABS: Clarity Clear (Clear)
[2018-10-05] MEDS ORDERED: cefTRIAXone\\ROCEPHIN 1 GM VIAL ONE (14:58)
[2018-10-05] MEDS ORDERED: Lidocaine 1% PF 5 ML VIAL ONE (14:59)
== END 2018-10-05 15:45 | disposition home or self-care (01) ==
LOC: ERS 12:43
DX: N39.0 Urinary tract infection, site not specified (principal); I11.0 Hypertensive heart disease with heart failure; I50.9 Heart failure, unspecified; I25.10 Atherosclerotic heart disease of native coronary artery without angina pectoris; E03.9 Hypothyroidism, unspecified; G43.909 Migraine, unspecified, not intractable, without status migrainosus; F32.9 Major depressive disorder, single episode, unspecified; Z79.891 Long term (current) use of opiate analgesic; Z79.899 Other long term (current) drug therapy; Z79.82 Long term (current) use of aspirin
CPT/HCPCS: 36415; 80053; 81003; 81015; 85025; 87077; 87086; 87186; 96372; 99283; J0696; J2001

== ENCOUNTER 2018-11-16 11:38 | Inpatient (IN) | payer MEDICARE, BC ==
[2018-11-16 12:49] LABS: #Basophils 0.1 thou/uL (0.0-0.2); #Eosinphils 0.8 thou/uL (0.0-0.7); #Lymphocytes 2.7 thou/uL (1.20-3.40); #Neutrophils 6.2 thou/uL (1.40-6.50); %Basophils 0.8 % (0.0-1.0); %Eosinophils 7.1 % (0.0-10.0); %Lymphocytes 24.7 % (21.0-51.0); %Monocytes 9.3 % (0.0-10.0); %Neutrophils 58.1 % (42.0-75.0); Hemoglobin 11.6 g/dL (12.0-16.0); Mean Corpuscular HGB CONC 31.6 g/dL (32.0-36.0); Mean Corpuscular Hemoglobin 30.9 pg (27.0-31.0); Mean Corpuscular Volume 97.6 fL (78.0-98.0); Mean Platelet Volume 7.6 fL (7.4-10.4); Platelet Count 250 thou/uL (130-400); RBC Distribution Width 15.7 % (11.5-14.5); Red Blood Cell (RBC) Count 3.77 mill/uL (4.20-5.40); White Blood Cell (WBC) Count 10.7 thou/uL (4.8-10.8)
[2018-11-16 12:53] LABS: Bilirubin Negative (Negative); Blood, Urine Negative (Negative); Clarity Turbid (Clear); Glucose, Urine (Dipstick) Normal (Negative); Leukocyte 500 Leu/uL (Negative); Nitrite 1+ (Negative); Protein, Urine (Dipstick) Negative (Neg-Trace); RBC/HPF 0-3 HPF (0-3); Squamous Epithelial None Seen HPF (0-3); Urobilinogen Normal mg/dL (Less than 2); WBC/HPF Greater than 50 HPF (0-3)
[2018-11-16 13:02] LABS: Bacteria/HPF 3+ HPF (None Seen)
[2018-11-16 13:08] LABS: ALT (SGPT) 13 U/L (8-55); AST (SGOT) 24 U/L (5-34); Albumin 3.9 g/dL (3.4-4.8); Alkaline Phosphatase 135 U/L (40-150); Anion Gap 13 mmol/L (10-20); BUN (Urea Nitrogen) 20 mg/dL (9.8-20.1); Bilirubin, Total 0.6 mg/dL (0.2-1.2); Calc. Creatinine Clearance 0 mL/min (70-130); Calcium 9.6 mg/dL (7.8-10.44); Carbon Dioxide 31 mmol/L (23-31); Chloride 104 mmol/L (98-107); Estimated GFR-MDRD 35; Glucose 106 mg/dL (83-110); Potassium 3.8 mmol/L (3.5-5.1); Protein, Total 6.9 g/dL (6.0-8.3); Sodium 144 mmol/L (136-145)
[2018-11-16] MEDS ORDERED: Sodium Chloride 0.9% 100 ML ONE (14:27)
[2018-11-16] MEDS ORDERED: cefTRIAXone\\ROCEPHIN 1 GM VIAL ONE (14:27)
[2018-11-16] MEDS ORDERED: Bisacodyl 10 MG SUPP PR PRN (14:43)
[2018-11-16] MEDS ORDERED: Senokot S 8.6-50 MG TAB PO PRN (14:43)
[2018-11-16] MEDS ORDERED: Guaifenesin DM 100-10/5 ML UDCUP PO PRN (14:43)
[2018-11-16] MEDS ORDERED: Acetaminophen 325 MG TAB PO PRN (14:43)
[2018-11-16] MEDS ORDERED: Azelastine/Fluticasone [Dymista Nasal Spray] EA NARE PRN (15:15)
--- NOTE | 2018-11-16 15:15 | HP ---
REASON FOR ADMISSION: UTI, acute metabolic encephalopathy, and acute kidney injury. HISTORY OF PRESENTING ILLNESS: Please note majority of this history is obtained by talking to the patient's daughter, Ms. Kaiser as the patient is not fully oriented and ER physician. Per daughter who lives with her, she had trouble getting out of bed and her legs were giving out multiple times. She was feeling very weak. She had also complained of urinary frequency and urgency from last few days. The patient this morning was more confused. She apparently had a recent urinary tract infection and was on antibiotics for the same. The patient's symptoms started to recur again and had a repeat culture drawn at her primary care physician's office, but they could not get the results back. Currently, has no complaints of chest pain, palpitation, PND, or orthopnea. No fever as such at home. PAST MEDICAL AND SURGICAL HISTORY: Dyslipidemia, coronary artery disease, history of CHF with ejection fraction of around 25%, recurrent UTI. This year alone, she has had 4 times till now. Hypothyroidism, hypertension, depression, history of migraine headaches, osteoarthritis, chronic back pain, history of frequent falls , cholecystectomy, hysterectomy, neck surgery, back surgery x2, right hip surgery, bilateral foot surgery. CURRENT MEDICATIONS: The patient is on, 1. Lipitor 10 mg p.o. daily. 2. Prilosec 20 mg daily. 3. Aspirin 81 mg daily. 4. Lasix 20 mg daily. 5. K-Dur 20 mEq p.o. daily. 6. BuSpar 7.5 mg twice daily. 7. Azo tablet once daily. 8. Synthroid 75 mcg p.o. daily. 9. Lasix 20 mg daily. 10. Coreg 3.125 mg twice daily. 11. Lyrica 75 mg p.o. three times daily. 12. Trinity 1 tablet daily. 13. Ultram p.r.n. ALLERGIES: NO KNOWN DRUG ALLERGIES. PERSONAL HISTORY: Does not abuse alcohol or drugs. No history of smoking. She lives at home. Her daughter, Ms. Kaiser lives with her. The patient has a caregiver from Friday to Friday from 10:00 a.m. to 3:00 p.m. She ambulates using a walker inside the house. FAMILY HISTORY: Mother of rectal cancer. The father was killed in a car crash when he was very young. CODE STATUS: Full. Power of commercial litigation attorney is her daughter, Ms. Kaiser. REVIEW OF SYSTEMS: CONSTITUTIONAL: Negative for weight loss or gain, ability to conduct usual activities. SKIN: Negative for rash, itching. EYES: Negative for double vision, pain. ENT/MOUTH: Negative for nose bleeding, neck stiffness, pain, tenderness. CARDIOVASCULAR: Negative for palpitations, dyspnea on exertion, orthopnea. RESPIRATORY: Negative for shortness of breath, wheezing, cough, hemoptysis, fever or night sweats. GASTROINTESTINAL: Negative for poor appetite, abdominal pain, heartburn, nausea , vomiting, constipation, or diarrhea. GENITOURINARY: Negative for urgency, frequency, dysuria, nocturia. MUSCULOSKELETAL: Negative for pain, swelling. NEUROLOGIC/PSYCHIATRIC: Negative for anxiety, depression. ALLERGY/IMMUNOLOGIC: Negative for skin rash, bleeding tendency. PHYSICAL EXAMINATION: GENERAL: The patient is an 83-year-old female who is currently not in any acute distress. VITAL SIGNS: Blood pressure 158/80, pulse 61 per minute, respiratory rate 16 per minute, temperature 98.4 degrees Fahrenheit, saturating 93% on 2 L nasal cannula. NECK: Supple. No elevated JVD. HEENT: Eyes; extraocular muscles intact. Pupils reacting to light. Oral cavity, mucous membranes are dry. No exudates or congestion. CARDIOVASCULAR SYSTEM: S1, S2 heard. Regular rhythm. RESPIRATORY SYSTEM: Air entry 1+ bilateral. No rales or rhonchi. ABDOMEN: Soft. Bowel sounds heard. No tenderness, rigidity, or guarding. No CV angle tenderness. EXTREMITIES: No peripheral edema or calf tenderness. VASCULAR SYSTEM: Peripheral pulses 1+ bilateral. No ischemic ulcerations or gangrene. CENTRAL NERVOUS SYSTEM: No gross focal deficits noted. The patient is awake, but lethargic, and is not oriented. PSYCHIATRIC SYSTEM: No obvious hallucinations or delusions. LABORATORY DATA: EKG done shows sinus rhythm at 58 beats per minute. There is left anterior fascicular block. There is Q-wave seen in V2 and V3. Overall, has low voltage EKG. White count of 10, H and H 11 and 36, platelet count 250, MCV is 97 with 58% neutrophils. Electrolytes stable. BUN 20, creatinine 1.4, serum sodium is 144. Liver enzymes within normal limits. First set of troponin is negative. BNP 115, albumin 3.9. UA shows 1+ nitrite, leukocyte esterase is positive. There is greater than 50 wbc's, and 3+ bacteria. CLINICAL IMPRESSION AND PLAN: The patient will be admitted to medical floor for urinary tract infection, acute metabolic encephalopathy, acute kidney injury, and mild dehydration. She will be gently hydrated with normal saline at 60 mL/hour for a total of 2 L in view of her history of congestive heart failure with low ejection fraction. Urine and blood cultures will be obtained. Per prior cultures, the patient has grown both Escherichia coli and enterococcus in the past. The Escherichia coli has been resistant to quinolones, but has always been sensitive to cephalosporins. She will be on cefepime 1 g q.12 hourly. We will continue her home medications of Coreg, aspirin, Lipitor, buspirone, lisinopril, vitamin B12, folic acid, multivitamin, levothyroxine, Azo, Lyrica, and Ultram as before. We will obtain bladder residuals x2 after the patient voids to see for residual volume. We will also obtain a CT stone protocol in view of recurrent urinary tract infection nearly four this year per the patient's family. We will continue to closely monitor her on medical floor. Job ID: [id number] [facility]
--- NOTE | 2018-11-16 16:31 | CT ---
EXAM: Abdomen and pelvic CT scan without contrast: HISTORY: Recurrent urinary tract infections COMPARISON: None FINDINGS: Mild volume loss/scarring is seen at the lung bases. Valvular prosthesis is present at the aortic trevon ve. Liver: Unremarkable. Gallbladder: Presumed surgically absent. Correlate with history. Pancreas: Markedly atrophic. Nonspecific peripancreatic fat stranding is present. Spleen: Vascular calcification at the hilum. Adrenal glands: Unremarkable. Kidneys: Atrophy of the lower pole of the left kidney. No obstructive urolithiasis. Bowel: Colonic diverticulosis. Gastric wall prominence with perigastric fat stranding is present, inc ompletely evaluated. Urinary Bladder: The urinary bladder is unremarkable. Adenopathy: No adenopathy within the abdomen or pelvis. Free Air: No free air. Ascites: No ascites. Osseous structures: No acute osseous abnormalities. IMPRESSION: Cortical scarring at the lower pole of the left kidney. No obstructive urolithiasis. Prominent pancreatic atrophy with nonspecific peripancreatic fat stranding. Recommend clinical correl ation. Correlate with pancreatic laboratory values. Incomplete assessment of the alimentary canal. There is gastric wall prominence and surrounding infla mmation. Recommend clinical correlation to exclude evidence of gastritis.
[2018-11-16] MEDS: Mometasone/Formoterol 120 PUFF INHALER INH SCH (20:05)
[2018-11-16] MEDS ORDERED: Famotidine 20 MG TAB PO SCH (21:00)
[2018-11-16] MEDS: Pregabalin 75 MG CAP PO SCH (21:07)
[2018-11-16] MEDS: Carvedilol 3.125 MG TAB PO SCH (21:07)
[2018-11-16] MEDS: Sodium Chloride 0.9% 1,000 ML IV SCH (21:07)
[2018-11-16] MEDS: Cefepime 1 GM in Sodium Chloride 0.9% 100 ML IVPB SCH (21:08)
[2018-11-16] MEDS: Atorvastatin Calcium 10 MG TAB PO SCH (21:08)
[2018-11-16] MEDS: busPIRone HCl 5 MG TAB PO SCH (21:08)
[2018-11-17 00:22] VITALS: BMI 25.9
[2018-11-17] MEDS: Levothyroxine Sodium 75 MCG TAB PO SCH (05:20)
[2018-11-17 06:15] LABS: Anion Gap 15 mmol/L (10-20); BUN (Urea Nitrogen) 17 mg/dL (9.8-20.1); Calc. Creatinine Clearance 38 mL/min (70-130); Calcium 9.2 mg/dL (7.8-10.44); Carbon Dioxide 27 mmol/L (23-31); Chloride 106 mmol/L (98-107); Estimated GFR-MDRD 46; Glucose 84 mg/dL (83-110); Potassium 3.5 mmol/L (3.5-5.1); Sodium 144 mmol/L (136-145)
[2018-11-17 06:20] LABS: #Eosinphils 0.8 thou/uL (0.0-0.7); #Lymphocytes 3.1 thou/uL (1.20-3.40); #Monocytes 1.4 thou/uL (0.11-0.59); #Neutrophils 7.2 thou/uL (1.40-6.50); %Basophils 0.4 % (0.0-1.0); %Eosinophils 6.6 % (0.0-10.0); %Lymphocytes 24.9 % (21.0-51.0); %Monocytes 10.8 % (0.0-10.0); %Neutrophils 57.3 % (42.0-75.0); Hemoglobin 11.6 g/dL (12.0-16.0); Mean Corpuscular Hemoglobin 30.4 pg (27.0-31.0); Mean Corpuscular Volume 98.1 fL (78.0-98.0); Mean Platelet Volume 7.6 fL (7.4-10.4); Platelet Count 227 thou/uL (130-400); RBC Distribution Width 15.7 % (11.5-14.5); Red Blood Cell (RBC) Count 3.82 mill/uL (4.20-5.40); White Blood Cell (WBC) Count 12.5 thou/uL (4.8-10.8)
[2018-11-17] MEDS: Mometasone/Formoterol 120 PUFF INHALER INH SCH ×2 (06:52→18:16)
[2018-11-17] MEDS: Sodium Chloride 0.9% 1,000 ML IV SCH (07:39)
[2018-11-17] MEDS: Lisinopril 2.5 MG TAB PO SCH (08:40)
[2018-11-17] MEDS: Folic Acid 1 MG TAB PO SCH (08:41)
[2018-11-17] MEDS: busPIRone HCl 5 MG TAB PO SCH ×2 (08:41→20:08)
[2018-11-17] MEDS: Famotidine 20 MG TAB PO SCH (08:41)
[2018-11-17] MEDS: Multivitamin W/ Minerals 1 TAB PO SCH (08:41)
[2018-11-17] MEDS: Cyanocobalamin (Vitamin B-12) 1,000 MCG TAB PO SCH (08:41)
[2018-11-17] MEDS: Carvedilol 3.125 MG TAB PO SCH ×2 (08:41→18:23)
[2018-11-17] MEDS: Aspirin Chewable 81 MG TAB PO SCH (08:41)
[2018-11-17] MEDS: Enoxaparin Sodium 40 MG/0.4 ML SYRINGE SC SCH (08:41)
[2018-11-17] MEDS: Pregabalin 75 MG CAP PO SCH ×3 (08:43→20:08)
[2018-11-17] MEDS: Cefepime 1 GM in Sodium Chloride 0.9% 100 ML IVPB SCH ×2 (08:46→20:11)
[2018-11-17] MEDS ORDERED: Cefepime 1 GM VIAL ONE (08:46)
[2018-11-17] MEDS ORDERED: Prevnar 13-Val Conj/PF 0.5 ML SYRINGE IM ONE (09:00)
[2018-11-17] MEDS ORDERED: Loratadine 10 MG TAB PO PRN (09:00)
--- NOTE | 2018-11-17 10:30 | PDOC.HOSPP ---
- Subjective Encounter Date: 11/17/18 Encounter Time: 10:27 Subjective: alert, remembers me( her PCP 2007) - Objective Vital Signs & Weight: Vital Signs (12 hours) Temp Pulse Resp BP BP BP Pulse Ox 11/17/18 08:40 61 130/76 11/17/18 08:00 98.6 F 64 16 130/76 93 L 11/17/18 06:52 60 16 93 L 11/17/18 04:18 97.9 F 59 L 16 137/69 95 11/17/18 00:01 97.7 F 57 L 18 133/67 97 Weight Weight 146 lb 1.6 oz I&O: 11/16/18 11/17/18 11/18/18 06:59 06:59 06:59 Intake Total 825 Output Total 400 Balance 425 Result Diagrams: 11/17/18 05:48 11/17/18 05:48 ROS - Medication Medications: Active Medications Generic Name Dose Route Start Last Admin Trade Name Freq PRN Reason Stop Dose Admin Aspirin 81 mg 11/17/18 09:00 11/17/18 08:41 Aspirin Chewable PO 81 mg DAILY LYNN Administration Atorvastatin Calcium 10 mg 11/16/18 21:00 11/16/18 21:08 Lipitor PO Not Given HS LYNN Buspirone HCl 7.5 mg 11/16/18 21:00 11/17/18 08:41 Buspar PO 7.5 mg BID LYNN Administration Carvedilol 3.125 mg 11/16/18 17:00 11/17/18 08:41 Coreg PO 3.125 mg BID-WM LYNN Administration Cyanocobalamin 1,000 mcg 11/17/18 09:00 11/17/18 08:41 Vitamin B-12 PO 1,000 mcg DAILY LYNN Administration Enoxaparin Sodium 40 mg 11/17/18 09:00 11/17/18 08:41 Lovenox SC 40 mg 0900 LYNN Administration Famotidine 20 mg 11/17/18 09:00 11/17/18 08:41 Pepcid PO 20 mg DAILY LYNN Administration Folic Acid 1 mg 11/17/18 09:00 11/17/18 08:41 Folvite PO 1 mg DAILY LYNN Administration Sodium Chloride 1,000 mls @ 60 mls/hr 11/16/18 14:45 11/17/18 07:39 Normal Saline 0.9% IV 11/18/18 00:04 Not Given .[id number] LYNN Cefepime HCl 1 gm/ Sodium 100 mls @ 200 mls/hr 11/16/18 21:00 11/17/18 08:46 Chloride IVPB 100 mls Q12HR LYNN Administration Iron/Minerals/Multivitamins 1 tab 11/17/18 09:00 11/17/18 08:41 Theragran M PO 1 tab DAILY LYNN Administration Levothyroxine Sodium 75 mcg 11/17/18 06:00 11/17/18 05:20 Synthroid PO 75 mcg 0600 LYNN Administration Lisinopril 2.5 mg 11/17/18 09:00 11/17/18 08:40 Zestril PO 2.5 mg DAILY LYNN Administration Mometasone Furoate/Formoterol Fumar 2 puff 11/16/18 18:30 11/17/18 06:52 Dulera 200 Mcg/5 Mcg Inhaler INH 2 puff BID-RT LNYN Administration Pregabalin 75 mg 11/16/18 15:00 11/17/18 08:43 Lyrica PO 75 mg TID LYNN Administration - Exam awake alert Neck: no JVD Heart: RRR, no murmur Respiratory: CTAB, no wheezes Gastrointestinal: soft, non-tender, normal bowel sounds Extremities: no edema Hosp A/P (1) Acute encephalopathy Code(s): G93.40 - ENCEPHALOPATHY, UNSPECIFIED Status: Acute (2) UTI (urinary tract infection), bacterial Code(s): N39.0 - URINARY TRACT INFECTION, SITE NOT SPECIFIED; A49.9 - BACTERIAL INFECTION, UNSPECIFIED Status: Acute (3) CAD (coronary artery disease) Code(s): I25.10 - ATHSCL HEART DISEASE OF [place] CORONARY ARTERY W/O ANG PCTRS Status: Acute Qualifiers: Coronary Disease-Associated Artery/Lesion type: [place] artery [place] vs. transplanted heart: [place] heart Associated angina: without angina Qualified Code(s): I25.10 - Atherosclerotic heart disease of [place] coronary artery without angina pectoris (4) Dyslipidemia Code(s): E78.5 - HYPERLIPIDEMIA, UNSPECIFIED Status: Chronic (5) Hypertension Code(s): I10 - ESSENTIAL (PRIMARY) HYPERTENSION Status: Chronic Qualifiers: Hypertension type: essential hypertension (6) Ischemic cardiomyopathy Code(s): I25.5 - ISCHEMIC CARDIOMYOPATHY Status: Chronic - Plan Urine C&S -E bora- cont cefepimd iv await sensitivities selected home meds
[2018-11-17] MEDS: Atorvastatin Calcium 10 MG TAB PO SCH (20:08)
[2018-11-18] MEDS: Levothyroxine Sodium 75 MCG TAB PO SCH (05:48)
[2018-11-18] MEDS: Mometasone/Formoterol 120 PUFF INHALER INH SCH (06:42)
[2018-11-18] MEDS: Cefepime 1 GM in Sodium Chloride 0.9% 100 ML IVPB SCH ×2 (07:57→19:53)
[2018-11-18] MEDS: busPIRone HCl 5 MG TAB PO SCH ×2 (07:57→19:53)
[2018-11-18] MEDS: Multivitamin W/ Minerals 1 TAB PO SCH (07:58)
[2018-11-18] MEDS: Carvedilol 3.125 MG TAB PO SCH ×2 (07:58→17:03)
[2018-11-18] MEDS: Pregabalin 75 MG CAP PO SCH ×3 (07:58→19:53)
[2018-11-18] MEDS: Lisinopril 2.5 MG TAB PO SCH (07:58)
[2018-11-18] MEDS: Aspirin Chewable 81 MG TAB PO SCH (07:58)
[2018-11-18] MEDS: Folic Acid 1 MG TAB PO SCH (07:58)
[2018-11-18] MEDS: Cyanocobalamin (Vitamin B-12) 1,000 MCG TAB PO SCH (07:59)
[2018-11-18] MEDS: Famotidine 20 MG TAB PO SCH (07:59)
[2018-11-18] MEDS: Enoxaparin Sodium 40 MG/0.4 ML SYRINGE SC SCH (08:05)
[2018-11-18] MEDS: traMADol HCl 50 MG TAB PO PRN (11:04)
--- NOTE | 2018-11-18 12:20 | PDOC.HOSPP ---
- Subjective Encounter Date: 11/18/18 Encounter Time: 12:18 Subjective: paingone, working with PT - Objective Vital Signs & Weight: Vital Signs (12 hours) Temp Pulse Resp BP Pulse Ox 11/18/18 08:00 98.6 F 61 16 167/68 H 96 11/18/18 07:58 60 11/18/18 06:42 60 16 95 Weight Weight 146 lb 1.6 oz I&O: 11/17/18 11/18/18 11/19/18 06:59 06:59 06:59 Intake Total 825 710 240 Output Total 400 636 Balance 425 74 240 Result Diagrams: 11/17/18 05:48 11/17/18 05:48 ROS - Medication Medications: Active Medications Generic Name Dose Route Start Last Admin Trade Name Freq PRN Reason Stop Dose Admin Acetaminophen 650 mg 11/16/18 14:43 11/17/18 12:08 Tylenol PO 650 mg Q4H PRN Administration Headache/Fever/Mild Pain (1-3) Aspirin 81 mg 11/17/18 09:00 11/18/18 07:58 Aspirin Chewable PO 81 mg DAILY LYNN Administration Atorvastatin Calcium 10 mg 11/16/18 21:00 11/17/18 20:08 Lipitor PO 10 mg HS LYNN Administration Buspirone HCl 7.5 mg 11/16/18 21:00 11/18/18 07:57 Buspar PO 7.5 mg BID LYNN Administration Carvedilol 3.125 mg 11/16/18 17:00 11/18/18 07:58 Coreg PO 3.125 mg BID-WM LYNN Administration Cyanocobalamin 1,000 mcg 11/17/18 09:00 11/18/18 07:59 Vitamin B-12 PO 1,000 mcg DAILY LYNN Administration Enoxaparin Sodium 40 mg 11/17/18 09:00 11/18/18 08:05 Lovenox SC 40 mg 0900 LYNN Administration Famotidine 20 mg 11/17/18 09:00 11/18/18 07:59 Pepcid PO 20 mg DAILY LYNN Administration Folic Acid 1 mg 11/17/18 09:00 11/18/18 07:58 Folvite PO 1 mg DAILY LYNN Administration Cefepime HCl 1 gm/ Sodium 100 mls @ 200 mls/hr 11/16/18 21:00 11/18/18 07:57 Chloride IVPB 100 mls Q12HR LYNN Administration Iron/Minerals/Multivitamins 1 tab 11/17/18 09:00 11/18/18 07:58 Theragran M PO 1 tab DAILY LYNN Administration Levothyroxine Sodium 75 mcg 11/17/18 06:00 11/18/18 05:48 Synthroid PO 75 mcg 0600 LYNN Administration Lisinopril 2.5 mg 11/17/18 09:00 11/18/18 07:58 Zestril PO 2.5 mg DAILY LYNN Administration Mometasone Furoate/Formoterol Fumar 2 puff 11/16/18 18:30 11/18/18 06:42 Dulera 200 Mcg/5 Mcg Inhaler INH 2 puff BID-RT LYNN Administration Pregabalin 75 mg 11/16/18 15:00 11/18/18 07:58 Lyrica PO 75 mg TID LYNN Administration Tramadol HCl 50 mg 11/16/18 14:43 11/18/18 11:04 Ultram PO 50 mg Q6H PRN Administration Moderate to Severe Pain (6-10) - Exam awake alert Neck: no JVD Heart: RRR, no murmur Respiratory: CTAB Gastrointestinal: soft, non-tender, normal bowel sounds Extremities: no edema Hosp A/P (1) Acute encephalopathy Code(s): G93.40 - ENCEPHALOPATHY, UNSPECIFIED Status: Resolved (2) UTI (urinary tract infection), bacterial Code(s): N39.0 - URINARY TRACT INFECTION, SITE NOT SPECIFIED; A49.9 - BACTERIAL INFECTION, UNSPECIFIED Status: Acute (3) CAD (coronary artery disease) Code(s): I25.10 - ATHSCL HEART DISEASE OF [place] CORONARY ARTERY W/O ANG PCTRS Status: Acute Qualifiers: Coronary Disease-Associated Artery/Lesion type: [place] artery [place] vs. transplanted heart: [place] heart Associated angina: without angina Qualified Code(s): I25.10 - Atherosclerotic heart disease of [place] coronary artery without angina pectoris (4) Dyslipidemia Code(s): E78.5 - HYPERLIPIDEMIA, UNSPECIFIED Status: Chronic (5) Hypertension Code(s): I10 - ESSENTIAL (PRIMARY) HYPERTENSION Status: Chronic Qualifiers: Hypertension type: essential hypertension (6) Ischemic cardiomyopathy Code(s): I25.5 - ISCHEMIC CARDIOMYOPATHY Status: Chronic - Plan Urine C&S -E bora- cont cefepime iv for 24 more hrs- then transitio to po omnicef sensitivities resisistan to [place]( she was on as outpt) selected home meds
[2018-11-18] MEDS: Atorvastatin Calcium 10 MG TAB PO SCH (19:53)
[2018-11-19] MEDS: Mometasone/Formoterol 120 PUFF INHALER INH SCH ×3 (00:49→19:08)
[2018-11-19] MEDS: Levothyroxine Sodium 75 MCG TAB PO SCH (05:19)
[2018-11-19] MEDS: busPIRone HCl 5 MG TAB PO SCH ×2 (07:56→20:10)
[2018-11-19] MEDS: Carvedilol 3.125 MG TAB PO SCH ×2 (07:57→16:50)
[2018-11-19] MEDS: Lisinopril 2.5 MG TAB PO SCH (07:57)
[2018-11-19] MEDS: Pregabalin 75 MG CAP PO SCH ×3 (07:57→20:10)
[2018-11-19] MEDS: Famotidine 20 MG TAB PO SCH (07:58)
[2018-11-19] MEDS: Cyanocobalamin (Vitamin B-12) 1,000 MCG TAB PO SCH (07:58)
[2018-11-19] MEDS: Folic Acid 1 MG TAB PO SCH (07:58)
[2018-11-19] MEDS: Multivitamin W/ Minerals 1 TAB PO SCH (07:59)
[2018-11-19] MEDS: Cefepime 1 GM in Sodium Chloride 0.9% 100 ML IVPB SCH ×2 (07:59→20:13)
[2018-11-19] MEDS: Aspirin Chewable 81 MG TAB PO SCH (07:59)
[2018-11-19] MEDS: Enoxaparin Sodium 40 MG/0.4 ML SYRINGE SC SCH (07:59)
[2018-11-19] MEDS: VIT C PO SCH ×2 (10:54→10:55)
[2018-11-19] MEDS: [UNRECOGNIZED DRUG - OTHER] PO SCH ×2 (10:54→10:55)
[2018-11-19] MEDS: CRAN PO SCH ×2 (10:54→10:55)
[2018-11-19] MEDS: traMADol HCl 50 MG TAB PO PRN (10:59)
[2018-11-19] MEDS ORDERED: Ondansetron PF 4 MG/2 ML Vial SLOW IVP PRN (11:33)
--- NOTE | 2018-11-19 12:07 | PDOC.HOSPP ---
- Subjective Encounter Date: 11/19/18 Encounter Time: 09:00 Subjective: Patient seen and examined. No new complaints. No overnight events - Objective Vital Signs & Weight: Vital Signs (12 hours) Temp Pulse Resp BP Pulse Ox 11/19/18 08:00 98.3 F 61 16 187/67 H 94 L 11/19/18 07:57 56 L Weight Weight 146 lb 1.6 oz I&O: 11/18/18 11/19/18 11/20/18 06:59 06:59 06:59 Intake Total 710 720 240 Output Total 636 Balance 74 720 240 Result Diagrams: 11/17/18 05:48 11/17/18 05:48 Additional Labs: Accuchecks 11/18/18 11/18/18 19:46 16:47 POC Glucose 109 91 ROS - Review of Systems ENT: denies: ear pain, ear discharge, nose pain, nose discharge, nose congestion , mouth pain, mouth swelling, throat pain, throat swelling, other Respiratory: denies: cough, dry, shortness of breath, hemoptysis, SOB with excertion, pleuritic pain, sputum, wheezing, other Cardiovascular: denies: chest pain, palpitations, orthopnea, paroxysmal noc. dyspnea, edema, light headedness, other Gastrointestinal: denies: nausea, vomitting, abdominal pain, diarrhea, constipation, melena, hematochezia, other Genitourinary: denies: dysuria, frequency, incontinence, hematuria, retention, other - Medication Medications: Active Medications Generic Name Dose Route Start Last Admin Trade Name Freq PRN Reason Stop Dose Admin Acetaminophen 650 mg 11/16/18 14:43 11/17/18 12:08 Tylenol PO 650 mg Q4H PRN Administration Headache/Fever/Mild Pain (1-3) Aspirin 81 mg 11/17/18 09:00 11/19/18 07:59 Aspirin Chewable PO 81 mg DAILY LYNN Administration Atorvastatin Calcium 10 mg 11/16/18 21:00 11/18/18 19:53 Lipitor PO 10 mg HS LYNN Administration Buspirone HCl 7.5 mg 11/16/18 21:00 11/19/18 07:56 Buspar PO 7.5 mg BID LYNN Administration Carvedilol 3.125 mg 11/16/18 17:00 11/19/18 07:57 Coreg PO 3.125 mg BID-WM LYNN Administration Cyanocobalamin 1,000 mcg 11/17/18 09:00 11/19/18 07:58 Vitamin B-12 PO 1,000 mcg DAILY LYNN Administration Enoxaparin Sodium 40 mg 11/17/18 09:00 11/19/18 07:59 Lovenox SC 40 mg 0900 LYNN Administration Famotidine 20 mg 11/17/18 09:00 11/19/18 07:58 Pepcid PO 20 mg DAILY LYNN Administration Folic Acid 1 mg 11/17/18 09:00 11/19/18 07:58 Folvite PO 1 mg DAILY LYNN Administration Cefepime HCl 1 gm/ Sodium 100 mls @ 200 mls/hr 11/16/18 21:00 11/19/18 07:59 Chloride IVPB 100 mls Q12HR LYNN Administration Iron/Minerals/Multivitamins 1 tab 11/17/18 09:00 11/19/18 07:59 Theragran M PO 1 tab DAILY LYNN Administration Levothyroxine Sodium 75 mcg 11/17/18 06:00 11/19/18 05:19 Synthroid PO 75 mcg 0600 LYNN Administration Lisinopril 2.5 mg 11/17/18 09:00 11/19/18 07:57 Zestril PO 2.5 mg DAILY LYNN Administration Mometasone Furoate/Formoterol Fumar 2 puff 11/16/18 18:30 11/19/18 07:12 Dulera 200 Mcg/5 Mcg Inhaler INH 2 puff BID-RT LYNN Administration Ondansetron HCl 4 mg 11/19/18 11:33 11/19/18 11:41 Zofran SLOW IVP 4 mg Q6H PRN Administration Nausea/Vomiting Pregabalin 75 mg 11/16/18 15:00 11/19/18 07:57 Lyrica PO 75 mg TID LYNN Administration Tramadol HCl 50 mg 11/16/18 14:43 11/19/18 10:59 Ultram PO 50 mg Q6H PRN Administration Moderate to Severe Pain (6-10) - Exam NAD, awake alert Eye: PERRL, anicteric sclera ENT: normocephalic atraumatic, no oropharyngeal lesions Neck: supple, symmetric, no JVD Heart: RRR, no murmur, no gallops Respiratory: CTAB, no wheezes, no rales, no ronchi Gastrointestinal: soft, non-tender, non-distended Extremities: no cyanosis, no clubbing Skin: normal turgor, no lesions Neurological: CN's grossly intact, normal sensation to touch Musculoskeletal: normal tone, normal strength Psychiatric: normal affect, normal behavior Hosp A/P (1) UTI (urinary tract infection), bacterial Code(s): N39.0 - URINARY TRACT INFECTION, SITE NOT SPECIFIED; A49.9 - BACTERIAL INFECTION, UNSPECIFIED Status: Acute (2) CAD (coronary artery disease) Code(s): I25.10 - ATHSCL HEART DISEASE OF [place] CORONARY ARTERY W/O ANG PCTRS Status: Chronic Qualifiers: Coronary Disease-Associated Artery/Lesion type: [place] artery [place] vs. transplanted heart: [place] heart Associated angina: without angina Qualified Code(s): I25.10 - Atherosclerotic heart disease of [place] coronary artery without angina pectoris (3) Anxiety and depression Code(s): F41.9 - ANXIETY DISORDER, UNSPECIFIED; F32.9 - MAJOR DEPRESSIVE DISORDER, SINGLE EPISODE, UNSPECIFIED Status: Chronic (4) Chronic systolic heart failure, ACC/AHA stage C Code(s): I50.22 - CHRONIC SYSTOLIC (CONGESTIVE) HEART FAILURE Status: Chronic (5) Dyslipidemia Code(s): E78.5 - HYPERLIPIDEMIA, UNSPECIFIED Status: Chronic (6) GERD (gastroesophageal reflux disease) Code(s): K21.9 - GASTRO-ESOPHAGEAL REFLUX DISEASE WITHOUT ESOPHAGITIS Status: Chronic Qualifiers: Esophagitis presence: esophagitis presence not specified Qualified Code(s) : K21.9 - Gastro-esophageal reflux disease without esophagitis (7) H/O prosthetic aortic valve replacement Code(s): Z95.2 - PRESENCE OF PROSTHETIC HEART VALVE Status: Chronic (8) Hypertension Code(s): I10 - ESSENTIAL (PRIMARY) HYPERTENSION Status: Chronic Qualifiers: Hypertension type: essential hypertension (9) Hypothyroidism Code(s): E03.9 - HYPOTHYROIDISM, UNSPECIFIED Status: Chronic Qualifiers: Hypothyroidism type: unspecified Qualified Code(s): E03.9 - Hypothyroidism , unspecified (10) Ischemic cardiomyopathy Code(s): I25.5 - ISCHEMIC CARDIOMYOPATHY Status: Chronic (11) Macrocytic anemia Code(s): D53.9 - NUTRITIONAL ANEMIA, UNSPECIFIED Status: Chronic (12) Recurrent falls Code(s): R29.6 - REPEATED FALLS Status: Chronic - Plan old records reviewed/req, continue antibiotics GPR in blood culture likely contaminant, will wait identification continue IV antibiotics medication reviewed as below symptomatic treatment
[2018-11-19] MEDS: Atorvastatin Calcium 10 MG TAB PO SCH (20:10)
[2018-11-20] MEDS: VIT C PO SCH (01:35)
[2018-11-20] MEDS: CRAN PO SCH (01:35)
[2018-11-20] MEDS: [UNRECOGNIZED DRUG - OTHER] PO SCH (01:35)
[2018-11-20] MEDS: Levothyroxine Sodium 75 MCG TAB PO SCH (05:19)
[2018-11-20] MEDS: Mometasone/Formoterol 120 PUFF INHALER INH SCH (06:53)
[2018-11-20 07:11] LABS: #Basophils 0.1 thou/uL (0.0-0.2); #Eosinphils 0.7 thou/uL (0.0-0.7); #Lymphocytes 3.1 thou/uL (1.20-3.40); #Monocytes 0.7 thou/uL (0.11-0.59); %Basophils 1.2 % (0.0-1.0); %Eosinophils 8.5 % (0.0-10.0); %Lymphocytes 35.9 % (21.0-51.0); %Monocytes 7.7 % (0.0-10.0); %Neutrophils 46.8 % (42.0-75.0); Hemoglobin 9.7 g/dL (12.0-16.0); Mean Corpuscular HGB CONC 32.1 g/dL (32.0-36.0); Mean Corpuscular Hemoglobin 32.1 pg (27.0-31.0); Mean Platelet Volume 8.1 fL (7.4-10.4); Platelet Count 237 thou/uL (130-400); RBC Distribution Width 15.3 % (11.5-14.5); Red Blood Cell (RBC) Count 3.03 mill/uL (4.20-5.40); White Blood Cell (WBC) Count 8.5 thou/uL (4.8-10.8)
[2018-11-20 07:16] VITALS: BP 105/64; TEMP 98.6
[2018-11-20 07:27] LABS: Anion Gap 8 mmol/L (10-20); BUN (Urea Nitrogen) 16 mg/dL (9.8-20.1); Calc. Creatinine Clearance 51 mL/min (70-130); Calcium 9.7 mg/dL (7.8-10.44); Carbon Dioxide 30 mmol/L (23-31); Chloride 109 mmol/L (98-107); Estimated GFR-MDRD 64; Glucose 85 mg/dL (83-110); Potassium 3.5 mmol/L (3.5-5.1); Sodium 143 mmol/L (136-145)
[2018-11-20] MEDS: Aspirin Chewable 81 MG TAB PO SCH (08:04)
[2018-11-20] MEDS: Famotidine 20 MG TAB PO SCH (08:04)
[2018-11-20] MEDS: Multivitamin W/ Minerals 1 TAB PO SCH (08:04)
[2018-11-20] MEDS: busPIRone HCl 5 MG TAB PO SCH (08:04)
[2018-11-20] MEDS: Lisinopril 2.5 MG TAB PO SCH (08:04)
[2018-11-20] MEDS: Cyanocobalamin (Vitamin B-12) 1,000 MCG TAB PO SCH (08:04)
[2018-11-20] MEDS: Pregabalin 75 MG CAP PO SCH (08:04)
[2018-11-20] MEDS: Carvedilol 3.125 MG TAB PO SCH (08:05)
[2018-11-20] MEDS: Folic Acid 1 MG TAB PO SCH (08:05)
[2018-11-20] MEDS: Enoxaparin Sodium 40 MG/0.4 ML SYRINGE SC SCH (08:05)
[2018-11-20] MEDS: Cefepime 1 GM in Sodium Chloride 0.9% 100 ML IVPB SCH (08:06)
--- NOTE | 2018-11-20 11:24 | DIS ---
DATE OF ADMISSION: 11/16/2018 DATE OF DISCHARGE: 11/20/2018 PRIMARY CARE PHYSICIAN: Dr. Home Johnson. DISCHARGE DISPOSITION: Home. PRIMARY DISCHARGE DIAGNOSES: 1. Acute encephalopathy due to sepsis, due to urinary tract infection, resolved. 2. Sepsis due to urinary tract infection, resolved. 3. Urinary tract infection, bacterial. SECONDARY DISCHARGE DIAGNOSES: 1. Anxiety and depression. 2. Coronary artery disease. 3. Chronic systolic heart failure stage C. 4. Generalized weakness. 5. Dyslipidemia. 6. Gastroesophageal reflux disease. 7. Hypothyroidism. 8. Ischemic cardiomyopathy. 9. Macrocytic anemia. 10. Recurrent fall. 11. Hypothyroidism. 12. Hypertension. 13. History of prosthetic aortic wall replacement. PRIMARY PROCEDURE/OPERATION: None. RADIOLOGIST INVESTIGATION: Abdomen and pelvis CT scan. SIGNIFICANT LABORATORY DATA: WBC 8.5, hemoglobin 9.7, and platelets are 237. Sodium 143, creatinine 0.85, calcium 9.7. BNP 115.7. Troponin less than 0.010. Urinalysis consistent with UTI. Urine culture grew E coli. Blood culture, negative. DISCHARGE MEDICATIONS: New medications; Omnicef 300 mg p.o. b.i.d. for 5 days, folic acid 1 mg p.o. daily, vitamin B12 1000 mcg p.o. daily, Florastor 250 mg p.o. daily for 5 days. Continue following medications; Lipitor 10 mg p.o. nightly, acetylcysteine nasal spray daily, buspirone 7.5 mg b.i.d., Trinity 60 mg daily p.r.n., Synthroid 75 mcg p.o. daily, lidocaine patch b.i.d., multivitamin one tablet p.o. daily, omeprazole 40 mg daily, [QAMARKER] one tablet daily p.r.n., potassium chloride 20 mEq p.o. daily, Lyrica 75 mg t.i.d., tramadol 50 mg q.6 hourly p.r.n., triazolam 0.125 mg p.o. at bedtime, Zantac 150 mg p.o. at bedtime, aspirin 81 mg p.o. b.i.d., Coreg 3.125 mg b.i.d., Lasix 20 mg daily. CODE STATUS: Full code. CONTRAINDICATION: The patient is not on SOBIA inhibitor or ARB because of relatively low blood pressure. The patient is not tolerating that medication at this point, that medication can be started as an outpatient basis. DISCHARGE PLAN: Posthospital, the patient will follow up with primary care physician in 1 or 2 weeks. HOSPITAL COURSE: An 83-year-old female with above-mentioned medical problem, who was admitted by Dr. Frausto. Please see his H and P for further details. The patient was confused. She was having urinary tract infection that was contributing to her encephalopathy. CT abdomen and pelvis without contrast was not showing any obstruction. She was treated with cefepime. Based on urine culture result, we changed to Omnicef upon discharge. Her blood culture, negative. She remained afebrile and hemodynamically stable while in hospital. We continued all her home medication while in hospital as well as on discharge. PHYSICAL EXAMINATION: VITAL SIGNS: I have seen and examined the patient at bedside today. Currently temperature 98.6, pulse 55, respiratory rate 18, saturation 93%, blood pressure 105/64, and weight 146 pounds. GENERAL: The patient is currently alert and oriented, no acute distress. HEENT: Normocephalic and atraumatic. LUNGS: Clear to auscultation without any rhonchi or rales. CARDIAC: S1 and S2, regular without any murmur. ABDOMEN: Soft and benign. EXTREMITIES: No edema. NEUROLOGIC: Nonfocal examination. The patient is planned for discharge today. Job ID: [id number]
== END 2018-11-20 10:34 | disposition home health service (06) | DRG 871 ==
LOC: ERS 11:38 → ERHOLD 14:24 → T4-B 19:06
PROVIDERS: ADMIT Internal Medicine; ATTEND Internal Medicine
DX: A41.9 Sepsis, unspecified organism (principal); G93.41 Metabolic encephalopathy; N17.9 Acute kidney failure, unspecified; I50.22 Chronic systolic (congestive) heart failure; I11.0 Hypertensive heart disease with heart failure; E78.5 Hyperlipidemia, unspecified; E03.9 Hypothyroidism, unspecified; F32.9 Major depressive disorder, single episode, unspecified; G43.909 Migraine, unspecified, not intractable, without status migrainosus; I25.10 Atherosclerotic heart disease of native coronary artery without angina pectoris; R29.6 Repeated falls; M19.90 Unspecified osteoarthritis, unspecified site; R65.20 Severe sepsis without septic shock; E86.0 Dehydration; I25.5 Ischemic cardiomyopathy; F41.9 Anxiety disorder, unspecified; K21.9 Gastro-esophageal reflux disease without esophagitis; D53.9 Nutritional anemia, unspecified; Z79.82 Long term (current) use of aspirin; Z79.899 Other long term (current) drug therapy; Z95.2 Presence of prosthetic heart valve
CPT/HCPCS: 36415; 36416; 51701; 74176; 80048; 80053; 81003; 81015; 83880; 84484; 85025; 87040; 87077; 87086; 87186; 90471; 90670; 93005; 96374; A4353; G0009; J0692; J0696; J1650; J3490

== ENCOUNTER 2019-02-20 12:27 | Inpatient (IN) | payer MEDICARE, BC ==
[2019-02-20 13:39] LABS: Bilirubin Negative (Negative); Blood, Urine Negative (Negative); Clarity Clear (Clear); Glucose, Urine (Dipstick) Normal (Negative); Leukocyte 25 Leu/uL (Negative); Nitrite Negative (Negative); Protein, Urine (Dipstick) 30 mg/dL (Neg-Trace); RBC/HPF 0-3 HPF (0-3); Squamous Epithelial 0-3 HPF (0-3)
[2019-02-20 13:40] LABS: Bacteria/HPF 1+ HPF (None Seen)
--- NOTE | 2019-02-20 13:47 | RAD ---
PORTABLE CHEST: 02/20/2019 PROVIDED CLINICAL HISTORY: Shortness of breath. COMPARISON: 02/02/2018 FINDINGS: The cardiac and mediastinal silhouette is unchanged in appearance. Prosthetic aortic valve is again d emonstrated. The mid and upper lung zones on the left are obscured by patient soft tissues. There is patchy air space disease within the right mid lung zone. There is no definite pleural fluid or right pneumothorax apparent. IMPRESSION: 1. Limited study as above. 2. Patchy right mid lung zone air space disease, compatible with pneumonia in the appropriate clinica l context. Followup after treatment is recommended to document resolution. POS: KARLOS
[2019-02-20] MEDS ORDERED: Piperacillin/Tazobactam 4.5 GM VIAL ONE (14:15)
[2019-02-20 14:36] LABS: Mean Corpuscular Volume 96.6 fL (78.0-98.0); Mean Platelet Volume 8.6 fL (7.4-10.4); Platelet Count 239 thou/uL (130-400); Red Blood Cell (RBC) Count 4.66 mill/uL (4.20-5.40); White Blood Cell (WBC) Count 41.1 thou/uL (4.8-10.8)
[2019-02-20 14:53] LABS: ALT (SGPT) 56 U/L (8-55); AST (SGOT) 69 U/L (5-34); Albumin 3.9 g/dL (3.4-4.8); Alkaline Phosphatase 182 U/L (40-110); Anion Gap 14 mmol/L (10-20); BUN (Urea Nitrogen) 18 mg/dL (9.8-20.1); Bilirubin, Total 1.5 mg/dL (0.2-1.2); CK (CPK) 25 U/L (29-168); Calc. Creatinine Clearance 0 mL/min (70-130); Calcium 9.4 mg/dL (7.8-10.44); Carbon Dioxide 30 mmol/L (23-31); Chloride 105 mmol/L (98-107); Estimated GFR-MDRD 47; Globulin 2.9 g/dL (2.4-3.5); Glucose 127 mg/dL (83-110); Lipase Less than 4 U/L (8-78); Magnesium 2.1 mg/dL (1.6-2.6); Potassium 3.7 mmol/L (3.5-5.1); Protein, Total 6.8 g/dL (6.0-8.3); Sodium 145 mmol/L (136-145)
[2019-02-20 15:01] LABS: Band 19 % (5-11); Eosinophils 1 % (0-10); Lymphocytes 2 % (21-51); MDiff Complete? YES; Monocytes 7 % (0-10); Neutrophil 61 % (42-75); Ovalocytes SLIGHT = 2-5 cells (100X) (0-1/hpf); Platelet Morphology Comment Appears Adequate; Polychromasia SLIGHT = 2-3 cells (100X) (0-2/hpf); Reactive Lymphocytes 10 % (0-10); Reflex for Review?? YES; Target Cells SLIGHT = 2-5 cells (100X) (0-1/hpf); Tear Drops SLIGHT = 2-5 cells (100X) (0-1/hpf)
[2019-02-20 15:13] LABS: CKMB 0.7 ng/mL (0-6.6)
[2019-02-20] MEDS ORDERED: Acetaminophen 650 MG Suppository PR PRN (16:32)
[2019-02-20] MEDS ORDERED: Ondansetron PF 4 MG/2 ML Vial IVP PRN (16:32)
[2019-02-20] MEDS ORDERED: Ondansetron ODT 4 MG TAB PO PRN (16:32)
--- NOTE | 2019-02-20 16:32 | PDOC.FPRHP ---
- History of Present Illness Chief Complaint: "SOB" History of Present Illness: Per ER, pt is 83yo F who presented to the ED via EMS, complained of SOB and lethargy. EMS reports family found her vomit in bed this morning. Due to pt mental status and lack of family members present, the rest of information in this H&P was obtained by chart review. ED Course: Started on zosyn, sepsis protocol followed. - Allergies/Adverse Reactions Allergies Allergy/AdvReac Type Severity Reaction Status Date / Time No Known Drug Allergies Allergy Verified 01/20/18 00:52 - Home Medications Medication Instructions Recorded Confirmed Type Pregabalin [Lyrica] 75 mg PO TID 08/22/15 11/17/18 History Levothyroxine Sodium [Synthroid] 75 mcg PO DAILY 06/20/16 11/17/18 History busPIRone HCl [Buspirone HCl] 7.5 mg PO BID 10/22/17 11/17/18 History Atorvastatin Calcium [Lipitor] 10 mg PO HS 10/24/17 11/17/18 History Azelastine/Fluticasone [Dymista 1 spray EA NARE BID PRN 10/24/17 11/17/18 History Nasal Gary] Fexofenadine HCl [Trinity Allergy] 60 mg PO DAILY PRN 10/24/17 11/17/18 History Phenazopyrid/Cran/Vit C/B.Coag 1 each PO DAILY 10/24/17 11/17/18 History [Azo Urinary Tract Health Pack] Triazolam 0.125 mg PO HS PRN 10/24/17 11/17/18 History Ipratropium/Albuterol Sulfate 3 ml NEB Q4H PRN neb 10/27/17 11/17/18 Rx [DuoNeb] Aspirin Chewable [Aspirin Chewable 81 mg PO BID tab 10/29/17 11/17/18 Rx Tablet] Multivit-Min/Iron/Folic/Lutein 1 tablet PO DAILY 01/20/18 11/17/18 History [Centrum Silver Women] Potassium Chloride [K-Dur] 20 meq PO DAILY 01/20/18 11/17/18 History Carvedilol [Coreg] 3.125 mg PO BID-WM #60 tab 01/31/18 11/17/18 Rx Furosemide [Lasix] 20 mg PO DAILY #0 01/31/18 11/17/18 Rx Lidocaine [Lidocaine 5% Patch] 1 patch TOP BID 11/17/18 11/17/18 History Omeprazole 40 mg PO DAILY 11/17/18 11/17/18 History Zantac 150 mg PO HS 11/17/18 11/17/18 History traMADol HCl [Ultram] 50 mg PO Q4H PRN 11/17/18 11/17/18 History Cefdinir [Omnicef] 300 mg PO Q12HR #10 cap 11/20/18 Rx Cyanocobalamin (Vitamin B-12) 1,000 mcg PO DAILY #30 tab 11/20/18 Rx [Vitamin B-12] Folic Acid [Folvite] 1 mg PO DAILY #30 tab 11/20/18 Rx Saccharomyces boulardii [Florastor] 250 mg PO DAILY #5 cap 11/20/18 Rx - History PMHx: HTN, CAD, CHF, recurrent UTI, hypothyroidism, depression, anxiety. PSHx: breast reduction, cholecystectomy, hysterectomy,many leg and lower joint surgeries FHx: not assessed Social: unable to assess. Per other notes, does not drink, smoke or do drugs - Review of Systems ROS unobtainable: due to mental status - Vital signs BP: 145/67, MAP: 93, Pulse: 74, Resp: 24, Pain: 0, O2 sat: 94 on (Room Air), Time: 02/20/2019 18:16 - Physical Exam Constitutional: other (lethargic, responds to painful stimuli) HEENT: normocephalic and atraumatic, PERRLA Neck: supple, trachea midline, no LAD, no thyromegaly Heart: RRR, normal S1/S2 Lungs: no retractions, other (upper airway noises throughout) Abdomen: soft, non-tender, bowel sounds present -Neurological: altered mental status, would briefly follow commands, AxO x1 to self Skin: no rash/lesions, capillary refill <2 seconds Heme/Lymphatic: no unusual bruising or bleeding, no purpura FMR H&P: Results - Labs Result Diagrams: 02/20/19 14:15 02/20/19 14:15 Lab results: WBC 41.1 thou/uL (4.8-10.8) H* 02/20/19 14:15 Hgb 14.0 g/dL (12.0-16.0) 02/20/19 14:15 Hct 45.0 % (36.0-47.0) 02/20/19 14:15 MCV 96.6 fL (78.0-98.0) 02/20/19 14:15 Plt Count 239 thou/uL (130-400) 02/20/19 14:15 Band Neuts % (Manual) 19 % (5-11) H 02/20/19 14:15 Sodium 145 mmol/L (136-145) 02/20/19 14:15 Potassium 3.7 mmol/L (3.5-5.1) 02/20/19 14:15 Chloride 105 mmol/L (98-107) 02/20/19 14:15 Carbon Dioxide 30 mmol/L (23-31) 02/20/19 14:15 BUN 18 mg/dL (9.8-20.1) 02/20/19 14:15 Creatinine 1.10 mg/dL (0.6-1.1) 02/20/19 14:15 Glucose 127 mg/dL (83-110) H 02/20/19 14:15 Lactic Acid 2.7 mmol/L (0.5-2.2) H 02/20/19 14:15 Calcium 9.4 mg/dL (7.8-10.44) 02/20/19 14:15 Total Bilirubin 1.5 mg/dL (0.2-1.2) H 02/20/19 14:15 AST 69 U/L (5-34) H 02/20/19 14:15 ALT 56 U/L (8-55) H 02/20/19 14:15 Alkaline Phosphatase 182 U/L (40-110) H 02/20/19 14:15 Creatine Kinase 25 U/L (29-168) L 02/20/19 14:15 CK-MB (CK-2) 0.7 ng/mL (0-6.6) 02/20/19 14:15 Serum Total Protein 6.8 g/dL (6.0-8.3) 02/20/19 14:15 Albumin 3.9 g/dL (3.4-4.8) 02/20/19 14:15 Lipase Less than 4 U/L (8-78) L 02/20/19 14:15 Urine Ketones Negative mg/dL (Negative) 02/20/19 13:21 Urine Blood Negative (Negative) 02/20/19 13:21 Urine Nitrite Negative (Negative) 02/20/19 13:21 Ur Leukocyte Esterase 25 Carrillo/uL (Negative) 02/20/19 13:21 Urine RBC 0-3 HPF (0-3) 02/20/19 13:21 Urine WBC 7-10 HPF (0-3) A 02/20/19 13:21 Ur Squamous Epith Cells 0-3 HPF (0-3) 02/20/19 13:21 Urine Bacteria 1+ HPF (None Seen) A 02/20/19 13:21 - EKG Interpretation EKG: NSR, left axis dev, no ST elevation. - Radiology Interpretation Chest x-ray Status: image reviewed by me, report reviewed by me (evidence of consolidation, cardiomegaly) FMR H&P: A/P - Problem List (1) Sepsis Current Visit: Yes Status: Acute Code(s): A41.9 - SEPSIS, UNSPECIFIED ORGANISM (2) Aspiration pneumonia Current Visit: Yes Status: Acute Code(s): J69.0 - PNEUMONITIS DUE TO INHALATION OF FOOD AND VOMIT (3) CAD (coronary artery disease) Current Visit: No Status: Chronic Code(s): I25.10 - ATHSCL HEART DISEASE OF [place] CORONARY ARTERY W/O ANG PCTRS Qualifiers: Coronary Disease-Associated Artery/Lesion type: [place] artery [place] vs. transplanted heart: [place] heart Associated angina: without angina Qualified Code(s): I25.10 - Atherosclerotic heart disease of [place] coronary artery without angina pectoris (4) Chronic systolic heart failure, ACC/AHA stage C Current Visit: No Status: Chronic Code(s): I50.22 - CHRONIC SYSTOLIC ( CONGESTIVE) HEART FAILURE (5) Dyslipidemia Current Visit: No Status: Chronic Code(s): E78.5 - HYPERLIPIDEMIA, UNSPECIFIED (6) Anxiety and depression Current Visit: No Status: Chronic Code(s): F41.9 - ANXIETY DISORDER, UNSPECIFIED; F32.9 - MAJOR DEPRESSIVE DISORDER, SINGLE EPISODE, UNSPECIFIED (7) Hypothyroidism Current Visit: No Status: Chronic Code(s): E03.9 - HYPOTHYROIDISM, UNSPECIFIED Qualifiers: Hypothyroidism type: unspecified Qualified Code(s): E03.9 - Hypothyroidism , unspecified (8) Hypertension Current Visit: No Status: Chronic Code(s): I10 - ESSENTIAL (PRIMARY) HYPERTENSION Qualifiers: Hypertension type: essential hypertension Qualified Code(s): I10 - Essential (primary) hypertension (9) Recurrent falls Current Visit: No Status: Chronic Code(s): R29.6 - REPEATED FALLS (10) H/O prosthetic aortic valve replacement Current Visit: No Status: Chronic Code(s): Z95.2 - PRESENCE OF PROSTHETIC HEART VALVE Comment: h/o tavr - Plan 83 yo F brought by EMS after being found in her own vomit, admitted for having: Sepsis 2/2 likely to Aspiration PNA Acute hypoxic respiratory failure - WBC 41, tachypneic on presentation - most likely source is PNA - other sources being evaluated: cultures drawn - Flu and procal ordered - unsure of oxygen status at baseline - continued zosyn 4.5g q6h - NPO, speech eval elevated troponin - downtrending Chronic conditions: continue home medications for the below conditions: CAD CHF - strict I/O - last EF reported was 20%. monitor fluid status closely Hypothyroidism Anxiety/Depression GERD Hx of aortic valve replacement Code status: unobtainable due to pt mental status and lack of family in room. Will need to speak w/ daughter. Per notes was admitted in October 2018 and was full code, daughter was HPOA. Fluids: LR 100ml/hr VTE: LVX GI: none Disposition/LOS: admit to inpatient telemetry. LOS >48H FMR H&P: Upper Level - Plan Date/Time: 02/20/19 1631 Ms. Dutta is an 83 year old F with PMH CHF, anxiety, depression, CAD, aortic valve replacement per chart review. She presented to ED for SOB. EMS reported family found her in bed in vomit this am. Minimal history available. Daughter was reportedly in ED but no contact number left. Home health had been in contact with ED but no number available. Patient unable to give any history. Chart review shows she lives her daughter, Awilda who is POA and is full code. She was admitted 11/16/2018 with AMS, sepsis 2/2 UTI. Lactic acid 2.7 Procalcitonin 5.53 CXR: patchy R mid lung infiltrate Gen: asleep in bed, difficult to arouse HEENT: MM dry Resp: upper airway congestion, no wheezing Heart: RRR Ext: no peripheral edema Neuro: Oriented to person only Sepsis 2/2 aspiration PNA/pneumonitis - Significantly elevated WBC of 41 with 19% bands, tachypnea initially - Blood cultures pending - Continue zosyn (02/20) - IVF of LR @ 100, plan for gentle hydration and closely monitor I/Os considering hx HFrEF - Pending flu swab Encephalopathy - Likely 2/2 infection. Unknown baseline. Elevated liver enzymes - AST 69, ALT 56 Elevated troponin, downtrended - 0.1->0.045, likely 2/2 demand CKD3 - GFR 47, nearly at baseline. May have slight KAI. Will continue to monitor renal function Chronic medical problems per sports management internship note. Include HFrEF, anxiety, depression, CAD, HLD, GERD, hypothyroid, anemia, prosthetic aortic wall replacement Diet: NPO pending speech eval Ppx: Lovenox PCP: Alex Dispo: admit to telemetry inpatient. Will need to get in touch with daughter in am and get a good med rec. Will possibly need placement at facility. I, Jenna Munoz, have evaluated this patient and agree with findings/plan as outlined by sports management internship resident. Pertinent changes/additions are listed here. Addendum - Attending - Attending Attestation Date/Time: 02/20/19 6824 I personally evaluated the patient and discussed the management with Dr. Liu /Alexander. I agree with the History, Examination, Assessment and Plan documented above with any addition or exceptions noted below. Patient is 83yo F with PMH significant for sCHF, CAD, anxiety, depression who presents after episode of aspiration. Patient is currently only A/Ox1 and no family is available for consult. Per ER records, patient was found laying in vomit at her home this morning by her children. Patient currently denies any shortness of breath, abdominal pain, nausea, vomiting to me. Her exam is pertinent for somnolence though she will awaken easily to voice. Her lungs are very course diffusely. Her abdomen is soft and nondistended, and non tender. There is no peripheral edema. Her labs show WBC 41 with left shift. Her lactate is somewhat elevated at 2.7. AST/ALT elevated mildly. CXR shows RML airspace opacity. Patient will be admitted to telemetry for encephalopathy, likely metabolic or infectious in etiology. Continue Zosyn. Flu swab. Symptomatic treatment as needed. Cultures to be obtained. Oxygen as needed though currently sats are high 90s on 2L. Hold meds that could be contributing to her AMS. NPO until speech evaluation. Mild fluid hydration. Will discuss with family and get more information. Further mgmt pending clinical course. If WBC remains elevated , consider Cdiff (if diarrhea) or malignancy as possible causes.
[2019-02-20 18:20] LABS: Lactic Acid 3.2 mmol/L (0.5-2.2)
[2019-02-20 18:30] LABS: Troponin I 0.045 ng/mL (< 0.028)
[2019-02-20] MEDS: Lactated Ringer's 1,000 ML IV SCH (22:13)
[2019-02-20] MEDS: Piperacillin/Tazobactam 4.5 GM in Sodium Chloride 0.9% 100 ML IVPB SCH (22:19)
[2019-02-20 22:53] LABS: Troponin I 0.071 ng/mL (< 0.028)
[2019-02-21] MEDS: Piperacillin/Tazobactam 4.5 GM in Sodium Chloride 0.9% 100 ML IVPB SCH ×4 (03:28→20:53)
[2019-02-21] MEDS: Lactated Ringer's 1,000 ML IV SCH (03:42)
[2019-02-21 06:05] LABS: Band 7 % (5-11); Eosinophils 3 % (0-10); Hemoglobin 12.2 g/dL (12.0-16.0); Lymphocytes 11 % (21-51); MDiff Complete? YES; Mean Corpuscular HGB CONC 32.1 g/dL (32.0-36.0); Mean Corpuscular Hemoglobin 30.6 pg (27.0-31.0); Mean Corpuscular Volume 95.2 fL (78.0-98.0); Mean Platelet Volume 8.7 fL (7.4-10.4); Monocytes 6 % (0-10); Neutrophil 69 % (42-75); Ovalocytes SLIGHT = 2-5 cells (100X) (0-1/hpf); Platelet Count 161 thou/uL (130-400); Platelet Morphology Comment Appears Adequate; RBC Distribution Width 12.9 % (11.5-14.5); Reactive Lymphocytes 4 % (0-10); Target Cells SLIGHT = 2-5 cells (100X) (0-1/hpf); White Blood Cell (WBC) Count 38.7 thou/uL (4.8-10.8)
--- NOTE | 2019-02-21 06:34 | PDOC.FM ---
- Subjective Subjective: Pt not feeling well this morning. States she has horrible cough, nonproductive. Remembers her nurse aid called EMS to bring her in because she woke up with vomit by her shoulder. This has never happened before. Pt is not on oxygen at home. - Objective MAR Reviewed: Yes Vital Signs & Weight: Vital Signs (12 hours) Temp Pulse Resp BP Pulse Ox 02/21/19 05:32 96 02/21/19 04:00 98.7 F 61 23 H 186/74 H 96 02/21/19 00:00 97.4 F L 62 21 H 117/54 L 94 L 02/20/19 19:45 98.6 F 72 16 137/62 96 Weight Weight 67.84 kg Result Diagrams: 02/21/19 04:54 02/21/19 06:54 Phys Exam - Physical Examination Constitutional: NAD Respiratory: wheezing present (expiratory wheezing over RML and RLL) improved from exam yesterday, coarse sounds anteriorly, clear on left Cardiovascular: RRR, no significant murmur Gastrointestinal: soft, non-tender Musculoskeletal: no edema Psychiatric: normal affect, A&O x 3 (states year is "something that ends in a 9 ", oriented to self and place) Dx/Plan (1) Sepsis Code(s): A41.9 - SEPSIS, UNSPECIFIED ORGANISM Status: Acute (2) Aspiration pneumonia Code(s): J69.0 - PNEUMONITIS DUE TO INHALATION OF FOOD AND VOMIT Status: Acute (3) CAD (coronary artery disease) Code(s): I25.10 - ATHSCL HEART DISEASE OF [place] CORONARY ARTERY W/O ANG PCTRS Status: Chronic Qualifiers: Coronary Disease-Associated Artery/Lesion type: [place] artery [place] vs. transplanted heart: [place] heart Associated angina: without angina Qualified Code(s): I25.10 - Atherosclerotic heart disease of [place] coronary artery without angina pectoris (4) Chronic systolic heart failure, ACC/AHA stage C Code(s): I50.22 - CHRONIC SYSTOLIC (CONGESTIVE) HEART FAILURE Status: Chronic (5) Dyslipidemia Code(s): E78.5 - HYPERLIPIDEMIA, UNSPECIFIED Status: Chronic (6) Anxiety and depression Code(s): F41.9 - ANXIETY DISORDER, UNSPECIFIED; F32.9 - MAJOR DEPRESSIVE DISORDER, SINGLE EPISODE, UNSPECIFIED Status: Chronic (7) Hypothyroidism Code(s): E03.9 - HYPOTHYROIDISM, UNSPECIFIED Status: Chronic Qualifiers: Hypothyroidism type: unspecified Qualified Code(s): E03.9 - Hypothyroidism , unspecified (8) Hypertension Code(s): I10 - ESSENTIAL (PRIMARY) HYPERTENSION Status: Chronic Qualifiers: Hypertension type: essential hypertension Qualified Code(s): I10 - Essential (primary) hypertension (9) Recurrent falls Code(s): R29.6 - REPEATED FALLS Status: Chronic (10) H/O prosthetic aortic valve replacement Code(s): Z95.2 - PRESENCE OF PROSTHETIC HEART VALVE Status: Chronic - Plan Plan: 83 yo F brought by EMS after being found in her own vomit, admitted for having: Sepsis 2/2 likely to Aspiration PNA Acute hypoxic respiratory failure, improved - WBC 41, tachypneic on presentation. WBC downtrended today - most likely source is PNA - other sources being evaluated: cultures drawn - Flu NEG - Procalcitonin 5.5 - unsure of oxygen status at baseline - continued zosyn 4.5g q6h - NPO, speech eval Acute encephalopathy, improved - unknown mental status baseline, pt disoriented and lethargic. - infectious vs metabolic vs medication-induced, less likely the sole cause but could be contributing Hypokalemia - monitor, replete - Other CMP values pending elevated troponin - downtrending, likely demand. Chronic conditions: continue home medications for the below conditions: NEEDS MED REC, daughter to bring in medication chart today CAD CHF - strict I/O - last EF reported was 20%. monitor fluid status closely Hypothyroidism Anxiety/Depression GERD Hx of aortic valve replacement Code status: Pt states this AM she is DNR-DNI. Her mentation is much improved and she does seem able to make decisions. Fluids: LR 100ml/hr VTE: LVX GI: none MPOA: daughter Awilda Block, Addendum - Attending - Attending Attestation Date/Time: 02/21/19 7020 I personally evaluated the patient and discussed the management with Dr. Liu. I agree with the History, Examination, Assessment and Plan documented above with any addition or exceptions noted below. Patient here for suspected aspiration pneumonitis. She is much better than yesterday, but still does not remember details about what led to her being hospitalized. She endorses feeling at baseline 2 days ago. She complains of cough today. Her WBC continues to be highly elevated but somewhat improved today. Continue to downtrend, smear pending. She needs speech eval prior to diet , will work to get that done soon. Will speak with family today regaring presentation to see if that can point us in direction of what caused her aspiration event. Continue Zosyn.
[2019-02-21 07:29] LABS: Albumin 3.1 g/dL (3.4-4.8)
[2019-02-21 07:31] LABS: Calcium 9.2 mg/dL (7.8-10.44); Chloride 109 mmol/L (98-107); Sodium 145 mmol/L (136-145)
[2019-02-21 07:32] LABS: Glucose 101 mg/dL (83-110); Protein, Total 6.1 g/dL (6.0-8.3)
[2019-02-21 07:33] LABS: Anion Gap 14 mmol/L (10-20); Carbon Dioxide 25 mmol/L (23-31)
[2019-02-21 07:34] LABS: Bilirubin, Total 2.2 mg/dL (0.2-1.2)
[2019-02-21 07:35] LABS: Alkaline Phosphatase 140 U/L (40-110); Calc. Creatinine Clearance 55 mL/min (70-130); Estimated GFR-MDRD 68
[2019-02-21 07:36] LABS: BUN (Urea Nitrogen) 16 mg/dL (9.8-20.1)
[2019-02-21 07:37] LABS: AST (SGOT) 34 U/L (5-34)
[2019-02-21 07:38] LABS: ALT (SGPT) 34 U/L (8-55)
[2019-02-21] MEDS ORDERED: Prevnar 13-Val Conj/PF 0.5 ML SYRINGE IM ONE (08:00)
[2019-02-21] MEDS ORDERED: FLU VACC TS2019-20(65YR UP)/PF 180 MCG/0.5 ML SYRINGE IM ONE (08:00)
[2019-02-21] MEDS ORDERED: Potassium Chloride 20 MEQ in Premix Bag 1 BAG IVPB SCH (08:15)
[2019-02-21] MEDS: Enoxaparin Sodium 40 MG/0.4 ML SYRINGE SC SCH (08:38)
[2019-02-21] MEDS: guaiFENesin ER 600 MG TAB PO SCH ×2 (09:39→20:53)
[2019-02-21] MEDS ORDERED: Potassium Chloride 20 MEQ TAB PO SCH (09:45)
[2019-02-21 11:48] LABS: Lactic Acid 2.3 mmol/L (0.5-2.2)
[2019-02-21 11:58] LABS: ALT (SGPT) 30 U/L (8-55); AST (SGOT) 31 U/L (5-34); Albumin 2.9 g/dL (3.4-4.8); Alkaline Phosphatase 130 U/L (40-110); Anion Gap 13 mmol/L (10-20); BUN (Urea Nitrogen) 14 mg/dL (9.8-20.1); Bilirubin, Total 1.7 mg/dL (0.2-1.2); Calc. Creatinine Clearance 55 mL/min (70-130); Calcium 8.8 mg/dL (7.8-10.44); Carbon Dioxide 22 mmol/L (23-31); Chloride 109 mmol/L (98-107); Estimated GFR-MDRD 68; Globulin 2.8 g/dL (2.4-3.5); Glucose 119 mg/dL (83-110); Potassium 3.2 mmol/L (3.5-5.1); Protein, Total 5.7 g/dL (6.0-8.3); Sodium 141 mmol/L (136-145)
[2019-02-21] MEDS ORDERED: Non-Formulary Item 1 EACH (Azelastine/Fluticasone [Dymista Nasal Spray] 1 SPRAY) EA NARE PRN (12:21)
[2019-02-21] MEDS ORDERED: Pregabalin 75 MG CAP PO SCH ×2 (12:45→15:00)
[2019-02-21] MEDS ORDERED: Loratadine 10 MG TAB PO PRN (13:00)
[2019-02-21] MEDS ORDERED: Furosemide 40 MG TAB PO SCH (15:00)
[2019-02-21] MEDS: traMADol HCl 50 MG TAB PO PRN (15:21)
[2019-02-21] MEDS: Carvedilol 3.125 MG TAB PO SCH (17:40)
[2019-02-21] MEDS: Acetaminophen 325 MG TAB PO PRN (18:09)
[2019-02-21] MEDS: Arformoterol 15 MCG/2 ML NEB NEB SCH (19:00)
[2019-02-21] MEDS: Budesonide 0.5 MG/2 ML NEB NEB SCH (19:03)
[2019-02-21] MEDS: busPIRone HCl 5 MG TAB PO SCH (20:49)
[2019-02-21] MEDS: Pregabalin 75 MG CAP PO SCH (20:51)
[2019-02-21] MEDS: Aspirin Chewable 81 MG TAB PO SCH (20:52)
[2019-02-21] MEDS: Atorvastatin Calcium 10 MG TAB PO SCH (20:53)
[2019-02-21] MEDS: Famotidine 20 MG TAB PO SCH (20:53)
[2019-02-22] MEDS: Piperacillin/Tazobactam 4.5 GM in Sodium Chloride 0.9% 100 ML IVPB SCH ×4 (03:05→20:25)
[2019-02-22 05:10] LABS: ALT (SGPT) 29 U/L (8-55); AST (SGOT) 24 U/L (5-34); Albumin 3.2 g/dL (3.4-4.8); Alkaline Phosphatase 133 U/L (40-110); Anion Gap 11 mmol/L (10-20); BUN (Urea Nitrogen) 14 mg/dL (9.8-20.1); Bilirubin, Total 1.4 mg/dL (0.2-1.2); Calc. Creatinine Clearance 48 mL/min (70-130); Calcium 8.9 mg/dL (7.8-10.44); Carbon Dioxide 29 mmol/L (23-31); Chloride 107 mmol/L (98-107); Estimated GFR-MDRD 59; Globulin 2.5 g/dL (2.4-3.5); Glucose 86 mg/dL (83-110); Potassium 3.3 mmol/L (3.5-5.1); Protein, Total 5.7 g/dL (6.0-8.3); Sodium 144 mmol/L (136-145)
[2019-02-22 05:18] LABS: #Basophils 0.1 thou/uL (0.0-0.2); #Lymphocytes 2.5 thou/uL (1.20-3.40); #Monocytes 0.9 thou/uL (0.11-0.59); #Neutrophils 9.7 thou/uL (1.40-6.50); %Basophils 0.5 % (0.0-1.0); %Eosinophils 7.3 % (0.0-10.0); %Lymphocytes 17.4 % (21.0-51.0); %Monocytes 6.4 % (0.0-10.0); %Neutrophils 68.5 % (42.0-75.0); Hemoglobin 11.8 g/dL (12.0-16.0); Mean Corpuscular HGB CONC 32.4 g/dL (32.0-36.0); Mean Corpuscular Hemoglobin 30.6 pg (27.0-31.0); Mean Corpuscular Volume 94.5 fL (78.0-98.0); Platelet Count 209 thou/uL (130-400); RBC Distribution Width 12.6 % (11.5-14.5); Red Blood Cell (RBC) Count 3.85 mill/uL (4.20-5.40); White Blood Cell (WBC) Count 14.2 thou/uL (4.8-10.8)
--- NOTE | 2019-02-22 06:02 | PDOC.FM ---
- Subjective Subjective: Pt is feeling tired today. Her cough is still bothering her. She is currently getting nebulizer treatment. States she got up out of bed yesterday. Denies abdominal pain, nausea, vomiting. - Objective MAR Reviewed: Yes Vital Signs & Weight: Vital Signs (12 hours) Temp Pulse Resp BP Pulse Ox 02/22/19 03:28 97.9 F 53 L 16 141/60 H 98 02/21/19 19:14 98.1 F 58 L 18 141/60 H 96 02/21/19 19:04 96 02/21/19 19:03 96 02/21/19 19:00 60 16 96 Weight Weight 67.84 kg I&O: 02/20/19 02/21/19 02/22/19 06:59 06:59 06:59 Intake Total 500 Output Total 600 500 Balance -600 0 Result Diagrams: 02/22/19 04:28 02/22/19 04:28 Phys Exam - Physical Examination Constitutional: NAD (appears tired.) Exam unchanged from yesterday, continued crackles over RML Cardiovascular: RRR, no significant murmur Musculoskeletal: no edema Psychiatric: normal affect, A&O x 3 Dx/Plan (1) Sepsis Code(s): A41.9 - SEPSIS, UNSPECIFIED ORGANISM Status: Acute (2) Aspiration pneumonia Code(s): J69.0 - PNEUMONITIS DUE TO INHALATION OF FOOD AND VOMIT Status: Acute (3) CAD (coronary artery disease) Code(s): I25.10 - ATHSCL HEART DISEASE OF [place] CORONARY ARTERY W/O ANG PCTRS Status: Chronic Qualifiers: Coronary Disease-Associated Artery/Lesion type: [place] artery [place] vs. transplanted heart: [place] heart Associated angina: without angina Qualified Code(s): I25.10 - Atherosclerotic heart disease of [place] coronary artery without angina pectoris (4) Chronic systolic heart failure, ACC/AHA stage C Code(s): I50.22 - CHRONIC SYSTOLIC (CONGESTIVE) HEART FAILURE Status: Chronic (5) Dyslipidemia Code(s): E78.5 - HYPERLIPIDEMIA, UNSPECIFIED Status: Chronic (6) Anxiety and depression Code(s): F41.9 - ANXIETY DISORDER, UNSPECIFIED; F32.9 - MAJOR DEPRESSIVE DISORDER, SINGLE EPISODE, UNSPECIFIED Status: Chronic (7) Hypothyroidism Code(s): E03.9 - HYPOTHYROIDISM, UNSPECIFIED Status: Chronic Qualifiers: Hypothyroidism type: unspecified Qualified Code(s): E03.9 - Hypothyroidism , unspecified (8) Hypertension Code(s): I10 - ESSENTIAL (PRIMARY) HYPERTENSION Status: Chronic Qualifiers: Hypertension type: essential hypertension Qualified Code(s): I10 - Essential (primary) hypertension (9) Recurrent falls Code(s): R29.6 - REPEATED FALLS Status: Chronic (10) H/O prosthetic aortic valve replacement Code(s): Z95.2 - PRESENCE OF PROSTHETIC HEART VALVE Status: Chronic - Plan Plan: 83 yo F brought by EMS after being found in her own vomit, admitted for having: Sepsis 2/2 likely to Aspiration PNA Acute hypoxic respiratory failure, improved - WBC markedly improved from 38 to 14. - most likely source is PNA. Does not require O2 at home. Has been requiring 2- 2.5 L NC here. - other sources being evaluated: cultures drawn, Blood Cx: NGTD. - Flu NEG - Procalcitonin, trending. Has decreased. - unsure of oxygen status at baseline - continued zosyn 4.5g q6h - Speech eval: mechanical soft and thin liquids. Acute encephalopathy, improved - unknown mental status baseline, pt disoriented and lethargic. - infectious vs metabolic vs medication-induced, less likely the sole cause but could be contributing - home medications have been restarted. Hypokalemia - monitor, replete - Alk phos elevated. Ast/Alt normal. elevated troponin - downtrending, likely demand. Chronic conditions: continue home medications for the below conditions: CAD CHF - strict I/O - last EF reported was 20%. monitor fluid status closely Hypothyroidism Anxiety/Depression GERD Hx of aortic valve replacement Code status: Pt states this AM she is DNR-DNI. Her mentation is much improved and she does seem able to make decisions. Fluids: LR 100ml/hr VTE: LVX GI: none MPOA: daughter Awilda Block, Addendum - Attending - Attending Attestation Date/Time: 02/22/19 7652 I personally evaluated the patient and discussed the management with Dr. Liu. I agree with the History, Examination, Assessment and Plan documented above with any addition or exceptions noted below. Patient continues to improves. Continues to require O2 therapy, but breathing better per patient. She has been afebrile. WBC extremely improved. It turns out she was on outpatient abx prior to presentation. We were able to get more history this morning from her caregiver. Continue Zosyn for now. Repeat CXR. Consider SNF upon discharge. Diet modifications per speech therapy.
[2019-02-22] MEDS: Levothyroxine Sodium 75 MCG TAB PO SCH (06:16)
[2019-02-22] MEDS: Arformoterol 15 MCG/2 ML NEB NEB SCH ×2 (06:45→18:31)
[2019-02-22] MEDS: Budesonide 0.5 MG/2 ML NEB NEB SCH ×2 (06:47→18:32)
[2019-02-22] MEDS: Carvedilol 3.125 MG TAB PO SCH ×2 (08:52→17:04)
[2019-02-22] MEDS: Pregabalin 75 MG CAP PO SCH ×3 (08:53→20:26)
[2019-02-22] MEDS: Potassium Chloride 20 MEQ TAB PO SCH (08:54)
[2019-02-22] MEDS: busPIRone HCl 5 MG TAB PO SCH ×2 (08:54→20:25)
[2019-02-22] MEDS: Furosemide 40 MG TAB PO SCH (08:54)
[2019-02-22] MEDS: guaiFENesin ER 600 MG TAB PO SCH ×2 (08:54→20:26)
[2019-02-22] MEDS: Aspirin Chewable 81 MG TAB PO SCH ×2 (08:54→20:27)
[2019-02-22] MEDS: Famotidine 20 MG TAB PO SCH ×2 (08:54→20:27)
[2019-02-22] MEDS: Enoxaparin Sodium 40 MG/0.4 ML SYRINGE SC SCH (08:55)
[2019-02-22] MEDS: traMADol HCl 50 MG TAB PO PRN (12:39)
--- NOTE | 2019-02-22 13:09 | RAD ---
PORTABLE CHEST: Date: 02/22/19 HISTORY: Evaluate cough, follow-up pneumonia. COMPARISON: 02/20/19 study. FINDINGS: Heart size is enlarged. An aortic valve stent is in place. The infiltrative change in the right lung is clear. IMPRESSION: 1. Cardiomegaly. 2. Clearing of the right lung infiltrate. POS: [facility]
[2019-02-22 13:28] VITALS: BMI 26.3
[2019-02-22] MEDS: Acetaminophen 325 MG TAB PO PRN (13:53)
[2019-02-22] MEDS: Atorvastatin Calcium 10 MG TAB PO SCH (20:27)
[2019-02-22] MEDS ORDERED: Melatonin 3 MG TAB PO PRN (21:02)
[2019-02-23] MEDS: Piperacillin/Tazobactam 4.5 GM in Sodium Chloride 0.9% 100 ML IVPB SCH ×2 (02:39→08:51)
[2019-02-23 04:39] LABS: #Basophils 0.1 thou/uL (0.0-0.2); #Lymphocytes 3.1 thou/uL (1.20-3.40); #Monocytes 0.8 thou/uL (0.11-0.59); #Neutrophils 5.3 thou/uL (1.40-6.50); %Basophils 0.8 % (0.0-1.0); %Eosinophils 10.1 % (0.0-10.0); %Lymphocytes 29.9 % (21.0-51.0); %Monocytes 7.9 % (0.0-10.0); %Neutrophils 51.3 % (42.0-75.0); Mean Corpuscular Hemoglobin 29.9 pg (27.0-31.0); Mean Corpuscular Volume 93.7 fL (78.0-98.0); Mean Platelet Volume 7.8 fL (7.4-10.4); Platelet Count 243 thou/uL (130-400); RBC Distribution Width 12.6 % (11.5-14.5); White Blood Cell (WBC) Count 10.3 thou/uL (4.8-10.8)
[2019-02-23 04:54] LABS: ALT (SGPT) 22 U/L (8-55); AST (SGOT) 20 U/L (5-34); Albumin 3.2 g/dL (3.4-4.8); Alkaline Phosphatase 119 U/L (40-110); Anion Gap 12 mmol/L (10-20); BUN (Urea Nitrogen) 12 mg/dL (9.8-20.1); Bilirubin, Total 0.9 mg/dL (0.2-1.2); Calc. Creatinine Clearance 49 mL/min (70-130); Carbon Dioxide 29 mmol/L (23-31); Chloride 103 mmol/L (98-107); Estimated GFR-MDRD 63; Glucose 95 mg/dL (83-110); Potassium 3.1 mmol/L (3.5-5.1); Protein, Total 6.2 g/dL (6.0-8.3); Sodium 141 mmol/L (136-145)
[2019-02-23] MEDS: Levothyroxine Sodium 75 MCG TAB PO SCH (05:05)
[2019-02-23] MEDS: Benzonatate 100 MG CAP PO PRN ×2 (05:05→20:53)
--- NOTE | 2019-02-23 06:12 | PDOC.FM ---
- Subjective Subjective: Pt states she is not feeling good and that her cough continues to bother her. She is not clearing any sputum. Wanted triazolam last night which she takes at home for sleep. Was given melatonin instead. Pt wants to know when she can go home. She would like to return home w/ HH. - Objective MAR Reviewed: Yes Vital Signs & Weight: Vital Signs (12 hours) Temp Pulse Resp BP Pulse Ox 02/23/19 03:34 98.7 F 56 L 16 145/65 H 96 02/22/19 20:21 97.7 F 51 L 18 143/65 H 96 02/22/19 18:31 51 L 16 97 Weight Admit Weight 67.84 kg Weight 65.363 kg I&O: 02/21/19 02/22/19 02/23/19 06:59 06:59 06:59 Intake Total 740 550 Output Total 600 1000 400 Balance -600 -260 150 Result Diagrams: 02/23/19 04:24 02/23/19 04:24 Phys Exam - Physical Examination Constitutional: NAD (DuoNeb running) Respiratory: no wheezing R lung sounds improved from previous exam, more air movement Cardiovascular: no significant murmur Gastrointestinal: soft Musculoskeletal: no edema, pulses present Psychiatric: normal affect, A&O x 3 Dx/Plan (1) Sepsis Code(s): A41.9 - SEPSIS, UNSPECIFIED ORGANISM Status: Acute (2) Aspiration pneumonia Code(s): J69.0 - PNEUMONITIS DUE TO INHALATION OF FOOD AND VOMIT Status: Acute (3) CAD (coronary artery disease) Code(s): I25.10 - ATHSCL HEART DISEASE OF [place] CORONARY ARTERY W/O ANG PCTRS Status: Chronic Qualifiers: Coronary Disease-Associated Artery/Lesion type: [place] artery [place] vs. transplanted heart: [place] heart Associated angina: without angina Qualified Code(s): I25.10 - Atherosclerotic heart disease of [place] coronary artery without angina pectoris (4) Chronic systolic heart failure, ACC/AHA stage C Code(s): I50.22 - CHRONIC SYSTOLIC (CONGESTIVE) HEART FAILURE Status: Chronic (5) Dyslipidemia Code(s): E78.5 - HYPERLIPIDEMIA, UNSPECIFIED Status: Chronic (6) Anxiety and depression Code(s): F41.9 - ANXIETY DISORDER, UNSPECIFIED; F32.9 - MAJOR DEPRESSIVE DISORDER, SINGLE EPISODE, UNSPECIFIED Status: Chronic (7) Hypothyroidism Code(s): E03.9 - HYPOTHYROIDISM, UNSPECIFIED Status: Chronic Qualifiers: Hypothyroidism type: unspecified Qualified Code(s): E03.9 - Hypothyroidism , unspecified (8) Hypertension Code(s): I10 - ESSENTIAL (PRIMARY) HYPERTENSION Status: Chronic Qualifiers: Hypertension type: essential hypertension Qualified Code(s): I10 - Essential (primary) hypertension (9) Recurrent falls Code(s): R29.6 - REPEATED FALLS Status: Chronic (10) H/O prosthetic aortic valve replacement Code(s): Z95.2 - PRESENCE OF PROSTHETIC HEART VALVE Status: Chronic - Plan Plan: 83 yo F brought by EMS after being found in her own vomit, admitted for having: Sepsis 2/2 likely to Aspiration PNA Acute hypoxic respiratory failure, improved - WBC markedly improved - most likely source is PNA. Does not require O2 at home. Has been requiring 2- 2.5 L NC here. - other sources being evaluated: cultures drawn, Blood Cx: NGTD. - Flu NEG - Procalcitonin, trending. Has decreased. - On RA at home. Has required 1-2 L NC to stay in 90s% saturation. - D/c zosyn. Begin Augmentin 875 BID. Issues w/ IV access overnight. - Speech eval: mechanical soft and thin liquids. - Pt's cough still greatly bothering her, Has mucinex and tessalon pearls on board. Will add acapella to try and break up mucus. Acute encephalopathy, improved - unknown mental status baseline, pt disoriented and lethargic. - infectious vs metabolic vs medication-induced, less likely the sole cause but could be contributing - home medications have been restarted. Per pharmacy, interactions of medications for [employer] depression include home nasal spray azelastine/fluticasone with tramadol and pregabalin. Home nasal spray has not been given here. She takes the tramadol and gabapentin for pain. - We will not continue pt's home triazolam for sleep. We recommend stopping this as outpatient as well since pt is elderly and at risk for falls and delirium. Hypokalemia - monitor, replete - Alk phos elevated. TBili elevated. Ast/Alt normal. Improving. elevated troponin - downtrending, likely demand. Chronic conditions: continue home medications for the below conditions: CAD CHF - strict I/O - last EF reported was 20%. monitor fluid status closely Hypothyroidism Anxiety/Depression GERD Hx of aortic valve replacement Code status: DNR-DNI. Fluids: oral intake. No IVF. VTE: LVX GI: none MPOA: daughter Awilda Block, Dispo: inpt tele. Pt wishes to go back home w/ home health. She is not on O2 at baseline and may require some at home for a short time until full recovery. We can set her up with this. She is likely ready for discharge soon. Addendum - Attending - Attending Attestation Date/Time: 02/23/19 8241 I personally evaluated the patient and discussed the management with Dr. Liu. I agree with the History, Examination, Assessment and Plan documented above with any addition or exceptions noted below. Patient reports feeling improved and wants to go home. However, caregiver expresses that patient is also admitting that she is weak and unsteady and scared to go home. She is off O2. Encouraged ambulation and will re-evaluate this morning. She will continue on coverage for CAP. Will discuss again the benefit of rehab if she is open to it. WBC greatly improved and CXR shows improvement.
[2019-02-23] MEDS ORDERED: Potassium Chloride 20 MEQ TAB PO SCH (06:15)
[2019-02-23] MEDS: Arformoterol 15 MCG/2 ML NEB NEB SCH ×2 (07:16→18:05)
[2019-02-23] MEDS: Budesonide 0.5 MG/2 ML NEB NEB SCH ×2 (07:20→18:04)
[2019-02-23] MEDS: traMADol HCl 50 MG TAB PO PRN ×2 (08:41→20:53)
[2019-02-23] MEDS: Potassium Chloride 20 MEQ TAB PO SCH (08:43)
[2019-02-23] MEDS: busPIRone HCl 5 MG TAB PO SCH ×2 (08:43→20:52)
[2019-02-23] MEDS: Famotidine 20 MG TAB PO SCH ×2 (08:44→20:53)
[2019-02-23] MEDS: guaiFENesin ER 600 MG TAB PO SCH ×2 (08:44→20:53)
[2019-02-23] MEDS: Furosemide 40 MG TAB PO SCH (08:44)
[2019-02-23] MEDS: Carvedilol 3.125 MG TAB PO SCH ×2 (08:44→18:04)
[2019-02-23] MEDS: Aspirin Chewable 81 MG TAB PO SCH ×2 (08:44→20:53)
[2019-02-23] MEDS: Pregabalin 75 MG CAP PO SCH ×3 (08:45→20:53)
[2019-02-23] MEDS: Enoxaparin Sodium 40 MG/0.4 ML SYRINGE SC SCH (08:46)
[2019-02-23] MEDS ORDERED: Amoxicillin/Potassium Clav 875 MG TAB PO SCH (09:00)
[2019-02-23] MEDS: Acetaminophen 325 MG TAB PO PRN (12:02)
[2019-02-23] MEDS ORDERED: TRIAZOLAM 0.25 MG PO PRN (19:45)
[2019-02-23] MEDS: Atorvastatin Calcium 10 MG TAB PO SCH (20:53)
--- NOTE | 2019-02-24 06:30 | PDOC.FM ---
- Subjective Subjective: Discussed inpt rehab w/ pt yesterday. She understands it would only be for a short time, but she says she has been at those places before and does not want to go. Her main worry going home is if she will aspirate again. That is what scares her the most. She feels safe to ambulate at home. She was using her acapella this morning when I went in. - Objective MAR Reviewed: Yes Vital Signs & Weight: Vital Signs (12 hours) Temp Pulse Resp BP BP Pulse Ox 02/24/19 04:00 97.3 F L 58 L 20 183/73 H 96 02/23/19 20:00 98.0 F 67 18 144/87 H 95 Weight Admit Weight 67.84 kg Weight 65.363 kg I&O: 02/22/19 02/23/19 02/24/19 06:59 06:59 06:59 Intake Total 740 550 570 Output Total 1000 400 Balance -260 150 570 Result Diagrams: 02/23/19 04:24 02/24/19 06:53 Phys Exam - Physical Examination Constitutional: NAD Improved from prev exam, coarse rhonchi in RLL improved/diminished Cardiovascular: RRR, no significant murmur Gastrointestinal: soft, no distention Neurological: non-focal Psychiatric: normal affect, A&O x 3 Dx/Plan (1) Sepsis Code(s): A41.9 - SEPSIS, UNSPECIFIED ORGANISM Status: Acute (2) Aspiration pneumonia Code(s): J69.0 - PNEUMONITIS DUE TO INHALATION OF FOOD AND VOMIT Status: Acute (3) CAD (coronary artery disease) Code(s): I25.10 - ATHSCL HEART DISEASE OF [place] CORONARY ARTERY W/O ANG PCTRS Status: Chronic Qualifiers: Coronary Disease-Associated Artery/Lesion type: [place] artery [place] vs. transplanted heart: [place] heart Associated angina: without angina Qualified Code(s): I25.10 - Atherosclerotic heart disease of [place] coronary artery without angina pectoris (4) Chronic systolic heart failure, ACC/AHA stage C Code(s): I50.22 - CHRONIC SYSTOLIC (CONGESTIVE) HEART FAILURE Status: Chronic (5) Dyslipidemia Code(s): E78.5 - HYPERLIPIDEMIA, UNSPECIFIED Status: Chronic (6) Anxiety and depression Code(s): F41.9 - ANXIETY DISORDER, UNSPECIFIED; F32.9 - MAJOR DEPRESSIVE DISORDER, SINGLE EPISODE, UNSPECIFIED Status: Chronic (7) Hypothyroidism Code(s): E03.9 - HYPOTHYROIDISM, UNSPECIFIED Status: Chronic Qualifiers: Hypothyroidism type: unspecified Qualified Code(s): E03.9 - Hypothyroidism , unspecified (8) Hypertension Code(s): I10 - ESSENTIAL (PRIMARY) HYPERTENSION Status: Chronic Qualifiers: Hypertension type: essential hypertension Qualified Code(s): I10 - Essential (primary) hypertension (9) Recurrent falls Code(s): R29.6 - REPEATED FALLS Status: Chronic (10) H/O prosthetic aortic valve replacement Code(s): Z95.2 - PRESENCE OF PROSTHETIC HEART VALVE Status: Chronic - Plan Plan: 83 yo F brought by EMS after being found in her own vomit, admitted for having: Sepsis 2/2 likely to Aspiration PNA Acute hypoxic respiratory failure, improved - WBC markedly improved - most likely source is PNA. Does not require O2 at home. Has been requiring 2- 2.5 L NC here. - other sources being evaluated: cultures drawn, Blood Cx: NGTD. - Flu NEG - Procalcitonin, trending. Has decreased. - On RA at home. Has required 1-2 L NC to stay in 90s% saturation. - Decision made to treat for CAP since pt cough began prior to the aspiration event. Continue levaquin. - Speech eval: mechanical soft and thin liquids. - Pt's cough still present. Has not changed. Has mucinex and tessalon pearls on board. Is using acapella. Acute encephalopathy, improved - unknown mental status baseline, pt disoriented and lethargic. - infectious vs metabolic vs medication-induced, less likely the sole cause but could be contributing - home medications have been restarted. Per pharmacy, interactions of medications for [employer] depression include home nasal spray azelastine/fluticasone with tramadol and pregabalin. Home nasal spray has not been given here. She takes the tramadol and gabapentin for pain. - pt requested triazolam for nighttime so gave her this home med. Hypokalemia - monitor, replete. Will discharge on 40 mEq daily. - Alk phos elevated. TBili elevated. Ast/Alt normal. Improving. elevated troponin - downtrending, likely demand. Chronic conditions: continue home medications for the below conditions: CAD CHF - strict I/O - last EF reported was 20%. monitor fluid status closely Hypothyroidism Anxiety/Depression GERD Hx of aortic valve replacement Code status: DNR-DNI. Fluids: oral intake. No IVF. VTE: LVX GI: none MPOA: daughter Awilda Block, Dispo: inpt tele. Pt wishes to go back home w/ home health.No O2 requirements over 24 hours. Will likely discharge today. Addendum - Attending - Attending Attestation Date/Time: 02/24/19 7257 I personally evaluated the patient and discussed the management with Dr. Liu. I agree with the History, Examination, Assessment and Plan documented above with any addition or exceptions noted below. Patient medically stable for discharge. She declines Rehab or SNF. I have spoken with the daughter who is on board with discharge and reports family will be around to help the patient. DC today.
[2019-02-24] MEDS: Arformoterol 15 MCG/2 ML NEB NEB SCH (06:35)
[2019-02-24] MEDS: Budesonide 0.5 MG/2 ML NEB NEB SCH (06:38)
[2019-02-24] MEDS: Levothyroxine Sodium 75 MCG TAB PO SCH (06:46)
[2019-02-24 07:31] LABS: ALT (SGPT) 22 U/L (8-55); AST (SGOT) 22 U/L (5-34); Albumin 3.6 g/dL (3.4-4.8); Alkaline Phosphatase 127 U/L (40-110); Anion Gap 14 mmol/L (10-20); BUN (Urea Nitrogen) 13 mg/dL (9.8-20.1); Bilirubin, Total 0.8 mg/dL (0.2-1.2); Calc. Creatinine Clearance 49 mL/min (70-130); Calcium 9.5 mg/dL (7.8-10.44); Carbon Dioxide 27 mmol/L (23-31); Chloride 105 mmol/L (98-107); Estimated GFR-MDRD 62; Globulin 2.7 g/dL (2.4-3.5); Glucose 84 mg/dL (83-110); Potassium 3.4 mmol/L (3.5-5.1); Protein, Total 6.3 g/dL (6.0-8.3); Sodium 143 mmol/L (136-145)
[2019-02-24] MEDS: busPIRone HCl 5 MG TAB PO SCH (08:40)
[2019-02-24] MEDS: Carvedilol 3.125 MG TAB PO SCH (08:41)
[2019-02-24] MEDS: Aspirin Chewable 81 MG TAB PO SCH (08:42)
[2019-02-24] MEDS: Furosemide 40 MG TAB PO SCH (08:42)
[2019-02-24] MEDS: Famotidine 20 MG TAB PO SCH (08:42)
[2019-02-24] MEDS: guaiFENesin ER 600 MG TAB PO SCH (08:42)
[2019-02-24] MEDS: traMADol HCl 50 MG TAB PO PRN (08:43)
[2019-02-24] MEDS: Potassium Chloride 20 MEQ TAB PO SCH (08:43)
[2019-02-24] MEDS: Enoxaparin Sodium 40 MG/0.4 ML SYRINGE SC SCH (08:43)
[2019-02-24] MEDS: Pregabalin 75 MG CAP PO SCH (08:44)
[2019-02-24 11:10] VITALS: BP 126/62; TEMP 97.8
== END 2019-02-24 13:15 | disposition home health service (06) | DRG 871 ==
LOC: ERS 12:27 → 2NO 20:23
PROVIDERS: ADMIT Student in an Organized Health Care Education/Training Program; ATTEND Student in an Organized Health Care Education/Training Program
DX: A41.9 Sepsis, unspecified organism (principal); J69.0 Pneumonitis due to inhalation of food and vomit; J96.01 Acute respiratory failure with hypoxia; I50.22 Chronic systolic (congestive) heart failure; I24.8 Other forms of acute ischemic heart disease; I25.10 Atherosclerotic heart disease of native coronary artery without angina pectoris; F32.9 Major depressive disorder, single episode, unspecified; F41.9 Anxiety disorder, unspecified; E03.9 Hypothyroidism, unspecified; E87.6 Hypokalemia; Z66 Do not resuscitate; E78.5 Hyperlipidemia, unspecified; R29.6 Repeated falls; I11.0 Hypertensive heart disease with heart failure; K21.9 Gastro-esophageal reflux disease without esophagitis; Z95.2 Presence of prosthetic heart valve
CPT/HCPCS: 36415; 36416; 71045; 80053; 81003; 81015; 82550; 82553; 82977; 83605; 83690; 83735; 84145; 84484; 85025; 85060; 87040; 87086; 87804; 90471; 90670; 93005; 94640; 94667; 94668; A4353; G0009; J1650; J2543; J3480; J3490; J7626

== ENCOUNTER 2019-03-04 12:32 | Day surgery (SDC) | payer MEDICARE, BC | END 2019-03-04 15:00 | disposition home or self-care (01) | LOC: SDC 12:32 | PROVIDERS: ATTEND Internal Medicine Gastroenterology | DX: D50.9 Iron deficiency anemia, unspecified (principal); R19.5 Other fecal abnormalities; Z53.8 Procedure and treatment not carried out for other reasons; Z79.51 Long term (current) use of inhaled steroids; Z79.82 Long term (current) use of aspirin; Z79.899 Other long term (current) drug therapy ==

== ENCOUNTER 2019-04-25 15:46 | Observation (INO) | payer MEDICARE, BC ==
[2019-04-25 16:51] LABS: #Basophils 0.1 thou/uL (0.0-0.2); #Lymphocytes 3.4 thou/uL (1.20-3.40); #Monocytes 0.8 thou/uL (0.11-0.59); #Neutrophils 5.3 thou/uL (1.40-6.50); %Basophils 0.9 % (0.0-1.0); %Eosinophils 9.4 % (0.0-10.0); %Monocytes 7.5 % (0.0-10.0); %Neutrophils 50.3 % (42.0-75.0); Hemoglobin 13.1 g/dL (12.0-16.0); Mean Corpuscular HGB CONC 30.8 g/dL (32.0-36.0); Mean Corpuscular Volume 97.2 fL (78.0-98.0); Mean Platelet Volume 7.9 fL (7.4-10.4); Platelet Count 304 thou/uL (130-400); RBC Distribution Width 13.3 % (11.5-14.5); Red Blood Cell (RBC) Count 4.36 mill/uL (4.20-5.40); White Blood Cell (WBC) Count 10.6 thou/uL (4.8-10.8)
[2019-04-25 17:12] LABS: ALT (SGPT) 10 U/L (8-55); AST (SGOT) 18 U/L (5-34); Albumin 3.7 g/dL (3.4-4.8); Alkaline Phosphatase 116 U/L (40-110); Anion Gap 11 mmol/L (10-20); BUN (Urea Nitrogen) 14 mg/dL (9.8-20.1); Bilirubin, Total 0.4 mg/dL (0.2-1.2); Calc. Creatinine Clearance 0 mL/min (70-130); Carbon Dioxide 31 mmol/L (23-31); Chloride 104 mmol/L (98-107); Estimated GFR-MDRD 52; Globulin 3.2 g/dL (2.4-3.5); Glucose 101 mg/dL (83-110); Potassium 3.4 mmol/L (3.5-5.1); Protein, Total 6.9 g/dL (6.0-8.3); Sodium 143 mmol/L (136-145)
--- NOTE | 2019-04-25 17:30 | RAD ---
SINGLE VIEW CHEST: HISTORY: Weakness. COMPARISON: 02/22/2019 FINDINGS: A single view of the chest shows an enlarged but stable cardiomediastinal silhouette. The patient is status post aortic valve repair. There is no evidence of consolidation, mass or pleural effusion. IMPRESSION: Cardiomegaly without evidence of acute cardiopulmonary disease. POS: [facility]
[2019-04-25 18:48] LABS: Leukocyte Negative (Negative)
[2019-04-25 18:49] LABS: Clarity Clear (Clear); Nitrite Unable to Interpret (Negative)
[2019-04-25 18:50] LABS: Bilirubin Unable to Interpret (Negative); Blood, Urine Trace (Negative); Glucose, Urine (Dipstick) Unable to Interpret mg/dL (Negative); Protein, Urine (Dipstick) Negative (Neg-Trace); Urobilinogen UNABLE TO INTERPRET mg/dL (Less than 2)
[2019-04-25] MEDS ORDERED: cefTRIAXone\\ROCEPHIN 2 GM VIAL ONE (18:57)
[2019-04-25 19:01] LABS: Bacteria/HPF None Seen HPF (None Seen); RBC/HPF 0-3 HPF (0-3); Squamous Epithelial 0-3 HPF (0-3)
--- NOTE | 2019-04-25 20:19 | CT ---
CT BRAIN WITHOUT CONTRAST: Comparison: 01-27-18 History: Fall one day ago with altered mental status and weakness. Technique: Multiple contiguous axial images were obtained in a CT of the brain without contrast. FINDINGS: There are scattered hypodensities in the subcortical and periventricular white matter, likely seconda ry to small vessel ischemic disease. No large confluent infarction is seen. There is no evidence of h ydrocephalus, intracranial hemorrhage or extraaxial fluid collection. The calvarium and overlying soft tissues are unremarkable. The visualized paranasal sinuses and masto id air cells are well aerated. IMPRESSION: No evidence of acute intracranial abnormality. POS: [facility]
--- NOTE | 2019-04-25 20:31 | CT ---
CT CERVICAL SPINE WITHOUT CONTRAST: Comparison: None. History: Fall one day ago with altered mental status and weakness. Technique: Multiple contiguous axial images were obtained in a CT of the cervical spine without contr ast. FINDINGS: Diffuse osteopenia is seen. The vertebral bodies demonstrate normal height and alignment without acut e fracture or subluxation. No prevertebral soft tissue swelling is seen. Mild to moderate degenerativ e changes are seen throughout the cervical spine. The posterior facets are well aligned. Normal alignment of the skull base with cervical spine is seen . Calcifications are seen in the carotid arteries. The lung apices are unremarkable. IMPRESSION: No evidence of acute osseous abnormality of the cervical spine. POS: [facility]
[2019-04-25] MEDS ORDERED: Acetaminophen 325 MG TAB PO PRN (22:03)
[2019-04-25] MEDS ORDERED: Ondansetron PF 4 MG/2 ML Vial IVP PRN (22:03)
[2019-04-25] MEDS ORDERED: Sodium Chloride 0.9% 1,000 ML IV SCH (22:03)
[2019-04-25] MEDS ORDERED: Ondansetron ODT 4 MG TAB SL PRN (22:03)
[2019-04-25 22:12] VITALS: BMI 25.7
[2019-04-26] MEDS ORDERED: hydrALAZINE 20 MG/ML VIAL SLOW IVP PRN (06:24)
[2019-04-26] MEDS ORDERED: Ondansetron PF 4 MG/2 ML Vial IVP PRN (06:24)
[2019-04-26] MEDS ORDERED: Ondansetron ODT 4 MG TAB PO PRN (06:24)
[2019-04-26] MEDS ORDERED: Acetaminophen 500 MG TAB PO PRN (06:24)
[2019-04-26] MEDS ORDERED: TRIAZOLAM 0.25 MG PO PRN ×2 (06:24→06:39)
[2019-04-26] MEDS: Sodium Chloride 0.9% 1,000 ML IV SCH ×2 (06:47→20:28)
[2019-04-26] MEDS: Carvedilol 3.125 MG TAB PO SCH ×2 (09:00→18:00)
[2019-04-26] MEDS ORDERED: FORMOTEROL FUMARATE NEB SCH (09:00)
[2019-04-26] MEDS ORDERED: BUDESONIDE NEB SCH (09:00)
[2019-04-26] MEDS ORDERED: Famotidine 20 MG TAB PO SCH (09:00)
[2019-04-26] MEDS ORDERED: Non-Formulary Item 1 EACH (Buspirone Hcl [Buspirone Hcl] 7.5 MG) PO SCH (09:00)
[2019-04-26] MEDS: traMADol HCl 50 MG TAB PO SCH ×2 (09:54→20:28)
[2019-04-26] MEDS: Levothyroxine Sodium 75 MCG TAB PO SCH (09:54)
[2019-04-26] MEDS: Pregabalin 75 MG CAP PO SCH ×3 (09:55→20:28)
[2019-04-26] MEDS: Aspirin Chewable 81 MG TAB PO SCH ×2 (09:55→20:28)
[2019-04-26] MEDS: busPIRone HCl 5 MG TAB PO SCH ×2 (09:55→20:27)
[2019-04-26] MEDS: Potassium Chloride 20 MEQ TAB PO SCH (09:56)
--- NOTE | 2019-04-26 09:56 | HP ---
PRIMARY CARE PROVIDER: Home Johnson MD CHIEF COMPLAINT: Generalized weakness and falls. HISTORY OF PRESENT ILLNESS: This is an 83-year-old female, who presents to [facility] Emergency Department after complaining of profound weakness. The patient states she was recently treated for urinary tract infection, completing a course of antibiotics with ciprofloxacin, then transitioning to Augmentin after her symptoms persisted. The patient denied any documented fever, chills, nausea, vomiting, or diarrhea. The patient did admit to some lower abdominal discomfort. The patient admits that she had several episodes of falling due to leg weakness. The patient denied any loss of consciousness or head trauma. The patient denies any other change to her chronic medication regimen, recent travel history, or family members with similar symptoms. The patient states she normally ambulates with use of a rolling walker at home and denies having home health services or recent physical therapy. In the emergency room, the patient underwent general evaluation, receiving vancomycin, Rocephin, and intravenous normal saline after concern for persistent urinary tract infection. PAST MEDICAL HISTORY: 1. Recurrent urinary tract infections. 2. Metabolic encephalopathy secondary to recurrent urinary tract infections. 3. Dyslipidemia. 4. Coronary artery disease. 5. Systolic congestive heart failure with ejection fraction of 25%. 6. Migraine headaches. 7. Osteoarthritis. 8. Chronic back pain. 9. Frequent falls. PAST SURGICAL HISTORY: 1. Status post cholecystectomy. 2. Status post hysterectomy. 3. Status post cervical spine surgery. 4. Status post back surgery x2. 5. Status post right hip surgery. 6. Status post bilateral foot surgery. CURRENT MEDICATIONS: 1. Lipitor 10 mg p.o. at bedtime. 2. Budesonide one vial nebulized b.i.d. 3. Formoterol fumarate one vial nebulized b.i.d. 4. BuSpar 7.5 mg p.o. b.i.d. 5. Lasix 40 mg p.o. daily. 6. Levothyroxine 75 mcg p.o. daily. 7. Omeprazole 40 mg p.o. daily. 8. Lyrica 75 mg p.o. t.i.d. 9. Tramadol 50 mg p.o. b.i.d. 10. Triazolam 0.25 mg p.o. at bedtime. 11. Aspirin 81 mg p.o. b.i.d. 12. Carvedilol 3.125 mg p.o. b.i.d. 13. K-Dur 40 mEq p.o. daily. ALLERGIES: NO KNOWN DRUG ALLERGIES. FAMILY HISTORY: Mother of rectal cancer. Father was killed in a motor vehicle accident. SOCIAL HISTORY: Resides in [place], [place]. Retired. Lives with her daughter. No current alcohol, tobacco, or illicit drug use. Ambulates with use of a rolling walker. Multiple falls reported. REVIEW OF SYSTEMS: CONSTITUTIONAL: Negative for weight loss or gain, ability to conduct usual activities. SKIN: Negative for rash, itching. EYES: Negative for double vision, pain. ENT/MOUTH: Negative for nose bleeding, neck stiffness, pain, tenderness. CARDIOVASCULAR: Negative for palpitations, dyspnea on exertion, orthopnea. RESPIRATORY: Negative for shortness of breath, wheezing, cough, hemoptysis, fever or night sweats. GASTROINTESTINAL: Negative for poor appetite, abdominal pain, heartburn, nausea, vomiting, constipation, or diarrhea. GENITOURINARY: Negative for urgency, frequency, dysuria, nocturia. MUSCULOSKELETAL: Negative for pain, swelling. NEUROLOGIC/PSYCHIATRIC: Negative for anxiety, depression. ALLERGY/IMMUNOLOGIC: Negative for skin rash, bleeding tendency. Otherwise, negative except as stated per HPI. PHYSICAL EXAMINATION: VITAL SIGNS: On admission; blood pressure 141/92, pulse 95, respiratory rate 16, temperature 98.5 degrees Fahrenheit, and O2 saturation 96% on 2 L/minute by nasal cannula. GENERAL APPEARANCE: This is an 83-year-old female, pale appearing, pleasant, smiling, in no acute distress. HEENT: Pupils are equal, round, reactive to light and accommodation. Extraocular muscles are intact. No scleral icterus. No conjunctival injection. Nares patent. OP is clear. Oral mucosa dry appearing. NECK: Supple. No cervical adenopathy. No thyromegaly. No carotid bruits. No JVD appreciated. Cervical spine with full active and passive range of motion. No meningeal signs noted. CHEST: Lungs are clear to auscultation bilaterally. CARDIOVASCULAR: S1 and S2 without noted murmur, rub, or gallop. ABDOMEN: Rounded, soft, nontender, and nondistended. Bowel sounds are positive in all 4 quadrants. There is no hepatosplenomegaly. No abdominal bruits. No rebound or guarding appreciated. EXTREMITIES: Warm and dry with good turgor. No clubbing, cyanosis, or asymmetric edema appreciated. Pulses palpable distally at the dorsalis pedis, posterior tibial, and popliteal arteries bilaterally. Capillary refill less than 2 seconds. NEUROLOGIC: Cranial nerves 2 through 12 are grossly intact. No focal or lateralizing signs appreciated. PERTINENT LABORATORY AND X-RAY FINDINGS: Sodium 143, potassium 3.4, chloride 104, CO2 of 31, BUN 14, creatinine 1.01, estimated GFR 52, glucose 101, and lactic acid level 1.3. LFTs within normal limits. Troponin I negative x1. CBC within normal limits. Urinalysis showed trace blood and 4 to 6 wbc's per high-power field. Portable chest x-ray dated 04/25/2019, showed no acute cardiopulmonary process. CT of the brain dated 04/25/2019, showed no acute intracranial process. CT of the cervical spine dated 04/25/2019, showed no acute process. EKG dated 04/25/2019 by my interpretation shows sinus bradycardia with heart rates in the 50s. Attenuated R-waves noted in the precordial leads. Left axis deviation noted. No acute ST-T wave changes appreciated. ASSESSMENT AND PLAN: 1. Urinary tract infection. The patient will be observed on the medical floor. We will continue Rocephin 2 g IV q.24 hours. Urine culture pending. Continue intravenous normal saline at 75 mL/h. 2. Deconditioning. Suspect multifactorial process including advanced age and the decreased exercise tolerance. PT/OT evaluation for functional assessment. General fall risk precautions. 3. Generalized weakness. See #2 above. Consider home health with physical therapy at discharge. 4. Polypharmacy. Multiple psychotropic medications with sedating properties. Consider titration for streamline home dosing and exposure. 5. Hypothyroidism. Continue levothyroxine 75 mcg daily. Check TSH and free T4 level in the a.m. 6. Prophylaxis. Sequential compression devices while in bed. Pepcid 20 mg p.o. b.i.d. Physical Therapy and Occupational Therapy evaluation pending. 7. Code status is full. Surrogate medical decision maker is the patient's daughter. Job ID: [id number]
[2019-04-26] MEDS: Benzonatate 100 MG CAP PO SCH ×3 (09:57→20:27)
--- NOTE | 2019-04-26 14:31 | PDOC.HOSPP ---
- Subjective Encounter Date: 04/26/19 Encounter Time: 14:30 Subjective: burning on urinatio - Objective Vital Signs & Weight: Vital Signs (12 hours) Temp Pulse Resp BP Pulse Ox 04/26/19 12:13 97.8 F 55 L 18 123/58 L 97 04/26/19 08:03 97.9 F 53 L 18 152/66 H 97 04/26/19 04:24 98.2 F 54 L 16 138/60 97 Weight Weight 145 lb 8.081 oz I&O: 04/25/19 04/26/19 04/27/19 06:59 06:59 06:59 Intake Total 800 Balance 800 Result Diagrams: 04/25/19 16:42 04/25/19 16:42 Additional Labs: Accuchecks 04/25/19 20:39 POC Glucose 77 Hospitalist ROS - Medication Medications: Active Medications Generic Name Dose Route Start Last Admin Trade Name Freq PRN Reason Stop Dose Admin Aspirin 81 mg 04/26/19 09:00 04/26/19 09:55 Aspirin Chewable PO 81 mg BID LYNN Administration Benzonatate 100 mg 04/26/19 09:00 04/26/19 09:57 Tessalon PO Not Given TID LYNN Buspirone HCl 7.5 mg 04/26/19 09:00 04/26/19 09:55 Buspar PO 7.5 mg BID LYNN Administration Carvedilol 3.125 mg 04/26/19 08:00 04/26/19 09:00 Coreg PO 3.125 mg BID-WM LYNN Administration Sodium Chloride 1,000 mls @ 75 mls/hr 04/26/19 06:30 04/26/19 06:47 Normal Saline 0.9% IV Not Given .[id number] LYNN Levothyroxine Sodium 75 mcg 04/26/19 09:00 04/26/19 09:54 Synthroid PO 75 mcg DAILY LYNN Administration Potassium Chloride 40 meq 04/26/19 09:00 04/26/19 09:56 K-Dur PO 40 meq DAILY LYNN Administration Pregabalin 75 mg 04/26/19 09:00 04/26/19 09:55 Lyrica PO 75 mg TID LYNN Administration Sodium Chloride 10 ml 04/26/19 09:00 04/26/19 09:57 Flush - Normal Saline IVF 10 ml Q12HR LYNN Administration Tramadol HCl 50 mg 04/26/19 09:00 04/26/19 09:54 Ultram PO 50 mg BID LYNN Administration - Exam General Appearance: awake alert Neck: no JVD Heart: RRR, no murmur Respiratory: CTAB Gastrointestinal: soft, normal bowel sounds Extremities: no edema Hosp A/P (1) Dysuria Code(s): R30.0 - DYSURIA Status: Acute (2) Anxiety and depression Code(s): F41.9 - ANXIETY DISORDER, UNSPECIFIED; F32.9 - MAJOR DEPRESSIVE DISORDER, SINGLE EPISODE, UNSPECIFIED Status: Chronic (3) Dyslipidemia Code(s): E78.5 - HYPERLIPIDEMIA, UNSPECIFIED Status: Chronic (4) Hypertension Code(s): I10 - ESSENTIAL (PRIMARY) HYPERTENSION Status: Chronic Qualifiers: Hypertension type: essential hypertension (5) Hypothyroidism Code(s): E03.9 - HYPOTHYROIDISM, UNSPECIFIED Status: Chronic Qualifiers: Hypothyroidism type: unspecified (6) Ischemic cardiomyopathy Code(s): I25.5 - ISCHEMIC CARDIOMYOPATHY Status: Chronic (7) Recurrent falls Code(s): R29.6 - REPEATED FALLS Status: Chronic - Plan urine C&S neg, min pyuria- DC antibx qawait TFT, add cortisol level
[2019-04-26] MEDS ORDERED: cefTRIAXone\\ROCEPHIN 2 GM in Sodium Chloride 0.9% 100 ML IVPB SCH (18:00)
[2019-04-26] MEDS: Arformoterol 15 MCG/2 ML NEB NEB SCH (22:10)
[2019-04-26] MEDS: Budesonide 0.5 MG/2 ML NEB NEB SCH (22:10)
[2019-04-27 05:13] LABS: Anion Gap 8 mmol/L (10-20); BUN (Urea Nitrogen) 14 mg/dL (9.8-20.1); CK (CPK) 21 U/L (29-168); Calc. Creatinine Clearance 55 mL/min (70-130); Calcium 8.7 mg/dL (7.8-10.44); Carbon Dioxide 29 mmol/L (23-31); Chloride 109 mmol/L (98-107); Estimated GFR-MDRD 70; Glucose 83 mg/dL (83-110); Potassium 3.9 mmol/L (3.5-5.1); Sodium 142 mmol/L (136-145)
[2019-04-27 05:27] LABS: Eosinophils 1 % (0-10); Hypochromia SLIGHT = 6-15 cells (100X) (0-5/hpf); Lymphocytes 46 % (21-51); MDiff Complete? YES; Mean Corpuscular HGB CONC 31.3 g/dL (32.0-36.0); Mean Corpuscular Volume 95.8 fL (78.0-98.0); Mean Platelet Volume 7.7 fL (7.4-10.4); Monocytes 5 % (0-10); Neutrophil 48 % (42-75); Platelet Count 262 thou/uL (130-400); Platelet Morphology Comment Appears Adequate; RBC Distribution Width 13.4 % (11.5-14.5); Red Blood Cell (RBC) Count 3.66 mill/uL (4.20-5.40)
[2019-04-27 05:31] LABS: Free T4 (Free Thyroxine) 0.9 ng/dL (0.70-1.48); Thyroid Stimulating Hormone 1.5545 uIU/mL (0.35-4.94)
--- NOTE | 2019-04-27 07:49 | PDOC.HOSPP ---
- Subjective Encounter Date: 04/27/19 Encounter Time: 07:45 Subjective: ok today - Objective Vital Signs & Weight: Vital Signs (12 hours) Temp Pulse Resp BP Pulse Ox 04/27/19 04:00 98.5 F 55 L 16 136/63 96 04/26/19 23:58 98.3 F 60 16 112/55 L 96 04/26/19 22:10 56 L 16 98 Weight Weight 145 lb 8.081 oz I&O: 04/26/19 04/27/19 04/28/19 06:59 06:59 06:59 Intake Total 800 60 Output Total 650 Balance 800 -590 Result Diagrams: 04/27/19 04:41 04/27/19 04:41 Hospitalist ROS - Medication Medications: Active Medications Generic Name Dose Route Start Last Admin Trade Name Freq PRN Reason Stop Dose Admin Acetaminophen 1,000 mg 04/26/19 06:24 04/26/19 15:27 Tylenol PO 1,000 mg Q6H PRN Administration Mild Pain (1-3) Arformoterol Tartrate 15 mcg 04/26/19 18:30 04/26/19 22:10 Brovana NEB 15 mcg BID-RT LYNN Administration Aspirin 81 mg 04/26/19 09:00 04/26/19 20:28 Aspirin Chewable PO 81 mg BID LYNN Administration Benzonatate 100 mg 04/26/19 09:00 04/26/19 20:27 Tessalon PO 100 mg TID LYNN Administration Budesonide 0.5 mg 04/26/19 18:30 04/26/19 22:10 Pulmicort Neb Solution NEB 0.5 mg BID-RT LYNN Administration Buspirone HCl 7.5 mg 04/26/19 09:00 04/26/19 20:27 Buspar PO 7.5 mg BID LYNN Administration Carvedilol 3.125 mg 04/26/19 08:00 04/26/19 18:00 Coreg PO 3.125 mg BID-WM LYNN Administration Sodium Chloride 1,000 mls @ 75 mls/hr 04/26/19 06:30 04/26/19 20:28 Normal Saline 0.9% IV 1,000 mls .[id number] LYNN Administration Levothyroxine Sodium 75 mcg 04/26/19 09:00 04/26/19 09:54 Synthroid PO 75 mcg DAILY LYNN Administration Potassium Chloride 40 meq 04/26/19 09:00 04/26/19 09:56 K-Dur PO 40 meq DAILY LYNN Administration Pregabalin 75 mg 04/26/19 09:00 04/26/19 20:28 Lyrica PO 75 mg TID LYNN Administration Sodium Chloride 10 ml 04/26/19 09:00 04/26/19 20:55 Flush - Normal Saline IVF Not Given Q12HR LYNN Tramadol HCl 50 mg 04/26/19 09:00 04/26/19 20:28 Ultram PO 50 mg BID LYNN Administration - Exam General Appearance: awake alert Neck: no JVD Heart: RRR, no murmur Respiratory: CTAB Gastrointestinal: soft, normal bowel sounds Extremities: no edema Hosp A/P (1) Dysuria Code(s): R30.0 - DYSURIA Status: Resolved (2) Anxiety and depression Code(s): F41.9 - ANXIETY DISORDER, UNSPECIFIED; F32.9 - MAJOR DEPRESSIVE DISORDER, SINGLE EPISODE, UNSPECIFIED Status: Chronic (3) Dyslipidemia Code(s): E78.5 - HYPERLIPIDEMIA, UNSPECIFIED Status: Chronic (4) Hypertension Code(s): I10 - ESSENTIAL (PRIMARY) HYPERTENSION Status: Chronic Qualifiers: Hypertension type: essential hypertension (5) Hypothyroidism Code(s): E03.9 - HYPOTHYROIDISM, UNSPECIFIED Status: Chronic Qualifiers: Hypothyroidism type: unspecified (6) Ischemic cardiomyopathy Code(s): I25.5 - ISCHEMIC CARDIOMYOPATHY Status: Chronic (7) Recurrent falls Code(s): R29.6 - REPEATED FALLS Status: Chronic - Plan no uti, thyroid, cortisol WNL DC planning
[2019-04-27] MEDS: Budesonide 0.5 MG/2 ML NEB NEB SCH (07:50)
[2019-04-27] MEDS: Arformoterol 15 MCG/2 ML NEB NEB SCH (07:50)
[2019-04-27] MEDS: traMADol HCl 50 MG TAB PO SCH (08:34)
[2019-04-27] MEDS: Benzonatate 100 MG CAP PO SCH (08:34)
[2019-04-27] MEDS: Potassium Chloride 20 MEQ TAB PO SCH (08:36)
[2019-04-27] MEDS: busPIRone HCl 5 MG TAB PO SCH (08:37)
[2019-04-27] MEDS: Carvedilol 3.125 MG TAB PO SCH (08:38)
[2019-04-27] MEDS: Aspirin Chewable 81 MG TAB PO SCH (08:38)
[2019-04-27] MEDS: Levothyroxine Sodium 75 MCG TAB PO SCH (08:38)
[2019-04-27] MEDS: Pregabalin 75 MG CAP PO SCH (08:38)
[2019-04-27] MEDS ORDERED: Famotidine 20 MG TAB PO SCH (09:00)
[2019-04-27] MEDS: Sodium Chloride 0.9% 1,000 ML IV SCH (09:16)
[2019-04-27 11:54] VITALS: BP 128/58; TEMP 97.9
--- NOTE | 2019-04-27 13:26 | DIS ---
DATE OF ADMISSION: 04/25/2019 DATE OF DISCHARGE: 04/27/2019 PRIMARY CARE PROVIDER: Home Johnson MD DISPOSITION: Discharged home. FINAL DIAGNOSES: 1. Dysuria, culture negative. 2. Anxiety. 3. Depression. 4. Dyslipidemia. 5. Hypertension. 6. Hypothyroidism. 7. Cardiomyopathy. DISCHARGE MEDICATIONS: Same as admitting medications. 1. K-Dur 40 mEq a day. 2. Lyrica 75 mg 3 times a day. 3. Triazolam 0.25 mg h.s. 4. BuSpar 7.5 mg twice a day. 5. Mucinex 600 mg twice a day. 6. Ultram 50 mg twice a day. 7. Lipitor 10 mg h.s. 8. Budesonide one vial nebulizer twice a day. 9. Coreg 3.125 mg twice a day. 10. Formoterol fumarate one vial neb b.i.d. 11. Lasix 40 mg a day. 12. Levothyroxine 75 mcg a day. 13. Omeprazole 40 mg a day. 14. Aspirin 81 mg a day. ALLERGIES: NO KNOWN DRUG ALLERGIES. HOSPITAL COURSE: The patient admitted to [facility] with chief complaint of weakness and falls. She has mild pyuria, 4 to 6 white cells with no nitrite or esterase. Her cultures and CBC are unremarkable. Comprehensive metabolic profile; potassium 3.4, otherwise unremarkable. Urine culture, no growth at 24 hours. The patient is afebrile, desirous of going home. She is being discharged home with home health with physical therapy. She is on her home medicines. No consultations were obtained. No procedures were done. She has been asked to see her PCP in 3 days for followup. Job ID: [id number]
== END 2019-04-27 14:20 | disposition home health service (06) ==
LOC: ERS 15:46 → ONC 21:58 → INTOOBSV 21:58
PROVIDERS: ADMIT Hospitalist; ATTEND Hospitalist
DX: R53.1 Weakness (principal); R30.0 Dysuria; R82.81 Pyuria; F41.9 Anxiety disorder, unspecified; F32.9 Major depressive disorder, single episode, unspecified; E78.5 Hyperlipidemia, unspecified; R10.30 Lower abdominal pain, unspecified; I11.0 Hypertensive heart disease with heart failure; I50.20 Unspecified systolic (congestive) heart failure; E03.9 Hypothyroidism, unspecified; I25.5 Ischemic cardiomyopathy; I25.10 Atherosclerotic heart disease of native coronary artery without angina pectoris; G43.909 Migraine, unspecified, not intractable, without status migrainosus; M19.90 Unspecified osteoarthritis, unspecified site; G89.29 Other chronic pain; M54.9 Dorsalgia, unspecified; R29.6 Repeated falls; Z87.440 Personal history of urinary (tract) infections; Z79.82 Long term (current) use of aspirin; Z79.51 Long term (current) use of inhaled steroids; Z79.899 Other long term (current) drug therapy; Z95.5 Presence of coronary angioplasty implant and graft
CPT/HCPCS: 36415; 36416; 51701; 70450; 71045; 72125; 80048; 80053; 81003; 81015; 82533; 82550; 83605; 83735; 84439; 84443; 84484; 85007; 85025; 85027; 87086; 93005; 93306; 94640; 96361; 96365; 96366; 96375; A4353; G0378; J0696; J3370; J7626

== ENCOUNTER 2019-04-29 13:09 | Emergency (ER) | payer MEDICARE, BC ==
[2019-04-29 14:11] LABS: #Basophils 0.1 thou/uL (0.0-0.2); #Eosinphils 0.6 thou/uL (0.0-0.7); #Lymphocytes 2.5 thou/uL (1.20-3.40); #Monocytes 0.7 thou/uL (0.11-0.59); #Neutrophils 5.5 thou/uL (1.40-6.50); %Basophils 1.1 % (0.0-1.0); %Eosinophils 6.1 % (0.0-10.0); %Lymphocytes 26.8 % (21.0-51.0); %Monocytes 7.6 % (0.0-10.0); %Neutrophils 58.4 % (42.0-75.0); Hemoglobin 12.7 g/dL (12.0-16.0); Mean Corpuscular HGB CONC 30.6 g/dL (32.0-36.0); Mean Corpuscular Hemoglobin 29.7 pg (27.0-31.0); Mean Corpuscular Volume 96.9 fL (78.0-98.0); Mean Platelet Volume 7.7 fL (7.4-10.4); Platelet Count 297 thou/uL (130-400); RBC Distribution Width 13.5 % (11.5-14.5); White Blood Cell (WBC) Count 9.5 thou/uL (4.8-10.8)
[2019-04-29 14:28] LABS: Bacteria/HPF None Seen HPF (None Seen); Bilirubin Negative (Negative); Blood, Urine Negative (Negative); Clarity Clear (Clear); Glucose, Urine (Dipstick) Normal (Negative); Leukocyte Negative Leu/uL (Negative); Nitrite 1+ (Negative); Protein, Urine (Dipstick) Negative (Neg-Trace); RBC/HPF 0-3 HPF (0-3); Squamous Epithelial 0-3 HPF (0-3); Urobilinogen Normal mg/dL (Less than 2); WBC/HPF 0-3 HPF (0-3)
--- NOTE | 2019-04-29 14:35 | RAD ---
SINGLE VIEW OF THE CHEST: COMPARISON: 04/25/2019. HISTORY: Altered mental status. FINDINGS: A single view of the chest shows a normal-size cardiomediastinal silhouette with atherosclerotic calc ifications in the aorta. The patient is status post aortic valve repair. There is no evidence of co nsolidation, mass, or pleural effusion. IMPRESSION: No evidence of acute cardiopulmonary disease. POS: CET
[2019-04-29 14:40] LABS: ALT (SGPT) 14 U/L (8-55); AST (SGOT) 18 U/L (5-34); Albumin 3.6 g/dL (3.4-4.8); Alkaline Phosphatase 101 U/L (40-110); Anion Gap 9 mmol/L (10-20); BUN (Urea Nitrogen) 11 mg/dL (9.8-20.1); Bilirubin, Total 0.6 mg/dL (0.2-1.2); CK (CPK) 76 U/L (29-168); Calc. Creatinine Clearance 0 mL/min (70-130); Calcium 9.4 mg/dL (7.8-10.44); Carbon Dioxide 32 mmol/L (23-31); Chloride 106 mmol/L (98-107); Estimated GFR-MDRD 67; Glucose 103 mg/dL (83-110); Potassium 3.7 mmol/L (3.5-5.1); Protein, Total 6.6 g/dL (6.0-8.3); Sodium 143 mmol/L (136-145)
== END 2019-04-29 16:59 | disposition home or self-care (01) ==
LOC: ERS 13:09
DX: R53.1 Weakness (principal); I11.0 Hypertensive heart disease with heart failure; I50.9 Heart failure, unspecified; I25.10 Atherosclerotic heart disease of native coronary artery without angina pectoris; E03.9 Hypothyroidism, unspecified; G43.909 Migraine, unspecified, not intractable, without status migrainosus; F32.9 Major depressive disorder, single episode, unspecified
CPT/HCPCS: 36415; 51701; 71045; 80053; 81003; 81015; 82550; 84443; 84484; 85025; 87086; A4353

== ENCOUNTER 2019-07-04 07:59 | Inpatient (IN) | payer MEDICARE, BC, OTHER ==
[2019-07-04 09:20] LABS: Actual Bicarbonate (HCO3a) 17.5 mEq/L (22-28); Analyzer IN Cardio ER; Base Excess (BEa) -6.7 mEq/L (-2.0 to +3.0); CO2 Tension 31.2 mmHg (35.0-45.0); Calcium, Ionized 1.08 mmol/L (1.12-1.30); Carboxyhemoglobin (COHb) 0.3 gm% (0.0-3.0); Hemoglobin (Hb) 12.6 g/dL (12.0-16.0); O2 Tension (PaO2) 114.2 mmHg (> 60.0); Potassium - ABG Lab 3.57 mmol/L (3.70-5.30); pH, Arterial 7.37 (7.35-7.45)
[2019-07-04 09:21] LABS: Puncture Site LRA
[2019-07-04] MEDS ORDERED: Fentanyl BOLUS 250 ML IVPB PRN (09:43)
[2019-07-04] MEDS ORDERED: Propofol BOLUS 1,000 MG/100 ML VIAL IV PRN (09:43)
[2019-07-04] MEDS ORDERED: Lorazepam 2 MG/ML VIAL SLOW IVP PRN (09:43)
[2019-07-04] MEDS ORDERED: fentaNYL Citrate/PF 2,000 MCG in Sodium Chloride 0.9% 60 ML IV SCH (09:43)
[2019-07-04] MEDS ORDERED: cefTRIAXone\\ROCEPHIN 1 GM in Sodium Chloride 0.9% 100 ML IVPB SCH (09:45)
[2019-07-04] MEDS ORDERED: Azithromycin 500 MG in Sodium Chloride 0.9% 250 ML 250 ML IVPB SCH (09:45)
[2019-07-04 09:53] VITALS: BMI 24.2
[2019-07-04] MEDS: Sodium Chloride 0.9% 1,000 ML IV SCH ×3 (10:09→20:11)
[2019-07-04] MEDS ORDERED: Norepinephrine 8 MG in Dextrose 5% in Water 242 ML IVPB PRN (12:47)
[2019-07-04] MEDS ORDERED: CCU Electrolyte Replacement 1 EACH IVPB SCH (13:23)
[2019-07-04] MEDS ORDERED: Potassium Chloride 40 MEQ in Premix Bag 1 BAG IVPB PRN (13:27)
[2019-07-04] MEDS ORDERED: Potassium Chloride 40 MEQ in Sodium Chloride 0.9% 250 ML 250 ML IVPB PRN (13:27)
[2019-07-04] MEDS ORDERED: Potassium Phosphate 12 MMOL in Sodium Chloride 0.9% 250 ML 250 ML IV PRN (13:27)
[2019-07-04] MEDS ORDERED: Potassium Phosphate 15 MMOL in Sodium Chloride 0.9% 250 ML 250 ML IV PRN (13:27)
[2019-07-04] MEDS ORDERED: Potassium Chloride 20 MEQ TAB PO PRN (13:27)
[2019-07-04] MEDS ORDERED: Potassium Phosphate 9 MMOL in Sodium Chloride 0.9% 100 ML IVPB PRN (13:27)
[2019-07-04] MEDS ORDERED: Magnesium Oxide 400 MG TAB PO PRN ×2 (13:27)
[2019-07-04] MEDS ORDERED: CCU ELECTROLYTE REPLACEMENT PROTOCOL FS PRN (13:27)
[2019-07-04] MEDS ORDERED: Magnesium 2 GM/50 ML 2 GM in Premix Bag 1 BAG IVPB PRN (13:27)
[2019-07-04] MEDS ORDERED: PHOS-NAK 1 PKT PACK PO PRN ×2 (13:27)
--- NOTE | 2019-07-04 15:55 | CON ---
DATE OF CONSULTATION: 07/04/2019 CHIEF COMPLAINT: Respiratory failure with possible COVID-19. PRESENT ILLNESS: The patient is an 84-year-old female, resident of [facility]. She presented to [facility] today with complaints of increasing shortness of breath and cough. It was reported that her oxygen saturation was 80% on nonrebreather at the time of arrival. They reported her inability to give a history per the physician documentation, although the nurse documentation reflected that the patient was awake and oriented and able to follow commands. While there at [facility], the patient was deemed in imminent respiratory failure and intubated. COVID-19 screen was obtained. The patient is transferred to us for ongoing medical care. The patient has not had any travel, but is in residents where other individuals have known to contact COVID-19. She is currently intubated in the ICU. She is able to nod her head to simple questions, but otherwise no history can be obtained, so for review of the records sent from [facility]. SOCIAL HISTORY: The patient is an 84-year-old female. There is no records sent from the nursing care facility. I have not been able to locate her routine home medication list. It is reported that she has a history of coronary stents, but no other information is available. PAST MEDICAL HISTORY: Remarkable per the chart only for heart stents. FAMILY HISTORY: Noncontributory. REVIEW OF SYSTEMS: Unobtainable. PHYSICAL EXAMINATION: VITAL SIGNS: Blood pressure currently in the intensive care unit is 109/60, heart rate 78, respiratory rate 25. She is orally intubated receiving tidal volume 450 with FiO2 of 40%. Her saturation is 99% to 100%. She is on low-dose sedation and is also on low-dose Levophed. GENERAL: She will nod her head to simple questions and denies pain. HEENT: Shows no icterus. Pupils are reactive. I cannot evaluate her oropharynx. NECK: Without adenopathy and supple to movement. There is no thyromegaly. LUNGS: Show coarse rhonchi on the right. There is no wheezing. She is assisting the ventilator and has spontaneous efforts above the right. HEART: Regular rate and rhythm. I have a difficult time hearing S1 and S2 due to her lung sounds. ABDOMEN: Soft. There is no organomegaly. Bowel sounds are normal. : Deferred. EXTREMITIES: Show no cyanosis or clubbing. She has trace ankle edema. She has central line in the right femoral vein. She will senior planning manager and move all extremities to command. LABORATORY DATA: Record sent from [facility] includes normal BNP. White count 6800, hemoglobin 13.6 with hematocrit of 41.6, platelet count 176,000. She had a normal differential. Electrolytes include sodium 138, potassium 4.7, chloride 102, CO2 of 28, glucose 148, BUN 23, creatinine 1.2. Calculated GFR is 45. Albumin 3.2. CK and CK-MB were negative. Troponin was 3.96. Lactic acid was 3.3. D-dimer was 8. Blood gas following intubation included pH 7.31, pCO2 of 38, pO2 of 364, bicarbonate of 19. This reflects mild respiratory acidosis with normal alveolar to arterial oxygen gradient. Her chest x-ray is not available for review, but reportedly shows cardiac silhouette of normal size. There is reported to be patchy peripheral areas of consolidation, greater than on the prior film of 2017. IMPRESSION: 1. Hypoxic respiratory failure in an 84-year-old, who lives at a long-term care facility where individuals are known to be infected with COVID-19. Index of suspicion is high. She is receiving ventilatory support and we will continue this as well as empiric antibiotics until her COVID screen returns. 2. History of coronary artery disease. 3. Remaining history unclear/unknown at this time. We will seek additional medical record from the nursing care facility. PLAN: She is currently intubated, receiving ventilatory support. She is on fluid resuscitation and low-dose pressors as well as low-dose sedation. Empiric antibiotic therapy has been provided. Per staff, I know benefits to azithromycin in a longterm population and feel that if she needs antibiotic, I would go with Lesn. She is receiving gentle fluids. We will try to get additional medical record for review. In the past, the patient had been DNR status and this will be confirmed with the family and if appropriate, we would make a DNR status in the event of a cardiopulmonary arrest. Additional intervention will be based on her clinical response. She is almost guaranteed to need change of her central line from a femoral site to a subclavian site. Prognosis is guarded given the patient's age and medical instability. Thank you for this consultation. Job ID: [id number]
[2019-07-04] MEDS: Piperacillin/Tazobactam 3.375 GM in Sodium Chloride 0.9% 100 ML IVPB SCH ×2 (17:34→23:16)
--- NOTE | 2019-07-04 19:13 | HP ---
PRIMARY CARE PHYSICIAN: Home Johnson. CHIEF COMPLAINT: Shortness of breath. HISTORY OF PRESENT ILLNESS: The patient is a very pleasant 84-year-old female, who was transferred from [facility], who initially came into the hospital with hypoxia. She was found to be on a non-rebreather with a saturations of 80%. At this time, the ER doctor stated that the patient looked very uncomfortable and underwent intubation. They did not have her code status at that time. This was not sent by the [facility]. The patient most likely was COVID positive, suspicion given the fact that she was at the [facility] that she has been having recent outbreaks. She was then transferred here, intubated for further evaluation. She was on propofol and had a low blood pressure and then was started on Levophed. PAST MEDICAL HISTORY: UTIs, dyslipidemia, CAD, migraine headaches, osteoarthritis, chronic back pain, frequent falls, systolic heart failure with EF 25%. SURGICAL HISTORY: She has had a cholecystectomy, hysterectomy, cervical spine surgery, back surgery, right hip surgery. MEDICATIONS: Per the nursing staff, she is on; 1. Atorvastatin 10 mg daily. 2. Levothyroxine 75 mcg daily. 3. Pregabalin 75 mg t.i.d. 4. Potassium 40 mEq daily. 5. Omeprazole 40 mg daily. 6. Lasix 40 mg daily. 7. Carvedilol 3.125 b.i.d. 8. Buspirone 7.5 b.i.d. 9. Aspirin 81 mg daily. FAMILY HISTORY: Mother of rectal cancer. Father was killed in a motor vehicle accident. ALLERGIES: NO KNOWN DRUG ALLERGIES. SOCIAL HISTORY: She resides in a [facility], [place]. She currently denies any alcohol use or drug use, this is per documentation. She is currently intubated. No alcohol use, drug use, or smoking history. CODE STATUS: I will call the family to get code status. REVIEW OF SYSTEMS: Unable to obtain. PHYSICAL EXAMINATION: VITAL SIGNS: As of the following; temperature of 98.8, heart rate 83, blood pressure 110/59, respirations 24. She is currently vented. I did not examine the patient since given the COVID crisis. She has been examined by the blend technician. LABORATORY DATA: Reviewed. She had lactic acid of 3.3. She had also elevated troponin of 3, we will trend that. Her BUN was 23, creatinine 1.2, potassium of 4.7. CK-MB was negative. D-dimer was 8. Her blood gas after intubation was 7.31, CO2 of 38, PO2 of 364, bicarb of 19. CBC; WBCs of 6000, hemoglobin of 13.6, hematocrit of 41.6, and platelets of 176. Sodium of 138, potassium 4.7, BUN of as I mentioned 23, creatinine of 1.2, chloride of 102, bicarb of 28. IMAGING STUDIES: Chest x-ray, again, we do not have a chest x-ray. We will order one for this morning. However, I was told by the ER doctor that she had peripheral bilateral infiltrates. ASSESSMENT AND PLAN: The patient is a very pleasant 84-year-old female, who presents to the hospital for shortness of breath. 1. Acute hypoxic respiratory failure, most likely COVID positive. I will start her on hydroxychloroquine NG tube. Start her on broad-spectrum antibiotics. We will check chest x-ray in the morning. 2. Elevated troponins. We will start her on some Lovenox prophylactically. I am not sure if this is secondary to myocarditis versus underlying cardiac etiology since she has a history of systolic heart failure and also stents versus a possible pulmonary embolism. 3. Elevated lactic acidosis, most likely secondary to her underlying disease. 4. Deep venous thrombosis prophylaxis. We will put the patient again on Lovenox full dose. We will talk with the family to get code status readdressed. Job ID: [id number]
[2019-07-04 20:00] LABS: Troponin I 7.371 ng/mL (< 0.028)
[2019-07-04] MEDS: Atorvastatin Calcium 10 MG TAB PO SCH (21:33)
[2019-07-04] MEDS: Enoxaparin Sodium 80 MG/0.8 ML SYRINGE SC SCH (21:33)
[2019-07-04] MEDS: Propofol 1,000 MG/100 ML VIAL IV PRN (23:16)
[2019-07-05 00:18] LABS: Troponin I 7.462 ng/mL (< 0.028)
[2019-07-05 03:50] LABS: Phosphorus 2.2 mg/dL (2.3-4.7)
[2019-07-05 03:53] LABS: ALT (SGPT) 42 U/L (8-55); AST (SGOT) 65 U/L (5-34); Albumin 2.6 g/dL (3.4-4.8); Alkaline Phosphatase 233 U/L (40-110); Anion Gap 12 mmol/L (10-20); BUN (Urea Nitrogen) 13 mg/dL (9.8-20.1); Bilirubin, Total 1.6 mg/dL (0.2-1.2); Calc. Creatinine Clearance 51 mL/min (70-130); Calcium 7.5 mg/dL (7.8-10.44); Carbon Dioxide 21 mmol/L (23-31); Chloride 110 mmol/L (98-107); Estimated GFR-MDRD 63; Globulin 2.4 g/dL (2.4-3.5); Glucose 134 mg/dL (83-110); Magnesium 1.7 mg/dL (1.6-2.6); Potassium 3.4 mmol/L (3.5-5.1); Sodium 140 mmol/L (136-145)
[2019-07-05 04:07] LABS: Troponin I 8.312 ng/mL (< 0.028)
[2019-07-05 04:10] LABS: Band 17 % (5-11); Hemoglobin 11.6 g/dL (12.0-16.0); Lymphocytes 7 % (21-51); MDiff Complete? YES; Mean Corpuscular Hemoglobin 30.2 pg (27.0-31.0); Mean Corpuscular Volume 94.2 fL (78.0-98.0); Mean Platelet Volume 9.4 fL (7.4-10.4); Metamyelocyte 1 % (0-0); Monocytes 2 % (0-10); Neutrophil 73 % (42-75); Platelet Count 119 thou/uL (130-400); Platelet Morphology Comment Appears Decreased; RBC Distribution Width 14.4 % (11.5-14.5); RBC Morphology Normal; Red Blood Cell (RBC) Count 3.84 mill/uL (4.20-5.40); White Blood Cell (WBC) Count 28.4 thou/uL (4.8-10.8)
[2019-07-05] MEDS ORDERED: Aspirin 325 MG TAB PER TUBE SCH (04:30)
[2019-07-05] MEDS: Levothyroxine Sodium 75 MCG TAB PO SCH (05:37)
[2019-07-05] MEDS: Piperacillin/Tazobactam 3.375 GM in Sodium Chloride 0.9% 100 ML IVPB SCH ×4 (05:38→23:13)
[2019-07-05] MEDS: Sodium Chloride 0.9% 1,000 ML IV SCH ×2 (05:40→16:12)
--- NOTE | 2019-07-05 08:15 | RAD ---
PORTABLE CHEST: COMPARISON 04/29/2019. INDICATION: Intubation followup. CCU followup. FINDINGS: ET tube is adequately positioned. There is a patchy infiltrate in the right upper lobe. NG tube is in place with tip passing through the EG junction and not visualized on this film. Cardiomegaly and mild vascular engorgement. IMPRESSION: Right upper lobe infiltrate. POS: [facility]
[2019-07-05] MEDS ORDERED: Prevnar 13-Val Conj/PF 0.5 ML SYRINGE IM ONE (09:00)
[2019-07-05] MEDS: Enoxaparin Sodium 80 MG/0.8 ML SYRINGE SC SCH ×2 (09:30→20:26)
[2019-07-05] MEDS ORDERED: Azithromycin 500 MG in Sodium Chloride 0.9% 250 ML 250 ML IVPB SCH (10:00)
--- NOTE | 2019-07-05 10:44 | PRG ---
DATE OF SERVICE: 07/05/2019 SUBJECTIVE: Qing Dutta this morning, remains in the ICU, intubated on the vent. X-ray shows right upper lobe infiltrate. [facility] were [facility] load of COVID positive patient. She is weak. She was recently here for bloody stools and UTI. She is intubated in the ER, unable to get additional information. Though, she has known history of coronary artery disease, cardiomyopathy, hypothyroidism, migraine headaches, degeneration. She is 84 years old. OBJECTIVE: VITAL SIGNS: This morning blood pressure 90/60, pulse rate of 80, and saturations 100%. CHEST: No wheezing or crackles. CARDIAC: Normal S1 and S2. No gallops. ABDOMEN: No masses. LABORATORY DATA: White count 28,000, hemoglobin and hematocrit 11 and 36, platelet count is low at 119. Glucose elevated. Renal function normal. Troponin is elevated. ASSESSMENT: 1. Pneumonia, rule out COVID viral infection. 2. Advanced age. 3. Cardiomyopathy. PLAN: Start on Zithromax. Continue Zosyn. Supportive care, nutrition. We will follow. One-half hour of critical time. Job ID: [id number]
[2019-07-05] MEDS ORDERED: Potassium Chloride 40 MEQ, Magnesium Sulfate 2 GM in Sodium Chloride 0.9% 250 ML 250 ML IVPB ONE (11:30)
[2019-07-05] MEDS: Morphine 2 MG/ML SYRINGE SLOW IVP PRN ×2 (15:37→23:13)
--- NOTE | 2019-07-05 16:40 | PDOC.PALFU ---
Palliative Care Follow-up Note Palliative Care to initiate contact after findings of Covid results.
[2019-07-05] MEDS ORDERED: Hydroxychloroquine Sulfate 200 MG TAB PO SCH (17:13)
--- NOTE | 2019-07-05 17:25 | CON ---
DATE OF CONSULTATION: 07/05/2019 PRIMARY COMPUTER SECURITY SPECIALIST: Apparently, Willie survey research analyst likely Dr. Tellez. REASON FOR CONSULTATION: Increased troponin in the setting of possible COVID infection. HISTORY OF PRESENT ILLNESS: Ms. Dutta is an 84-year-old woman. The patient has a history of transcutaneous aortic valve replacement that was done apparently in [place] I believe in 2016. She had a recent echocardiogram showing that was functioning normally. She was brought to the hospital with respiratory failure and underwent intubation. Cardiac enzymes were obtained and they were elevated. The patient had been at [facility] with hypoxia on a non-rebreather, oxygen saturation over 80%. The patient was sent from the custodial. Apparently, there was no code status at that point. Later, the code status has been made do not resuscitate. She was started on Levophed. PAST SURGICAL HISTORY: Previous transcutaneous aortic valve replacement. ALLERGIES: NONE KNOWN. SOCIAL HISTORY: Lives in [facility] in [place], where there have been multiple cases of the COVID infections. PHYSICAL EXAMINATION: I did not examine the patient since COVID crisis. Recommendations are tried her to minimize staff contact. Pt from the nursing station, the patient is resting comfortably on the ventilator. Blood pressure 106/69, pulse is 80. PERTINENT LABORATORY DATA: Troponin peak is 8.3. Potassium 3.4. Arterial blood gas apparently drawn at the other hospital and had severe hypoxemia. IMAGING STUDIES: Chest x-ray, diffuse interstitial infiltrates. Echocardiogram done on April 26, 2019 revealed an ejection fraction of 55% to 60%, normally functioning transcutaneous aortic valve. She had of a bioprosthetic valve, but it is found there is only an 18 mm gradient across the valve, which is really a very good result for transcutaneous valve. EKG, no acute changes. There is a left anterior fascicular block and intraventricular conduction delay. No ST changes. ASSESSMENT: 1. Severe hypoxemia. 2. Possible COVID infection. 3. Recent normal left ventricular function. PLAN: 1. Agree with Lovenox. 2. Supportive care. 3. Currently, do not resuscitate. 4. No other recommendations at this time. Job ID: [id number] MTDD
[2019-07-05] MEDS: Atorvastatin Calcium 10 MG TAB PO SCH (20:26)
[2019-07-05] MEDS: Propofol 1,000 MG/100 ML VIAL IV PRN (20:27)
[2019-07-06] MEDS: Sodium Chloride 0.9% 1,000 ML IV SCH ×2 (02:41→12:35)
[2019-07-06 04:40] LABS: ALT (SGPT) 31 U/L (8-55); AST (SGOT) 67 U/L (5-34); Albumin 2.5 g/dL (3.4-4.8); Alkaline Phosphatase 193 U/L (40-110); Anion Gap 11 mmol/L (10-20); BUN (Urea Nitrogen) 11 mg/dL (9.8-20.1); Bilirubin, Total 1.2 mg/dL (0.2-1.2); Calc. Creatinine Clearance 57 mL/min (70-130); Calcium 7.6 mg/dL (7.8-10.44); Carbon Dioxide 20 mmol/L (23-31); Chloride 114 mmol/L (98-107); Estimated GFR-MDRD 72; Globulin 2.6 g/dL (2.4-3.5); Glucose 104 mg/dL (83-110); Potassium 3.5 mmol/L (3.5-5.1); Protein, Total 5.1 g/dL (6.0-8.3); Sodium 141 mmol/L (136-145)
[2019-07-06] MEDS: Levothyroxine Sodium 75 MCG TAB PO SCH (05:24)
[2019-07-06] MEDS: Piperacillin/Tazobactam 3.375 GM in Sodium Chloride 0.9% 100 ML IVPB SCH ×2 (05:24→12:36)
--- NOTE | 2019-07-06 07:08 | CON ---
DATE OF CONSULTATION: HISTORY OF PRESENT ILLNESS: Qing Dutta is an 84-year-old white female, resident at [place], who is admitted with hypoxemia and respiratory failure. She has a cardiac history with severe aortic stenosis. She was admitted in July 2015, with increased shortness of breath and 3 episodes of syncope. She underwent cardiac catheterization, which revealed mild coronary artery disease with less than 50% proximal LAD stenosis, mild luminal irregularities in the proximal circumflex and segmental 50% stenosis in the mid right coronary artery. She was found to have aortic stenosis with a valve area of 0.5 cm2. She underwent balloon valvuloplasty by Dr. Tellez with post valvuloplasty aortic valve area of 0.8 cm2. She then underwent TAVR on December 06, 2015 at [facility] in [place]. She had improvement in her strength after that and did not have much shortness of breath. She has had falls in August 2017 and September 2017, suffering right hip fractures on both occasions. She was admitted with sepsis in December 2017, secondary to urinary tract infection. Echocardiogram during that admission revealed ejection fraction of 20% to 25% with qrlb-wc-qqrinump mitral regurgitation, aortic valve area was 1.09 cm2. She was again admitted in March 2019 with falls and weakness. Echocardiogram at that time revealed ejection fraction of 55% to 60% with peak gradient across aortic valve 18 mm. No aortic insufficiency. Mild tricuspid regurgitation. She was admitted to [facility] with O2 saturation of 80%. She was intubated, even though she has DNR as her code status. That was not sent by the [facility] to the emergency room. She is highly suspicious for COVID with multiple residents at her facility developing COVID-19 infection. PAST MEDICAL HISTORY: Remarkable for mild coronary artery disease, aortic stenosis, improvement in her ejection fraction to 55% and 60% on echo in March. OPERATIONS: TAVR, cholecystectomy, hysterectomy, cervical spine surgery, back surgery, right hip surgery, breast reduction, and foot surgery. SOCIAL HISTORY: She does not smoke or drink. FAMILY HISTORY: Unremarkable. REVIEW OF SYSTEMS: Unobtainable. MEDICATIONS: 1. Aspirin 81 b.i.d. 2. Atorvastatin 10 at bedtime. 3. Tessalon 100 mg t.i.d. 4. Budesonide one vial neb b.i.d. 5. Carvedilol 3.125 b.i.d. 6. Perforomist neb b.i.d. 7. Furosemide 40 daily. 8. Mucinex 600 mg b.i.d. 9. Levothyroxine 75 mcg daily. 10. Omeprazole 40 daily. 11. KCl 40 mEq daily. 12. Lyrica 75 t.i.d. 13. Tramadol 50 b.i.d. 14. Triazolam 0.25 mg at bedtime p.r.n. ALLERGIES: NONE. PHYSICAL EXAMINATION: VITAL SIGNS: Blood pressure 105/64 and pulse of 80. HEENT: PERRL. NECK: Supple. CHEST: Reveals crackles and expiratory wheezing on the right. CARDIOVASCULAR: S1 and S2 normal without any S3 or S4. There is a 1/6 systolic murmur. ABDOMEN: Normal bowel sounds. EXTREMITIES: Reveal trace pretibial edema. NEUROLOGIC: The patient will open her eyes, but is sedated with propofol. LABORATORY DATA: EKG reveals sinus arrhythmia, poor R-wave progression consistent with possible anterolateral infarction. Sodium 140, potassium 3.4, chloride 110 , carbon dioxide 24, BUN 13, and creatinine 0.75. Troponin I is up to 8.312. Hemoglobin 11.6, hematocrit 36.2, white count 28,400, and platelets 119,000. IMPRESSION: 1. Respiratory failure, probable COVID-19 with final results pending. 2. Status post transcatheter aortic valve replacement. 3. Normal left ventricular function on last echo in March 2019 with ejection fraction of 55% to 60%. 4. Mild coronary artery disease. 5. Rek-RG-yhglslnpe myocardial infarction, probably type 2. 6. History of urosepsis in the past. 7. Hypothyroidism. 8. Hyperlipidemia. 9. History of hypertension. PLAN: The patient's last ejection fraction was normal at 55% to 60%. BNP will be obtained. Her last one in March was 59.9. Job ID: [id number] MTDD
[2019-07-06] MEDS ORDERED: Hydroxychloroquine Sulfate 400 MG, Simple Syrup 8 ML, Water For Irrigation 8 ML PER TUBE SCH (10:00)
--- NOTE | 2019-07-06 10:04 | PRG ---
DATE OF SERVICE: 07/06/2019 SUBJECTIVE: An 84-year-old female, intubated in the vent. She is COVID positive. OBJECTIVE: VITAL SIGNS: Pulse 80, blood pressure 123/64, sats 96%. CHEST: Bilateral crackles. CARDIAC: Normal S1, S2. ABDOMEN: No masses. LABORATORY DATA: BNP is elevated 107.4. X-ray r upper lobe infiltrate. ASSESSMENT: 1. Respiratory failure. 2. Pneumonia. 3. COVID positive. 4. Congestive heart failure. PLAN: Zithromax and Plaquenil on board. Supportive care. We will start nutrition. Pulmonary will follow. Family to make a decision. She is a DNR status. start_ nutrition. One half hour critical time. Job ID: [id number] MTDD
[2019-07-06] MEDS: Enoxaparin Sodium 80 MG/0.8 ML SYRINGE SC SCH (10:40)
[2019-07-06] MEDS ORDERED: Azithromycin 500 MG in Sodium Chloride 0.9% 250 ML 250 ML IVPB SCH (12:00)
[2019-07-06] MEDS: Morphine 2 MG/ML SYRINGE SLOW IVP PRN ×2 (12:38→17:45)
[2019-07-06 16:01] VITALS: BP 125/82
--- NOTE | 2019-07-06 17:05 | PDOC.PALPN ---
Palliative Progress Note - Subjective Mechanical ventilation, sedation - Objective Vital Signs: Vital Signs - Most Recent Temp Pulse Resp BP Pulse Ox 98.8 F 88 14 125/82 95 07/06/19 12:00 07/06/19 15:58 07/06/19 14:00 07/06/19 15:58 07/06/19 07:39 - Physical Exam Constitutional: encephalitic, ill appearing HEENT: moist MMs, sclera anicteric Deviation from normal: mechanical ventilation Cardiovascular: RRR Gastrointestinal: non-tender, incontinent Genitourinary: ventura catheter Musculoskeletal: diffuse muscle atrophy Deviation from normal: sedated Skin: fragile Deviation from normal: encephalopathic - Assessment (1) Palliative care encounter Code(s): Z51.5 - ENCOUNTER FOR PALLIATIVE CARE Status: Acute (2) Respiratory failure requiring intubation Code(s): J96.90 - RESPIRATORY FAILURE, UNSP, UNSP W HYPOXIA OR HYPERCAPNIA Status: Acute (3) Sepsis Code(s): A41.9 - SEPSIS, UNSPECIFIED ORGANISM Status: Acute (4) Acute encephalopathy Code(s): G93.40 - ENCEPHALOPATHY, UNSPECIFIED Status: Resolved - Plan Plan: Lengthy conversation with patient three children Ajay Trant [phone] Mino Trant [phone] Awilda [phone] Ajay and Mino initially agreed to compassionate extubation as they do not believe the current care and mechanical ventilation is in line with their mothers wishes. Awilda understanding, and although grieving states she helped her mother with her OOHDNAR in the past, and agrees to compassionately extubate. Dr Tucker notified and confirmed compassionate extubation with comfort measures. Will place orders and ensure comfort measures in place. [facility] aware of families wishes and will follow up for emotional and spiritual support. [75] minutes spent on this encounter with >50% of the time in counseling and coordination of care. - ROS Non Response: due to endotracheal tube, due to mental status
[2019-07-06 17:12] VITALS: TEMP 98.9
[2019-07-06] MEDS ORDERED: Morphine 2 MG/ML SYRINGE SLOW IVP PRN (18:04)
[2019-07-06] MEDS ORDERED: Lorazepam 2 MG/ML VIAL SLOW IVP PRN (18:06)
[2019-07-06] MEDS ORDERED: Hyoscyamine Sulfate SL 0.125 mg Tablet PO PRN (18:07)
[2019-07-06] MEDS ORDERED: Hydroxychloroquine Sulfate 200 MG TAB PO SCH (21:00)
[2019-07-06] MEDS ORDERED: Hydroxychloroquine Sulfate 200 MG, Simple Syrup 4 ML, Water For Irrigation 4 ML PER TUBE SCH (21:00)
[2019-07-07] MEDS ORDERED: Azithromycin 500 MG in Sodium Chloride 0.9% 250 ML 250 ML IVPB SCH (09:00)
--- NOTE | 2019-07-07 12:45 | DIS ---
DATE OF ADMISSION: 07/04/2019 DATE OF DISCHARGE: 07/06/2019 DISCHARGE DIAGNOSES: As of the following; 1. Acute hypoxic respiratory failure. 2. COVID positive. 3. Chronic obstructive pulmonary disease. 4. Elevated troponins. 5. Elevated lactic acidosis. 6. Ebc-HT-fjircjy elevation myocardial infarction, probably type 2. HOSPITAL COURSE: The patient is an 84-year-old female who initially transferred from [facility]. She was residing at [place] when she came in with shortness of breath. She was initially on non-rebreather, was 80%, and then was intubated. Family stated that the patient was DNAR. 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 The patient initially was put on Levophed for low blood pressure and on broad-spectrum antibiotics. She did have elevated troponins, was seen by Cardiology who recommended for monitoring and no current intervention. Family eventually decided to withdraw care given the fact that she was a DNAR. The patient at this time was extubated, and palliative care was involved in the patient's communication between the patient and the family. At this time, the time of was 1825 hours. The patient's son, Ajay Dutta, was notified about this. Job ID: [id number]
--- NOTE | 2019-07-07 20:06 | PQF ---
RAHUL FERNANDEZ KARISHMA [id number] [facility]-C11 [id number] CLINICAL DOCUMENTATION IMPROVEMENT CLARIFICATION FORM: ICD-10 Updated PLEASE DO AN ADDENDUM TO THE PROGRESS NOTE WITH ANY DOCUMENTATION UPDATES OR ADDITIONS AND CARRY THROUGH TO DC SUMMARY. THANK YOU. DATE: 07/07/2019 ATTN: DR. Mac PONCE Please exercise your independent, professional judgment in responding to the clarification form. Clinical indicators are provided on the bottom of this form for your review. Please check appropriate box(s): [ X] Empirically treating Gram Negative Pneumonia SUSPECTED [ ] Empirically treating Anaerobic Pneumonia [ ] Pneumonia secondary to (specify organism / underlying disease) [ ] Simple Pneumonia [ ] Other diagnosis [ ] Unable to determine In addition, please specify: Present on Admission (POA): [ X ] Yes [ ] No [ ] Unable to determine For continuity of documentation, please document condition throughout progress notes and discharge summary. Thank You. CLINICAL INDICATORS - SIGNS / SYMPTOMS / LABS / RESULTS AND LOCATION IN MR 07/04 WBC 28.4, BANDS 17 4/ H&P (BHIMJI) TRANSFER FROM [facility], INITIALLY CAME INTO HOSPITAL W/ HYPOXIA , SATURATIONS AT 80% ON NON-REBREATHER. THE PT WAS MOST LIKELY COVID POSITIVE. SHE WAS TRANSFERRED HERE, INTUBATED. 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 ANDREI (This form is maintained as a part of the permanent medical record) 2014 [employer]. All Rights Reserved [email or web address]
== END 2019-07-06 18:25 | disposition expired | DRG 208 ==
LOC: EDBD → CCU 08:44
PROVIDERS: ADMIT Internal Medicine; ATTEND Internal Medicine
PROC: 0BH17EZ Insertion of Endotracheal Airway into Trachea, Via Natural or Artificial Opening (ICD-10-PCS; principal; 2019-07-04)
PROC: 5A1945Z Respiratory Ventilation, 24-96 Consecutive Hours (ICD-10-PCS; 2019-07-04)
PROC: 3E033XZ Introduction of Vasopressor into Peripheral Vein, Percutaneous Approach (ICD-10-PCS; 2019-07-04)
DX: U07.1 COVID-19 (principal); J96.01 Acute respiratory failure with hypoxia; I21.A1 Myocardial infarction type 2; J15.6 Pneumonia due to other Gram-negative bacteria; I50.22 Chronic systolic (congestive) heart failure; E87.2 Acidosis; I42.9 Cardiomyopathy, unspecified; Z66 Do not resuscitate; E78.5 Hyperlipidemia, unspecified; I25.10 Atherosclerotic heart disease of native coronary artery without angina pectoris; Z51.5 Encounter for palliative care; G43.909 Migraine, unspecified, not intractable, without status migrainosus; E03.9 Hypothyroidism, unspecified; M19.90 Unspecified osteoarthritis, unspecified site; G89.29 Other chronic pain; R29.6 Repeated falls; I11.0 Hypertensive heart disease with heart failure; Z90.710 Acquired absence of both cervix and uterus
CPT/HCPCS: 71045; 80053; 82805; 83735; 83880; 84100; 84484; 85025; 94002; 94003; J0456; J1650; J2060; J2270; J2543; J2704; J3475; J3480; J3490; J7050; J7070